=== PATIENT | female | born 1930 | race Caucasian/White ===

== ENCOUNTER 2019-08-28 11:49 | Emergency (ER) | payer MEDICARE, OTHER ==
[~2019-08-28] VITALS: Ht 162.6 cm; Wt 70.3 kg
--- OUTSIDE RECORDS SUMMARY | ~2019-08-28 | XMS | Encounter Summary ---
Demographics + + + | Address | [address] | | | [place] [address] | + + + | Home Phone | | + + + | Preferred Language | Unknown | + + + | Marital Status | | + + + | Hinduism Affiliation | 1028 | + + + | Race | Unknown | + + + | Ethnic Group | Unknown | + + + Author + + + | Author | [facility] | | | and [place] | + + + | Organization | [facility] | | | and [place] | + + + | Address | Unknown | + + + | Phone | Unavailable | + + + Support + + +---------+ + | Name | Relationship | Address | Phone | + + +---------+ + | Reyes Menon | ECON | Unknown | | + + +---------+ + Care Team Providers + +------+ + | Care Seat Mender Name | Role | Phone | + +------+ + | Bubba Peña MD | PCP | | + +------+ + Encounter Details +--------+ + + + + | Date | Type | Department | Care Team | Description | +--------+ + + + + | 04/25/ | Hospital | [facility] | [place], | Lumbar | | 2017 | Encounter | MED CTR XRAY [address] | MARIELLA Meneses [address] | radiculopathy; | | | | [place] | [address], | Foraminal stenosis | | | | [place] [address] | [place] [address] | of lumbar region; | | | | [phone] | [phone] | Lumbar spinal | | | | | | stenosis; | | | | | 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 | Spondylolisthesis of | | | | | | lumbar region; DDD | | | | | | (degenerative disc | | | | | | disease), lumbar | +--------+ + + + + Social History + +-------+ +--------+------+ | Tobacco Use | Types | Packs/Day | Years | Date | | | | | Used | | + +-------+ +--------+------+ | Never Smoker | | | | | + +-------+ +--------+------+ + +---+---+---+ | Smokeless Tobacco: | | | | | Never Used | | | | + +---+---+---+ + + +---------+ + | Alcohol Use | Drinks/Week | oz/Week | Comments | + + +---------+ + | No | 0 Standard drinks | 0.0 | | | | or equivalent | | | + + +---------+ + + + + | Sex Assigned at | Date Recorded | | | | + + + | Not on file | | + + + + + + + | Job Start Date | Occupation | Industry | + + + + | Not on file | Not on file | Not on file | + + + + + + + + | Travel History | Travel Start | Travel End | + + + + + + | No recent travel history available. | + + documented as of this encounter Last Filed Vital Signs + +---------+ + + | Vital Sign | Reading | Time Taken | Comments | + +---------+ + + | Blood Pressure | 132/80 | 04/25/2017 12:06 PM | | | | | PDT | | + +---------+ + + | Pulse | - | - | | + +---------+ + + | Temperature | - | - | | + +---------+ + + | Respiratory Rate | - | - | | + +---------+ + + | Oxygen Saturation | - | - | | + +---------+ + + | Inhaled Oxygen | - | - | | | Concentration | | | | + +---------+ + + | Weight | - | - | | + +---------+ + + | Height | - | - | | + +---------+ + + | Body Mass Index | - | - | | + +---------+ + + documented in this encounter Medications at Time of Discharge + + + +---------+ + + | Medication | Sig | Dispensed | Refills | Start | End Date | | | | | | Date | | + + + +---------+ + + | aspirin 81 MG | Take 81 mg by mouth | | 0 | | | | tablet | Daily. | | | | | + + + +---------+ + + | calcium-vitamin D | Take 600 mg by | | 0 | | | | 600 mg-200 units per | mouth. | | | | | | tablet | | | | | | + + + +---------+ + + | atorvaSTATin | Take 10 mg by mouth. | | 0 | | | | (LIPITOR) 10 mg | | | | | 9 | | tablet | | | | | | + + + +---------+ + + | Calcium Carbonate | Take by mouth | | 0 | | | | (CALCIUM 600 PO) | Daily. | | | | 9 | + + + +---------+ + + | clopidogrel | Take 75 mg by mouth | | 0 | | | | (PLAVIX) 75 mg | Daily. | | | | 9 | | tablet | | | | | | + + + +---------+ + + | cycloSPORINE | 1 drop. | | 0 | | | | (RESTASIS) 0.05% | | | | | 9 | | ophthalmic emulsion | | | | | | + + + +---------+ + + | famotidine | Daily. | | 1 | 12/11/19 | | | (PEPCID) 20 mg | | | | 17 | 9 | | tablet | | | | | | + + + +---------+ + + | | Take 1,500 mg by | | 0 | | | | Glucosamine-Chondroi | mouth. | | | | 9 | | t-Vit C-Mn | | | | | | | (GLUCOSAMINE-CHONDRO | | | | | | | ITIN) CAPS | | | | | | + + + +---------+ + + | isosorbide | Take 30 mg by mouth | | 0 | | | | dinitrate (ISORDIL) | 4 times daily. | | | | 9 | | 30 MG tablet | | | | | | + + + +---------+ + + | ketotifen | Apply 1 drop to eye. | | 0 | | | | (ZADITOR) 0.025% | | | | | 9 | | ophthalmic solution | | | | | | + + + +---------+ + + | ketotifen | Apply 1 drop to eye | | 0 | 01/17/20 | | | (ZADITOR) 0.025% | 2 times daily. | | | 17 | 9 | | ophthalmic solution | | | | | | + + + +---------+ + + | metoprolol | Take by mouth 2 | | 0 | 11/27/19 | | | tartrate (LOPRESSOR) | times daily. | | | 17 | 9 | | 25 mg tablet | | | | | | + + + +---------+ + + | Multiple | Take 300 mg by mouth | | 0 | | | | Vitamins-Minerals | Daily. | | | | 9 | | (CENTRAL-JESUS PO) | | | | | | + + + +---------+ + + | nitroglycerin | Place 1 tablet under | | 0 | 03/27/20 | | | (NITROSTAT) 0.4 mg | the tongue every 5 | | | 17 | 9 | | SL tablet | (five) minutes as | | | | | | | needed for Chest | | | | | | | pain. Indications: | | | | | | | Acute Angina | | | | | | | Pectoris | | | | | + + + +---------+ + + | nitroglycerin | Place 0.4 mg under | | 0 | 03/14/20 | | | (NITROSTAT) 0.4 mg | the tongue. | | | 16 | 9 | | SL tablet | | | | | | + + + +---------+ + + | simvastatin | Take 10 mg by mouth | | 0 | | | | (ZOCOR) 10 mg tablet | Daily. | | | | 9 | + + + +---------+ + + | UNABLE TO FIND | 3 times daily. Med | | 0 | | | | | Name: Kamilah Ta | | | | 9 | + + + +---------+ + + documented as of this encounter Plan of Treatment +--------+---------+ + + + | Date | Type | Specialty | Care Team | Description | +--------+---------+ + + + | 02/09/ | Office | Cardiology | KarlGarcia, | | | 2019 | Visit | | MD Ashlie ALFARO | | | | | | [place] | | | | | | [id number] | | | | | | | | +--------+---------+ + + + documented as of this encounter Procedures + +--------+ + + + | Procedure Name | Priori | Date/Time | Associated Diagnosis | Comments | | | ty | | | | + +--------+ + + + | FL EPIDURAL STEROID | Routin | 04/25/2017 | Lumbar | Results for this | | INJECTION LUMBAR | e | 11:48 AM | radiculopathy | procedure are in the | | TRANSFORAMINAL | | PDT | Foraminal stenosis | results section. | | | | | of lumbar region | | | | | | Lumbar spinal | | | | | | stenosis | | | | | | Spondylolisthesis of | | | | | | lumbar region DDD | | | | | | (degenerative disc | | | | | | disease), lumbar | | + +--------+ + + + documented in this encounter Results FL OFE Lumbar Transforaminal (04/25/2017 11:48 AM PDT) + + | Specimen | + + | | + + + + ---+ | Narrative | Performed At | + + ---+ | 04/25/2017 | [facility] | | Bilateral Transforaminal Epidural Steroid Injections Diagnosis: Lumbar | [facility] | | radiculopathy ICD-10 Code M54.16 Liz Dominguez [facility] | | fluoroscopy suite for fluoroscopically-guided bilateral L4-L5 | - IMAGING | | transforaminal epidural steroid injections as part of conservative | | | management for chronic pain with lumbar radiculopathy and degenerative | | | disk disease. After informed consent was obtained, the patient lay in | | | the prone position on the fluoroscopy table. The areas were | | | identified under fluoroscopic guidance. The areas were prepped and | | | draped in sterile fashion. A 25-gauge, 1.5-inch needle was inserted | | | into each region and approximately 3 mL of buffered 1% lidocaine was | | | infused. Then, a 22-gauge spinal needle was inserted into the | | | posterior superior transforaminal space bilaterally and advanced into | | | the epidural space under fluoroscopic guidance. Confirmation into the | | | epidural space was obtained with infusion of approximately 1 mL of | | | Omnipaque contrast which showed epidural flow as well as nerve sheath | | | flow. Then, a combination of 2 mL of 1% lidocaine and 2 mL of 6 mg/mL | | | Celestone was infused, divided between the two sides. The patient | | | tolerated the procedure well without complications. Pre- and | | | post-procedure blood pressures were stable. The patient was given | | | verbal as well as written follow-up instructions. Prior to the start | | | of the procedure, the following were performed and/or verified, | | | including correct patient identity, correct site/side marked and | | | visible, agreement on the procedure to be done, correct patient | | | positioning and an accurate procedure consent form. Any safety | | | precautions based on clinical history and/or medication use have been | | | addressed. I personally performed the procedure above. Estimated blood | | | loss: MinimalComplications: NoneFindings: As expectedAnesthesia: | | | Local 1% Lidocaine | | |visible, agreement on the procedure to be done, correct patient | | |positioning and an accurate procedure consent form. Any safety precautions | | |based on clinical history and/or medication use have been addressed. I | | |personally performed the procedure above. | | | | | |Estimated blood loss: Minimal | | |Complications: None | | |Findings: As expected | | |Anesthesia: Local 1% Lidocaine | | | | | | | | + + ---+ + + + + + | Performing | Address | City/State/Zipcode | Phone Number | | Organization | | | | + + + + + | KARIN MERINO | [address] 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 Not | | | | | | | for IV use., | | | | | | + +--------+ +-------+------+------+ +---+---+ | | | +---+---+ + +-------+ +-------+---+---+ | iohexol (OMNIPAQUE 300) 300 | Given | 04/25/20 | 4 mLs | | | | mg/mL injection 4 mL 4 mL, | | 17 11:56 | | | | | Other, ONCE, [facility] 04/25/17 at 1200, | | AM PDT | | | | | For 1 dose | | | | | | + +-------+ +-------+---+---+ +---+---+ | | | +---+---+ + +-------+ +-------+---+---+ | lidocaine (PF) 1% injection 2 | Given | 04/25/20 | 2 mLs | | | | mL 2 mL, Other, ONCE, Shanti | | 17 11:59 | | | | | 04/25/17 at 1200, For 1 dose | | AM PDT | | | | + +-------+ +-------+---+---+ +---+---+ | | | +---+---+ + +-------+ +--------+---+---+ | lidocaine buffered 1% injection | Given | 04/25/20 | 10 mLs | | | | 10 mL 10 mL, Other, ONCE, Shanti | | 17 11:54 | | | | | 04/25/17 at 1200, For 1 dose | | AM PDT | | | | + +-------+ +--------+---+---+ +---+---+ | | | +---+---+ documented in this encounter"
--- OUTSIDE RECORDS SUMMARY | ~2019-08-28 | XMS | Encounter Summary ---
Demographics + + + | Address | [address] | | | [place] [address] | + + + | Home Phone | | + + + | Preferred Language | Unknown | + + + | Marital Status | | + + + | Methodist Affiliation | 1028 | + + + | Race | Unknown | + + + | Ethnic Group | Unknown | + + + Author + + + | Author | [facility] | | | and [place] | + + + | Organization | [facility] | | | and [...] Team Providers + +------+ + | Care Mushroom Farmer Name | Role | Phone | + +------+ + | Bubba Peña MD | PCP | | + +------+ + Encounter Details +--------+ + + + + | Date | Type | Department | Care Team | Description | +--------+ + + + + | 05/06/ | Orders Only | [facility] | Provider, | | | 2019 | | SYSTEM GENERIC OP | MD [address] | | | | | [address] | [place] | | | | | [address] [place], [place] | [place] [address] | | | | | [address] | | | | | | [phone] | | | +--------+ + + + + Social [...] | 02/09/ | Office | Cardiology | Garcia Barajas, | | | 2019 | Visit | | MD Ashlie ALFARO | | | | | | [facility] | | | | | | [address] | | | | | | | | +--------+---------+ + + + documented as of this encounter Visit Diagnoses Not on filedocumented in this encounter"
--- OUTSIDE RECORDS SUMMARY | ~2019-08-28 | XMS | Encounter Summary ---
Demographics + + + | Address | [address] | | | [place] [address] | + + + | Home Phone | | + + + | Preferred Language | Unknown | + + + | Marital Status | | + + + | Alevism Affiliation | 1028 | + + + | Race | Unknown | + + + | Ethnic Group | Unknown | + + + Author + + + | Author | [facility] | | | and [place] | + + + | Organization | [facility] | | | [...] Team Providers + +------+ + | Care Executive Coordinator Name | Role | Phone | + +------+ + PCP | Unavailable | + +------+ + Encounter Details +--------+ + + + + | Date | Type | Department | Care Team | Description | +--------+ + + + + | 12/19/ | Hospital | [facility] | | | | 2006 - | Encounter | MED CTR CANCER | | | | | | MINDY Rios | | | | 01/11/ | | [place] | | | | 2006 | | [address] | | | | | | [phone] | | | +--------+ + + + + Social History + +-------+ +--------+------+ | Tobacco Use | Types | Packs/Day | Years | Date | | | | | Used | | + +-------+ +--------+------+ | Never Assessed | | | | | + +-------+ +--------+------+ + + + | Sex Assigned at [...] AL[place] | | | | | | [place] | | | | | | [address] | | | | | | | | +--------+---------+ + + + documented as of this encounter Visit Diagnoses Not on filedocumented in this encounter"
--- OUTSIDE RECORDS SUMMARY | ~2019-08-28 | XMS | Encounter Summary ---
Demographics + + + | Address | [address] | | | [place] [address] | + + + | Home Phone | | + + + | Preferred Language | Unknown | + + + | Marital Status | | + + + | Church Affiliation | 1028 | + + + | Race | Unknown | + + + | Ethnic Group | Unknown | + + + Author + + + | Author | [facility] | | | and [place] | + + + | Organization | [facility] | | | [...] Team Providers + +------+ + | Care Senior Lead Project Manager Name | Role | Phone | + +------+ + PCP | Unavailable | + +------+ + Encounter Details +--------+ + + + + | Date | Type | Department | Care Team | Description | +--------+ + + + + | 02/13/ | Hospital | [facility] | Nita, | | | 2006 - | Encounter | MED CTR MED ONC | Zana Villalta MD [address] | | | | | [address] [place] | [facility] | | | 02/18/ | | [place] [address] | [place] [address] | | | 2006 | | [phone] | [phone] | | | | | | | | +--------+ + + + [...] | | | | | [place] | | | | | | [address] | | | | | | | | +--------+---------+ + + + documented as of this encounter Visit Diagnoses Not on filedocumented in this encounter"
--- OUTSIDE RECORDS SUMMARY | ~2019-08-28 | XMS | Encounter Summary ---
Demographics + + + | Address | [address] | | | [place] [address] | + + + | Home Phone | | + + + | Preferred Language | Unknown | + + + | Marital Status | | + + + | Denominational Affiliation | 1028 | + + + | Race | Unknown | + + + | Ethnic Group | Unknown | + + + Author + + + | Author | [facility] | | | and [place] | + + + | Organization | [facility] | | | [...] Team Providers + +------+ + | Care Sieve Repairer Name | Role | Phone | + +------+ + PCP | Unavailable | + +------+ + Encounter Details +--------+ + + + + | Date | Type | Department | Care Team | Description | +--------+ + + + + | 04/08/ | Hospital | [facility] | Nita, | | | 2006 - | Encounter | MED CTR CANCER | Zana Villalta MD [address] | | | | | CENTER [address] | [facility] | | | 04/12/ | | [place] | [place] [address] | | | 2006 | | [address] | [phone] | | | | | [phone] | | | +--------+ + + + [...] | | | | | [place] | | | | | | [address] | | | | | | | | +--------+---------+ + + + documented as of this encounter Visit Diagnoses Not on filedocumented in this encounter"
--- OUTSIDE RECORDS SUMMARY | ~2019-08-28 | XMS | Clinical Summary ---
Demographics + + + | Address | [address] | | | [place] [address] | + + + | Home Phone | | + + + | Preferred Language | Unknown | + + + | Marital Status | | + + + | Scientologist Affiliation | 1028 | + + + | Race | Unknown | + + + | Ethnic Group | Unknown | + + + Author + + + | Author | [facility] | | | and [place] | + + + | Organization | [facility] | | | [...] Team Providers + +------+ + | Care Wind Turbine Design Engineer Name | Role | Phone | + +------+ + | Nancy Lora | PCP | | | PA | | | + +------+ + Allergies No Known Allergies Medications + + + +---------+------+------+-------+ | Medication | Sig | Dispensed | Refills | Star | End | Statu | | | | | | t | Date | s | | | | | | Date | | | + + + +---------+------+------+-------+ | aspirin 81 MG | Take 81 mg by mouth | | 0 | | | Activ | | tablet | Daily. | | | | | e | + + + +---------+------+------+-------+ | calcium-vitamin D | Take 600 mg by | | 0 | | | Activ | | 600 mg-200 units per | mouth. | | | | | e | | tablet | | | | | | | + + + +---------+------+------+-------+ | | Take 1,500 mg by | | 0 | | | Activ | | Glucosamine-Chondroi | mouth daily. | | | | | e | | t-Vit C-Mn | | | | | | | | (GLUCOSAMINE CHONDR | | | | | | | | 1500 COMPLX PO) | | | | | | | + + + +---------+------+------+-------+ | atorvaSTATin | take 1 tablet by | | 0 | 08/16 | | Activ | | (LIPITOR) 20 mg | mouth NIGHTLY. DO | | | 020 | | e | | tablet | NOT TAKE SATURDAY OR | | | 18 | | | | | REYNALDO | | | | | | + + + +---------+------+------+-------+ | omeprazole | Take 1 tablet by | 30 | 3 | 10/2 | | Activ | | (PRILOSEC OTC) 20 mg | mouth every morning | tablet | | 3/20 | | e | | tablet | (before breakfast). | | | 19 | | | + + + +---------+------+------+-------+ | nitroglycerin | dissolve 1 tablet | 25 | 3 | 10/2 | | Activ | | (NITROSTAT) 0.4 mg | under the tongue | tablet | | 4/20 | | e | | SL tablet | every 5 minutes if | | | 19 | | | | | needed for chest | | | | | | | | pain | | | | | | + + + +---------+------+------+-------+ | simvastatin | Take 10 mg by mouth | | 0 | | 10/2 | Disco | | (ZOCOR) 10 mg tablet | Daily. | | | | 3/20 | ntinu | | | | | | | 19 | ed | | | | | | | | (Ther | | | | | | | | apy | | | | | | | | compl | | | | | | | | eted) | + + + +---------+------+------+-------+ | metoprolol | Take by mouth 2 | | 0 | 11/14 | 07/15 | Disco | | tartrate (LOPRESSOR) | times daily. | | | 01/31 | 12/31 | ntinu | | 25 mg tablet | | | | 17 | 19 | ed | | | | | | | | (Ther | | | | | | | | apy | | | | | | | | compl | | | | | | | | eted) | + + + +---------+------+------+-------+ | famotidine | Daily. | | 1 | 11/15 | 07/15 | Disco | | (PEPCID) 20 mg | | | | 06/02 | 20 | ntinu | | tablet | | | | 17 | 19 | ed | | | | | | | | (Ther | | | | | | | | apy | | | | | | | | compl | | | | | | | | eted) | + + + +---------+------+------+-------+ | nitroglycerin | Place 0.4 mg under | | 0 | 06/0 | 10/2 | Disco | | (NITROSTAT) 0.4 mg | the tongue. | | | 1/20 | 3/20 | ntinu | | SL tablet | | | | 16 | 19 | ed | | | | | | | | (Ther | | | | | | | | apy | | | | | | | | compl | | | | | | | | eted) | + + + +---------+------+------+-------+ | cycloSPORINE | 1 drop. | | 0 | | 10/2 | Disco | | (RESTASIS) 0.05% | | | | | 3/20 | ntinu | | ophthalmic emulsion | | | | | 19 | ed | | | | | | | | (Ther | | | | | | | | apy | | | | | | | | compl | | | | | | | | eted) | + + + +---------+------+------+-------+ | atorvaSTATin | Take 10 mg by mouth. | | 0 | | 10/2 | Disco | | (LIPITOR) 10 mg | | | | | 3/20 | ntinu | | tablet | | | | | 19 | ed | | | | | | | | (Ther | | | | | | | | apy | | | | | | | | compl | | | | | | | | eted) | + + + +---------+------+------+-------+ | ketotifen | Apply 1 drop to eye. | | 0 | | 10/2 | Disco | | (ZADITOR) 0.025% | | | | | 3/20 | ntinu | | ophthalmic solution | | | | | 19 | ed | | | | | | | | (Ther | | | | | | | | apy | | | | | | | | compl | | | | | | | | eted) | + + + +---------+------+------+-------+ | | Take 1,500 mg by | | 0 | | 10/2 | Disco | | Glucosamine-Chondroi | mouth. | | | | 3/20 | ntinu | | t-Vit C-Mn | | | | | 19 | ed | | (GLUCOSAMINE-CHONDRO | | | | | | (Ther | | ITIN) CAPS | | | | | | apy | | | | | | | | compl | | | | | | | | eted) | + + + +---------+------+------+-------+ | Calcium Carbonate | Take by mouth | | 0 | | 10/2 | Disco | | (CALCIUM 600 PO) | Daily. | | | | 3/20 | ntinu | | | | | | | 19 | ed | | | | | | | | (Ther | | | | | | | | apy | | | | | | | | compl | | | | | | | | eted) | + + + +---------+------+------+-------+ | Multiple | Take 300 mg by mouth | | 0 | | 10/2 | Disco | | Vitamins-Minerals | Daily. | | | | 3/20 | ntinu | | (CENTRAL-JESUS PO) | | | | | 19 | ed | | | | | | | | (Ther | | | | | | | | apy | | | | | | | | compl | | | | | | | | eted) | + + + +---------+------+------+-------+ | UNABLE TO FIND | 3 times daily. Med | | 0 | | 10/2 | Disco | | | Name: Kamilah Ta | | | | 3/20 | ntinu | | | | | | | 19 | ed | | | | | | | | (Ther | | | | | | | | apy | | | | | | | | compl | | | | | | | | eted) | + + + +---------+------+------+-------+ | ketotifen | Apply 1 drop to eye | | 0 | 04/0 | 10/2 | Disco | | (ZADITOR) 0.025% | 2 times daily. | | | 5/20 | 3/20 | ntinu | | ophthalmic solution | | | | 17 | 19 | ed | | | | | | | | (Ther | | | | | | | | apy | | | | | | | | compl | | | | | | | | eted) | + + + +---------+------+------+-------+ | isosorbide | Take 30 mg by mouth | | 0 | | 10/2 | Disco | | dinitrate (ISORDIL) | 4 times daily. | | | | 3/20 | ntinu | | 30 MG tablet | | | | | 19 | ed | | | | | | | | (Ther | | | | | | | | apy | | | | | | | | compl | | | | | | | | eted) | + + + +---------+------+------+-------+ | clopidogrel | Take 75 mg by mouth | | 0 | | 10/2 | Disco | | (PLAVIX) 75 mg | Daily. | | | | 3/20 | ntinu | | tablet | | | | | 19 | ed | | | | | | | | (Ther | | | | | | | | apy | | | | | | | | compl | | | | | | | | eted) | + + + +---------+------+------+-------+ | CALCIUM | Take 600 mg by mouth | | 0 | | 10/2 | Disco | | CARB-CHOLECALCIFEROL | daily. | | | | 3/20 | ntinu | | PO | | | | | 19 | ed | | | | | | | | (Ther | | | | | | | | apy | | | | | | | | compl | | | | | | | | eted) | + + + +---------+------+------+-------+ | UNABLE TO FIND | 2 Caps by | | 0 | | 10/2 | Disco | | | Misc.(Non-Drug; | | | | 3/20 | ntinu | | | Combo Route) route | | | | 19 | ed | | | every morning. | | | | | (Ther | | | | | | | | apy | | | | | | | | compl | | | | | | | | eted) | + + + +---------+------+------+-------+ | Multiple | Take by mouth | | 0 | | 10/2 | Disco | | Vitamins-Minerals | daily. | | | | 3/20 | ntinu | | (CENTRAL-JESUS PO) | | | | | 19 | ed | | | | | | | | (Ther | | | | | | | | apy | | | | | | | | compl | | | | | | | | eted) | + + + +---------+------+------+-------+ | | 1 drop 3 (three) | | 0 | | 10/2 | Disco | | Carboxymethylcellulo | times daily. | | | | 3/20 | ntinu | | se Sodium (CELLUVISC | | | | | 19 | ed | | OP) | | | | | | (Ther | | | | | | | | apy | | | | | | | | compl | | | | | | | | eted) | + + + +---------+------+------+-------+ | latanoprost | 1 drop nightly. | | 0 | | 10/2 | Disco | | (XALATAN) 0.005% | | | | | 3/20 | ntinu | | ophthalmic solution | | | | | 19 | ed | | | | | | | | (Ther | | | | | | | | apy | | | | | | | | compl | | | | | | | | eted) | + + + +---------+------+------+-------+ | nitroglycerin | Place 1 tablet under | | 0 | 06/ | 10/2 | Disco | | (NITROSTAT) 0.4 mg | the tongue every 5 | | | 01/31 | 01/31 | ntinu | | SL tablet | (five) minutes as | | | 17 | 19 | ed | | | needed for Chest | | | | | (Reor | | | pain. Indications: | | | | | nesha) | | | Acute Angina | | | | | | | | Pectoris | | | | | | + + + +---------+------+------+-------+ | | take 1 to 2 tablets | | 0 | 08/2 | 07/15 | Disco | | acetaminophen-codein | by mouth four times | | | 06/02 | 12/31 | ntinu | | e (TYLENOL #3) | a day if needed for | | | 18 | 19 | ed | | 300-30 mg per tablet | pain | | | | | (Ther | | | | | | | | apy | | | | | | | | compl | | | | | | | | eted) | + + + +---------+------+------+-------+ | VENTOLIN HFA 108 | inhale 1 to 2 puffs | | 0 | 03/1 | 10/2 | Disco | | (90 Base) MCG/ACT | by mouth every 4 to | | | 11/02 | 3/20 | ntinu | | inhaler | 6 hours if needed as | | | 19 | 19 | ed | | | directed | | | | | (Ther | | | | | | | | apy | | | | | | | | compl | | | | | | | | eted) | + + + +---------+------+------+-------+ | azithromycin | take 2 tablets by | | 0 | 03/0 | 10/2 | Disco | | (ZITHROMAX) 250 mg | mouth on day 1 in | | | 5/20 | 3/20 | ntinu | | tablet | one dose then 1 | | | 19 | 19 | ed | | | tablet on days 2 | | | | | (Ther | | | through 5 | | | | | apy | | | | | | | | compl | | | | | | | | eted) | + + + +---------+------+------+-------+ | azithromycin | take 1 tablet by | | 0 | 10/2 | 10/2 | Disco | | (ZITHROMAX) 500 MG | mouth once daily | | | 3/20 | 3/20 | ntinu | | tablet | | | | 18 | 19 | ed | | | | | | | | (Ther | | | | | | | | apy | | | | | | | | compl | | | | | | | | eted) | + + + +---------+------+------+-------+ | furosemide (LASIX) | take 1 tablet by | | 0 | 04/2 | 10/2 | Disco | | 20 mg tablet | mouth once daily if | | | 01/31 | 12/31 | ntinu | | | needed for shortness | | | 19 | 19 | ed | | | of breath | | | | | (Ther | | | | | | | | apy | | | | | | | | compl | | | | | | | | eted) | + + + +---------+------+------+-------+ | potassium chloride | take 1 tablet by | | 0 | 03/ | /2 | Disco | | (KLOR-CON) 10 MEQ | mouth once daily | | | 12/03 | 12/31 | ntinu | | ER tablet | | | | 19 | 19 | ed | | | | | | | | (Ther | | | | | | | | apy | | | | | | | | compl | | | | | | | | eted) | + + + +---------+------+------+-------+ | predniSONE | take 3 tablets by | | 0 | 03/1 | 10/2 | Disco | | (DELTASONE) 20 mg | mouth once daily for | | | 11/02 | 3/20 | ntinu | | tablet | 5 days as directed | | | 19 | 19 | ed | | | | | | | | (Ther | | | | | | | | apy | | | | | | | | compl | | | | | | | | eted) | + + + +---------+------+------+-------+ Active Problems + + + | Problem | Noted Date | + + + | Proteinuria | 10/17/2018 | + + + | Lumbar spinal stenosis | 02/07/2017 | + + + | Spondylolisthesis of lumbar region | 01/30/2017 | + + + | Foraminal stenosis of lumbar region | 01/30/2017 | + + + | Lumbar radiculopathy | 01/30/2017 | + + + | DDD (degenerative disc disease), lumbar | 01/30/2017 | + + + | Sinus bradycardia | 01/16/2017 | + + + | Anemia | 03/13/2016 | + + + | Coronary artery disease involving [place] coronary artery of | 03/13/2016 | | [place] heart without angina pectoris | | + + + + + | Overview: Last Assessment & Plan: 3V-CAD, Hx PCI/stent, LVEF | | 40%. 86yo WF, doing well, relatively active, exercising on | | a regular basis at the [employer], she denies any chest discomfort, | | palpitations, or shortness of breath. However, she does admit | | she is somewhat fatigued, not able to work in the yard as long as | | she used to. She complains of some minor bruising. There is no | | bleeding. Other than the bruising, she is tolerating her | | medications. No changes in therapy. Again I stressed to her | | that she'll be on dual antiplatelet therapy for one year, I've | | also requested her to take Pepcid for GI protection. The nuclear | | perfusion study shows minimal residual ischemia, preserved | | ejection fraction. Tolerating medications. We did increase her | | Pepcid to 20 mg twice daily. Labs anticipated.Hx CABG: noHx | | PCI/stent: 03/12/2016, prox-LCx (3.0*12mm Synergy LANDON).Hx | | Pacemaker/ICD: noLast Cath, 03/12/2016: left main OK, LAD [address] JUDGE, 90% | | prox-LCx, moderate tandom lesions prox/mid-RCA. LCx | | stented.Last Echo, 03/12/2016: LVEF 40%, trace AI, mild MR.Last | | Stress Test, 07/25/2016 ([facility]): Lexiscan, minimal | | ischemia distal rnhoqt-lxsiip-leww, moderate dyskinesis, LVEF | | 56%.48hr HM, 06/25/2013: Sinus rhythm 54-116, averaging 76bpm, low | | frequency PACs, PVCs and short bursts of PAT 120-130bpm, no | | pauses noted, no A. fib.ECG, 04/04/2016: sinus rhythm, 69bpm, ID | | at upper limits, old addie-septal ID, old inferior ID, non-spec | | ST-T changes aVL. | + + + + + | Anemia due to stage 3 chronic kidney disease | 03/11/2016 | + + + | NSTEMI (non-ST elevated myocardial infarction) | 03/11/2016 | + + + Resolved Problems + + + + | Problem | Noted | Resolved | | | Date | Date | + + + + | Acute systolic heart failure | 03/13/20 | | | | 16 | 9 | + + + + | Acute respiratory failure | 03/11/20 | | | | 16 | 9 | + + + + | Community acquired pneumonia | 03/11/20 | | | | 16 | 9 | + + + + Encounters +--------+---------+ + + + | Date | Type | Specialty | Care Team | Description | +--------+---------+ + + + | 08/06/ | Refill | Cardiology | Garcia Barajas, | Medication Refill | | 2018 | | | MD | | +--------+---------+ + + + | 08/05/ | Office | Cardiology | Garcia Barajas, | Coronary artery | | 2018 | Visit | | MD | disease involving | | | | | | [place] coronary | | | | | | artery of [place] | | | | | | heart without angina | | | | | | pectoris (Primary | | | | | | Dx); NSTEMI (non-ST | | | | | | elevated myocardial | | | | | | infarction) ([facility]); | | | | | | Sinus bradycardia | +--------+---------+ + + + from Last 3 Months Immunizations + + + + | Name | Administration Dates | Next Due | + + + + | INFLUENZA, | 06/14/2015 | | | UNSPECIFIED | | | | FORMULATION | | | + + + + | PNEUMOCOCCAL | 02/11/2015 | | | POLYSACCHARIDE | | | | 23-VALENT (PPSV23) | | | + + + + Family History + + +------+ + | Medical History | Relation | Name | Comments | + + +------+ + | Cancer | Brother | | | + + +------+ + | No known problems | Child | | | + + +------+ + | No known problems | Child | | | + + +------+ + | Alcohol abuse | Father | | | + + +------+ + | Diabetes | Father | | | + + +------+ + | Hypertension | Father | | | + + +------+ + | Diabetes, NIDDM | Father | | | + + +------+ + | Other (see comment) | Father | | Melanoma | + + +------+ + | No known problems | Maternal | | | | | Aunt | | | + + +------+ + | No known problems | Maternal | | | | | Grandfath | | | | | er | | | + + +------+ + | No known problems | Maternal | | | | | Grandmoth | | | | | er | | | + + +------+ + | Cancer | Maternal | | | | | Uncle | | | + + +------+ + | Other (see comment) | Mother | | Heart problems | + + +------+ + | Heart attack | Mother | | | + + +------+ + | Hypertension | Mother | | | + + +------+ + | Arthritis | Other | | Family HX | + + +------+ + | Cancer | Paternal | | | | | Aunt | | | + + +------+ + | Cancer | Paternal | | | | | Grandfath | | | | | er | | | + + +------+ + | No known problems | Paternal | | | | | Grandmoth | | | | | er | | | + + +------+ + | No known problems | Paternal | | | | | Uncle | | | + + +------+ + | Cancer | Sister | | | + + +------+ + | Lung cancer | Sister | | | + + +------+ + + +------+ + + | Relation | Name | Status | Comments | + +------+ + + | Brother | | | | | | | (Age | | | | | 81) | | + +------+ + + | Brother | | | | + +------+ + + | Child | | Other | Status Unknown | + +------+ + + | Child | | Other | Status Unknown | + +------+ + + | Child | | | | + +------+ + + | Child | | | | + +------+ + + | Father | | | | + +------+ + + | Father | | | DMII,alcoholic | | | | (Age | | | | | 72) | | + +------+ + + | Maternal Aunt | | | | | | | (Age | | | | | 88) | | + +------+ + + | Maternal Aunt | | | | + +------+ + + | Maternal Grandfather | | | | | | | (Age | | | | | 89) | | + +------+ + + | Maternal Grandmother | | | | | | | (Age | | | | | 80) | | + +------+ + + | Maternal Uncle | | | | | | | (Age | | | | | 82) | | + +------+ + + | Maternal Uncle | | | | + +------+ + + | Mother | | | | + +------+ + + | Mother | | | in her sleep | | | | (Age | | | | | 72) | | + +------+ + + | Other | | | | + +------+ + + | Paternal Aunt | | | | | | | (Age | | | | | 81) | | + +------+ + + | Paternal Aunt | | | | + +------+ + + | Paternal Grandfather | | | | | | | (Age | | | | | 80) | | + +------+ + + | Paternal Grandmother | | | | | | | (Age | | | | | 91) | | + +------+ + + | Paternal Uncle | | | | | | | (Age | | | | | 82) | | + +------+ + + | Paternal Uncle | | | | + +------+ + + | Sister | | | | | | | (Age | | | | | 78) | | + +------+ + + | Sister | | | | + +------+ + + | Sister | | | | + +------+ + + Social History + +-------+ +--------+------+ [...] recent travel history available. | + + Last Filed Vital Signs + + + + + | Vital Sign | Reading | Time Taken | Comments | + + + + + | Blood Pressure | 118/62 | 08/05/2019 2:03 PM | | | | | PDT | | + + + + + | Pulse | 68 | 08/05/2019 2:03 PM | | | | | PDT | | + + + + + | Temperature | 36.5 C (97.7 F) | 04/06/2017 7:51 AM | | | | | PDT | | + + + + + | Respiratory Rate | 16 | 04/06/2017 7:51 AM | | | | | PDT | | + + + + + | Oxygen Saturation | 96% | 08/05/2019 2:03 PM | | | | | PDT | | + + + + + | Inhaled Oxygen | - | - | | | Concentration | | | | + + + + + | Weight | 62 kg (136 lb 9.6 | 08/05/2019 2:03 PM | | | | oz) | PDT | | + + + + + | Height | 162.6 cm (5' 4") | 08/05/2019 2:03 PM | | | | | PDT | | + + + + + | Body Mass Index | 23.45 | 08/05/2019 2:03 PM | | | | | PDT | | + + + + + Plan of Treatment +--------+---------+ + + + | Date | Type | Specialty | Care Team | Description | +--------+---------+ + + + | 02/09/ | Office | Cardiology | Ezequiel Barajaspolly, | | | 2019 | Visit | | [address] | | | | | | [place] | | | | | | [address] | | | | | | | | +--------+---------+ + + + + + + + + | Health Maintenance | Due Date | Last Done | Comments | + + + + + | Vaccine: | | | | | Dtap/Tdap/Td (1 - | 0 | | | | Tdap) | | | | + + + + + | Vaccine: Zoster (1 | | | | | of 2) | 1 | | | + + + + + | Adult Annual | | | | | Wellness Visit | 5 | | | + + + + + | Vaccine: | | 02/11/2015 | | | Pneumococcal 65+ (2 | 6 | | | | of 2 - PCV13) | | | | + + + + + | Vaccine: Influenza | | 06/14/2015 | | | (#1) | 9 | | | + + + + + Implants + +--------+-------+ +--------+--------+--------+ | Implanted | Type | Area | Manufacture | Device | Shelf | Model | | | | | r | | Expira | / | | | | | | Identi | tion | Serial | | | | | | fier | Date | / Lot | + +--------+-------+ +--------+--------+--------+ | Stent Coronary Synergy | Cath | N/A: | [facility] | | 11/29/ | [id number] | | 3.0x12mm - | Lab | Heart | SCIENTIFIC | | 2017 | [id number] | | [id number]: | Implan | | KAYCEE - BSCI | | | 00 /NA | | 03/12/2016 (Quantity not on | ts | | | | | | | file) | | | | | | /[id number] | | | | | | | | 397 | + +--------+-------+ +--------+--------+--------+ Results Not on filefrom Last 3 Months Insurance + +--------+ +--------+ +---------+--------+ | Payer | Benefi | Subscriber | Effect | Phone | Address | Type | | | t Plan | ID | shahab | | | | | | / | | Dates | | | | | | Group | | | | | | + +--------+ +--------+ +---------+--------+ | MEDICARE | RAANUELRO | [id number] | 02/11/19 | [phone] | | Medica | | | AD | | 96-Pre | 5 | | re | | | MEDICA | | sent | | | | | | RE | | | | | | + +--------+ +--------+ +---------+--------+ | MEDICARE | RAANUELRO | [id number] | 02/11/19 | [phone] | | Medica | | | AD | | 96-Pre | 5 | | re | | | MEDICA | | sent | | | | | | RE | | | | | | + +--------+ +--------+ +---------+--------+ | [employer] | [place] | [id number] | 10/14/19 | [phone] | | Indemn | | | OF | | 10-Pre | 0 | | ity | | | [place] | | sent | | | | | | MDCR | | | | | | | | SUPPL | | | | | | + +--------+ +--------+ +---------+--------+ | [employer] | [employer] | [id number] | 10/14/19 | [phone] | | Indemn | | | OF | | 10-Pre | 0 | | ity | | | [employer] | | sent | | | | + +--------+ +--------+ +---------+--------+ + +--------+ +--------+ + + | Guarantor Name | Accoun | Relation to | Date | Phone | Billing Address | | | t Type | Patient | of | | | | | | | | | | + +--------+ +--------+ + + | Liz Dominguez | Person | Self [birth year] | [address] | | | al/Fam | | 1929 | [phone] | [place], [place] | | | rm | | | 1 (Home) | [address] | + +--------+ +--------+ + + | Liz Dominguez | Person | Self | [birth year] | [address] | | | al/Fam | | 1930 | [phone] | [place], [place] | | | rm | | | 1 (Home) | [address] | + +--------+ +--------+ + + Advance Directives + + + + + | Type | Date Recorded | Patient | Explanation | | | | Marketing Traffic Manager | | + + + + + | Power of | | | | | Customer Marketing Manager | | | | + + + + + | Advance | 01/30/2017 10:43 | | @ home | | Directive | AM | | | + + + + +
--- OUTSIDE RECORDS SUMMARY | ~2019-08-28 | XMS | Encounter Summary ---
Demographics + + + | Address | [address] | | | [place] [address] | + + + | Home Phone | | + + + | Preferred Language | Unknown | + + + | Marital Status | | + + + | Mosque Affiliation | 1028 | + + + | Race | Unknown | + + + | Ethnic Group | Unknown | + + + Author + + + | Author | [facility] | | | and [place] | + + + | Organization | [facility] | | | and [...] Team Providers + +------+ + | Care Infrastructure Engineer Name | Role | Phone | + +------+ + PCP | Unavailable | + +------+ + Encounter Details +--------+ + + + + | Date | Type | Department | Care Team | Description | +--------+ + + + + | 01/10/ | Hospital | [facility] | | | | 2008 - | Encounter | MED [facility] | | | | | | MINDY Rios | | | | 01/11/ | | [place] | | | | 2008 | | [address] | | | | | | [phone] | | | +--------+ + + + [...] [place] | | | | | | [address] | | | | | | | | +--------+---------+ + + + documented as of this encounter Visit Diagnoses Not on filedocumented in this encounter"
--- OUTSIDE RECORDS SUMMARY | ~2019-08-28 | XMS | Encounter Summary ---
Demographics + + + | Address | [address] | | | [place] [address] | + + + | Home Phone | | + + + | Preferred Language | Unknown | + + + | Marital Status | | + + + | Scientologist Affiliation | 1028 | + + + | Race | Unknown | + + + | Ethnic Group | Unknown | + + + Author + + + | Author | [facility] | | | and [place] | + + + | Organization | [facility] | | | [...] Team Providers + +------+ + | Care Controls Project Engineer Name | Role | Phone | + +------+ + PCP | Unavailable | + +------+ + Encounter Details +--------+ + + + + | Date | Type | Department | Care Team | Description | +--------+ + + + + | 01/04/ | Hospital | [facility] | | | | 2008 | Encounter | MED CTR XRAY [address] | | | | | [place] | | | | | | [place] [address] | | | | | | [phone] | | | +--------+ + + + [...] | | | | | [address] [place] | | | | | | [id number] | | | | | | | | +--------+---------+ + + + documented as of this encounter Visit Diagnoses Not on filedocumented in this encounter"
--- OUTSIDE RECORDS SUMMARY | ~2019-08-28 | XMS | Encounter Summary ---
Demographics + + + | Address | [address] | | | [place] [address] | + + + | Home Phone | | + + + | Preferred Language | Unknown | + + + | Marital Status | | + + + | Baptism Affiliation | 1028 | + + + | Race | Unknown | + + + | Ethnic Group | Unknown | + + + Author + + + | Author | [facility] | | | and [place] | + + + | Organization | [facility] | | | and [...] Team Providers + +------+ + | Care Deburring Technician Name | Role | Phone | + +------+ + | Nancy Lora | PCP | | | PA | | | + +------+ + Reason for Visit + + + | Reason | Comments | + + + | Follow-up | 6 mo | + + + Encounter Details +--------+---------+ + + + | Date | Type | Department | Care Team | Description | +--------+---------+ + + + | 08/05/ | Office | [facility] | Garcia Brooks, | Coronary artery | | 2019 | Visit | CARDIOLOGY [facility] | [address] | disease involving | | | | [address] | [place], [place] | [place] coronary | | | | [address] | [address] | artery of [place] | | | | [place] | | heart without angina | | | | [phone] | | pectoris (Primary | | | | [phone] | | Dx); NSTEMI (non-ST | | | | | | elevated myocardial | | | | | | infarction) ([facility]); | | | | | | Sinus bradycardia | +--------+---------+ + + + Social History + +-------+ [...] this encounter Last Filed Vital Signs + + + [...] + + + + | Temperature | - | - | | + + + + + | Respiratory Rate | - | - | | + + + + + [...] + + + documented in this encounter Progress Notes Garcia Brooks MD - 08/05/2019 2:45 PM PDTFormatting of this note might be different f rom the original. Date of visit: 08/05/2019 Primary Care Physician: RITA Singleton CHIEF COMPLAINT: Chief Complaint Patient presents with Follow-up 6 mo HISTORY OF PRESENT ILLNESS: Liz is 89 y.o. here for follow up visit. Pleasant active and good historian, continue to b e independent. Continue to go the gym where she does aerobics 3 times a week. Last hospitalization was in December 2018 was diagnosed with exacerbation of congestive heart failure. Was treated with furosemide, BNP was elevated, CT of the chest showed small bilateral pleur al effusion. Continue to complain of increasing lower back pain. No anginal symptoms. No recent hospitalization, denies any chest pain or shortness of breath. Having symptoms of GERD improve with TUMS. History of coronary artery disease states post PCI to left circumflex and RCA. Previous known total occlusion of LAD. Past medical history, SH, FH, and medications were reviewed in the chart. Medications: Outpatient Encounter Medications as of 08/05/2019 Medication Sig Dispense Refill [DISCONTINUED] acetaminophen-codeine (TYLENOL #3) 300-30 mg per tablet take 1 to 2 tabl ets by mouth four times a day if needed for pain 0 aspirin 81 MG tablet Take 81 mg by mouth Daily. [DISCONTINUED] atorvaSTATin (LIPITOR) 10 mg tablet Take 10 mg by mouth. atorvaSTATin (LIPITOR) 20 mg tablet take 1 tablet by mouth NIGHTLY. DO NOT TAKE OR SATURDAY [DISCONTINUED] azithromycin (ZITHROMAX) 250 mg tablet take 2 tablets by mouth on day 1 in one dose then 1 tablet on days 2 through 5 0 [DISCONTINUED] azithromycin (ZITHROMAX) 500 MG tablet take 1 tablet by mouth once daily 0 [DISCONTINUED] CALCIUM CARB-CHOLECALCIFEROL PO Take 600 mg by mouth daily. [DISCONTINUED] Calcium Carbonate (CALCIUM 600 PO) Take by mouth Daily. calcium-vitamin D 600 mg-200 units per tablet Take 600 mg by mouth. [DISCONTINUED] Carboxymethylcellulose Sodium (CELLUVISC OP) 1 drop 3 (three) times mary y. [DISCONTINUED] clopidogrel (PLAVIX) 75 mg tablet Take 75 mg by mouth Daily. [DISCONTINUED] cycloSPORINE (RESTASIS) 0.05% ophthalmic emulsion 1 drop. [DISCONTINUED] famotidine (PEPCID) 20 mg tablet Daily. 1 [DISCONTINUED] furosemide (LASIX) 20 mg tablet take 1 tablet by mouth once daily if nee ded for shortness of breath 0 Kfovosgeiay-Zghxcowhu-Zwr C-Mn (GLUCOSAMINE CHONDR 1500 COMPLX PO) Take 1,500 mg by catherine th daily. [DISCONTINUED] Zgsmyaajxlf-Uimyafasd-Qpx C-Mn (GLUCOSAMINE-CHONDROITIN) CAPS Take 1,500 mg by mouth. [DISCONTINUED] isosorbide dinitrate (ISORDIL) 30 MG tablet Take 30 mg by mouth 4 times daily. [DISCONTINUED] ketotifen (ZADITOR) 0.025% ophthalmic solution Apply 1 drop to eye. [DISCONTINUED] ketotifen (ZADITOR) 0.025% ophthalmic solution Apply 1 drop to eye 2 harshil es daily. [DISCONTINUED] latanoprost (XALATAN) 0.005% ophthalmic solution 1 drop nightly. [DISCONTINUED] metoprolol tartrate (LOPRESSOR) 25 mg tablet Take by mouth 2 times mary y. 0 [DISCONTINUED] Multiple Vitamins-Minerals (CENTRAL-JESUS PO) Take by mouth daily. [DISCONTINUED] Multiple Vitamins-Minerals (CENTRAL-JESUS PO) Take 300 mg by mouth Daily. nitroglycerin (NITROSTAT) 0.[address] 1 tablet under the tongue every 5 (fiv e) minutes as needed for Chest pain. Indications: Acute Angina Pectoris [DISCONTINUED] nitroglycerin (NITROSTAT) 0.[address] 0.4 mg under the tongue . [DISCONTINUED] potassium chloride (KLOR-CON) 10 MEQ ER tablet take 1 tablet by mouth on ce daily 0 [DISCONTINUED] predniSONE (DELTASONE) 20 mg tablet take 3 tablets by mouth once daily f or 5 days as directed 0 [DISCONTINUED] simvastatin (ZOCOR) 10 mg tablet Take 10 mg by mouth Daily. [DISCONTINUED] UNABLE TO FIND 2 Caps by Misc.(Non-Drug; Combo Route) route every mornin g. [DISCONTINUED] UNABLE TO FIND 3 times daily. Med Name: Thera Tears [DISCONTINUED] VENTOLIN HFA 108 (90 Base) MCG/ACT inhaler inhale 1 to 2 puffs by mouth every 4 to 6 hours if needed as directed 0 No facility-administered encounter medications on file as of 08/05/2019. Allergies No Known Allergies REVIEW OF SYSTEMS: Constitutional: Positive for fatigue, weight has been stable. HEENT: Negative for nosebleeds, ear discharge, nasal congestion or soar throat. Eyes: Negative for visual disturbance, redness, or secretion. Respiratory: Negative for cough, sputum production, hemoptysis, wheezing. Cardiovascular: as HPI. Gastrointestinal: Negative for nausea, vomiting, diarrhea, abdominal pain and blood in stoo l. Genitourinary: Negative for dysuria or hematuria. Musculoskeletal: chronic back pain. Skin: Negative for rash. Neurological: Negative for dizziness. No numbness. No recent falls. No slurred speech. Hematological: No significant bruising. Psychiatric/Behavioral: No depression or anxiety. PHYSICAL EXAM Vital Signs: BP 118/62 | Pulse 68 | Ht 1.626 m (5' 4") | Wt 62 kg (136 lb 9.6 oz) | SpO2 96% | BMI 23.45 kg/m GENERAL APPEARANCE: Alert, oriented, cooperative, no distress, appears stated age. HEENT: Extraocular movements were intact. No jaundice. Pupiles round and reactive. NECK: No JVD, lymphadenopathy. Carotid upstrokes normal. No carotid bruit heard. CARDIAC: Regular rhythm and rate. There is normal S1 and S2. Systolic murmur in the left lower sternal border, frequent ectopy. CHEST: Normal bilateral symmetrical chest excursion.ackles or wheezing. No evidence of dull ness. ABDOMEN: Soft.No tenderness or guarding. No palpable organs. Active bowel sounds. EXTREMITIES: No lower extremities edema, cyanosis or clubbing. NEURO: Alert and oriented times three with no focal deficit. Cranial nerves are grossly no rmal. SKIN: Warm and dry. No rash. Psych: Normal affect and mood. DATA Lab Results Component Value Date/Time NA 138 04/29/2019 11:46 NA 141 10/08/2018 10:05 NA 138 12/27/2017 00:00 NA 138 12/27/2017 00:00 K 4.6 04/29/2019 11:46 K 4.3 10/08/2018 10:05 K 4.6 12/27/2017 00:00 K 4.6 12/27/2017 00:00 CO2 26 04/29/2019 11:46 CO2 24 10/08/2018 10:05 CO2 21 12/27/2017 00:00 CO2 21 12/27/2017 00:00 BUN 31 (A) 04/29/2019 11:46 BUN 24 (A) 10/08/2018 10:05 BUN 19 12/27/2017 00:00 BUN 19 12/27/2017 00:00 CREA 1.05 07/29/2012 15:33 CALCIUM 9.3 04/29/2019 11:46 CALCIUM 9.1 10/08/2018 10:05 CALCIUM 9.5 12/27/2017 00:00 CALCIUM 9.5 12/27/2017 00:00 CALCIUM 8.6 (L) 03/14/2016 06:45 CALCIUM 8.1 (L) 03/13/2016 05:40 CALCIUM 8.2 (L) 03/12/2016 07:00 MG 1.9 04/29/2019 11:46 MG 1.3 (L) 03/11/2016 05:47 Lab Results Component Value Date/Time WBC 6.6 04/29/2019 11:46 WBC 6.5 10/08/2018 10:05 WBC 7.2 12/27/2017 00:00 WBC 7.2 12/27/2017 00:00 WBC 11.1 (H) 03/14/2016 06:45 WBC 10.8 03/13/2016 05:40 WBC 14.4 (H) 03/11/2016 17:25 HGB 12.9 04/29/2019 11:46 HGB 11.9 (A) 10/08/2018 10:05 HGB 12.5 12/27/2017 00:00 HGB 12.5 12/27/2017 00:00 HGB 10.8 (L) 03/14/2016 06:45 HGB 10.6 (L) 03/13/2016 05:40 HGB 11.3 03/11/2016 17:25 HCT 39.6 07/29/2012 15:33 HCT 38.4 07/23/2011 12:59 MCV 90.6 04/29/2019 11:46 MCV 89.7 10/08/2018 10:05 MCV 87.1 12/27/2017 00:00 MCV 87.1 12/27/2017 00:00 MCV 91.1 07/29/2012 15:33 MCV 89.4 07/23/2011 12:59 LABPLAT 221 04/29/2019 11:46 LABPLAT 206 10/08/2018 10:05 LABPLAT 375 12/27/2017 00:00 LABPLAT 375 12/27/2017 00:00 Lab Results Component Value Date ALT 10 12/27/2017 ALT 10 12/27/2017 CHOL 159 03/29/2017 CHOL 161 03/12/2016 TRIG 178 (A) 03/29/2017 TRIG 112 03/12/2016 HDL 48.7 03/29/2017 HDL 51 03/12/2016 LDLEX 75 03/29/2017 GLUF 100 04/29/2019 GLUF 91 10/08/2018 ECG: Last Echo: Last Stress Test, 07/25/2016 ([facility]): Lexiscan, minimal ischemia distal myjzsd-zgbsfe-qaun, moderate dyskinesis, LVEF 56%. Last Cath, 04/05/2017 Left main with no significant disease. LAD ostial 100% occlusion known from before. Left circumflex first OM branch 90% stenosis. Proximal patent stent. RCA dominant ostial 70%, mid segment 90%. Fmsh-vt-cirsv collaterals to LAD territory. States post PCI to RCA with Promus 4 x 12 mm mid and 4 x 16 mm proximal. PCI to OM branch with 2.75 x 24 mm Promus. 03/12/2016: Left main OK, LAD CUSTOMS APPRAISER, 90% prox-LCx, moderate tandom lesions prox/mid-RCA.LCX S/P prox-LC x (3.0*12mm Synergy LANDON). Last Echo, 03/12/2016: LVEF 40%, trace AI, mild MR. Last US carotid: ASSESSMENT: Patient is 89 y.o. with 1. CAD S/P PCI to the and RCA and known total occlusion of LAD. 2. Ischemic cardiomyopathy. No signs of congestive heart failure. 3. CKD stage 3. 4. Chronic lower back pain. 5. Premature ventricular contractions. Plan: No clear anginal symptoms. Will start patient on proton pump inhibitor due to symptoms of reflux. Will call back if symptoms continue and don't improve. Couldn't tolerate beta blockers or angiotensin receptor blockers due to hypotension. 1. could not tolerate losartan. 2. Continue with aspirin and statin. 3. Furosemide 20 mg as needed. 4. Follow up in 6-9 months, will report with any change. *This report has been prepared using a voice recognition system. The report was reviewed fo r accuracy, however, sound-alike word errors, addition and/or deletions may occur. If there is any question about this report please contact me. Garcia Brooks MD, MPH documented in this encounter Plan of Treatment +--------+---------+ + + + | Date | Type | Specialty | Care Team | Description | +--------+---------+ + + + | 02/09/ | Office | Cardiology | Garcia Brooks, | | | 2019 | Visit | | MD Ashlie ALFARO | | | | | | [facility] [facility] | | | | | | [address] | | | | | | | | +--------+---------+ + + + documented as of this encounter Visit Diagnoses + + | Diagnosis | + + | Coronary artery disease involving [place] coronary artery of [place] heart without | | angina pectoris - Primary | + + | NSTEMI (non-ST elevated myocardial infarction) (HCC) Acute myocardial infarction, | | subendocardial infarction, episode of care unspecified | + + | Sinus bradycardia Other specified cardiac dysrhythmias | + + documented in this encounter
--- OUTSIDE RECORDS SUMMARY | ~2019-08-28 | XMS | Encounter Summary ---
Demographics + + + | Address | [address] | | | [place] [address] | + + + | Home Phone | | + + + | Preferred Language | Unknown | + + + | Marital Status | | + + + | Temple Affiliation | 1028 | + + + | Race | Unknown | + + + | Ethnic Group | Unknown | + + + Author + + + | Author | [facility] | | | and [place] | + + + | Organization | [facility] | | | [...] Team Providers + +------+ + | Care Upholstery Mechanic Name | Role | Phone | + +------+ + PCP | Unavailable | + +------+ + Encounter Details +--------+ + + + + | Date | Type | Department | Care Team | Description | +--------+ + + + + | 07/01/ | Hospital | [facility] | | | | 2006 - | Encounter | MED [facility]ER | | | | | | MINDY Rios | | | | 07/13/ | | [place] | | | | 2006 | | [address] | | | | | | [phone] | | | +--------+ + + + [...] [place] | | | | | | [address] | | | | | | | | +--------+---------+ + + + documented as of this encounter Visit Diagnoses Not on filedocumented in this encounter"
--- OUTSIDE RECORDS SUMMARY | ~2019-08-28 | XMS | Encounter Summary ---
Demographics + + + | Address | [address] | | | [place] [address] | + + + | Home Phone | | + + + | Preferred Language | Unknown | + + + | Marital Status | | + + + | Jain Affiliation | 1028 | + + + | Race | Unknown | + + + | Ethnic Group | Unknown | + + + Author + + + | Author | [facility] | | | and [place] | + + + | Organization | [facility] | | | and [...] Team Providers + +------+ + | Care Biological Inspector Name | Role | Phone | + +------+ + PCP | Unavailable | + +------+ + Encounter Details +--------+ + + + + | Date | Type | Department | Care Team | Description | +--------+ + + + + | 01/11/ | Hospital | [facility] | | | | 2009 | Encounter | MED CTR XRAY [address] | | | | | | [place] | | | | | | [place] [address] | | | | | | [phone] | | | +--------+ + + + [...] | | | | | [place] | | | | | | [address] | | | | | | | | +--------+---------+ + + + documented as of this encounter Visit Diagnoses Not on filedocumented in this encounter"
--- OUTSIDE RECORDS SUMMARY | ~2019-08-28 | XMS | Encounter Summary ---
Demographics + + + | Address | [address] | | | [place] [address] | + + + | Home Phone | | + + + | Preferred Language | Unknown | + + + | Marital Status | | + + + | Mu-Ism Affiliation | 1028 | + + + | Race | Unknown | + + + | Ethnic Group | Unknown | + + + Author + + + | Author | [facility] | | | and [place] | + + + | Organization | [facility] | | [...] Team Providers + +------+ + | Care Medical Pathologist Name | Role | Phone | + +------+ + PCP | Unavailable | + +------+ + Encounter Details +--------+ + + + + | Date | Type | Department | Care Team | Description | +--------+ + + + + | 07/29/ | Hospital | [facility] | Nita, | | | 2011 - | Encounter | [facility] | Zana Villalta MD [address] | | | | CENTER [address] | [place] [facility] | | | 08/13/ | | [place] | [place] [address] | | | 2011 | | [address] | [phone] | | | | | [phone] | | | +--------+ + + + [...] | | | | | [place] | | | | | | [address] | | | | | | | | +--------+---------+ + + + documented as of this encounter Procedures + +--------+ + + + | Procedure Name | Priori | Date/Time | Associated Diagnosis | Comments | | | ty | | | | + +--------+ + + + | CBC WITH | Routin | 07/29/2012 | | Results for this | | DIFFERENTIAL | e | 3:33 PM | | procedure are in the | | | | PDT | | results section. | + +--------+ + + + | LACTATE | Routin | 07/29/2012 | | Results for this | | DEHYDROGENASE | e | 3:33 PM | | procedure are in the | | | | PDT | | results section. | + +--------+ + + + | CEA | Routin | 07/29/2012 | | Results for this | | | e | 3:33 PM | | procedure are in the | | | | PDT | | results section. | + +--------+ + + + | COMPREHENSIVE | Routin | 07/29/2012 | | Results for this | | METABOLIC PANEL | e | 3:33 PM | | procedure are in the | | | | PDT | | results section. | + +--------+ + + + documented in this encounter Results CBC with Differential (07/29/2012 3:33 PM PDT) + +-------+ + + + | Component | Value | Ref Range | Performed | Pathologist | | | | | At | Signature | + +-------+ + + + | MANUAL | NO | | [facility] | | [facility] | | [facility] | | | [facility] ? | | | [facility] | | | | | | CENTER - | | | | | | LABORATORY | | + +-------+ + + + | WBC | 8.2 | 4.0 - 11.0 K/uL | [facility] | | | | | | [facility] | | | | | | MEDICAL | | | | | | CENTER - | | | | | | LABORATORY | | + +-------+ + + + | RBC | 4.35 | 3.70 - 5.20 | [facility] | | | | | M/uL | [facility] | | | | | | MEDICAL | | | | | | CENTER - | | | | | | LABORATORY | | + +-------+ + + + | Hemoglobin | 13.5 | 11.5 - 16.0 | [facility] | | | | | gm/dL | [facility] | | | | | | MEDICAL | | | | | | CENTER - | | | | | | LABORATORY | | + +-------+ + + + | Hematocrit | 39.6 | 34.0 - 47.0 % | [facility] | | | | | | [facility] | | | [facility] | [facility] | | | | | | CENTER - | | | | | | LABORATORY | | + +-------+ + + + | MCV | 91.1 | 83.0 - 101.0 fL | [facility] | | | | | | [facility] | | | | [facility] | [facility] | | | | | | CENTER - | | | | | | LABORATORY | | + +-------+ + + + | MCH | 31.1 | 28.0 - 35.0 pg | [facility] | | | | | | [facility] | | | | | | [facility]ICAL | | | | | | CENTER - | | | | | | LABORATORY | | + +-------+ + + + | MCHC | 34.1 | 32.0 - 36.0 | [facility] | | | | | g/dL | [facility] | | | | | | MEDICAL | | | | | | CENTER - | | | | | | LABORATORY | | + +-------+ + + + | RDW-CV | 14.0 | <15.0 % | [facility] | | | | | | [facility] | | | | | | MEDICAL | | | | | | CENTER - | | | | | | LABORATORY | | + +-------+ + + + | Platelet | 290 | 140 - 440 K/uL | [facility] | | | Count | | | [facility] | | | | | | MEDICAL | | | | | | CENTER - | | | | | | LABORATORY | | + +-------+ + + + | % | 67.4 | 45 - 75 % | [facility] | | | Neutrophils | | | [facility] | | | | | | MEDICAL | | | | | | CENTER - | | | | | | LABORATORY | | + +-------+ + + + | % | 23.1 | 20 - 45 % | [facility] | | | Lymphocytes | | | [facility] | | | | | | MEDICAL | | | | | | CENTER - | | | | | | LABORATORY | | + +-------+ + + + | % Monocytes | 7.1 | 4 - 12 % | [facility] | | | | | | [facility] | | | | | | MEDICAL | | | | | | CENTER - | | | | | | LABORATORY | | + +-------+ + + + | % | 1.6 | 0 - 5 % | [facility] | | | Eosinophils | | | [facility] | | | | | | MEDICAL | | | | | | CENTER - | | | | | | LABORATORY | | + +-------+ + + + | % Basophils | 0.8 | 0 - 1 % | [facility] | | | | | | [facility] | | | | | | MEDICAL | | | | | | CENTER - | | | | | | LABORATORY | | + +-------+ + + + | Absolute | 5.6 | 1.5 - 6.6 K/uL | [facility] | | | Neutrophils | | | [facility] | | | | | | MEDICAL | | | | | | CENTER - | | | | | | LABORATORY | | + +-------+ + + + | Absolute | 1.9 | 0.6 - 3.2 K/uL | [facility] | | | Lymphocytes | | | [facility] | | | | | | MEDICAL | | | | | | CENTER - | | | | | | LABORATORY | | + +-------+ + + + | Absolute | 0.6 | 0.0 - 1.0 K/uL | [facility] | | | Monocytes | | | [facility] | | | | | | MEDICAL | | | | | | CENTER - | | | | | | LABORATORY | | + +-------+ + + + | Absolute | 0.1 | 0.0 - 0.4 K/uL | [facility] | | | Eosinophils | | | [facility] | | | | | | MEDICAL | | | | | | CENTER - | | | | | | LABORATORY | | + +-------+ + + + | Absolute | 0.1 | 0.0 - 0.1 K/uL | [facility] | | | Basophils | | | [facility] | | | | | | MEDICAL | | | | | | CENTER - | | | | | | LABORATORY | | + +-------+ + + + + + | Specimen | + + | | + + + + + + + | Performing | Address | City/State/Zipcode | Phone Number | | Organization | | | | + + + + + | [facility] | [address] | [place], [place] | [phone] | | [facility] | | [address] | | | - LABORATORY | | | | + + + + + | [facility] | [address] | [place], [place] | | | [facility] | | [address] | | | - LABORATORY | | | | + + + + + CEA (07/29/2012 3:33 PM PDT) + + + + + + | Component | Value | Ref Range | Performed | Pathologist | | | | | At | Signature | + + + + + + | CEA | 3.4Comment: | 0.0 - 10.0 | [facility] | | | | PLEASE NOTE NEW | ng/mL | [facility] | | | | REFERENCE RANGE | | MEDICAL | | | | Testing performed on | | CENTER - | | | | the [employer] | | LABORATORY | | | | Access Analyzer. | | | | | | Results obtained with | | | | | | different assay methods | | | | | | or kits cannot be used | | | | | | interchangeably. | | | | + + + + + + + + | Specimen | + + | | + + + + + + + | Performing | Address | City/State/Zipcode | Phone Number | | Organization | | | | + + + + + | [facility] | [address] | [place] | [phone] | | [facility] | | [address] | | | - LABORATORY | | | | + + + + + | [facility] | [address] | [place] | | | [facility] | | [address] | | | - LABORATORY | | | | + + + + + Comprehensive Metabolic Panel (07/29/2012 3:33 PM PDT) + + + + + + | Component | Value | Ref Range | Performed | Pathologist | | | | | At | Signature | + + + + + + | Glucose | 98 | 70 - 109 mg/dL | [facility] | | | | | | [facility] | | | | | | MEDICAL | | | | | | CENTER - | | | | | | LABORATORY | | + + + + + + | Calcium | 9.4 | 8.3 - 10.5 | [facility] | | | | | mg/dL | [facility] | | | | | | MEDICAL | | | | | | CENTER - | | | | | | LABORATORY | | + + + + + + | Alkaline | 72 | 40 - 110 IU/L | [facility] | | | Phosphatase | | | [facility] | | | | | | MEDICAL | | | | | | CENTER - | | | | | | LABORATORY | | + + + + + + | AST | 27 | 10 - 42 IU/L | [facility] | | | | | | [facility] | | | | | | MEDICAL | | | | | | CENTER - | | | | | | LABORATORY | | + + + + + + | ALT | 13 | 6 - 45 IU/L | [facility] | | | | | | [facility] | | | | | | MEDICAL | | | | | | CENTER - | | | | | | LABORATORY | | + + + + + + | Bilirubin | 0.8 | 0.2 - 1.0 mg/dL | [facility] | | | Total | | | [facility] | | | | | | MEDICAL | | | | | | CENTER - | | | | | | LABORATORY | | + + + + + + | Total | 6.1 | 6.0 - 7.8 gm/dL | [facility] | | | Protein | | | [facility] | | | | | | MEDICAL | | | | | | CENTER - | | | | | | LABORATORY | | + + + + + + | Albumin | 3.7 | 3.2 - 5.0 gm/dL | [facility] | | | | | | [facility] | | | | | | MEDICAL | | | | | | CENTER - | | | | | | LABORATORY | | + + + + + + | BUN | 28 (H) | 7 - 18 mg/dL | [facility] | | | | | | [facility] | | | | | | MEDICAL | | | | | | CENTER - | | | | | | LABORATORY | | + + + + + + | Creatinine | 1.05 | 0.60 - 1.30 | [facility] | | | | | mg/dL | [facility] | | | | | | MEDICAL | | | | | | CENTER - | | | | | | LABORATORY | | + + + + + + | Estimated | 50 (L)Comment: For | >60 mL/min/A | [facility] | | | GFR | -Americans, | | [facility] | | | | please multiply the | | MEDICAL | | | | result by 1.210 | | CENTER - | | | | This is an estimated | | LABORATORY | | | | GFR and is based on a | | | | | | standard adult | | | | | | body mass (A=1.73m2) and | | | | | | serum creatinine | | | | + + + + + + | BUN/Creatin | 26.7 (H) | 12 - 20 | [facility] | | | ine Ratio | | | [facility] | | | | | | MEDICAL | | | | | | CENTER - | | | | | | LABORATORY | | + + + + + + | Na | 137 | 136 - 149 mEq/L | [facility] | | | | | | [facility] | | | | | | MEDICAL | | | | | | CENTER - | | | | | | LABORATORY | | + + + + + + | K | 4.4 | 3.5 - 5.1 mEq/l | [facility] | | | | | | [facility] | | | | | | MEDICAL | | | | | | CENTER - | | | | | | LABORATORY | | + + + + + + | Cl | 101 | 98 - 109 mEq/l | [facility] | | | | | | [facility] | | | | | | MEDICAL | | | | | | CENTER - | | | | | | LABORATORY | | + + + + + + | CO2 | 28 | 24 - 31 mEq/L | [facility] | | | | | | [facility] | | | | | | MEDICAL | | | | | | CENTER - | | | | | | LABORATORY | | + + + + + + | Anion Gap | 12.4 | 6.0 - 17.0 | [facility] | | | | | | [facility] | | | | | | MEDICAL | | | | | | CENTER - | | | | | | LABORATORY | | + + + + + + + + | Specimen | + + | | + + + + + + + | Performing | Address | City/State/Zipcode | Phone Number | | Organization | | | | + + + + + | [facility] | [address] | [place] | [phone] | | [facility] | | [address] | | | - LABORATORY | | | | + + + + + | [facility] | [address] | [place] | | | [facility] | | [address] | | | - LABORATORY | | | | + + + + + Lactate Dehydrogenase (07/29/2012 3:33 PM PDT) + +---------+ + + + | Component | Value | Ref Range | Performed | Pathologist | | | | | At | Signature | + +---------+ + + + | LDH TOTAL | 249 (H) | 91 - 180 IU/L | [facility] | | | | | | [facility] | | | | | | MEDICAL | | | | | | CENTER - | | | | | | LABORATORY | | + +---------+ + + + + + | Specimen | + + | | + + + + + + + | Performing | Address | City/State/Zipcode | Phone Number | | Organization | | | | + + + + + | [facility] | [address] | [place] | [phone] | | [facility] | | [address] | | | - LABORATORY | | | | + + + + + | [facility] | [address] | [place] | | | [facility] | | [address] | | | - LABORATORY | | | | + + + + + documented in this encounter Visit Diagnoses Not on filedocumented in this encounter"
--- OUTSIDE RECORDS SUMMARY | ~2019-08-28 | XMS | Encounter Summary ---
Demographics + + + | Address | [address] | | | [place] [address] | + + + | Home Phone | | + + + | Preferred Language | Unknown | + + + | Marital Status | | + + + | Mormonism Affiliation | 1028 | + + + | Race | Unknown | + + + | Ethnic Group | Unknown | + + + Author + + + | Author | [facility] | | | and [place] | + + + | Organization | [facility] | | [...] Team Providers + +------+ + | Care Mail List Processor Name | Role | Phone | + +------+ + | Bubba Peña MD | PCP | | + +------+ + Encounter Details +--------+ + + + + | Date | Type | Department | Care Team | Description | +--------+ + + + + | 01/30/ | Abstract | [facility] [place] | Tate Rodriguez | | | 2016 | | NEUROSURGERY [address] | [address]LLA Fuentes [address] | | | | | [address] | [address] | | | | | [place], [place] | [place], [place] | | | | | [address] | [address] | | | | | [phone] | | | +--------+ + + + [...] | | | | | [address] [address] | | | | | | [address] | | | | | | | | +--------+---------+ + + + documented as of this encounter Visit Diagnoses Not on filedocumented in this encounter"
--- OUTSIDE RECORDS SUMMARY | ~2019-08-28 | XMS | Encounter Summary ---
Demographics + + + | Address | [address] | | | [place] [address] | + + + | Home Phone | | + + + | Preferred Language | Unknown | + + + | Marital Status | | + + + | Lutheran Affiliation | 1028 | + + + | Race | Unknown | + + + | Ethnic Group | Unknown | + + + Author + + + | Author | [facility] | | | and [place] | + + + | Organization | [facility] | | [...] Team Providers + +------+ + | Care Bean Dumper Name | Role | Phone | + +------+ + | Bubba Peña MD | PCP | | + +------+ + Reason for Visit + + + | Reason | Comments | + + + | Injections | injection pain log | + + + Encounter Details +--------+ + + + + | Date | Type | Department | Care Team | Description | +--------+ + + + + | 05/20/ | Telephone | [facility] [place] | [place], | Injections | | 2016 | | PHYSIATRY [address] | MARIELLA Meneses [address] | (injection pain log) | | | | [place], | [place] [facility], | | | | | [place] [address] | [place] [address] | | | | | [phone] | [phone] | | | | | | | [...] | | | | | | [facility] [facility] | | | | | | [address] | | | | | | | | +--------+---------+ + + + documented as of this encounter Visit Diagnoses Not on filedocumented in this encounter"
--- OUTSIDE RECORDS SUMMARY | ~2019-08-28 | XMS | Encounter Summary ---
Demographics + + + | Address | [address] | | | [place] [address] | + + + | Home Phone | | + + + | Preferred Language | Unknown | + + + | Marital Status | | + + + | Church Affiliation | 1028 | + + + | Race | Unknown | + + + | Ethnic Group | Unknown | + + + Author + + + | Author | [facility] | | | and [place] | + + + | Organization | [facility] | | | [...] Providers + +------+ + | Care Senior Technical Program Manager Name | Role | Phone | + +------+ + | Bubba Peña MD | PCP | | + +------+ + Reason for Visit Service/Procedure (Routine) +--------+--------+ + + + + | Status | Reason | Specialty | Diagnoses / | Referred By | Referred To | | | | | Procedures | Contact | Contact | +--------+--------+ + + + + | Closed | | Radiology | Diagnoses | | [facility] | | | | | Lumbar | [place], | [address] | | | | | radiculopath | Ruslan Adams MD | [place], | | | | | y | [address] | [place] | | | | | Procedures | [place] | [address] | | | | | [place] INJECT | [place], [place] | Phone: | | | | | ANES/STEROID | [address] | [phone] | | | | | FORAMEN | Phone: | Fax: | | | | | LUMBAR/SACRA | [phone] | [phone] | | | | | [address] IMG | Fax: | | | | | | GUIDE ,1 | [phone] | | | | | | LEVEL [place] | | | | | | | TRIAMCINOLON | | | | | | | E ACET INJ | | | | | | | NOS, 10 MG | | | | | | | Appt 02/20- | | | | | | | Bilat L5-S1 | | | | | | | TFESI | | | +--------+--------+ + + + + Encounter Details +--------+ + + + + | Date | Type | Department | Care Team | Description | +--------+ + + + + | 02/20/ | Hospital | [facility] | Melissacz, | Lumbar | | 2017 | Encounter | MED CTR XRAY [address] | MARIELLA Meneses [address] | radiculopathy; | | | | [address] [place] | [address] [place], | Lumbar spinal | | | | [place] [address] | [place] [address] | stenosis; DDD | | | | [phone] | [phone] | (degenerative disc | | | | | | disease), lumbar; | | | | | Offset Second Press Operator, Ws | Foraminal stenosis | | | | | | of lumbar region; | | | | | | Spondylolisthesis of | | | | | | lumbar region | +--------+ + + + + Social [...] +---------+ + + | Blood Pressure | 178/81 | 02/20/2017 4:49 PM | | | | | PDT | | + +---------+ + + | Pulse | 71 | 02/20/2017 4:49 PM | | | | | PDT [...] drop to eye | | 0 | 01/16/20 | | | (ZADITOR) 0.025% | 2 [...] | | | | | Name: Kamilah Keyon | | | | 9 | + [...] [place] | | | | | | [address] | | | | | | | | +--------+---------+ + + + documented as of this encounter Procedures + +--------+ + + + | Procedure Name | Priori | Date/Time | Associated Diagnosis | Comments | | | ty | | | | + +--------+ + + + | FL EPIDURAL STEROID | Routin | 02/20/2017 | Lumbar | Results for this | | INJECTION LUMBAR | e | 4:26 PM | radiculopathy | procedure are in the | | TRANSFORAMINAL | | PDT | Lumbar spinal | results section. | | | | | stenosis DDD | | | | | | (degenerative disc | | | | | | disease), lumbar | | | | | | Foraminal stenosis | | | | | | of lumbar region | | | | | | Spondylolisthesis of | | | | | | lumbar region | | + +--------+ + + + documented in this encounter Results FL OFE Lumbar Transforaminal (02/20/2017 4:26 PM PDT) + + | Specimen | + + | | + + + + + | Narrative | Performed At | + + + | 02/20/2017 Bilateral Transforaminal Epidural Steroid Injections | [facility] | | Diagnosis: Lumbar radiculopathy ICD-10 Code M54.16 [place] | [facility] | | Jacinta Dominguez presents to the fluoroscopy suite for [facility] | | fluoroscopically-guided bilateral L5-S1 transforaminal epidural | - IMAGING | | steroid injections as part of conservative management for chronic | | | pain with lumbar radiculopathy and degenerative disk disease. After | | | informed consent was obtained, the patient lay in the prone position | | | on the fluoroscopy table. The areas were identified under | | | fluoroscopic guidance. The areas were prepped and draped in sterile | | | fashion. A 25-gauge, 1.5-inch needle was inserted into each region | | | and approximately 3 mL of buffered 1% lidocaine was infused. Then, a | | | 22-gauge spinal needle was inserted into the posterior superior | | | transforaminal space bilaterally and advanced into the epidural | | | space under fluoroscopic guidance. Confirmation into the epidural | | | space was obtained with infusion of approximately 1 mL of Omnipaque | | | contrast which showed epidural flow as well as nerve sheath flow. | | | Then, a combination of 2 mL of [...] as written follow-up instructions. Prior to the | | | start of the procedure, the following were performed and/or | | | verified, including correct patient identity, correct site/side marked | | | and visible, agreement on the procedure to be done, correct patient | | | positioning and an accurate procedure consent form. Any safety | | | precautions based on clinical history and/or medication use have | | | been addressed. I personally performed the procedure above. | | | Estimated blood loss: Minimal Complications: None Findings: As | | | expected Anesthesia: Local 1% Lidocaine | | + + + + + + + + | Performing | Address | City/State/Zipcode | Phone Number | | Organization | | | | + + + + + | [facility] | [address] | [place], [place] | [phone] | | [facility] | | [address] | | | - IMAGING | | | | + + + + + documented in this encounter Visit Diagnoses + + | Diagnosis | + + | Lumbar radiculopathy Thoracic or lumbosacral neuritis or radiculitis, unspecified | + + | Lumbar spinal stenosis Spinal stenosis, lumbar region, without neurogenic | | claudication | + + | DDD (degenerative disc disease), lumbar Degeneration of lumbar or lumbosacral | | intervertebral disc | + + | Foraminal stenosis of lumbar region Spinal stenosis, lumbar region, without | | neurogenic claudication | + + | Spondylolisthesis of lumbar region Acquired spondylolisthesis | + + documented in this encounter Administered Medications + +--------+ +-------+------+------+ | Medication Order | MAR | Action | Dose | Rate | Site | | | Action | Date | | | | + +--------+ +-------+------+------+ | betamethasone (CELESTONE | Given | 05/10/20 | 12 mg | | | | SOLUSPAN) injection 12 mg 12 mg, | | 17 4:40 | | | | | Other, ONCE, 02/20/17 at | | PM PDT | | | | | 1645, For 1 dose, Shake well. Not | | | | | | | for IV use., | | | | | | + +--------+ +-------+------+------+ +---+---+ | | | +---+---+ + +-------+ +-------+---+---+ | iohexol (OMNIPAQUE 300) 300 | Given | 02/21/20 | 4 mLs | | | | mg/mL injection 4 mL 4 mL, | | 17 4:35 | | | | | Other, ONCE, 02/20/17 at 1645, | | PM PDT | | | | | For 1 dose | | | | | | + +-------+ +-------+---+---+ +---+---+ | | | +---+---+ + +-------+ +-------+---+---+ | lidocaine (PF) 1% injection 2 | Given | 02/21/20 | 2 mLs | | | | mL 2 mL, Other, ONCE, Wed | | 17 4:40 | | | | | 02/20/17 at 1645, For 1 dose | | PM PDT | | | | + +-------+ +-------+---+---+ +---+---+ | | | +---+---+ + +-------+ +--------+---+---+ | lidocaine buffered 1% injection | Given | 02/21/20 | 10 mLs | | | | 10 mL 10 mL, Other, ONCE, Wed | | 17 4:30 | | | | | 02/20/17 at 1645, For 1 dose | | PM PDT | | | | + +-------+ +--------+---+---+ +---+---+ | | | +---+---+ documented in this encounter"
--- OUTSIDE RECORDS SUMMARY | ~2019-08-28 | XMS | Encounter Summary ---
Demographics + + + | Address | [address] | | | [place] [address] | + + + | Home Phone | | + + + | Preferred Language | Unknown | + + + | Marital Status | | + + + | Gnosticist Affiliation | 1028 | + + + | Race | Unknown | + + + | Ethnic Group | Unknown | + + + Author + + + | Author | [facility] | | | and [place] | + + + | Organization | [facility] | | | [...] Team Providers + +------+ + | Care Buyer Assistant Name | Role | Phone | + +------+ + PCP | Unavailable | + +------+ + Encounter Details +--------+ + + + + | Date | Type | Department | Care Team | Description | +--------+ + + + + | 03/11/ | Hospital | [facility] | Ramirez Pringle MD | NSTEMI (non-ST | | 2016 - | Encounter | [facility] | [address] | elevated myocardial | | | | [address] | [place] [address] | infarction) (HCC); | | 03/14/ | | [place], [place] | [phone] | Acute respiratory | | 2016 | | [address] | | failure with hypoxia | | | | [phone] | | ([facility]); CKD (chronic | | | | | | kidney disease) | | | | | | stage 3, GFR 30-59 | | | | | | ml/min; Community | | | | | | acquired pneumonia; | | | | | | Coronary artery | | | | | | disease, angina | | | | | | presence | | | | | | unspecified, | | | | | | unspecified vessel | | | | | | or lesion type, | | | | | | unspecified whether | | | | | | platinum or | | | | | | transplanted heart; | | | | | | Acute systolic heart | | | | | | failure ([facility]); | | | | | | Anemia, unspecified | | | | | | type | +--------+ + + + + Social [...] + + + | Blood Pressure | 97/55 | 03/14/2016 10:44 AM | | | | | PDT | | + + + + + | Pulse | - | - | | + + + + + | Temperature | 37.1 C (98.7 F) | 03/14/2016 10:44 AM | | | | | PDT | | + + + + + | Respiratory Rate | 16 | 03/14/2016 10:44 AM | | | | | PDT | | + + + + + | Oxygen Saturation | - | - | | + + + + + | Inhaled Oxygen | - | - | | | Concentration | | | | + + + + + | Weight | 66.5 kg (146 lb 8 | 03/14/2016 10:44 AM | | | | oz) | PDT | | + + + + + | Height | 170.2 cm (5' 7") | 03/14/2016 10:44 AM | | | | | PDT | | + + + + + | Body Mass Index | 22.95 | 03/14/2016 10:44 AM | | | | | PDT | | + + + + + documented in this encounter Discharge Summaries Nathalie Huber NP - 03/14/2016 10:50 AM PDT Discharge Summaries by Nathalie Huber ARNP at 03/14/16 1050 Author: Nathalie Huber ARNP Service: (none) Author Type: Nurse Practitioner Filed: 03/14/16 1122 Date of Service: 03/14/16 105 Status: Signed Patent Chemist: Nathalie Huber ARNP (Nurse Practitioner) Cosigner: Fabien Rodrigez MD at 03/19/16 0748 [facility] CARDIOLOGY DISCHARGE SUMMARY ID: Alo Workman Alberto Experimental Worker: Fabien Rodrigez MD : 1930 (86 y.o.) Admission Date: 03/11/2016 PCP: Bubba Peña Discharge Date: 03/14/2016 Discharge Diagnoses: Respiratory Failure: Acute systolic CHF vs Pneumonia ACS, CAD s/p PCI/LANDON Patient Active Problem List Diagnosis Date Noted Anemia 03/13/2016 CAD (coronary artery disease) 03/13/2016 Acute systolic heart failure 03/13/2016 Acute respiratory failure 03/11/2016 Community acquired pneumonia 03/11/2016 NSTEMI (non-ST elevated myocardial infarction) 03/11/2016 CKD (chronic kidney disease) stage 3, GFR 30-59 ml/min 03/11/2016 Discharge Medications: Current Discharge Medication List CONTINUE these medications which have NOT CHANGED Details atorvastatin (AKA LIPITOR) 10 mg Oral Tablet Take 10 mg by mouth daily at bedtime. Takes x 5days except sat/sun COD LIVER OIL, BULK, MISC 2 Caps by Misc.(Non-Drug; Combo Route) route every morning. aspirin EC 81 mg Oral Tablet, Delayed Release (E.C.) Take 81 mg by mouth daily at bedtime. cycloSPORINE (AKA RESTASIS) 0.05 % Opht Dropperette 1 Drop three times a day. Allergies: Review of patient's allergies indicates no known allergies. Procedures/Significant Test Results: 03/12/16 Procedure: 1) coronary angiography 2) percutaneous coronary intervention with drug-eluting stent placement in the proximal to mid circumflex Conclusions: 1) severe two-vessel coronary disease: Chronic occlusion of the left anterior descending at its origin with rich collateral circulation from the right coronary artery; 90% stenosis in the proximal to mid circumflex; moderate tandem disease in the proximal and mid right coron olesya artery 2) successful percutaneous intervention on the proximal to mid circumflex with drug-eluting stent placement, improving the site of 90% stenosis to residual 5% stenosis 03/12/16 Echocardiogram Summary: 1. Multiple segmental abnormalities exist. See findings. 2. Mildly decreased left ventricular systolic function. The calculated ejection fraction is 39.9 %. The left ventricular size is normal. Impaired relaxation pattern of diastolic filling. 3. Normal right ventricular systolic function. Normal right ventricular size. 4. Trileaflet and sclerotic aortic valve. No aortic valve stenosis. Trace aortic valve regurgitation. 5. Mild mitral regurgitation. 6. Normal pulmonary artery systolic pressure estimated at 23.7 mmHg. Consults: [facility] Course: As per Cardiac Consult Note: 86-year-old woman who is transferred from [facility] or management of acute coronary syndrome and shortness of breath. She gives a one-week histo ry of progressive shortness of breath with modest levels of exertion and it takes her 5-10 m inutes to recover. She denies recurrent chest pain, palpitation, syncope, orthopnea. She's n oted to have slight lower extremity swelling which has improved. She presented to her [facility] in [facility] where she was thought to be in mild heart failure and noted to have slightly abnormal cardiac enzymes. She was transferred to the [facility] for fu rther evaluation. She was noted to have rising cardiac enzymes and ongoing shortness of caitlyn th but that hospital did not have the invasive cardiac facilities to deal with her immediate medical problem and she was transferred here for further care. She continues to complain of mild shortness of breath. Her cardiopulmonary review of systems is otherwise negative. She denies a previous cardiac history. She's been treated for high cholesterol but otherwis e denies hypertension, diabetes, smoking or family history of premature atherosclerosis. Pt underwent coronary angiography on 03/12/[address] Rodrigez which revealed a severe two-vess el coronary disease: chronic occlusion of the left anterior descending at its origin with ri ch collateral circulation from the right coronary artery; 90% stenosis in the proximal to mi d circumflex; moderate tandem disease in the proximal and mid right coronary artery. She sub sequently underwent a percutaneous coronary intervention with drug-eluting stent placement i n the proximal to mid circumflex. Telemetry bank reviewed; no significant event noted. Pt will be discharged today on 1 year of clopidogrel and ASA indefinitely. Medication change(s) as noted above. Pt is to follow u p with [facility] in [place], [place] (pt is known to this cardiac group) i n 1-2 weeks and /her PCP within 2. Recommend aggressive reduction of cardiac risk factors with healthy diet, exercise program later, maintenance of ideal weight, and abstention from cigarette smoking. Hospital medicine was consulted for pt's continued 02 requirements and will be discharged o n oxygen along with a referral to Home Health for continued care and monitoring following he r hospital stay. Discharge weight Admission Wt:71.305 kg (157 lb 3.2 oz) Patient Vitals for the past 72 hrs: Weight 03/14/16 0457 66.452 kg (146 lb 8 oz) 03/13/16 0441 66.679 kg (147 lb) 03/12/16 0800 65.635 kg (144 lb 11.2 oz) 03/12/16 0400 66.225 kg (146 lb) 03/11/16 1600 71.305 kg (157 lb 3.2 oz) ProBNP: Recent Labs 03/11/16 1725 PROBNP 48036* Creatinine: Recent Labs 03/12/16 0700 03/13/16 0540 03/14/16 0645 CR 1.23* 1.23* 1.36* CMS Core Measures Evaluation of LV systolic function: Left Ventricular Function documented in the current [facility] record. LV systolic function details: Ejection Fraction 40% or higher by echocardiogra m. VIVIENNE or ARB: not ordered due to allergy/sensitivity and not ordered due to worsening renal f unction/renal disease/dysfunction. Can resume at a later date. Beta-shaina: Indicated and listed under discharge medications. Statin: Indicated and listed under discharge medications. Aspirin: Indicated and listed under discharge medications. For PCI: Thienopyridines: Indicated and listed under discharge medications. Disposition: Home with home health Vital signs: BP: 97/55 mmHg, Heart Rate: 85, Cardiac Rhythm (monitored Pts.): Normal sinus rhythm;1st Degree AVB, Temp: 37.1 C (98.7 F), Resp: 16, SpO2: (!) 87 %, Height: 170.2 cm (5' 7"), Weight: 66.452 kg (146 lb 8 oz) Labs: Results for orders placed or performed during the hospital encounter of 03/11/16 (from the past 24 hour(s)) BASIC METABOLIC PANEL (BMP) Collection Time: 03/14/16 6:45 AM Result Value Ref Range POTASSIUM 3.5 3.5 - 5.2 mEq/L TOTAL CO2 26 18 - 29 mmol/L CREATININE 1.36 (H) 0.57 - 1.00 mg/dL CALCIUM 8.6 (L) 8.7 - 10.3 mg/dL UREA NITROGEN 43 (H) 8 - 27 mg/dL SODIUM 140 134 - 144 mEq/L CHLORIDE 97 97 - 108 mEq/L GLUCOSE 117 (H) 65 - 99 mg/dL ANION GAP 17 5 - 19 CBC Collection Time: 03/14/16 6:45 AM Result Value Ref Range WBC 11.1 (H) 3.4 - 10.8 th/mm3 RBC 3.70 (L) 3.77 - 5.28 mil/mm3 HGB 10.8 (L) 11.1 - 15.9 g/dL HCT 32.4 (L) 34.0 - 46.6 % MCV 88 79 - 97 fL MCH 29.2 26.6 - 33.0 pg MCHC 33.3 31.5 - 35.7 g/dL RDW 14.8 12.3 - 15.4 % PLATELET CT 308 150 - 379 x10E3/uL ESTIMATED GLOMERULAR FILTRATION RATE (EGFR) Collection Time: 03/14/16 6:45 AM Result Value Ref Range EGFR (NON-BLACK) 35.39 (L) >59 mL/min EGFR (BLACK) 41.02 (L) >59 mL/min PROCALCITONIN Collection Time: 03/14/16 6:45 AM Result Value Ref Range PROCALCITONIN 0.19 <0.25 ng/mL PROCALCITONIN INTERP Comment See Notes Instructions: Activity: 1. You may take acetaminophen to relieve any pain you experience at the tube insertion sit e. If [id number] pain-relief medications are inadequate, alert your PCP. 2. Avoid immersing the puncture site, such as during bathing, hot tubbing or swimming, unti l you are completely healed (1-2 weeks) . You may shower 24-48 hours after the procedure. 3. Abstain from pushing, pulling or lifting objects greater than 10 pounds for at least one week post-procedure. Also, avoid exercises or any other activities that require you to enga ge your abdominal muscles, hold your breath or bear down. Avoid constipation. 4. Resume your regular activities, such as work and other physical activities slowly appro ximately 5-7 days after cardiac catheterization. 5. Avoid stimulants (cocaine, amphetamines, diet pills, certain decongestant cold medicines , caffeine, or nicotine). If you smoke, stop smoking. Contact your doctor or a local stop-sm oking program for help. 6. Take your medications exactly as directed. Some medicines must be taken daily, not just when you have symptoms, in order to be effective. 7. Monitor your blood pressure and report to your PCP if they are abnormal. Symptoms to Report to your Doctor: 1. Pressure, tightness or discomfort in chest, arm, throat (new or prolonged) unrelieved by rest and/or nitroglycerin under the tongue every 5 minutes X 3. Call [address] unrelieved [address] pain. 2. Shortness of breath unrelieved by rest. 3. Heart rate range: 60-100 beats per minute (normal range) or other as indicated. 4. Palpitations (the sense that your heart is fluttering, beating fast or hard) 5. Dizziness, fainting, cold sweats, undue fatigue, and weight gain over 2 pounds/week. 6. Ankle/leg swelling, new or increased. 7. Unexpected weight gain 8. Fever of 100.4F (38C) or higher, or as directed by your healthcare provider 9. Signs of stroke: Weakness or numbness of an arm or leg or one side of the face Difficulty with speech or vision Extreme drowsiness, confusion, dizziness or fainting Re: Plavix, Effient, or Brilinta: It is very important you take the plavix and aspirin comb ination for a minimum of one year. Failure to do so could result in a clot forming within y our stent. This could result in a heart attack. If you are asked to stop your Plavix or Ef fient prematurely, it is very important that you contact us first for further discussion. Dee price, if you are asked to stop your aspirin, it would be very important to discuss this w ith us before doing so. If you experience any bleeding complications as a result of the com bination of Plavix and aspirin, it would be important to notify us. Follow-up (including pending studies and recommendations): [facility] [address] [place] With your PCP, Bubba Solorzano in 1-2 weeks. Condition on Discharge: I saw the patient on day of discharge. Condition and exam stable at time of discharge. Code Status this admission: FULL CODE Time Spent on Discharge Coordination: greater than 30 minutes: 45 total minutes RODOLFO Krishnan 10:50; 03/14/2016 CC: Bubba Peña, [facility] documented in this e ncounter Medications at Time of Discharge + + [...] + + + +---------+ + + | Ca Cit | Take 1 tablet by | | 0 | | | | Malate-Cholecalcifer | mouth Daily. | | | | 7 | | ol (CALCIUM CITRATE | | | | | | | MALATE-VIT D PO) | | | | | | + + + +---------+ + + | clopidogrel | Take 75 mg by mouth | | 0 | 03/14/20 | | | (PLAVIX) 75 mg | Daily. | | | 16 | 7 | | tablet | | | | | | + + + +---------+ + + | Flaxseed, Linseed, | Take 1 capsule by | | 0 | | | | (FLAXSEED OIL) 1200 | mouth 2 times daily. | | | | 7 | | MG CAPS | | | | | | + + + +---------+ + + | Multiple | Take 1 tablet by | | 0 | | | | Vitamins-Minerals | mouth Daily. | | | | 7 | | (MULTIVITAMIN PO) | | | | | | + + + +---------+ + + | nitroglycerin | Place 0.4 mg under | | 0 | 03/14/20 | | | (NITROSTAT) 0.4 mg | the tongue. | | | 16 | 9 | | SL tablet | | | | | | + + + +---------+ + + | OMEGA 3 1000 MG | Take 1 capsule by | | 0 | | | | CAPS | mouth Daily. | | | | 7 | + + + +---------+ + + | simvastatin | Take 10 mg by mouth | | 0 | | | | (ZOCOR) 10 mg tablet | Daily. | | | | 9 | + + + +---------+ + + documented as of this encounter Progress Notes Tanya Bernal RN - 03/14/2016 2:27 PM PDTFormatting of this note might be different fr om the original. Progress Notes by Tanya Bernal RN at 03/14/161426 Author: Tanya Bernal RN Service: (none) Author Type: Registered Nurse Filed: 03/14/161426 Date of Service: 03/14/161426 Status: Signed Patent Chemist: Tanya Bernal RN (Registered Nurse) NSG Shift Summary Patient: Alo Dominguez Event(s): none. States she feels tired. Discharged to home with Son Neuro: alert and oriented, neurologically intact CV: tele SR. Tele removed at discharge. Resp: no c/o SOB, occ non productive cough when asked to take a deep breath. Diminished adrienne g sounds. 97% on 2L, 94% on RA but with any activity just standing to put robe on Desats to 88%. Will need home oxygen. RT call to arrange home and portable oxygen. Patient lives in [facility]. GI/: Abdomin soft non tender, eating. Small BM this am. Voiding w/o problems Skin: right radial site with gauze dressing, hand pink but cool, no c/o numbness, radial pu lse present. Pain: none L/D: left PIV patent and intact. Removed at time of discharge Activity: up in chair, showered, up in room w/o problems. Plan: continue monitor vitals, oxygen saturation, resp and cardiac status, labs, right radi al site. Home care being arranged by social work. Son here. Prescriptions faxed to pharm and Son picked them up. Reviewed discharge instruction and medications with patient and mark abdalla, Home oxygen rep here to go over portable oxygen and arrangements for home oxygen. VS/labs: VSS. K+ 3.5 replaced with 40 meq KCL ImTanya arrington RN, 03/14/2016 2:27 PM Keegan Olea RRT - 03/14/2016 12:03 PM PDT . Progress Notes by Keegan White at 03/14/16 1203 Author: Keegan White Service: (none) Author Type: Respiratory Care Practitioner Filed: 03/14/16 1206 Date of Service: 03/14/16 1203 Status: Signed Patent Chemist: Keegan White (Respiratory Care Practitioner) [facility] Care Services Arrangements made for Alo Dominguez to be discharged with home oxygen. Jus and Lisa campo RT notified that patient is now on their service. Contact information for service provid er listed below: [facility] Office Keegan White 12:04; 03/14/2016 onversion Tra nsaction, Provider Unknown - 03/14/2016 11:09 AM PDTFormatting of this note might be differe nt from the original. Progress Notes by Beronica Cowan RN at 03/14/16 1105 Author: Beronica Cowan RN Service: (none) Author Type: Carpet Cleaning Technician Filed: 03/14/16 1112 Date of Service: 03/14/16 1109 Status: Signed Patent Chemist: Beronica Cowan RN (Carpet Cleaning Technician) Case Management Discharge Note Discharge Note 03/14/2016 11:09: Patient Alo Dominguez is a 86 y.o. female admitted for Coronary artery disease, angina presence unspecified, unspecified vessel or lesion type, unspecified whether platinum or shore splanted heart [I25.10] Discharge Date: Discharge Date: 03/14/16 Discharge Disposition confirmed as: Discharge Disposition: [facility];Home Discussion: Patient discharging home to prior living situation. Her son is transporting her. She has be en SBA here with nursing. [facility] for halfway safety assessment. Referrals to the 2 compani es in here area. Will have O2 by RT. CM following. Referrals/appointments made for post hospital care: [facility] Discharge DME arranged: Discharge DME arranged: N/A Following MD: PCP Orders and information faxed/provided to: [facility] [employer] Transportation arranged: Name and phone number: D/C Transportation Name: Family/Friend Transportation funding: Family Contact number to verify time/give report: Resources/Education Provided: NA [place] of Choice: [facility] [place]erson of Choice offered: Yes Medicare Important Message given: Medicare IM given: Yes Date Medicare IM provided: 03/14/16 Patient/responsible green party have been informed of and demonstrate agreement and understanding of discharge plan: yes. Spoke with: Patient and family Beronica Cowan RN Marv Strickland Technologist - 03/14/2016 10:54 AM PDT Progress Notes by Bennie Morley DO at 03/14/16 1054 Author: Bennie Morley DO Service: (none) Author Type: Physician Filed: 03/14/16 1057 Date of Service: 03/14/16 105 Status: Signed Patent Chemist: Bennie Morley DO (Physician) [facility] Medicine Progress Note Name: Alo Dominguze PCP: Bubba Peña Location: [address] Day #: 3 Reason for Admission and Continued Stay: Alo Macario is a 86 y.o. female with a history significant for hyperlipidemia who is admit [facility] for acute respiratory failure, probable pneumonia, probable heart failure, and nstemi. Hospital Events: Assessment and Plan: Active medical problems Acute respiratory failure - improving, probably due to CAP and acute systolic heart failure . Sat 87% on RA. D/C home with oxygen. NSTEMI/CAD/acute systolic heart failure - s/p PCI/LANDON to the prox to mid circumflex. stabl e on Aspirin, Plavix, Metoprolol, Lipitor. Appreciate cardiology. Stop Lisinopril for now s mercedes creatinine went up, but this could be from Lasix given yesterday as well. Could retry by PCP. Possible pneumonia with leukocytosis - CXR showed improvement. D/C home with Ceftin and Zi thromax. Had flu vaccine this year and had PVX in 2013. 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 BMP in AM Lab results (within last 13 months/) 03/14/16 0645 03/13/16 0503/12/16 0700 K 3.5 3.4* 3.0* Anemia - stable Lab results (within last 13 months/) 03/14/1664403/13/16 0540 03/11/16 1725 HGB 10.8* 10.6* 11.3 HCT 32.4* 31.5* 33.8* Chronic/Resolved medical problems Telemetry indication(s): Acute coronary syndrome/post NJ (until stable for 1-4 days) Disposition: Plan to DC to home Anticipated discharge: 3-4 days DVT prophylaxis: Already anticoagulated Code status: DNR Subjective and Events Overnight: Generalized weakness remains unchanged. She declined home health since she has care at [facility]. Objective: Vital Signs: Temp: 37.1 ? (98.7 ?) Temp (24hrs), Av.8 ? (98.3 ?), Min:36.1 ? (97 ?), Max:37.4 ? (99. 3 ?) BP: 97/55 mmHg Heart Rate: 85 Resp: 16 SpO2: (!) 87 % Oxygen Therapy?: No-Room Air O2 Lite r Flow (1L or More): 2L/min Exam General: Awake and alert. No distress. Oriented x 3. HEENT: Normocephalic, atraumatic, moist mucous membranes Eyes: Sclera anicteric noninjected Skin: No rashes. No jaundice. Heart: RRR. No murmurs. Lungs: left base inspiratory crackle. Abdomen: BS normal. Soft. Non-distended. Non-tender. Extremities: No cyanosis. No edema. Neuro: Nonfocal, speech is clear, MS is 5/5 Psych: Mood and affect are normal, thoughts are coherent. Labs Reviewed and remarkable for: Lab results (within last 13 months/) 03/14/1664403/11/16 1725 WBC 11.1* < > 14.4* POLYAP -- -- 86 HGB 10.8* < > 11.3 HCT 32.4* < > 33.8* MCV 88 < > 87 PLT 308 < > 228 < > = values in this interval not displayed. Lab results (within last 13 months/9480hours) 03/14/16 0645 NA 140 K 3.5 CL 97 TCO2 26 BUN 43* CR 1.36* GLUC 117* CA 8.6* Recent Labs 03/11/16 1725 03/12/16 0700 03/13/16 0540 CK -- 251* 150 TROP 24.81* 17.34* -- Lab results (within last 13 months/9480hours) 03/11/16 1725 PROBNP 18613* Microbiology No new micro last 24 hours Radiology Xr Chest 1 View 03/14/2016 1. Diffuse interstitial abnormality with decrease in density in the lung bases and slight decrease in prominence overall which may be in part related to improved lung volu mes. Improved edema and/or superimposed edema upon underlying interstitial lung disease is a lso consideration. Continue surveillance recommended. RADIA Dictated by: ALYX Scott ctated: 03/14/2016 9:24 AM Job: [id number] Xr Chest 1 View 03/13/2016 1. Hypoventilatory changes. 2. Diffuse interstitial abnormality, as described findings which may represent edema in the acute clinical setting. Underlying subacute/chroni c interstitial lung disease may also have this appearance. Comparison with prior radiographs is suggested if can be made available, otherwise continued surveillance is recommended. RA STEWART Dictated by: ALYX SILVERIO Dictated: 03/13/2016 12:58 PM Job: [id number] Bennie Morley DO Reach via [employer] Messenger 7AM to 7PM Call masking machine operator for cross-cover 7PM to 7AM Time documentation not applicable Restraint: None Asha Potts RN - 03/14/2016 5:37 AM PDTFormatting of this note might be different from the orig inal. Progress Notes by Arnol Kramer RN at 03/14/16 0537 Author: Arnol Kramer, RN Service: (none) Author Type: Registered Nurse Filed: 03/14/16 0646 Date of Service: 03/14/16 0537 Status: Signed Patent Chemist: Arnol Kramer RN (Registered Nurse) NS Shift Summary Patient: Alo Dominguez Shift Events: Uneventful shift. Encouraged use of IS. Pt sleeping throughout night. Ambul ated once this AM w/o oxygen. Sats 87-89 on RA. Put nasal cannula back on. Neuro: Alert and orientedx4 CV: HR 80-90s, went up to 103 once. LE edema, no chest pain. + pulses. RESP: Lungs dim, crackles on right, 2 L O2 Nasal cannula. O2 sats 94-100% GI: abd soft, non tender. : Voiding in bathroom. SKIN: CDI MOBILITY: Independent in room. Calls when needing to use restroom ACCESS: L PIV patent. PAIN: denies PLAN: Ricky 02, dc home today possibly. Son will pick her up. Will continue to monitor. Arnol Kramer RN, 03/14/2016 5:37 AM Marv Strickland Te chnologist - 03/13/2016 4:13 PM PDTFormatting of this note might be different from the orig inal. Progress Notes by Bennie Morley DO at 03/13/16 1613 Author: Bennie Morley DO Service: (none) Author Type: Physician Filed: 03/14/16 1058 Date of Service: 03/13/16 1613 Status: Addendum Patent Chemist: Bennie Morley DO (Physician) Related Notes: Original Note by Bennie Morley DO (Physician) filed at 03/13/16 1626 [facility] Medicine Progress Note Name: Alo Dominguez PCP: Bubba Peña Location: [address] Day #: 2 Reason for Admission and Continued Stay: Alo Macario is a 86 y.o. female with a history significant for hyperlipidemia who is admit pantera for acute respiratory failure, probable pneumonia, probable heart failure, and nstemi. Hospital Events: Assessment and Plan: Active medical problems Acute respiratory failure - improving, probably due to CAP and acute systolic heart failure . We'll wean oxygen. NSTEMI/CAD/acute systolic heart failure - s/p PCI/LANDON to the prox to mid circumflex. stabl e on Aspirin, Plavix, Metoprolol, Lipitor. Appreciate cardiology. We'll start Lisinopril 2. 5MG now and BMP in AM. Possible pneumonia with leukocytosis - on Ceftin and Zithromax. Had flu vaccine this year and had PVX in 2013. Viral swab ordered as well. 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 BMP in AM Lab results (within last 13 months/) 03/13/16 0540 03/12/16 0700 03/11/16 1725 K 3.4* 3.0* 3.5 Anemia - stable Lab results (within last 13 months/) 03/13/16 0540 03/11/16 1725 HGB 10.6* 11.3 HCT 31.5* 33.8* Chronic/Resolved medical problems Telemetry indication(s): Acute coronary syndrome/post NJ (until stable for 1-4 days) Disposition: Plan to DC to home Anticipated discharge: 3-4 days DVT prophylaxis: Already anticoagulated Code status: DNR Subjective and Events Overnight: No complaints. Denied chest pain, sob, n/v, headache, fever, chills. Objective: Vital Signs: Temp: 36.8 C (98.2 F) Temp (24hrs), Av.4 C (97.5 F), Min:36.1 C (97 F), Max :36.8 C (98.2 F) BP: 107/59 mmHg Heart Rate: 77 Resp: 16 SpO2: 94 % Oxygen Therapy?: Yes O2 Liter Flow (1L or More): 2L/min Exam General: Awake and alert. No distress. Oriented x 3. HEENT: Normocephalic, atraumatic, moist mucous membranes Eyes: Sclera anicteric noninjected Skin: No rashes. No jaundice. Heart: RRR. No murmurs. Lungs: left base inspiratory crackle. Abdomen: BS normal. Soft. Non-distended. Non-tender. Extremities: No cyanosis. No edema. Neuro: Nonfocal, speech is clear, MS is 5/5 Psych: Mood and affect are normal, thoughts are coherent. Labs Reviewed and remarkable for: Lab results (within last 13 months/9479hours) 03/13/16 0540 03/11/16 1725 WBC 10.8 14.4* POLYAP -- 86 HGB 10.6* 11.3 HCT 31.5* 33.8* MCV 87 87 PLT 254 228 Lab results (within last 13 months/rs) 03/13/16 0540 NA 140 K 3.4* CL 97 TCO2 28 BUN 36* CR 1.23* GLUC 110* CA 8.1* Recent Labs 03/11/16 1725 03/12/16 0700 03/13/16 0540 CK -- 251* 150 TROP 24.81* 17.34* -- Lab results (within last 13 months/) 03/11/16 1725 PROBNP 16826* Microbiology No new micro last 24 hours Radiology Xr Chest 1 View 03/13/2016 1. Hypoventilatory changes. 2. Diffuse interstitial abnormality, as described findings which may represent edema in the acute clinical setting. Underlying subacute/chroni c interstitial lung disease may also have this appearance. Comparison with prior radiographs is suggested if can be made available, otherwise continued surveillance is recommended. RA STEWART Dictated by: ALYX SILVERIO Dictated: 03/13/2016 12:58 PM Job: [id number] Bennie Morley DO Reach via Ther[employer] 7AM to 7PM Call masking machine operator for cross-cover 7PM to 7AM Time documentation not applicable Restraint: None Lisa Sykes RN - 03/13/2016 3:37 PM PDTFormatting of this note might be different from the origi nal. Progress Notes by Jenise Smith RN at 03/13/16 156 Author: Jenise Smith RN Service: (none) Author Type: Registered Nurse Filed: 03/13/16 567 Date of Service: 03/13/161536 Status: Signed Patent Chemist: Jenise Smith RN (Registered Nurse) Patient: Alo Dominguez Shift Events: Uneventful shift, anxious to go home tomorrow. Neuro: Alert and oriented, very pleasant to care for. CV: NSR 1st AVB with occasional PVC, trace LE edema, no chest pain. + pulses. RESP: Lungs dim, fine crackles on right, 2 L of 02, using IS and dose of IV lasix. RA 89% . GI: Abd soft, non tender, good appetite. : Voiding in bathroom. SKIN: CDI MOBILITY: Independent in room. ACCESS: PIV patent. PAIN: Denies PLAN: Ween 02, hopefully home tomorrow. All needs met. Will continue to monitor. BP: 107/59 mmHg, Heart Rate: 77, Cardiac Rhythm (monitored Pts.): Normal sinus rhythm;1st D egree AVB, Temp: 36.8 C (98.2 F), Resp: 16, SpO2: 94 %, O2 Liter Flow (1L or More): 2L/m in, Height: 5' 7" (170.2 cm), Weight: 66.679 kg (147 lb) Nathalie Lucas NP - 03/13/2016 12:47 PM PDT Progress Notes by Nathalie Huber ARNP at 03/13/16 1247 Author: Nathalie Huber ARNP Service: (none) Author Type: Nurse Practitioner Filed: 03/13/16 2449 Date of Service: 03/13/16 1247 Status: Signed Patent Chemist: Nathalie Huber ARNP (Nurse Practitioner) [facility] Cardiology Progress Note ID: Alo Dominguez Experimental Worker: Fabien Rodrigez MD : 1930 (86 y.o.) Attending: [facility] MD Yessi Location: 403E/403E1 APC:RODOLFO Krishnan Hospital Day#: 2 PCP: Bubba Peña Reason for Admission and Continued Hospitalization: 86 y.o. female who is transferred from [facility] for management of acute coronary syndrome and shortness of breath. Assessment and Plans 1. CAD/ACS: 03/12/16 cath showed severe two-vessel coronary disease (chronic occlusion of th e left anterior descending at its origin with rich collateral circulation from the right cor onary artery; 90% stenosis in the proximal to mid circumflex; moderate tandem disease in the proximal and mid right coronary artery) now s/p PCI/LANDON to the proximal to mid circulation - Plavix, ASA, statin - Will keep overnight given acute respiratory issue; reassess tomorrow. 2. Acute respiratory failure: Mild congestive heart failure vs infectious process. Low pro- calcitonin. Today's CXR shows acute edema vs chronic/subacute insterstitial lung disease. R emains dependent on supplemental 02, currently on 2LNC. - Start incentive spirometry - Trial low dose 20 mg IV lasix today - Ambulate this evening to see how she does after diuresis - Continue Azithromycin per SH - Monitor weight and I&Os Discussed with Dr. Saran Carlos MD. Patient Active Problem List Diagnosis Date Noted Acute respiratory failure 03/11/2016 Community acquired pneumonia 03/11/2016 NSTEMI (non-ST elevated myocardial infarction) 03/11/2016 CKD (chronic kidney disease) stage 3, GFR 30-59 ml/min 03/11/2016 Current Facility-Administered Medications Medication Dose Route Frequency ceFUROXime (aka CEFTIN) tablet 500 mg 500 mg Oral Q12H azithromycin (aka ZITHROMAX) tablet 250 mg 250 mg Oral DAILY NS (0.9% NaCl) IV solution 250-500 mL 250-500 mL Intravenous PRN atropine injection 0.5-1 mg 0.5-1 mg Intravenous PRN nitroglycerin (aka NITROSTAT) tablet 0.4 mg 0.4 mg Sublingual Q5MIN PRN aspirin chewable tablet 81 mg 81 mg Oral DAILY acetaminophen (aka TYLENOL) tablet 650 mg 650 mg Oral Q6H PRN docusate (aka COLACE) capsule 250 mg 250 mg Oral DAILY PRN ondansetron (PF) (aka ZOFRAN) injection 4 mg 4 mg Intravenous Q6H PRN zolpidem (aka AMBIEN) tablet 5 mg 5 mg Oral HS PRN clopidogrel (aka PLAVIX) tablet 75 mg 75 mg Oral DAILY fentanyl (PF) (aka SUBLIMAZE) injection 25-50 mcg 25-50 mcg Intravenous Q1H PRN potassium chloride (aka KLOR CON) packet 20 mEq 20 mEq Oral DAILY PRN alum-mag hydroxide-SIMeth 200-200-20 mg/5 mL suspension 30 mL 30 mL Oral Q2H PRN insulin lispro (aka HumaLOG) injection 1-5 Units 1-5 Units Subcutaneous Correction[employer] D [employer]sing metoprolol (aka LOPRESSOR) tablet 25 mg 25 mg Oral Q12H atorvastatin (aka LIPITOR) tablet 40 mg 40 mg Oral HS Subjective: Denies CP or SOB but does endorse generalized weakness/fatigue. Requires suppl emental 02 at 2LNC. Objective: Vital Signs: Temp: 36.1 C (97 F), BP: 108/62 mmHg, Heart Rate: 75, Cardiac Rhythm (randy tored Pts.): Normal sinus rhythm;1st Degree AVB, Resp: 16, SpO2: 94 % Rhythm: Cardiac Rhythm (monitored Pts.): Normal sinus rhythm;1st Degree AVB Weight: Admission Wt:71.305 kg (157 lb 3.2 oz) Patient Vitals for the past 72 hrs: Weight 03/13/16 0441 66.679 kg (147 lb) 03/12/16 0800 65.635 kg (144 lb 11.2 oz) 03/12/16 0400 66.225 kg (146 lb) 03/11/16 1600 71.305 kg (157 lb 3.2 oz) Intake/Output Summary (Last 24 hours) at 03/13/16 1247 Last data filed at 03/13/16 0900 Gross per 24 hour Intake 120 ml Output 1050 ml Net -930 ml Exam: Gen: Well developed well nourished male in no distress HEENT: JVP Normal, Chest: Faint rales at bases present Heart: Regular rhythm, S1 and S2 are normal, without murmur, no gallops, clicks or rubs Abdomen: Soft, no organomegaly,no masses or bruits. Extremities: negative for edema in both legs Neuro: Alert and oriented, no focal findings. Labs: Metabolic Panel Recent Labs 03/11/16 1725 03/12/16 0700 03/13/16 0540 NA 136 139 140 K 3.5 3.0* 3.4* CL 93* 96* 97 TCO2 27 28 28 BUN 32* 33* 36* CR 1.28* 1.23* 1.23* GLUC 118* 110* 110* CA 8.8 8.2* 8.1* Estimated Creatinine Clearance: 33 mL/min (based on Cr of 1.23). CBC Recent Labs 03/11/16 1725 03/13/16 0540 HCT 33.8* 31.5* HGB 11.3 10.6* WBC 14.4* 10.8 PLT 228 254 No results for input(s): TSH in the last 72 hours. Cardiac Enzymes/ProBNP Recent Labs 03/11/16 1725 03/12/16 0700 03/13/16 0540 CK -- 251* 150 TROP 24.81* 17.34* -- Lab results (within last 13 months/9480hours) 03/11/16 1725 PROBNP 00383* Lipid Profile Lab results (within last 13 months/9480hours) 03/12/16 0700 CHOL 161 TRGL 112 HDL 51 LDL 88 RODOLFO Krishnan 12:47; 03/13/2016 Reach via Ther[employer] 8AM to 6PM Kendra Mack R N - 03/13/2016 11:18 AM PDT Progress Notes by Kendra Desir RN at 03/13/16 1118 Author: Kendra Desir RN Service: (none) Author Type: Registered Nurse Filed: 03/13/169 Date of Service: 03/13/161117 Status: Signed Patent Chemist: Kendra Desir RN (Registered Nurse) Cardiovascular Risk Assessment Patient screened, CV Wellness Program information given. Kendra Desir RN, 03/13/2016 11:18 AM onversion Transactio n, Provider Unknown - 03/13/2016 9:10 AM PDT Progress Notes by Kassandra Mayers RN at 03/13/16909 Author: Kassandra Mayers RN Service: (none) Author Type: Carpet Cleaning Technician Filed: 03/13/16912 Date of Service: 03/13/16909 Status: Signed Patent Chemist: Kassandra Mayers RN (Carpet Cleaning Technician) Case Management Progress Note 03/13/2016 09:11 Patient Alo Dominguez is a 86 y.o. female. Anticipated D/C Plan: Home w/family support Current Clinical Needs: Groin management; O2 weaning Discussion: Pt is still being weaned from her O2. She does not normally use O2. Discusse d options for transportation. Her son will come from [place], [place] to pick her up. He need s 24h to make arrangements. Will cont to follow & intervene as indicated. Case Management Interventions: Case Mgmt Team Interventions: D/C planning follow-up;Care c oordination;Consult with healthcare team [place] of Choice: Medicare Important Message given: Kassandra Stephens RN Bethany Cuevas do, RN - 03/12/2016 10:31 PM PDTFormatting of this note might be different from th e original. Progress Notes by Bethany Douglas RN at 03/12/162230 Author: Bethany Douglas RN Service: (none) Author Type: Registered Nurse Filed: 03/12/166 Date of Service: 03/12/162230 Status: Signed Patent Chemist: Bethany Douglas RN (Registered Nurse) NSG Progress Note Brief Patient: Alo Dominguez Assumed care at 1900, A&Ox4, ambulates with SBA. +SOB on exertion. Kept O2 at 4lpm. Denies any pain. Right radial/wrist incision covered with drsg. CDI, no hematoma/bleeding/tingling/ numbness. +pulses. VSS. SR with PVC's. On droplet precaution. Will cont to monitor. Bethany Douglas RN, 03/12/2016 10:31 PM Jose Knight RN - 03/12/2016 5:46 PM PDTFormatting of this note might be different from the origin al. Progress Notes by Estrella Sales RN at 03/12/16 3775 Author: Estrella Sales RN Service: (none) Author Type: Registered Nurse Filed: 03/12/161745 Date of Service: 03/12/161745 Status: Signed Patent Chemist: Estrella Sales RN (Registered Nurse) NSG Progress Note Brief Patient: Alo Dominguez Pt a&ox4. Tele - SR. VSS. 96% on 4LNC - moderate CLAY. Continue droplet precautions - viral panel pending. Denies cough. R radial access site soft/stable. No hematoma. Pulses palpable/ CMS intact. IV potassium given for K of 3.0. Pt oob with SBA, steady on feet. Plan: telemetry, diuresing, wean off 02, increase act as marvel. Call light within reach, will continue to monitor. Estrella Sales RN, 03/12/2016 5:46 PM onversion Tra nsaction, Provider Unknown - 03/12/2016 2:47 PM PDTFormatting of this note might be differe nt from the original. Progress Notes by Denita Johnson RN at 03/12/161446 Author: Denita Johnson RN Service: (none) Author Type: Carpet Cleaning Technician Filed: 03/12/16 6254 Date of Service: 03/12/161446 Status: Signed Patent Chemist: Denita Johnson RN (Carpet Cleaning Technician) Case Management Discharge Planning Assessment 14:47; 03/12/2016 Patient Alo Dominguez is a 86 y.o. female Discussion: Chart reviewed, case discussed in multidisiplinary rounds. Met with Ms Dominguez to discuss DC plans. She reports that she lives alone, is active , independent, and involved with [email or web address] others at the [facility] near her home. She has a PCP and health insurance. Her home is [place] [facility] [place]. Her main DC concern is transportation. Her Son, Ed, has offe red to transport her, but she feels he should not miss a day of work. Discharge Planning Options Discharge Disposition Options: Home Discharge Support Options: MD follow up Plan: DC to home,, assist with transportation problem solving. Resources/Education provided: CM role Interventions: Case Mgmt Team Interventions: Crisis counseling/emotional support/grief and loss support Referrals: Diagnosis: Coronary artery disease, angina presence unspecified, unspecified vessel or les ion type, unspecified whether platinum or transplanted heart [I25.10] Co-Morbidity/Complications: Past Medical History Diagnosis Date Colon cancer apx 2010 treated with surgery and oral chemo Hyperlipidemia Surgery/Procedures: Procedure(s): CV Cor Angio CV Stent Past Surgical History Procedure Laterality Date Appendectomy Hysterectomy Cataract removal Tonsillectomy Advance Directive Information Advance Directive?: Living Will;DPOA for Health Care Durable Power of Cyber Systems Engineer NAME: Nisha Roberts, friend and Ed Lynsey, son Is this a readmission?: Is this a readmission?: No Pre-Admit Baseline : Lives with: self Receives help from: IND Current Providers/Agencies: n/a Prior to admit, the patient was: Living alone Mobility prior to admit: Independent DME and/or supplies at residence MANUFACTURING MAINTENANCE TECHNICIAN: None Transportation used prior to admit: Self Medication administration MANUFACTURING MAINTENANCE TECHNICIAN: Independent Patient is caregiver for dependent(s): None PCP: Confirmed with patient/ambulatory services representative Bubba Peña Principle Payors: Per chart review Payor: / Primary Contact Information: Extended Emergency Contact Information Primary Emergency Contact: Reyes Menon [facility] Relation: Son Secondary Emergency Contact: Unk,Unk [facility] Relation: Unknown Patient is being followed by Case Management FRANCISCO Berg RN BSN Case Management PH: [phone] Pager: [phone] Angelika Bell RN - 03/12/2016 12:09 PM PDT Progress Notes by Estrella Sales RN at 03/12/16 1208 Author: Estrella Sales RN Service: (none) Author Type: Registered Nurse Filed: 03/12/16 1216 Date of Service: 03/12/16 120 Status: Signed Patent Chemist: Estrella Sales RN (Registered Nurse) NSG Arrival Note Patient: Alo Dominguez Arrival time: 1200 From: [facility] to room 403. Belongings verified with the patient: Yes - see flowsheet Last VS: Temp: 36.9 C (98.5 F), BP: 114/67 mmHg, Heart Rate: 70, Resp: 18, SpO2: 97 %, O2 Liter Flow (1L or More): 4 L/min, Weight: 65.635 kg (144 lb 11.2 oz). Admission Wt:71.30 5 kg (157 lb 3.2 oz) Skin intact: No - R radial access site with TR band, 10cc of air PU Prevention Specialty Bed: In use Time of last pain med: In laboratory miller prior to transfer Lines and drains: L wrist PIV, Current IV: normal saline at 100cc/hr Current nursing problems: Telemetry, TR band protocol, increase act as marvel Patient orientation: to call light to telephone and television to [facility] information to plan for the day Estrella Sales RN, 03/12/2016 12:09 PM Ramirez Berumen MD - 03/12/2016 10:11 AM PDT Progress Notes by Ramirez Pringle MD at 03/12/16 1011 Author: Ramirez Pringle MD Service: (none) Author Type: Physician Filed: 03/12/16 1018 Date of Service: 03/12/16 1011 Status: Signed Patent Chemist: Ramirez Pringle MD (Physician) [facility] Medicine Progress Note Name: Alo Dominguez PCP: Bubba Peña Location: [address] Day #: 1 Reason for Admission and Continued Stay: Alo Macario is a 86 y.o. female with a history significant for hyperlipidemia who is admit [facility]tera for acute respiratory failure, probable pneumonia, probable heart failure, and nstemi. Hospital Events: Assessment and Plan: Active medical problems NSTEMI Acute heart failure Consulted Dr. Rodrigez enoxaparin 1 mg/kg q12h Continue po metoprolol, asa, increased lipitor to 40 mg Trend trop, telemetry Echo - suspicious for cardiomyopathy or valvular dysfunction Probable coronary angiogram depending on echo Lasix 40 mg IV daily Acute respiratory failure - improving/resolving with diuresis, less O2 since yesterday (had required bipap at presentation to OSH) Possible pneumonia with leukocytosis - procalcitonin low but partially treated, continue ab x got levaquin 750 mg dose 03/10, continue with CTX and azithro convert to oral tomorrow. H ad flu vaccine this year and had PVX in 2013. Viral swab ordered as well. 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 - follow Cr stable since admission at OSH Replete hypokalemia - IV 40- meq ordered Chronic/Resolved medical problems Telemetry indication(s): Acute coronary syndrome/post NJ (until stable for 1-4 days) Disposition: Plan to DC to home Anticipated discharge: 3-4 days DVT prophylaxis: Already anticoagulated Code status: DNR Subjective and Events Overnight: Breathing is improved - mild SOB, on less O2, no chest pain or pressure asking about how an d when she his getting home Explained plan of care Objective: Vital Signs: Temp: 37 C (98.6 F) Temp (24hrs), Av.1 C (98.7 F), Min:36.2 C (97.1 F), Max :37.8 C (100 F) BP: 100/64 mmHg Heart Rate: 82 Resp: 18 SpO2: 96 % Oxygen Therapy?: Yes O2 Liter Flow (1L or More): 4 L/min Exam General: Awake and alert. No distress. Sitting in chair HEENT: Normocephalic, atraumatic, moist mucous membranes Eyes: Sclera anicteric noninjected Skin: No rashes. No jaundice. Heart: RRR. No murmurs. Lungs: Bibasilar crackles significantly improved. Anterior crackles resolved Abdomen: BS normal. Soft. Non-distended. Non-tender. Extremities: No cyanosis. No edema. Neuro: Nonfocal Labs Reviewed and remarkable for: Lab results (within last 13 months/80hours) 03/11/16 1725 WBC 14.4* POLYAP 86 HGB 11.3 HCT 33.8* MCV 87 PLT 228 Lab results (within last 13 months/80hours) 03/12/16 0700 NA 139 K 3.0* CL 96* TCO2 28 BUN 33* CR 1.23* GLUC 110* CA 8.2* Recent Labs 03/11/16 1725 03/12/16 0700 CK -- 251* TROP 24.81* 17.34* Lab results (within last 13 months/9480hours) 03/11/16 1725 PROBNP [id number]* [ Microbiology No new micro last 24 hours Radiology No results found. Ramirez Pringle MD Reach via Therasis 7AM to 7PM Call masking machine operator for cross-cover 7PM to 7AM Time documentation not applicable Restraint: None eFabien granados MD - 03/12/2016 9:40 AM PDT Progress Notes by Fabien Rodrigez MD at 03/12/16939 Author: Fabien Rodrigez MD Service: (none) Author Type: Physician Filed: 03/12/16939 Date of Service: 03/12/16939 Status: Signed Patent Chemist: Fabien Rodrigez MD (Physician) Procedural Sedation Pre-Procedure Assessment Why these Pre-Evaluation questions? Plan for Sedation: Level 2-1: Moderate sedation / analgesia (procedural sedation) ASA Classification: Class 2: Mild systemic disease, no functional limitations Sleep Apnea: Nursing screening for sleep apnea The patient does not have a history that is consistent with sleep apnea, or positive sleep apnea screen by nursing. Anesthesia Difficulty: The patient does not have a history of difficulty with anesthesia, malignant hyperthermia ( MH), or a family history of MH. Airway Evaluation: How to evaluate an airway After evaluation the patient's airway, the patient does not show any indication for a diffi cult airway. onversion Transacti on, Provider Unknown - 03/12/2016 12:52 AM PDTFormatting of this note might be different fro m the original. Progress Notes by Albin Brandon RN at 03/12/1651 Author: Albin Brandon RN Service: (none) Author Type: Registered Nurse Filed: 03/12/16 0459 Date of Service: 03/12/1651 Status: Signed Patent Chemist: Albin Brandon RN (Registered Nurse) NSG Shift Summary Patient: Alo Macario Pt A/Ox4. VSS on 4L NC, weaned from 6L NC. Low grade temp 100F, tylenol given with adequate relief. NSR per tele. No c/o chest pain or SOB. NPO at midnight for possible cardiac cath t his AM. Pt had vaginal surgery a week ago, stitches intact. Voiding without issues. ABX give n for possible PNA. Up in room with SBA. Call light within reach, will continue to monitor. Albin Brandon RN, 03/12/2016 4:59 AM Gera Sanchez RN, FREEDOM - 03/11/2016 8:55 PM PDTFormatting of this note might be different from the o riginal. Progress Notes by Gera Carnes Jr., RN, CWCN at 03/11/162054 Author: Gera Carnes Jr., RN, CWCN Service: (none) Author Type: Registered Nurse Filed: 03/11/162056 Date of Service: 03/11/162054 Status: Signed Patent Chemist: Gera Carnes Jr., RN, CWCN (Registered Nurse) PRN Nurse Admission Note Patient: Alo Macario Admission Time and Date: 1600 on 03/11/2016 Patient admitted from: [facility], as PRN Nurse, reviewed medical history, medications and current reason for hospita lization with the patient. They were a good historian. Pt was able to provide home med list. Please see ORTHOPAEDIC NURSE SCREENS for admit details. See DOC FLOWSHEETS for vitals and nursi ng assessment by staff nurse. Report given to the staff nurse at 20:55 Gera Carnes RN, CWCN, 20:55; 03/11/2016 Barbi Valenzuela RN - 7:25 PM PDT Progress Notes by Barbi Velarde RN at 03/11/161924 Author: Barbi Velarde RN Service: (none) Author Type: Registered Nurse Filed: 03/11/161925 Date of Service: 03/11/161924 Status: Signed Patent Chemist: Barbi Velarde RN (Registered Nurse) NS Progress Note Brief Patient: Alo Macario Pt is wean down to NC on 4 liters sating at 93-94 %. Denies shortness of breath. Pt is shore sferred up to 4 east in room 403 at 1900. Continue to monitor. Barbi Velarde RN, 03/11/2016 7:25 PM Barbi Valenzuela RN - 2015 6:13 PM PDT Progress Notes by Barbi Velarde RN at 03/11/161812 Author: Barbi Velarde RN Service: (none) Author Type: Registered Nurse Filed: 03/11/161813 Date of Service: 03/11/161812 Status: Signed Patent Chemist: Barbi Velarde RN (Registered Nurse) BOB Progress Note Brief Patient: Alo Macario Heparin gtt is stop at 1800 per MD order. Will start Lovenox. Barbi Velarde RN, 03/11/2016 6:13 PM Barbi Valenzuela RN - 2015 5:04 PM PDT Progress Notes by Barbi Velarde RN at 03/11/161703 Author: Barbi Velarde RN Service: (none) Author Type: Registered Nurse Filed: 03/11/16 171 Date of Service: 03/11/16 170 Status: Signed Patent Chemist: Barbi Velarde RN (Registered Nurse) [facility] Admission Note Patient: Alo Macario Admission Time and Date: 1600 on 03/11/2016 Patient admitted from: [facility] to room 238. Patient orientation: to call light to telephone and television to general hospital information to plan for the day Belongings verified with the patient: Yes - see flowsheet Current nursing problems: Respiratory distress: pt is currently on 10 liters of oxygen sat ing at 96% face mask. Wean oxygen down to 6 liters face mask sating at 63-94%. Pt denies jimi rtness of breath or chest pain. A/Ox4. Extremities intact. Pt was on Heparin gtt at [facility] heidi. Per [facility] personal: Heparin is infusing at 825units/hr, 16.5cc/hr. Continue infused H eparin gtt at 16.5cc/hr while waiting for current PTT/INR per Dr. Pringle. Continue to monitor. Barbi Velarde RN, 03/11/2016 5:04 PM documented in this encou nter Plan of Treatment +--------+---------+ + + + | Date | Type | Specialty | Care Team | Description | +--------+---------+ + + + | 02/09/ | Office | Cardiology | Garcia Barajas, | | | 2019 | Visit | | MD Ashlie ALFARO | | | | | | [address] [address] [place], [place] | | | | | | [address] | | | | | | | | +--------+---------+ + + + documented as of this encounter Procedures + +--------+ + + + | Procedure Name | Priori | Date/Time | Associated Diagnosis | Comments | | | ty | | | | + +--------+ + + + | XR CHEST 1 VIEW | Routin | 03/14/2016 | | Results for this | | | e | 9:15 AM | | procedure are in the | | | | PDT | | results section. | + +--------+ + + + | NT-PRO BNP | Routin | 03/14/2016 | | Results for this | | | e | 6:45 AM | | procedure are in the | | | | PDT | | results section. | + +--------+ + + + | PROCALCITONIN, SERUM | Routin | 03/14/2016 | | Results for this | | | e | 6:45 AM | | procedure are in the | | | | PDT | | results section. | + +--------+ + + + | CBC NO DIFFERENTIAL | Routin | 03/14/2016 | | Results for this | | | e | 6:45 AM | | procedure are in the | | | | PDT | | results section. | + +--------+ + + + | BASIC METABOLIC | Routin | 03/14/2016 | | Results for this | | PANEL | e | 6:45 AM | | procedure are in the | | | | PDT | | results section. | + +--------+ + + + | XR CHEST 1 VIEW | Routin | 03/13/2016 | | Results for this | | | e | 12:47 PM | | procedure are in the | | | | PDT | | results section. | + +--------+ + + + | CBC NO DIFFERENTIAL | Routin | 03/13/2016 | | Results for this | | | e | 5:40 AM | | procedure are in the | | | | PDT | | results section. | + +--------+ + + + | CK TOTAL AND CK-MB | Routin | 03/13/2016 | | Results for this | | | e | 5:40 AM | | procedure are in the | | | | PDT | | results section. | + +--------+ + + + | BASIC METABOLIC | Routin | 03/13/2016 | | Results for this | | PANEL | e | 5:40 AM | | procedure are in the | | | | PDT | | results section. | + +--------+ + + + | ECHO COMPLETE | Routin | 03/12/2016 | | Results for this | | | e | 3:21 PM | | procedure are in the | | | | PDT | | results section. | + +--------+ + + + | CV CARDIAC PROCEDURE | Routin | 03/12/2016 | | Results for this | | | e | 11:43 AM | | procedure are in the | | | | PDT | | results section. | + +--------+ + + + | G-5 CARDIAC PANEL | Routin | 03/12/2016 | | Results for this | | | e | 7:00 AM | | procedure are in the | | | | PDT | | results section. | + +--------+ + + + | LIPID PROFILE | Routin | 03/12/2016 | | Results for this | | | e | 7:00 AM | | procedure are in the | | | | PDT | | results section. | + +--------+ + + + | PROCALCITONIN, SERUM | Routin | 03/12/2016 | | Results for this | | | e | 7:00 AM | | procedure are in the | | | | PDT | | results section. | + +--------+ + + + | BASIC METABOLIC | Routin | 03/12/2016 | | Results for this | | PANEL | e | 7:00 AM | | procedure are in the | | | | PDT | | results section. | + +--------+ + + + | RESPIRATORY VIRUS | Routin | 03/11/2016 | | Results for this | | ANTIGENS PROFILE | e | 8:18 PM | | procedure are in the | | | | PDT | | results section. | + +--------+ + + + | NT-PRO BNP | Routin | 03/11/2016 | | Results for this | | | e | 5:25 PM | | procedure are in the | | | | PDT | | results section. | + +--------+ + + + | PROCALCITONIN, SERUM | Routin | 03/11/2016 | | Results for this | | | e | 5:25 PM | | procedure are in the | | | | PDT | | results section. | + +--------+ + + + | TROPONIN I | Routin | 03/11/2016 | | Results for this | | | e | 5:25 PM | | procedure are in the | | | | PDT | | results section. | + +--------+ + + + | PTT | Routin | 03/11/2016 | | Results for this | | | e | 5:25 PM | | procedure are in the | | | | PDT | | results section. | + +--------+ + + + | CBC WITH | Routin | 03/11/2016 | | Results for this | | DIFFERENTIAL | e | 5:25 PM | | procedure are in the | | | | PDT | | results section. | + +--------+ + + + | COMPREHENSIVE | Routin | 03/11/2016 | | Results for this | | METABOLIC PANEL | e | 5:25 PM | | procedure are in the | | | | PDT | | results section. | + +--------+ + + + documented in this encounter Results XR Chest 1 Vw (03/14/2016 9:15 AM PDT) + + | Specimen | + + | | + + + + + | Impressions | Performed At | + + + | 1. Diffuse interstitial abnormality with decrease in density in | | | the lung bases and slight decrease in prominence overall which may be | | | in part related to improved lung volumes. Improved edema and/or | | | superimposed edema upon underlying interstitial lung disease is also | | | consideration. Continue surveillance recommended. [facility] | | | Dictated by: ALYX SILVERIO Dictated: 03/14/2016 9:24 AM Job: [id number] | | + + + + + + | Narrative | Performed At | + + + | CHEST RADIOGRAPHY XR CHEST 1 VIEW HISTORY: Hypoxemia. | | | COMPARISONS: 03/13/2016. FINDINGS: Lung volume have slightly | | | improved. Heart size and mediastinal contour are stable. Bilateral | | | interstitial abnormality is again seen with slight decrease in | | | density in the lung bases which may be in part related to improved | | | lung volumes and slight decrease in prominence. No new superimposed | | | consolidation. No pneumothorax. No acute osseous abnormalities. | | | Degenerative changes of the thoracic spine. Mild gaseous distention | | | of the stomach. | | + + + + + | Procedure Note | + + | Derick, Rad Conversion - 03/25/2019 4:46 AM PDT CHEST RADIOGRAPHY | | XR CHEST 1 VIEW | | | | HISTORY: Hypoxemia. | | | | COMPARISONS: 03/13/2016. | | | | FINDINGS: | | Lung volume have slightly improved. Heart size and mediastinal | | contour are stable. Bilateral interstitial abnormality is again seen | | with slight decrease in density in the lung bases which may be in | | part related to improved lung volumes and slight decrease in | | prominence. No new superimposed consolidation. No pneumothorax. No | | acute osseous abnormalities. Degenerative changes of the thoracic | | spine. Mild gaseous distention of the stomach. | | | | IMPRESSION: | | | | 1. Diffuse interstitial abnormality with decrease in density in the | | lung bases and slight decrease in prominence overall which may be in | | part related to improved lung volumes. Improved edema and/or | | superimposed edema upon underlying interstitial lung disease is also | | consideration. Continue surveillance recommended. | | | | [facility] | | | | Dictated by: ALYX SILVERIO | | Dictated: 03/14/2016 9:24 AM | | Job: [id number] | + + NT-PRO BNP (03/14/2016 6:45 AM PDT) + + + + + + | Component | Value | Ref Range | Performed | Pathologist | | | | | At | Signature | + + + + + + | NT-proBNP | 8,351 (H) | pg/mL | EXTERNAL | | | | | | LAB | | + + + + + + + + | Specimen | + + | | + + + +---------+ + + | Performing | Address | City/State/Zipcode | Phone Number | | Organization | | | | + +---------+ + + | EXTERNAL LAB | | | | + +---------+ + + Procalcitonin (03/14/2016 6:45 AM PDT) + + + + + + | Component | Value | Ref Range | Performed | Pathologist | | | | | At | Signature | + + + + + + | PROCALCITON | 0.19 | ng/mL | EXTERNAL | | | IN | | | LAB | | + + + + + + | Interpretat | CommentComment: | | EXTERNAL | | | ion | SEPSIS/SYSTEMIC | | LAB | | | | INFECTION is not likely. | | | | | | Local bacterial | | | | | | infection ispossible. | | | | | | If systemic infection | | | | | | is suspected consider | | | | | | repeat PCTevaluation in | | | | | | 6 hours. LOWER | | | | | | RESPIRATORY TRACT | | | | | | INFECTION: Bacterial | | | | | | infection is unlikely. | | | | + + + + + + + + | Specimen | + + | | + + + +---------+ + + | Performing | Address | City/State/Zipcode | Phone Number | | Organization | | | | + +---------+ + + | EXTERNAL LAB | | | | + +---------+ + + CBC no Differential (03/14/2016 6:45 AM PDT) + + + + + + | Component | Value | Ref Range | Performed | Pathologist | | | | | At | Signature | + + + + + + | WBC | 11.1 (H) | 3.4 - 10.8 | EXTERNAL | | | | | th/mm3 | LAB | | + + + + + + | RBC | 3.70 (L) | 3.77 - 5.28 | EXTERNAL | | | | | mil/mm3 | LAB | | + + + + + + | Hemoglobin | 10.8 (L) | 11.1 - 15.9 | EXTERNAL | | | | | g/dL | LAB | | + + + + + + | HCT, | 32.4 (L) | 34.0 - 46.6 % | EXTERNAL | | | External | | | LAB | | + + + + + + | MCV | 88 | 79 - 97 fL | EXTERNAL | | | | | | LAB | | + + + + + + | MCH | 29.2 | 26.6 - 33.0 pg | EXTERNAL | | | | | | LAB | | + + + + + + | MCHC | 33.3 | 31.5 - 35.7 | EXTERNAL | | | | | g/dL | LAB | | + + + + + + | RDW-CV | 14.8 | 12.3 - 15.4 % | EXTERNAL | | | | | | LAB | | + + + + + + | Platelet | 308 | 150 - 379 | EXTERNAL | | | Count | | x10E3/uL | LAB | | + + + + + + + + | Specimen | + + | Blood specimen | | (specimen) | + + + +---------+ + + | Performing | Address | City/State/Zipcode | Phone Number | | Organization | | | | + +---------+ + + | EXTERNAL LAB | | | | + +---------+ + + Basic Metabolic Panel (03/14/2016 6:45 AM PDT) + + + + + + | Component | Value | Ref Range | Performed | Pathologist | | | | | At | Signature | + + + + + + | K | 3.5 | 3.5 - 5.2 mEq/L | EXTERNAL | | | | | | LAB | | + + + + + + | CO2 | 26 | 18 - 29 mmol/L | EXTERNAL | | | | | | LAB | | + + + + + + | Creatinine | 1.36 (H) | 0.57 - 1.00 | EXTERNAL | | | | | mg/dL | LAB | | + + + + + + | Calcium | 8.6 (L) | 8.7 - 10.3 | EXTERNAL | | | | | mg/dL | LAB | | + + + + + + | BUN | 43 (H) | 8 - 27 mg/dL | EXTERNAL | | | | | | LAB | | + + + + + + | Na | 140 | 134 - 144 mEq/L | EXTERNAL | | | | | | LAB | | + + + + + + | Cl | 97 | 97 - 108 mEq/L | EXTERNAL | | | | | | LAB | | + + + + + + | Glucose | 117 (H)Comment: Normal | 65 - 99 mg/dL | EXTERNAL | | | | printed is for | | LAB | | | | fasting.No normals for | | | | | | random. | | | | | | | | | | + + + + + + | Anion Gap | 17 | 5 - 19 | EXTERNAL | | | | | | LAB | | + + + + + + + + | Specimen | + + | Blood specimen | | (specimen) | + + + +---------+ + + | Performing | Address | City/State/Zipcode | Phone Number | | Organization | | | | + +---------+ + + | EXTERNAL LAB | | | | + +---------+ + + XR Chest 1 Vw (03/13/2016 12:47 PM PDT) + + | Specimen | + + | | + + + + + | Impressions | Performed At | + + + | 1. Hypoventilatory changes. 2. Diffuse interstitial abnormality, | | | as described findings which may represent edema in the acute | | | clinical setting. Underlying subacute/chronic interstitial lung | | | disease may also have this appearance. Comparison with prior | | | radiographs is suggested if can be made available, otherwise | | | continued surveillance is recommended. [facility] Dictated by: | | | ALYX SILVERIO Dictated: 03/13/2016 12:58 PM Job: [id number] | | + + + + + + | Narrative | Performed At | + + + | CHEST RADIOGRAPHY XR CHEST 1 VIEW HISTORY: Desaturation, cough. | | | COMPARISONS: None. FINDINGS: Heart size is upper normal. | | | Aorta is mildly tortuous. Lung volumes are low. Diffuse interstitial | | | abnormality is seen largely in the peripheral aspect of the mid and | | | upper lungs and throughout both lung bases. No pneumothorax. No acute | | | osseous abnormalities. | | + + + + + | Procedure Note | + + | Derick, Rad Conversion - 03/25/2019 4:46 AM PDT CHEST RADIOGRAPHY | | XR CHEST 1 VIEW | | | | HISTORY: Desaturation, cough. | | | | COMPARISONS: None. | | | | FINDINGS: | | Heart size is upper normal. Aorta is mildly tortuous. Lung volumes | | are low. Diffuse interstitial abnormality is seen largely in the | | peripheral aspect of the mid and upper lungs and throughout both lung | | bases. No pneumothorax. No acute osseous abnormalities. | | | | IMPRESSION: | | | | 1. Hypoventilatory changes. | | 2. Diffuse interstitial abnormality, as described findings which may | | represent edema in the acute clinical setting. Underlying | | subacute/chronic interstitial lung disease may also have this | | appearance. Comparison with prior radiographs is suggested if can be | | made available, otherwise continued surveillance is recommended. | | | | [facility] | | | | Dictated by: ALYX SILVERIO | | Dictated: 03/13/2016 12:58 PM | | Job: [id number] | + + CBC no Differential (03/13/2016 5:40 AM PDT) + + + + + + | Component | Value | Ref Range | Performed | Pathologist | | | | | At | Signature | + + + + + + | WBC | 10.8 | 3.4 - 10.8 | EXTERNAL | | | | | th/mm3 | LAB | | + + + + + + | RBC | 3.61 (L) | 3.77 - 5.28 | EXTERNAL | | | | | mil/mm3 | LAB | | + + + + + + | Hemoglobin | 10.6 (L) | 11.1 - 15.9 | EXTERNAL | | | | | g/dL | LAB | | + + + + + + | HCT, | 31.5 (L) | 34.0 - 46.6 % | EXTERNAL | | | External | | | LAB | | + + + + + + | MCV | 87 | 79 - 97 fL | EXTERNAL | | | | | | LAB | | + + + + + + | MCH | 29.4 | 26.6 - 33.0 pg | EXTERNAL | | | | | | LAB | | + + + + + + | MCHC | 33.7 | 31.5 - 35.7 | EXTERNAL | | | | | g/dL | LAB | | + + + + + + | RDW-CV | 14.7 | 12.3 - 15.4 % | EXTERNAL | | | | | | LAB | | + + + + + + | Platelet | 254 | 150 - 379 | EXTERNAL | | | Count | | x10E3/uL | LAB | | + + + + + + + + | Specimen | + + | Blood specimen | | (specimen) | + + + +---------+ + + | Performing | Address | City/State/Zipcode | Phone Number | | Organization | | | | + +---------+ + + | EXTERNAL LAB | | | | + +---------+ + + Basic Metabolic Panel (03/13/2016 5:40 AM PDT) + + + + + + | Component | Value | Ref Range | Performed | Pathologist | | | | | At | Signature | + + + + + + | K | 3.4 (L) | 3.5 - 5.2 mEq/L | EXTERNAL | | | | | | LAB | | + + + + + + | CO2 | 28 | 18 - 29 mmol/L | EXTERNAL | | | | | | LAB | | + + + + + + | Creatinine | 1.23 (H) | 0.57 - 1.00 | EXTERNAL | | | | | mg/dL | LAB | | + + + + + + | Calcium | 8.1 (L) | 8.7 - 10.3 | EXTERNAL | | | | | mg/dL | LAB | | + + + + + + | BUN | 36 (H) | 8 - 27 mg/dL | EXTERNAL | | | | | | LAB | | + + + + + + | Na | 140 | 134 - 144 mEq/L | EXTERNAL | | | | | | LAB | | + + + + + + | Cl | 97 | 97 - 108 mEq/L | EXTERNAL | | | | | | LAB | | + + + + + + | Glucose | 110 (H)Comment: Normal | 65 - 99 mg/dL | EXTERNAL | | | | printed is for | | LAB | | | | fasting.No normals for | | | | | | random. | | | | | | | | | | + + + + + + | Anion Gap | 15 | 5 - 19 | EXTERNAL | | | | | | LAB | | + + + + + + + + | Specimen | + + | Blood specimen | | (specimen) | + + + +---------+ + + | Performing | Address | City/State/Zipcode | Phone Number | | Organization | | | | + +---------+ + + | EXTERNAL LAB | | | | + +---------+ + + CK Total with CK-MB (03/13/2016 5:40 AM PDT) + +-------+ + + + | Component | Value | Ref Range | Performed | Pathologist | | | | | At | Signature | + +-------+ + + + | CK TOTAL | 150 | 24 - 173 U/L | EXTERNAL | | | | | | LAB | | + +-------+ + + + | CK-MB | 4.8 | 0.0 - 5.3 ng/mL | EXTERNAL | | | | | | LAB | | + +-------+ + + + + + | Specimen | + + | Blood specimen | | (specimen) | + + + +---------+ + + | Performing | Address | City/State/Zipcode | Phone Number | | Organization | | | | + +---------+ + + | EXTERNAL LAB | | | | + +---------+ + + ECHO Complete (03/12/2016 3:21 PM PDT) + + | Specimen | + + | | + + + + + | Impressions | Performed At | + + + | | | + + + + + + | Narrative | Performed At | + + + | [facility] [address] [place] [address] | | | Adult Transthoracic | | | Echocardiogram Report Patient Name: ALO DOMINGUEZ Pt. 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 Patient EKG shows sinus | | | rhythm. Summary: 1. Multiple segmental abnormalities | | | exist. See findings. 2. Mildly decreased left ventricular systolic | | | function. The calculated ejection fraction is 39.9 %. The left | | | ventricular size is normal. Impaired relaxation pattern of diastolic | | | filling. 3. Normal right ventricular systolic function. Normal right | | | ventricular size. 4. Trileaflet and sclerotic aortic valve. No | | | aortic valve stenosis. Trace aortic valve regurgitation. 5. Mild | | | mitral regurgitation. 6. Normal pulmonary artery systolic pressure | | | estimated at 23.7 mmHg. Findings: Left Ventricle: The left | | | ventricular size is normal. The calculated ejection fraction, using | | | the apical biplane method of disks, is 39.9 %. There is mildly | | | decreased left ventricular systolic function with multiple motion | | | abnormalities in the distribuation of the left anterior descending | | | artery. Spectral Doppler shows impaired relaxation pattern of LV | | | diastolic filling. Wall Scoring: The mid and apical anterior | | | septum, apical inferior segment, and apex are akinetic. The mid and | | | apical anterior wall and mid inferoseptal segment are hypokinetic. | | | All remaining scored segments are normal. Left Atrium: The | | | left atrium is normal. The biplane left atrial volume index is 29 | | | ml/m . (Normal is less than 34 ml/m2). Right Ventricle: The | | | right ventricular size is normal. The tricuspid annular plane | | | systolic excursion (TAPSE) measures 27 mm. Global RV systolic | | | function is normal. Due to poor visualization, right ventricular | | | dimensions cannot be assessed. Right Atrium: The right atrium is | | | normal. Due to poor visualization, right atrial dimensions cannot be | | | assessed. Aortic Valve: The aortic valve is trileaflet and | | | sclerotic. No degree of aortic valve stenosis is present. The | | | calculated aortic valve area is 2.02 cm with a peak velocity of | | | 1.03 m/s and a corresponding mean gradient of 2.0 mmHg. There is | | | trace aortic valve regurgitation. Mitral Valve: The mitral valve | | | leaflets appear normal in morphology and motion. There is mild mitral | | | valve regurgitation. The vena contracta of the mitral regurgitant | | | flow is .27 cm. Tricuspid Valve: The tricuspid valve is | | | structurally normal. The tricuspid valve leaflets are normal in | | | appearance. No evidence of tricuspid valve stenosis. Trace tricuspid | | | regurgitation is present. Pulmonic Valve: The pulmonic valve is | | | normal (with good mobility and coaptation). Trace pulmonary valve | | | regurgitation. Pericardium: No pericardial effusion is seen. | | | Aorta: The aortic root, sinuses and ascending aorta appear normal. The | | | aortic sinus of valsalva measurement is 37 mm. The aortic | | | sinotubular junction measurement is 33 mm. The ascending aorta | | | measurement is 33 mm. Pulmonary Artery: The tricuspid regurgitant | | | velocity is 2.28 m/s, and with an assumed right atrial pressure of 3 | | | mmHg, the estimated pulmonary artery systolic pressure is normal at | | | 23.7 mmHg. Venous: The inferior vena cava is normal in size and | | | exhibits greater than 50% inspiratory change. Sophie Giordano MD | | | | | | PM. 2D / M-Mode Measurements 2D Normal | | | Normal IVSd | | | 12.4 mm M=< 11mm LA Vol., index 28.6 ml/m Less | | | than 35ml/m2 F=< 10 mm TAPSE | | | 27.0 mm >=16mm LVED 45.7 mm Less than 56mm LVES | | | 37.7 mm Variable LVPWd 10.3 mm M=< 11mm | | | F=< 10 mm FS 17.5 % 26-35% EF 39.9 % | | | Greater than 50% Aorta Measurements: Aortic Sinus, d 37.0 mm | | | ST [place]unction, d 33.0 mm | | | Ascending Ao, d 33.0 mm Left Ventricular Diastolic Function | | | E/A 0.76 1.1-1.5 Decel Time 239 | | | 160-240msec E/e' (lateral) 12.8 Less than 9 E/e' (medial) 13.5 | | | Less than 9 Average E/e' 13.2 Doppler Evaluation Aortic | | | Valve Normal Mitral Valve | | | Normal AoV Vmax 1.03 1.0-1.7meters/sec Peak E | | | 0.59 0.6-1.3meters/sec m/s | | | m/s Pk Grad 4.2 | | | Less than 16mmHg Peak A 0.78 0.6-1.3meters/sec | | | mmHg | | | m/s Mn Grad 2.0 MV P1/2t | | | 69 30-60msec mmHg | | | msec EDITH (VTI) 2.02 | | | Greater than MVA 3.17 4-6cm2 | | | cm 2.0cm2 | | | cm EDITH (Vmax) 2.03 Greater than MV | | | mild cm 2.0cm2 | | | Regurgitation: Aortic trace Insufficiency: LVOT: | | | LVOT Vmax 0.74 0.7-1.1meters/sec m/s | | | LVOT Diam 19.00 Greater than 20mm mm | | | Tricuspid Valve Normal Pulmonic Valve | | | Normal TR Vmax 2.28 m/s | | | PV Vmax 0.58 m/s 0.6-0.9meters/sec RA Pressure 3 | | | mmHg 5-10mmHg PAP 23.7 mmHg 18-25mmHg | | | Final | | + + + + + | Procedure Note | + + | Didier Sepulveda Conversion - 04/16/2019 2:22 AM [facility] | | [address] | | [place] [address] | | | | | | | | Adult Transthoracic Echocardiogram Report | | | | | | Patient Name: ALO DOMINGUEZ Pt. 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 | | Patient EKG | | shows sinus rhythm. | | | | | | | | Summary: | | 1. Multiple segmental abnormalities exist. See findings. | | 2. Mildly decreased left ventricular systolic function. The calculated | | ejection fraction is 39.9 %. The left ventricular size is normal. Impaired | | relaxation pattern of diastolic filling. | | 3. Normal right ventricular systolic function. Normal right ventricular | | size. | | 4. Trileaflet and sclerotic aortic valve. No aortic valve stenosis. Trace | | aortic valve regurgitation. | | 5. Mild mitral regurgitation. | | 6. Normal pulmonary artery systolic pressure estimated at 23.7 mmHg. | | | | | | Findings: | | Left Ventricle: The left ventricular size is normal. The calculated | | ejection fraction, using the apical biplane method of disks, is 39.9 %. | | There is mildly decreased left ventricular systolic function with multiple | | motion abnormalities in the distribuation of the left anterior descending | | artery. Spectral Doppler shows impaired relaxation pattern of LV diastolic | | filling. | | | | Wall Scoring: The mid and apical anterior septum, apical inferior segment, | | and apex are akinetic. The mid and apical anterior wall and mid | | inferoseptal segment are hypokinetic. All remaining scored segments are | | normal. | | | | | | Left Atrium: The left atrium is normal. The biplane left atrial volume | | index is 29 ml/m . (Normal is less than 34 ml/m2). | | | | Right Ventricle: The right ventricular size is normal. The tricuspid | | annular plane systolic excursion (TAPSE) measures 27 mm. Global RV systolic | | function is normal. Due to poor visualization, right ventricular | | dimensions cannot be assessed. | | | | Right Atrium: The right atrium is normal. Due to poor visualization, right | | atrial dimensions cannot be assessed. | | | | Aortic Valve: The aortic valve is trileaflet and sclerotic. No degree of | | aortic valve stenosis is present. The calculated aortic valve area is 2.02 | | cm with a peak velocity of 1.03 m/s and a corresponding mean gradient of | | 2.0 mmHg. There is trace aortic valve regurgitation. | | | | Mitral Valve: The mitral valve leaflets appear normal in morphology and | | motion. There is mild mitral valve regurgitation. The vena contracta of the | | mitral regurgitant flow is .27 cm. | | | | Tricuspid Valve: The tricuspid valve is structurally normal. The tricuspid | | valve leaflets are normal in appearance. No evidence of tricuspid valve | | stenosis. Trace tricuspid regurgitation is present. | | | | Pulmonic Valve: The pulmonic valve is normal (with good mobility and | | coaptation). Trace pulmonary valve regurgitation. | | | | Pericardium: No pericardial effusion is seen. | | | | Aorta: The aortic root, sinuses and ascending aorta appear normal. The | | aortic sinus of valsalva measurement is 37 mm. The aortic sinotubular | | junction measurement is 33 mm. The ascending aorta measurement is 33 mm. | | | | Pulmonary Artery: The tricuspid regurgitant velocity is 2.28 m/s, and with | | an assumed right atrial pressure of 3 mmHg, the estimated pulmonary artery | | systolic pressure is normal at 23.7 mmHg. | | | | Venous: The inferior vena cava is normal in size and exhibits greater than | | 50% inspiratory change. | | | | Sophie Giordano MD | | . | | | | 2D / M-Mode Measurements | | 2D Normal Normal | | IVSd 12.4 mm M=< 11mm LA Vol., index 28.6 ml/m Less than 35ml/m2 | | F=< 10 mm TAPSE 27.0 mm >=16mm | | LVED 45.7 mm Less than 56mm | | LVES 37.7 mm Variable | | LVPWd 10.3 mm M=< 11mm | | F=< 10 mm | | FS 17.5 % 26-35% | | EF 39.9 % Greater than 50% | | | | | | Aorta Measurements: | | Aortic Sinus, d 37.[address] Junction, d 33.0 mm | | Ascending Ao, d 33.0 mm | | | | | | Left Ventricular Diastolic Function | | E/A 0.76 1.1-1.5 | | Decel Time 239 160-240msec | | E/e' (lateral) 12.8 Less than 9 | | E/e' (medial) 13.5 Less than 9 | | Average E/e' 13.2 | | | | | | Doppler Evaluation | | Aortic Valve Normal Mitral Valve Normal | | AoV Vmax 1.03 1.0-1.7meters/sec Peak E 0.59 | | 0.6-1.3meters/sec | | m/s m/s | | Pk Grad 4.2 Less than 16mmHg Peak A 0.78 | | 0.6-1.3meters/sec | | mmHg m/s | | Mn Grad 2.0 MV P1/2t 69 30-60msec | | mmHg msec | | EDITH (VTI) 2.02 Greater than MVA 3.17 4-6cm2 | | cm 2.0cm2 cm | | EDITH (Vmax) 2.03 Greater than MV mild | | cm 2.0cm2 Regurgitation: | | Aortic trace | | Insufficiency: | | LVOT: | | LVOT Vmax 0.74 0.7-1.1meters/sec | | m/s | | LVOT Diam 19.00 Greater than 20mm | | mm | | | | | | Tricuspid Valve Normal Pulmonic Valve Normal | | TR Vmax 2.28 m/s PV Vmax 0.58 m/s | | 0.6-0.9meters/sec | | RA Pressure 3 mmHg 5-10mmHg | | PAP 23.7 mmHg 18-25mmHg | | | | | | | | | | Final | | | | IMPRESSION: | | | + + CV CARDIAC PROCEDURE (03/12/2016 11:43 AM PDT) + + | Specimen | + + | | + + + + + | Narrative | Performed At | + + + | Historically converted procedure from [facility] environment | EXTERNAL LAB | | The funeral home general manager interpretation of this Cardiac Procedure is located | | | in the Epic Notes/Trans tab. | | + + + + +---------+ + + | Performing | Address | City/State/Zipcode | Phone Number | | Organization | | | | + +---------+ + + | EXTERNAL LAB | | | | + +---------+ + + Lipid Profile (03/12/2016 7:00 AM PDT) + + + + + + | Component | Value | Ref Range | Performed | Pathologist | | | | | At | Signature | + + + + + + | Cholesterol | 161 | 100 - 199 mg/dL | EXTERNAL | | | | | | LAB | | + + + + + + | Triglycerid | 112 | 0 - 149 mg/dL | EXTERNAL | | | es | | | LAB | | + + + + + + | HDL | 51 | mg/dL | EXTERNAL | | | | | | LAB | | + + + + + + | LDL, | 88 | 0 - 99 mg/dL | EXTERNAL | | | Calculated | | | LAB | | + + + + + + | VLDL | 22 | mg/dL | EXTERNAL | | | Cholesterol | | | LAB | | | Anatoliy | | | | | + + + + + + | Chol/HDL | 3.2Comment: <3.7 Below | | EXTERNAL | | | Ratio | avg risk (Female) | | LAB | | + + + + + + + + | Specimen | + + | Blood specimen | | (specimen) | + + + +---------+ + + | Performing | Address | City/State/Zipcode | Phone Number | | Organization | | | | + +---------+ + + | EXTERNAL LAB | | | | + +---------+ + + Basic Metabolic Panel (03/12/2016 7:00 AM PDT) + + + + + + | Component | Value | Ref Range | Performed | Pathologist | | | | | At | Signature | + + + + + + | K | 3.0 (L) | 3.5 - 5.2 mEq/L | EXTERNAL | | | | | | LAB | | + + + + + + | CO2 | 28 | 18 - 29 mmol/L | EXTERNAL | | | | | | LAB | | + + + + + + | Creatinine | 1.23 (H) | 0.57 - 1.00 | EXTERNAL | | | | | mg/dL | LAB | | + + + + + + | Calcium | 8.2 (L) | 8.7 - 10.3 | EXTERNAL | | | | | mg/dL | LAB | | + + + + + + | BUN | 33 (H) | 8 - 27 mg/dL | EXTERNAL | | | | | | LAB | | + + + + + + | Na | 139 | 134 - 144 mEq/L | EXTERNAL | | | | | | LAB | | + + + + + + | Cl | 96 (L) | 97 - 108 mEq/L | EXTERNAL | | | | | | LAB | | + + + + + + | Glucose | 110 (H)Comment: Normal | 65 - 99 mg/dL | EXTERNAL | | | | printed is for | | LAB | | | | fasting.No normals for | | | | | | random. | | | | | | | | | | + + + + + + | Anion Gap | 15 | 5 - 19 | EXTERNAL | | | | | | LAB | | + + + + + + + + | Specimen | + + | Blood specimen | | (specimen) | + + + +---------+ + + | Performing | Address | City/State/Zipcode | Phone Number | | Organization | | | | + +---------+ + + | EXTERNAL LAB | | | | + +---------+ + + Procalcitonin (03/12/2016 7:00 AM PDT) + + + + + + | Component | Value | Ref Range | Performed | Pathologist | | | | | At | Signature | + + + + + + | PROCALCITON | 0.20 | ng/mL | EXTERNAL | | | IN | | | LAB | | + + + + + + | Interpretat | CommentComment: | | EXTERNAL | | | ion | SEPSIS/SYSTEMIC | | LAB | | | | INFECTION is not likely. | | | | | | Local bacterial | | | | | | infection ispossible. | | | | | | If systemic infection | | | | | | is suspected consider | | | | | | repeat PCTevaluation in | | | | | | 6 hours. LOWER | | | | | | RESPIRATORY TRACT | | | | | | INFECTION: Bacterial | | | | | | infection is unlikely. | | | | + + + + + + + + | Specimen | + + | Blood specimen | | (specimen) | + + + +---------+ + + | Performing | Address | City/State/Zipcode | Phone Number | | Organization | | | | + +---------+ + + | EXTERNAL LAB | | | | + +---------+ + + G-5 Cardiac Panel (03/12/2016 7:00 AM PDT) + + + + + + | Component | Value | Ref Range | Performed | Pathologist | | | | | At | Signature | + + + + + + | CK TOTAL | 251 (H) | 24 - 173 U/L | EXTERNAL | | | | | | LAB | | + + + + + + | Troponin I | 17.34 ()Comment: | ng/mL | EXTERNAL | | | | <0.08 | | LAB | | | | Negative0.08-0.20 | | | | | | Indeterminate >0.20 | | | | | | PositiveDone on Siemens | | | | | | DimensionRESULT CALLED; | | | | | | READ BACK BY:TIERRA | | | | | | D,0826,03/12/16,TODD | | | | + + + + + + | CK-MB | 9.0 ()Comment: | 0.0 - 5.3 ng/mL | EXTERNAL | | | | REPEATED AND CALLED; | | LAB | | | | READ BACK BY:TIERRA | | | | | | D,08,03/12/16,TODD | | | | + + + + + + | Result | 0.04 | | EXTERNAL | | | | | | LAB | | + + + + + + + + | Specimen | + + | Blood specimen | | (specimen) | + + + +---------+ + + | Performing | Address | City/State/Zipcode | Phone Number | | Organization | | | | + +---------+ + + | EXTERNAL LAB | | | | + +---------+ + + Respiratory pathogen panel, NAAT (03/11/2016 8:18 PM PDT) + + | Specimen | + + | | + + + + + | Narrative | Performed At | + + + | INFLUENZA A (RVP) Negative INFLUENZA B | EXTERNAL LAB | | (RVP) Negative RSV A (RVP) | | | Negative RSV B (RVP) | | | Negative PARAINFLUENZA 1 (RVP) | | | Negative PARAINFLUENZA 2 (RVP) Negative | | | PARAINFLUENZA 3 (RVP) Negative RHINOVIRUS | | | (RVP) Positive Abnormal METAPNEUMOVIRUS | | | (RVP) Negative ADENOVIRUS (RVP) | | | Negative | | + + + + +---------+ + + | Performing | Address | City/State/Zipcode | Phone Number | | Organization | | | | + +---------+ + + | EXTERNAL LAB | | | | + +---------+ + + Procalcitonin (03/11/2016 5:25 PM PDT) + + + + + + | Component | Value | Ref Range | Performed | Pathologist | | | | | At | Signature | + + + + + + | PROCALCITON | 0.17 | ng/mL | EXTERNAL | | | IN | | | LAB | | + + + + + + | Interpretat | CommentComment: | | EXTERNAL | | | ion | SEPSIS/SYSTEMIC | | LAB | | | | INFECTION is not likely. | | | | | | Local bacterial | | | | | | infection ispossible. | | | | | | If systemic infection | | | | | | is suspected consider | | | | | | repeat PCTevaluation in | | | | | | 6 hours. LOWER | | | | | | RESPIRATORY TRACT | | | | | | INFECTION: Bacterial | | | | | | infection is unlikely. | | | | + + + + + + + + | Specimen | + + | Blood specimen | | (specimen) | + + + +---------+ + + | Performing | Address | City/State/Zipcode | Phone Number | | Organization | | | | + +---------+ + + | EXTERNAL LAB | | | | + +---------+ + + NT-PRO BNP (03/11/2016 5:25 PM PDT) + + + + + + | Component | Value | Ref Range | Performed | Pathologist | | | | | At | Signature | + + + + + + | NT-proBNP | 28,016 (H) | pg/mL | EXTERNAL | | | | | | LAB | | + + + + + + + + | Specimen | + + | | + + + +---------+ + + | Performing | Address | City/State/Zipcode | Phone Number | | Organization | | | | + +---------+ + + | EXTERNAL LAB | | | | + +---------+ + + Comprehensive Metabolic Panel (03/11/2016 5:25 PM PDT) + + + + + + | Component | Value | Ref Range | Performed | Pathologist | | | | | At | Signature | + + + + + + | K | 3.5 | 3.5 - 5.2 mEq/L | EXTERNAL | | | | | | LAB | | + + + + + + | CO2 | 27 | 18 - 29 mmol/L | EXTERNAL | | | | | | LAB | | + + + + + + | Creatinine | 1.28 (H) | 0.57 - 1.00 | EXTERNAL | | | | | mg/dL | LAB | | + + + + + + | Calcium | 8.8 | 8.7 - 10.3 | EXTERNAL | | | | | mg/dL | LAB | | + + + + + + | BUN | 32 (H) | 8 - 27 mg/dL | EXTERNAL | | | | | | LAB | | + + + + + + | Total | 6.8 | 6.0 - 8.5 g/dL | EXTERNAL | | | Protein | | | LAB | | + + + + + + | Albumin | 3.3 (L) | 3.5 - 4.7 g/dL | EXTERNAL | | | | | | LAB | | + + + + + + | Bilirubin | 1.1 | 0.1 - 1.2 mg/dL | EXTERNAL | | | Total | | | LAB | | + + + + + + | Na | 136 | 134 - 144 mEq/L | EXTERNAL | | | | | | LAB | | + + + + + + | Cl | 93 (L) | 97 - 108 mEq/L | EXTERNAL | | | | | | LAB | | + + + + + + | Glucose | 118 (H)Comment: Normal | 65 - 99 mg/dL | EXTERNAL | | | | printed is for | | LAB | | | | fasting.No normals for | | | | | | random. | | | | | | | | | | + + + + + + | ALT | 27Comment: Please note | 0 - 32 U/L | EXTERNAL | | | | update reference range | | LAB | | | | effective 12/19/15. | | | | + + + + + + | AST | 109 (H) | 0 - 40 U/L | EXTERNAL | | | | | | LAB | | + + + + + + | Alk Phos | 66 | 39 - 117 U/L | EXTERNAL | | | | | | LAB | | + + + + + + | Anion Gap | 16 | 5 - 19 | EXTERNAL | | | | | | LAB | | + + + + + + | Globulin | 3.5 | 1.5 - 4.5 g/dL | EXTERNAL | | | | | | LAB | | + + + + + + | A/G Ratio | 0.9 (L) | 1.1 - 2.5 | EXTERNAL | | | | | | LAB | | + + + + + + + + | Specimen | + + | Blood specimen | | (specimen) | + + + +---------+ + + | Performing | Address | City/State/Zipcode | Phone Number | | Organization | | | | + +---------+ + + | EXTERNAL LAB | | | | + +---------+ + + CBC with Differential (03/11/2016 5:25 PM PDT) + + + + + + | Component | Value | Ref Range | Performed | Pathologist | | | | | At | Signature | + + + + + + | WBC | 14.4 (H) | 3.4 - 10.8 | EXTERNAL | | | | | th/mm3 | LAB | | + + + + + + | RBC | 3.89 | 3.77 - 5.28 | EXTERNAL | | | | | mil/mm3 | LAB | | + + + + + + | Hemoglobin | 11.3 | 11.1 - 15.9 | EXTERNAL | | | | | g/dL | LAB | | + + + + + + | HCT, | 33.8 (L) | 34.0 - 46.6 % | EXTERNAL | | | External | | | LAB | | + + + + + + | MCV | 87 | 79 - 97 fL | EXTERNAL | | | | | | LAB | | + + + + + + | MCH | 29.0 | 26.6 - 33.0 pg | EXTERNAL | | | | | | LAB | | + + + + + + | MCHC | 33.4 | 31.5 - 35.7 | EXTERNAL | | | | | g/dL | LAB | | + + + + + + | RDW-CV | 14.4 | 12.3 - 15.4 % | EXTERNAL | | | | | | LAB | | + + + + + + | Platelet | 228 | 150 - 379 | EXTERNAL | | | Count | | x10E3/uL | LAB | | + + + + + + | Absolute | 12.43 (H) | 1.4 - 7.0 | EXTERNAL | | | Neutrophils | | th/mm3 | LAB | | + + + + + + | Absolute | 1.01 | 0.7 - 3.1 | EXTERNAL | | | Lymphocytes | | th/mm3 | LAB | | + + + + + + | Absolute | 0.86 | 0.1 - 0.9 | EXTERNAL | | | Monocytes | | th/mm3 | LAB | | + + + + + + | Absolute | 0.00 | 0.0 - 0.4 | EXTERNAL | | | Eosinophils | | th/mm3 | LAB | | + + + + + + | Absolute | 0.00 | 0.0 - 0.2 | EXTERNAL | | | Basophils | | th/mm3 | LAB | | + + + + + + | % | 86 | % | EXTERNAL | | | Neutrophils | | | LAB | | + + + + + + | % | 7 | % | EXTERNAL | | | Lymphocytes | | | LAB | | + + + + + + | Monocytes | 6 | % | EXTERNAL | | | | | | LAB | | + + + + + + | % | 0 | % | EXTERNAL | | | Eosinophils | | | LAB | | + + + + + + | % Basophils | 0 | % | EXTERNAL | | | | | | LAB | | + + + + + + + + | Specimen | + + | Blood specimen | | (specimen) | + + + +---------+ + + | Performing | Address | City/State/Zipcode | Phone Number | | Organization | | | | + +---------+ + + | EXTERNAL LAB | | | | + +---------+ + + PTT (03/11/2016 5:25 PM PDT) + + + + + + | Component | Value | Ref Range | Performed | Pathologist | | | | | At | Signature | + + + + + + | PTT | 39.2 (H) | 21.0 - 35.0 sec | EXTERNAL | | | | | | LAB | | + + + + + + + + | Specimen | + + | Blood specimen | | (specimen) | + + + +---------+ + + | Performing | Address | City/State/Zipcode | Phone Number | | Organization | | | | + +---------+ + + | EXTERNAL LAB | | | | + +---------+ + + Troponin I (03/11/2016 5:25 PM PDT) + + + + + + | Component | Value | Ref Range | Performed | Pathologist | | | | | At | Signature | + + + + + + | Troponin I | 24.81 ()Comment: | ng/mL | EXTERNAL | | | | <0.08 | | LAB | | | | Negative0.08-0.20 | | | | | | Indeterminate >0.20 | | | | | | PositiveDone on Siemens | | | | | | DimensionREPEATED AND | | | | | | CALLED; READ BACK | | | | | | BY:CATE | | | | | | @18:47,03-11-16,BY ALVARO | | | | + + + + + + + + | Specimen | + + | Blood specimen | | (specimen) | + + + +---------+ + + | Performing | Address | City/State/Zipcode | Phone Number | | Organization | | | | + +---------+ + + | EXTERNAL LAB | | | | + +---------+ + + documented in this encounter Visit Diagnoses + + | Diagnosis | + + | NSTEMI (non-ST elevated myocardial infarction) ([facility]) Acute myocardial infarction, | | subendocardial infarction, episode of care unspecified | + + | Acute respiratory failure with hypoxia ([facility]) Acute respiratory failure | + + | CKD (chronic kidney disease) stage 3, GFR 30-59 ml/min ([facility]) Chronic kidney disease, | | Stage III (moderate) | + + | Community acquired pneumonia Pneumonia, organism unspecified | + + | Coronary artery disease, angina presence unspecified, unspecified vessel or lesion | | type, unspecified whether platinum or transplanted heart | + + | Acute systolic heart failure ([facility]) Acute systolic heart failure | + + | Anemia, unspecified type | + + documented in this encounter
--- OUTSIDE RECORDS SUMMARY | ~2019-08-28 | XMS | Encounter Summary ---
Demographics + + + | Address | [address] | | | [place] [address] | + + + | Home Phone | | + + + | Preferred Language | Unknown | + + + | Marital Status | | + + + | Zoroastrian Affiliation | 1028 | + + + | Race | Unknown | + + + | Ethnic Group | Unknown | + + + Author + + + | Author | [facility] | | | and [place] | + + + | Organization | [facility] | | | [...] Team Providers + +------+ + | Care Entry Analyst Name | Role | Phone | + +------+ + PCP | Unavailable | + +------+ + Encounter Details +--------+ + + + + | Date | Type | Department | Care Team | Description | +--------+ + + + + | 04/13/ | Hospital | [facility] | | | | 2006 - | Encounter | [facility] | | | | | | MINDY Rios | | | | 05/13/ | | [place] | | | | 2006 | | [id number] | | | | | | [phone] | | | +--------+ + + + [...] [place] | | | | | | [id number] | | | | | | | | +--------+---------+ + + + documented as of this encounter Visit Diagnoses Not on filedocumented in this encounter"
--- OUTSIDE RECORDS SUMMARY | ~2019-08-28 | XMS | Encounter Summary ---
Demographics + + + | Address | [address] | | | [place] [address] | + + + | Home Phone | | + + + | Preferred Language | Unknown | + + + | Marital Status | | + + + | Yarsani Affiliation | 1028 | + + + | Race | Unknown | + + + | Ethnic Group | Unknown | + + + Author + + + | Author | [facility] | | | and [place] | + + + | Organization | [facility] | | | [...] Team Providers + +------+ + | Care Rn Licensed Practical Name | Role | Phone | + +------+ + | Bubba Peña MD | PCP | | + +------+ + Reason for Visit + + + | Reason | Comments | + + + | Follow-up | post bilateral L5-S1 TFESI on 02/27/17 | + + + | Back Pain | low back pain | + + + Encounter Details +--------+---------+ + + + | Date | Type | Department | Care Team | Description | +--------+---------+ + + + | 04/02/ | Office | [facility] | Daph[place], | Lumbar radiculopathy | | 2017 | Visit | PHYSIATRY [address] | MARIELLA Meneses [address] | (Primary Dx); | | | | [place], | [place] [facility], | Foraminal stenosis | | | | [place] [address] | [place] [address] | of lumbar region; | | | | [phone] | [phone] | Lumbar spinal | | | | | | stenosis; | | | | | | Spondylolisthesis of | | | | | | lumbar region; DDD | | | | | | (degenerative disc | | | | | | disease), lumbar | +--------+---------+ + + + Social History [...] + + + | Blood Pressure | 111/60 | 04/02/2017 1:56 PM | | | | | PDT | | + + + + + | Pulse | 68 | 04/02/2017 1:56 PM | | | | | PDT [...] + + + + | Weight | 68.9 kg (152 lb) | 04/02/2017 1:56 PM | | | | | PDT | | + + + + + | Height | 167.6 cm (5' 6") | 04/02/2017 1:56 PM | | | | | PDT | | + + + + + | Body Mass Index | 24.53 | 04/02/2017 1:56 PM | | | | | PDT | | + + + + + documented in this encounter Patient Instructions Patient Instructions Zaira Shelley PA-C - 04/02/2017 1:20 PM PDT1) Try another ster oid injection one level above Spinal Stenosis: Stenosis refers to the narrowing of the spinal cord. This most often occurs with age and generative changes of the spine. Narrowing of the spinal cord causes compression and inflam mation of nerves in the lower back and can cause numbness, pain, and weakness in the back, b uttocks and legs. You may notice you have more pain with standing and walking. It feels be tter to walk more bent over at the waist, while pushing a grocery cart or walker. You get r elief with sitting down. Treatment includes pain medicine, gabapentin, transforaminal epidu ral steroid injections to help reduce swelling, physical therapy and surgery. Steroids are a very strong anti-inflammatory, this helps reduce pain by reducing swelling. Complications of steroids are bleeding, infection, and an increase of blood sugars if you are diabetic. MCFP risk can lead to osteoporosis which is why we limited the number of injections to 3 times per year. Epidural injections target the spinal stenosis by putting the steroid around the nerves that come out of the spine with hopes the steroid gets into t he region of the stenosis. The procedure is about 20 minutes long. You will lie on your thai k while x-rays are taken. Once the region is marked, it is numbed and then injected with st eroids. Follow-up at the hospital thirty minutes before your scheduled procedure to allow for time to check in. You may eat and drink as usual on the day of the procedure. If you are scheduled for an epidural injection do not take any blood thinning medications f or at least 5-7 days prior to your procedure unless you have been instructed by another phys ician not to discontinue blood thinning medications. If you are having a procedure other than an epidural injection (i.e. facet injection, media l branch block, SI joint injection or other joint injection) it is not absolutely necessary to discontinue blood thinning medications but doing so will decrease the risk of bruising or bleeding. If you have had a prior stroke, DVT or PE or if you are taking blood thinning medication be cause you have atrial fibrillation, a prosthetic cardiac valve replacement or heart stenting do not stop taking your blood thinning medications unless you have permission from your car diologist or primary care provider. All other medications should be taken as usual on the day of the procedure. Common blood thinning medications include: Aspirin (a baby aspirin is o.k.) Ibuprofen (Advil or Motrin) Naproxen (Aleve) Nabumetone (Relafen) Clopidogrel (Plavix) Dipyridamole/ASA (Aggrenox) Warfarin (Coumadin) Dabigatran (Pradaxa) Rivaroxaban (Xarelto) There are many others. If you have questions about your medications and whether or not you should stop any medications please contact our office. If you are having an epidural injection or if you take any medication for relaxation/sedati on on the day of the procedure you must provide a pole truck driver to take you home. For all procedur es it is recommended that someone else drive you home. documented in this encounter Progress Notes Zaira Shelley PA-C - 04/02/2017 1:20 PM PDTFormatting of this note might be differe nt from the original. CHIEF COMPLAINT: Chief Complaint Patient presents with Follow-up post bilateral L5-S1 TFESI on 02/27/17 Back Pain low back pain HISTORY OF PRESENT ILLNESS: The patient is a 87 y.o. female being seen today for complaint s of low back pain with radiation into the buttocks. This has been a chronic issue. I saw her in the past, it was recommended she start physical therapy and a bilateral L5/S1 TFESI w as done by Dr. Clemons 02/27/2017. She reports 2 days of good relief, however she had no assisted relief. Since the symptoms began, she has noticed that symptoms have been stable. She describes the pain as a aching feeling. She rates the pain as moderate to severe with activities. Her sym ptoms worsen with standing and walking. 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 She describes radiation into the buttocks, but no pain in the hips, or legs. The patient do es not describe numbness of the legs. She does report weakness of the legs but this is mil d and with prolonged walking. She does not have bowel and bladder dysfunction. She does n ot have saddle anesthesia. Treatments for these complaints have included use of Tylenol. Patient's medications, allergies, past medical, surgical, social and family histories were reviewed and updated as appropriate. CURRENT MEDICATIONS: Current Outpatient Prescriptions Medication Sig Dispense Refill aspirin 81 MG tablet Take 81 mg by mouth Daily. atorvaSTATin (LIPITOR) 10 mg tablet Take 10 mg by mouth. Calcium Carbonate (CALCIUM 600 PO) Take by mouth Daily. calcium-vitamin D 600 mg-200 units per tablet Take 600 mg by mouth. clopidogrel (PLAVIX) 75 mg tablet Take 75 mg by mouth Daily. cycloSPORINE (RESTASIS) 0.05% ophthalmic emulsion 1 drop. famotidine (PEPCID) 20 mg tablet Daily. 1 Jzqevqomvlc-Bnfyzqcml-Qit C-Mn (GLUCOSAMINE-CHONDROITIN) CAPS Take 1,500 mg by mouth. isosorbide dinitrate (ISORDIL) 30 MG tablet Take 30 mg by mouth 4 times daily. ketotifen (ZADITOR) 0.025% ophthalmic solution Apply 1 drop to eye. ketotifen (ZADITOR) 0.025% ophthalmic solution Apply 1 drop to eye 2 times daily. metoprolol tartrate (LOPRESSOR) 25 mg tablet Take by mouth 2 times daily. 0 Multiple Vitamins-Minerals (CENTRAL-JESUS PO) Take 300 mg by mouth Daily. nitroglycerin (NITROSTAT) 0.[address] 0.4 mg under the tongue. simvastatin (ZOCOR) 10 mg tablet Take 10 mg by mouth Daily. UNABLE TO FIND 3 times daily. Med Name: Kamilah Tears No current facility-administered medications for this visit. ALLERGIES: Allergies Allergen Reactions Atorvastatin Myalgia. REVIEW OF SYSTEMS: A multisystem review of system checklist was reviewed with the patient and shows only the p ain and/or parasthesias and other complaints as in HPI. All remaining review of systems was negative. PHYSICAL EXAMINATION: Vitals: 04/02/17 1356 BP: 111/60 Pulse: 68 PainSc: 9 PainLoc: Back Body mass index is 24.53 kg/m. GENERAL: The patient is well developed and well nourished. She does not appear uncomfortab le when seated. HEENT: HEAD/FACE: EYES: EARS: NASOPHARNYX: OROPHARNYX: Normocephalic and atraumatic. There are no areas of recent trauma. Normal sclerae without icterus. No drainage or tenderness. Clear without drainage. Clear without erythema. SKIN Limited skin exam shows no significant rashes or lesions. There are not scars in the lumbar region. CHEST: The patient is in no acute respiratory distress with unlabored respirations. HEART: There is not lower extremity edema. ABDOMEN: The patient is not overweight. NEUROLOGIC: The patient is awake, alert, and oriented to time, place, person. She follows simple and complex commands. Her speech is fluent. She comprehends speech well. She has no apparent deficits with short or assisted memory. She has appropriate fund of knowledge Cranial nerves 2-12 appear grossly intact. Sensory exam does not show diminished sensation to light touch in the lower extremities. REFLEX: RIGHT LEFT PATELLAR 0 0 ACHILLES 0 0 MUSCULOSKELETAL There is no tenderness in the midline of the cervical or thoracic spine. T here is no major palpable deformity of the spine. Straight leg raise and slump-sit are negative. Moreno's maneuver and impingement testing were negative for any groin pain. There was no tenderness to palpation over the greater tr ochanters or sacral sulci. The patient localized the majority of the pain to the L5/S1 nikita on. Lumbar facet loading was negative. Strength testing showed 5/5 strength throughout the lower extremities. The patient was able to heel and toe walk without difficulty. There wa s no redness, effusion, warmth or joint line tenderness in the knees or ankles. RADIOGRAPHIC REVIEW: The patient's imaging was reviewed in detail with the patient today during the visit. Lumb ar MRI from 12/11/2016 shows lumbar DDD and scoliosis with central canal stenosis at L3/L4 an d worse at L4/L5. ASSESSMENT: 1. Lumbar radiculopathy 2. Foraminal stenosis of lumbar region 3. Lumbar spinal stenosis 4. Spondylolisthesis of lumbar region 5. DDD (degenerative disc disease), lumbar PLAN: 1. It sounds like unfortunately the steroid injection helped initially, but gave her no lo ng term relief. We discussed that it sounds like the target was located - the spinal stenos is, but her body did not respond to the steroid medication itself. We discussed trying anot her injection but this time I will do one level above at L4/L5 and hope this gets both the L 3/L4 and L4/L5 level. 2. We discussed medications, she does not want to add any medications to her list. 3. She continues with pool therapy three times/week along with physical therapy at the [facility] in [place]. 4. She will follow up After the steroid injection. ELECTRONICALLY SIGNED BY: Zaira Shelley PA-C, 04/02/2017 CC: Marier, Daniel documented in this encounter Plan of Treatment +--------+---------+ + + + | Date | Type | Specialty | Care Team | Description | +--------+---------+ + + + | 02/09/ | Office | Cardiology | Garcia Barajas, | | | 2019 | Visit | | MD Ashlie ALFARO | | | | | | [place], [place] | | | | | | [address] | | | | | | | | +--------+---------+ + + + documented as of this encounter Results FL OFE Lumbar Transforaminal (04/25/2017 11:48 AM PDT) + + | Specimen | + + | | + + + + ---+ | Narrative | Performed At | + + ---+ | 04/25/2017 | [facility] | | Bilateral Transforaminal Epidural Steroid Injections Diagnosis: Lumbar | [facility] | | radiculopathy ICD-10 Code M54.16 Liz Dominguez presents to the | [facility] | | fluoroscopy suite [...] | + + + + + | [facility] | [address] | [place], [place] | [phone] | | [facility] | | [address] | | | - IMAGING | | | | + + + + + documented in this encounter Visit Diagnoses + + | Diagnosis | + + | Lumbar radiculopathy - Primary Thoracic or lumbosacral neuritis or radiculitis, | | unspecified | + + | Foraminal stenosis [...]
--- OUTSIDE RECORDS SUMMARY | ~2019-08-28 | XMS | Encounter Summary ---
Demographics + + + | Address | [address] | | | [place] [address] | + + + | Home Phone | | + + + | Preferred Language | Unknown | + + + | Marital Status | | + + + | Zoroastrianism Affiliation | 1028 | + + + | Race | Unknown | + + + | Ethnic Group | Unknown | + + + Author + + + | Author | [facility] | | | and [place] | + + + | Organization | [facility] | | | [...] Team Providers + +------+ + | Care Art Coordinator Name | Role | Phone | [...] + + | 08/05/ | Office | [facility] | Garcia Brooks, | Coronary artery | | 2019 | Visit | CARDIOLOGY ESVIN | [address] | disease involving | | | | [address] | [place], [place] | [place] coronary | | | | [address] | [address] | artery of [place] | | | | [place] | | heart without angina | | | | [address] | | pectoris (Primary | | | | [phone] | | Dx); NSTEMI (non-ST | | | | | | elevated myocardial | | | | | | infarction) ([facility]); | | | | | | Sinus [...] nee ded for shortness of breath 0 Vvvwetncqhp-Ibrlitqbl-Rxu C-Mn (GLUCOSAMINE CHONDR 1500 COMPLX PO) Take 1,500 mg by catherine th daily. [DISCONTINUED] Xhzjmjvnjoy-Ynwmhopvg-Rrv C-Mn (GLUCOSAMINE-CHONDROITIN) CAPS Take 1,500 mg by [...] 07/25/2016 ([facility]): Lexiscan, minimal ischemia distal wfhjlc-afdzny-wuvm, moderate dyskinesis, LVEF 56%. Last Cath, 04/05/2017 Left main with no significant disease. LAD ostial 100% occlusion known from before. Left circumflex first OM branch 90% stenosis. Proximal patent stent. RCA dominant ostial 70%, mid segment 90%. Crcl-gt-ripfm collaterals to LAD territory. States post PCI to RCA with Promus 4 x 12 mm mid and 4 x 16 mm proximal. PCI to OM branch with 2.75 x 24 mm Promus. 03/12/2016: Left main OK, LAD CLINICAL OPERATIONS MANAGER, 90% prox-LCx, moderate tandom lesions prox/mid-RCA.LCX S/P [...] | | | | | | 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
--- OUTSIDE RECORDS SUMMARY | ~2019-08-28 | XMS | Encounter Summary ---
Demographics + + + | Address | [address] | | | [place] [address] | + + + | Home Phone | | + + + | Preferred Language | Unknown | + + + | Marital Status | | + + + | Quaker Affiliation | 1028 | + + + [...] Team Providers + +------+ + | Care Soap Drier Tender Name | Role | Phone | + +------+ + PCP | Unavailable | + +------+ + Encounter Details +--------+ + + + + | Date | Type | Department | Care Team | Description | +--------+ + + + + | 01/17/ | Hospital | [facility] | | | | 2009 - | Encounter | MED CTR CAN[facility] | | | | | | [address] | | | | 02/10/ | | [place] | | | | 2009 | | [address] | | | | | | [phone] | | | +--------+ + + + [...] [place] | | | | | | [address] | | | | | | | | +--------+---------+ + + + documented as of this encounter Visit Diagnoses Not on filedocumented in this encounter"
--- OUTSIDE RECORDS SUMMARY | ~2019-08-28 | XMS | Encounter Summary ---
Demographics + + + | Address | [address] | | | [place] [address] | + + + | Home Phone | | + + + | Preferred Language | Unknown | + + + | Marital Status | | + + + | Restorationism Affiliation | 1028 | + + + [...] Team Providers + +------+ + | Care Line Assembler Aircraft Name | Role | Phone | + +------+ + PCP | Unavailable | + +------+ + Encounter Details +--------+ + + + + | Date | Type | Department | Care Team | Description | +--------+ + + + + | 01/17/ | Hospital | [facility] | | | | 2009 - | Encounter | MED CTR CANCER | | | | | | [place] | | | | 02/10/ | | [place] | | | | 2009 | | [address] | | | | | | [phone] | | | +--------+ + + + [...] [place] | | | | | | [address] | | | | | | | | +--------+---------+ + + + documented as of this encounter Visit Diagnoses Not on filedocumented in this encounter"
--- OUTSIDE RECORDS SUMMARY | ~2019-08-28 | XMS | Encounter Summary ---
Demographics + + + | Address | [address] | | | [place] [address] | + + + | Home Phone | | + + + | Preferred Language | Unknown | + + + | Marital Status | | + + + | Muslim Affiliation | 1028 | + + + [...] Team Providers + +------+ + | Care Ship'S Captain Name | Role | Phone | + +------+ + PCP | Unavailable | + +------+ + Encounter Details +--------+ + + + + | Date | Type | Department | Care Team | Description | +--------+ + + + + | 07/08/ | Hospital | [facility] | | | | 2007 - | Encounter | MED CTR CANCER | | | | | | [address] [address] | | | | 07/13/ | | [place] | | | | 2007 | | [address] | | | | | | [phone] | | | +--------+ + + + [...] [place] | | | | | | [address] | | | | | | | | +--------+---------+ + + + documented as of this encounter Visit Diagnoses Not on filedocumented in this encounter"
--- OUTSIDE RECORDS SUMMARY | ~2019-08-28 | XMS | Encounter Summary ---
Demographics + + + | Address | [address] | | | [place] [address] | + + + | Home Phone | | + + + | Preferred Language | Unknown | + + + | Marital Status | | + + + | Moravian Affiliation | 1028 | + + + | Race | Unknown | + + + | Ethnic Group | Unknown | + + + Author + + + | Author | [facility] | | | and [place] | + + + | Organization | [facility] | | | [...] Team Providers + +------+ + | Care Loan Reviewer Name | Role | Phone | + +------+ + | Bubba Peña MD | PCP | | + +------+ + Encounter Details +--------+ + + + + | Date | Type | Department | Care Team | Description | +--------+ + + + + | 12/20/ | Orders Only | [facility] | Tyler Markham MD | Back pain, | | 2017 | | NEUROSURGERY [address] | [address] | unspecified back | | | | [address] | [place] [address] | location, | | | | [place] | [phone] | unspecified back | | | | [address] | | pain laterality, | | | | [phone] | | unspecified | | | | | | chronicity (Primary | | | | | | Dx) | +--------+ + + + + Social [...] | +--------+---------+ + + + | 02/09/ Office | Cardiology | Garcia Baarjas, | | | 2019 | Visit | | MD Ashlie ALFARO | | | | | | [place], [place] | | | | | | [address] | | | | | | | | +--------+---------+ + + + documented as of this encounter Results XR Lumbar Spine 4 + Vw (01/30/2017 11:02 AM PDT) + + | Specimen | + + | | + + + + + | Narrative | Performed At | + + + | FOUR VIEWS LUMBAR SPINE 01/30/2017 10:55 AM CLINICAL HISTORY: | [facility] | | Back pain COMPARISON: LUMBAR MRI DECEMBER 11, RADIOGRAPHS [facility] | | 2015 FINDINGS: Five non rib-bearing, lumbar type vertebrae are | [facility] | | visible. An AP view and lateral views in neutral, flexed and extended | - IMAGING | | positions are provided. Generalized osteopenia is suggested. | | | Rightward thoracolumbar curvature centered at T12-L1 persists. | | | Vertebral height is maintained, without evident fracture or obvious | | | spondylolysis. There is severe multilevel disc space narrowing with | | | vertebral spondylosis and facet hypertrophy. Mild anterolisthesis | | | is again visible at L4-5, persisting with flexion and extension. | | | The sacroiliac joints and imaged sacrum, bony pelvis and lower ribs | | | are unremarkable. Surgical suture again projects over the pelvic | | | cavity. There is scattered aortoiliac calcification. IMPRESSION | | | - 1. DEXTROSCOLIOSIS WITH MULTILEVEL DEGENERATIVE DISC | | | DISEASE, SPONDYLOSIS AND ANTEROLISTHESIS AT L4-5, DESCRIBED. | | | 2. OSTEOPENIA. 3. VASCULAR CALCIFICATION. Dictated and | | | Signed by: Chuy Ivey MD Electronically signed: 01/30/2017 12:16 | | | PM | | + + + + + | Procedure Note | + + | Derick, Rad Results In - 01/30/2017 12:19 PM PDT FOUR VIEWS LUMBAR SPINE 01/30/2017 10:55 | | AMCLINICAL HISTORY: Back painCOMPARISON: LUMBAR MRI DECEMBER 11, RADIOGRAPHS JULY | | 2016FINDINGS: Five non rib-bearing, lumbar type vertebrae are visible. An AP viewand | | lateral views in neutral, flexed and extended positions are provided. Generalized | | osteopenia is suggested. Rightward thoracolumbar curvature centeredat T12-L1 persists. | | Vertebral height is maintained, without evident fracture orobvious spondylolysis. | | There is severe multilevel disc space narrowing withvertebral spondylosis and facet | | hypertrophy. Mild anterolisthesis is againvisible at L4-5, persisting with flexion and | | extension. The sacroiliac jointsand imaged sacrum, bony pelvis and lower ribs are | | unremarkable. Surgical sutureagain projects over the pelvic cavity. There is scattered | | aortoiliaccalcification.IMPRESSION -1. DEXTROSCOLIOSIS WITH MULTILEVEL DEGENERATIVE | | DISC DISEASE, SPONDYLOSIS ANDANTEROLISTHESIS AT L4-5, DESCRIBED.2. OSTEOPENIA.3. | | VASCULAR CALCIFICATION.Dictated and Signed by: Chuy Ivey MD Electronically signed: | | 01/30/2017 12:16 PM | |again projects over the pelvic cavity. There is scattered aortoiliac | |calcification. | | | |IMPRESSION - | | | |1. DEXTROSCOLIOSIS WITH MULTILEVEL DEGENERATIVE DISC DISEASE, SPONDYLOSIS AND | |ANTEROLISTHESIS AT L4-5, DESCRIBED. | | | |2. OSTEOPENIA. | | | |3. VASCULAR CALCIFICATION. | | | |Dictated and Signed by: Chuy Ivey MD | | Electronically signed: 01/30/2017 12:16 PM | + + + + + + + | Performing | Address | City/State/Zipcode | Phone Number | | Organization | | | | + + + + + | [facility] | [address] | [place] | [phone] | | [facility] | | [address] | | | - IMAGING | | | | + + + + + documented in this encounter Visit Diagnoses + + | Diagnosis | + + | Back pain, unspecified back location, unspecified back pain laterality, unspecified | | chronicity - Primary | + + documented in this encounter"
--- OUTSIDE RECORDS SUMMARY | ~2019-08-28 | XMS | Encounter Summary ---
Demographics + + + | Address | [address] | | | [place] [address] | + + + | Home Phone | | + + + | Preferred Language | Unknown | + + + | Marital Status | | + + + | Zoroastrianism Affiliation | 1028 | + + + | Race | Unknown | + + + | Ethnic Group | Unknown | + + + Author + + + | Author | [facility] | | | and [place] | + + + | Organization | [facility] | | | [...] Team Providers + +------+ + | Care Real Estate Paralegal Name | Role | Phone | + +------+ + PCP | Unavailable | + +------+ + Encounter Details +--------+ + + + + | Date | Type | Department | Care Team | Description | +--------+ + + + + | 12/31/ | Hospital | [facility] | | | | 2007 - | Encounter | MED CTR CANCER | | | | | | [address] [address] | | | | 01/11/ | | [place] | | | | 2007 | | [address] | | | | | | [phone] | | | +--------+ + + + [...] [place] | | | | | | [address] | | | | | | | | +--------+---------+ + + + documented as of this encounter Visit Diagnoses Not on filedocumented in this encounter"
--- OUTSIDE RECORDS SUMMARY | ~2019-08-28 | XMS | Encounter Summary ---
Demographics + + + | Address | [address] | | | [place] [address] | + + + | Home Phone | | + + + | Preferred Language | Unknown | + + + | Marital Status | | + + + | Protestant Affiliation | 1028 | + + + | Race | Unknown | + + + | Ethnic Group | Unknown | + + + Author + + + | Author | [facility] | | | and [place] | + + + | Organization | [facility] | | [...] Team Providers + +------+ + | Care Generation Mechanic Helper Name | Role | Phone | + [...] (injection pain log) | | | | [place], | [place] [facility], | | | | | [place] [address] | [place] [address] | | | | | [phone] | [phone] | | | | | | | [...] | | | | | [place] [facility] [place] | | | | | | [address] | | | | | | | | +--------+---------+ + + + documented as of this encounter Visit Diagnoses Not on filedocumented in this encounter"
--- OUTSIDE RECORDS SUMMARY | ~2019-08-28 | XMS | Encounter Summary ---
Demographics + + + | Address | [address] | | | [place] [address] | + + + | Home Phone | | + + + | Preferred Language | Unknown | + + + | Marital Status | | + + + | Yazdanism Affiliation | 1028 | + + + | Race | Unknown | + + + | Ethnic Group | Unknown | + + + Author + + + | Author | [facility] | | | and [place] | + + + | Organization | [facility] | | | and [...] Team Providers + +------+ + | Care Crusher Screen Repairer Name | Role | Phone | + +------+ + PCP | Unavailable | + +------+ + Encounter Details +--------+ + + + + | Date | Type | Department | Care Team | Description | +--------+ + + + + | 07/29/ | Hospital | [facility] | [place], | | | 2011 - | Encounter | [facility] | Zana Villalta MD [address] | | | | CENTER [address] | [facility] | | | 08/13/ | | [place] | [place] [address] | | | 2011 | | [address] | [phone] | | | | | [phone] | | | +--------+ + + + [...] | | | | | [place] | | | | | | [address] | | | | | | | [...] + | [facility] | [address] | [place], [place] | [phone] | | [facility] | | [address] | | | - LABORATORY | | | | + + + + + | [facility] | [address] | [place], [place] | | | [facility] | | [address] | | | - LABORATORY | | [...] CENTER - | | | | the [facility] | | LABORATORY | | | | [...] + | [facility] | [address] | [place] | [phone] | | [facility] | | [address] | | | - LABORATORY | | | | + + + + + | [facility] | [address] | [place] | | | [facility] | | [address] | | | - LABORATORY | | [...] + | [facility] | [address] | [place] | [phone] | | [facility] | | [address] | | | - LABORATORY | | | | + + + + + | [facility] | [address] | [place] | | | [facility] | | [address] | | | - LABORATORY | | [...] [address] | [place] | [phone] | | [facility] | | [address] | | | - LABORATORY | | | | + + + + + | K[facility]IN MERINO | [address] | [place] | | | [facility] | | [address] | | | - LABORATORY | | | | + + + + + documented in this encounter Visit Diagnoses Not on filedocumented in this encounter"
--- OUTSIDE RECORDS SUMMARY | ~2019-08-28 | XMS | Encounter Summary ---
Demographics + + + | Address | [address] | | | [place] [address] | + + + | Home Phone | | + + + | Preferred Language | Unknown | + + + | Marital Status | | + + + | Cheondoism Affiliation | 1028 | + + + [...] Providers + +------+ + | Care Mail Deliverer Name | Role | Phone | + +------+ + | Bubba Peña MD | PCP | | + +------+ + Encounter Details +--------+ + + + + | Date | Type | Department | Care Team | Description | +--------+ + + + + | 12/27/ | Orders Only | [facility] | Conversion | | | 2018 | | NEPHROLOGY [place] | Transaction, | | | | | [address] | Provider Unknown | | | | | [place] | [phone] | | | | | [address] | (Fax) | | | | | [phone] | | | +--------+ + + + [...] | | | | | [place], [place] | | | | | | [address] | | | | | | | | +--------+---------+ + + + documented as of this encounter Procedures + +--------+ + + + | Procedure Name | Priori | Date/Time | Associated Diagnosis | Comments | | | ty | | | | + +--------+ + + + | URINALYSIS, | Routin | 08/04/2018 | | Results for this | | MICROSCOPIC ONLY | e | 12:00 AM | | procedure are in the | | | | PDT | | results section. | + +--------+ + + + | CBC WITH MANUAL | Routin | 12/27/2017 | | Results for this | | DIFFERENTIAL | e | 12:00 AM | | procedure are in the | | | | PDT | | results section. | + +--------+ + + + | CBC WITH MANUAL | Routin | 12/27/2017 | | Results for this | | DIFFERENTIAL | e | 12:00 AM | | procedure are in the | | | | PDT | | results section. | + +--------+ + + + | COMPREHENSIVE | Routin | 12/27/2017 | | Results for this | | METABOLIC PANEL | e | 12:00 AM | | procedure are in the | | | | PDT | | results section. | + +--------+ + + + | COMPREHENSIVE | Routin | 12/27/2017 | | Results for this | | METABOLIC PANEL | e | 12:00 AM | | procedure are in the | | | | PDT | | results section. | + +--------+ + + + documented in this encounter Results Urinalysis, Microscopic Only (08/04/2018 12:00 AM PDT) + + + + + + | Component | Value | Ref Range | Performed | Pathologist | | | | | At | Signature | + + + + + + | Color | Yellow | | EXTERNAL | | | | | | LAB | | + + + + + + | Clarity | Slightly Cloudy | | EXTERNAL | | | | | | LAB | | + + + + + + | Specific | 1.014 | | EXTERNAL | | | [place] | | | LAB | | + + + + + + | Leukocyte | TraceComment: Small | | EXTERNAL | | | Esterase, | | | LAB | | | Urine | | | | | + + + + + + | Nitrite, | Trace | | EXTERNAL | | | Urine | | | LAB | | + + + + + + | Urobilinoge | Normal | | EXTERNAL | | | n, Urine | | | LAB | | + + + + + + | Protein, | Negative | | EXTERNAL | | | Urine | | | LAB | | + + + + + + | pH, Urine | 6 | | EXTERNAL | | | | | | LAB | | + + + + + + | Blood, | Positive | | EXTERNAL | | | Urine | | | LAB | | + + + + + + | Ketones | Negative | | EXTERNAL | | | | | | LAB | | + + + + + + | Bilirubin, | Negative | | EXTERNAL | | | Urine | | | LAB | | + + + + + + | Glucose, | Negative | | EXTERNAL | | | Urine | | | LAB | | + + + + + + + + | Specimen | + + | Urine specimen | | (specimen) | + + + +---------+ + + | Performing | Address | City/State/Zipcode | Phone Number | | Organization | | | | + +---------+ + + | EXTERNAL LAB | | | | + +---------+ + + CBC with Manual Differential (12/27/2017 12:00 AM PDT) + +-------+ + + + | Component | Value | Ref Range | Performed | Pathologist | | | | | At | Signature | + +-------+ + + + | WBC | 7.2 | 4.5 - 11.0 10 | EXTERNAL | | | | | | LAB | | + +-------+ + + + | RED CELL | 4.37 | 3.0 - 5.1 10 | EXTERNAL | | | COUNT | | | LAB | | + +-------+ + + + | Hgb | 12.5 | 12.0 - 16.0 | EXTERNAL | | | | | g/dL | LAB | | + +-------+ + + + | Hematocrit, | 38.1 | 35 - 45 % | EXTERNAL | | | POC | | | LAB | | + +-------+ + + + | MCV | 87.1 | 81 - 99 fL | EXTERNAL | | | | | | LAB | | + +-------+ + + + | MCH | 29 | 27 - 33 pg | EXTERNAL | | | | | | LAB | | + +-------+ + + + | MCHC | 33 | 30 - 36 g/dL | EXTERNAL | | | | | | LAB | | + +-------+ + + + | RDW-CV | | % | EXTERNAL | | | | | | LAB | | + +-------+ + + + | Platelet | 375 | 140 - 440 K/ L | EXTERNAL | | | Count | | | LAB | | | Plasma | | | | | + +-------+ + + + | MPV | | fL | EXTERNAL | | | | | | LAB | | + +-------+ + + + | % Segmented | | % | EXTERNAL | | | | | | LAB | | | Neutrophils | | | | | + +-------+ + + + | % | | % | EXTERNAL | | | Lymphocytes | | | LAB | | + +-------+ + + + | % Monocytes | | % | EXTERNAL | | | | | | LAB | | + +-------+ + + + | % | | % | EXTERNAL | | | Eosinophils | | | LAB | | + +-------+ + + + | % Basophils | | % | EXTERNAL | | | | | | LAB | | + +-------+ + + + | Absolute | | / L | EXTERNAL | | | Neutrophils | | | LAB | | + +-------+ + + + | Absolute | | / L | EXTERNAL | | | Lymphocytes | | | LAB | | + +-------+ + + + | Absolute | | / L | EXTERNAL | | | Monocytes | | | LAB | | + +-------+ + + + | Absolute | | / L | EXTERNAL | | | Eosinophils | | | LAB | | + +-------+ + + + | Absolute | | / L | EXTERNAL | | | Basophils | | | LAB | | + [...] | + +---------+ + + CBC with Manual Differential (12/27/2017 12:00 AM PDT) + +-------+ + + + | Component | Value | Ref Range | Performed | Pathologist | | | | | At | Signature | + +-------+ + + + | WBC | 7.2 | 4.5 - 11.0 10 | EXTERNAL | | | | | | LAB | | + +-------+ + + + | RED CELL | 4.37 | 3.0 - 5.1 10 | EXTERNAL | | | COUNT | | | LAB | | + +-------+ + + + | Hgb | 12.5 | 12.0 - 16.0 | EXTERNAL | | | | | g/dL | LAB | | + +-------+ + + + | Hematocrit, | 38.1 | 35 - 45 % | EXTERNAL | | | POC | | | LAB | | + +-------+ + + + | MCV | 87.1 | 81 - 99 fL | EXTERNAL | | | | | | LAB | | + +-------+ + + + | MCH | 29 | 27 - 33 pg | EXTERNAL | | | | | | LAB | | + +-------+ + + + | MCHC | 33 | 30 - 36 g/dL | EXTERNAL | | | | | | LAB | | + +-------+ + + + | RDW-CV | | % | EXTERNAL | | | | | | LAB | | + +-------+ + + + | Platelet | 375 | 140 - 440 K/ L | EXTERNAL | | | Count | | | LAB | | | Plasma | | | | | + +-------+ + + + | MPV | | fL | EXTERNAL | | | | | | LAB | | + +-------+ + + + | % Segmented | | % | EXTERNAL | | | | | | LAB | | | Neutrophils | | | | | + +-------+ + + + | % | | % | EXTERNAL | | | Lymphocytes | | | LAB | | + +-------+ + + + | % Monocytes | | % | EXTERNAL | | | | | | LAB | | + +-------+ + + + | % | | % | EXTERNAL | | | Eosinophils | | | LAB | | + +-------+ + + + | % Basophils | | % | EXTERNAL | | | | | | LAB | | + +-------+ + + + | Absolute | | / L | EXTERNAL | | | Neutrophils | | | LAB | | + +-------+ + + + | Absolute | | / L | EXTERNAL | | | Lymphocytes | | | LAB | | + +-------+ + + + | Absolute | | / L | EXTERNAL | | | Monocytes | | | LAB | | + +-------+ + + + | Absolute | | / L | EXTERNAL | | | Eosinophils | | | LAB | | + +-------+ + + + | Absolute | | / L | EXTERNAL | | | Basophils | | | LAB | | + [...] + +---------+ + + Comprehensive Metabolic Panel (12/27/2017 12:00 AM PDT) + + + + + + | Component | Value | Ref Range | Performed | Pathologist | | | | | At | Signature | + + + + + + | Glucose, | 117 (A) | 70 - 100 mg/dL | EXTERNAL | | | Fasting | | | LAB | | + + + + + + | BUN | 19 | 6 - 23 mg/dL | EXTERNAL | | | | | | LAB | | + + + + + + | Creatinine | 1.19 (A) | 0.70 - 1.11 | EXTERNAL | | | | | mg/dL | LAB | | + + + + + + | BUN/Creatin | 16.0 | | EXTERNAL | | | ine Ratio | | | LAB | | + + + + + + | Calcium | 9.5 | 8.4 - 10.2 | EXTERNAL | | | | | mg/dL | LAB | | + + + + + + | Protein, | 6.6 | 6.0 - 8.0 g/dL | EXTERNAL | | | Total | | | LAB | | + + + + + + | Albumin | 3.7 | 3.5 - 5.0 | EXTERNAL | | | | | | LAB | | + + + + + + | Globulin | 2.9 | 1.8 - 3.5 | EXTERNAL | | | | | | LAB | | + + + + + + | A/G Ratio | 1.3 | 1.1 - 2.4 | EXTERNAL | | | | | | LAB | | + + + + + + | Bilirubin | 0.6 | 0.0 - 1.2 mg/dL | EXTERNAL | | | Total | | | LAB | | + + + + + + | ALP, | 74 | 31 - 130 | EXTERNAL | | | External | | | LAB | | + + + + + + | ALT | 10 | 7 - 52 U/L | EXTERNAL | | | | | | LAB | | + + + + + + | AST | 19 | 13 - 39 U/L | EXTERNAL | | | | | | LAB | | + + + + + + | Na | 138 | 132 - 143 | EXTERNAL | | | | | mmol/L | LAB | | + + + + + + | K | 4.6 | 3.6 - 5.1 | EXTERNAL | | | | | mmol/L | LAB | | + + + + + + | Cl | 105 | 95 - 112 mmol/L | EXTERNAL | | | | | | LAB | | + + + + + + | CO2 | 21 | 19 - 31 mmol/L | EXTERNAL | | | | | | LAB | | + + + + + + | Anion Gap | 16.6 | 7 - 21 mmol/L | EXTERNAL | | | | | | LAB | | + + + + + + | Estimated | 43 (A) | 60 - 140 mg/dL | EXTERNAL | | | GFR | | | LAB | | + [...] + +---------+ + + Comprehensive Metabolic Panel (12/27/2017 12:00 AM PDT) + + + + + + | Component | Value | Ref Range | Performed | Pathologist | | | | | At | Signature | + + + + + + | Glucose, | 117 (A) | 70 - 100 mg/dL | EXTERNAL | | | Fasting | | | LAB | | + + + + + + | BUN | 19 | 6 - 23 mg/dL | EXTERNAL | | | | | | LAB | | + + + + + + | Creatinine | 1.19 (A) | 10.70 - 1.11 | EXTERNAL | | | | | mg/dL | LAB | | + + + + + + | BUN/Creatin | 16.0 | 3.0 - 28.6 | EXTERNAL | | | ine Ratio | | | LAB | | + + + + + + | Calcium | 9.5 | 8.4 - 10.0 | EXTERNAL | | | | | mg/dL | LAB | | + + + + + + | Protein, | 6.6 | 6.0 - 8.0 g/dL | EXTERNAL | | | Total | | | LAB | | + + + + + + | Albumin | 3.7 | 3.5 - 5.0 | EXTERNAL | | | | | | LAB | | + + + + + + | Globulin | 2.9 | 1.8 - 3.5 | EXTERNAL | | | | | | LAB | | + + + + + + | A/G Ratio | | | EXTERNAL | | | | | | LAB | | + + + + + + | Bilirubin | 0.6 | 0.0 - 1.2 mg/dL | EXTERNAL | | | Total | | | LAB | | + + + + + + | ALP, | 74 | 31 - 130 | EXTERNAL | | | External | | | LAB | | + + + + + + | ALT | 10 | 7 - 52 U/L | EXTERNAL | | | | | | LAB | | + + + + + + | AST | 19 | 13 - 39 U/L | EXTERNAL | | | | | | LAB | | + + + + + + | Na | 138 | 132 - 143 | EXTERNAL | | | | | mmol/L | LAB | | + + + + + + | K | 4.6 | 3.6 - 5.1 | EXTERNAL | | | | | mmol/L | LAB | | + + + + + + | Cl | 105 | 95 - 112 mmol/L | EXTERNAL | | | | | | LAB | | + + + + + + | CO2 | 21 | 19 - 31 mmol/L | EXTERNAL | | | | | | LAB | | + + + + + + | Anion Gap | 16.6 | 7 - 21 mmol/L | EXTERNAL | | | | | | LAB | | + + + + + + | Estimated | 43 (A) | 60 - 140 mg/dL | EXTERNAL | | | GFR | | | LAB | | + [...]
--- OUTSIDE RECORDS SUMMARY | ~2019-08-28 | XMS | Encounter Summary ---
Demographics + + + | Address | [address] | | | [place] [address] | + + + | Home Phone | | + + + | Preferred Language | Unknown | + + + | Marital Status | | + + + | Mandaeism Affiliation | 1028 | + + + | Race | Unknown | + + + | Ethnic Group | Unknown | + + + Author + + + | Author | [facility] | | | and [place] | + + + | Organization | [facility] | | [...] Team Providers + +------+ + | Care Drafter Landscape Name | Role | Phone | + +------+ + PCP | Unavailable | + +------+ + Encounter Details +--------+ + + + + | Date | Type | Department | Care Team | Description | +--------+ + + + + | 04/13/ | Hospital | [facility] | | | | 2006 - | Encounter | MED [facility] | | | | | | MINDY Rios | | | | 05/13/ | | [place] | | | | 2006 | | [address] | | | | | | [phone] | | | +--------+ + + + [...] [place] | | | | | | [address] | | | | | | | | +--------+---------+ + + + documented as of this encounter Visit Diagnoses Not on filedocumented in this encounter"
--- OUTSIDE RECORDS SUMMARY | ~2019-08-28 | XMS | Encounter Summary ---
Demographics + + + | Address | [address] | | | [place] [address] | + + + | Home Phone | | + + + | Preferred Language | Unknown | + + + | Marital Status | | + + + | Spiritism Affiliation | 1028 | + + + | Race | Unknown | + + + | Ethnic Group | Unknown | + + + Author + + + | Author | [facility] | | | and [place] | + + + | Organization | [facility] | | | [...] Team Providers + +------+ + | Care Volunteer Services Coordinator Name | Role | Phone | + +------+ + | Bubba Peña MD | PCP | | + +------+ + Encounter Details +--------+ + + + + | Date | Type | Department | Care Team | Description | +--------+ + + + + | 10/08/ | Orders Only | [facility] | Terrell Meza MD | | | 2018 | | NEPHROLOGY [place] | [address] [place] | | | | | [address] [place] | [address] [place], [place] | | | | | [address] [place], [place] | [address] | | | | | [address] | | | | | | [phone] | | | +--------+ + + + [...] | | | | | [place], [place] | | | | | | [address] | | | | | | | | +--------+---------+ + + + documented as of this encounter Procedures + +--------+ + + + | Procedure Name | Priori | Date/Time | Associated Diagnosis | Comments | | | ty | | | | + +--------+ + + + | EXTERNAL LAB: CBC | Routin | 10/08/2018 | | Results for this | | | e | 10:05 AM | | procedure are in the | | | | PST | | results section. | + +--------+ + + + | URINALYSIS WITH | Routin | 10/08/2018 | | Results for this | | MICROSCOPIC IF | e | 10:05 AM | | procedure are in the | | INDICATED | | PST | | results section. | + +--------+ + + + | PROTEIN/CREATININE | Routin | 10/08/2018 | | Results for this | | RATIO, URINE | e | 10:05 AM | | procedure are in the | | | | PST | | results section. | + +--------+ + + + | URIC ACID | Routin | 10/08/2018 | | Results for this | | | e | 10:05 AM | | procedure are in the | | | | PST | | results section. | + +--------+ + + + | BASIC METABOLIC | Routin | 10/08/2018 | | Results for this | | PANEL | e | 10:05 AM | | procedure are in the | | | | PST | | results section. | + +--------+ + + + documented in this encounter Results Protein/Creatinine Ratio, Urine (10/08/2018 10:05 AM PST) + + + + + + | Component | Value | Ref Range | Performed | Pathologist | | | | | At | Signature | + + + + + + | Protein/Cre | 263.2 (A) | 0 - 150 | EXTERNAL | | | at Ratio | | | LAB | | [...] | | | + +---------+ + + Urinalysis with Microscopic if Indicated (10/08/2018 10:05 AM PST) + + + + + + | Component | Value | Ref Range | Performed | Pathologist | | | | | At | Signature | + + + + + + | Color | Yellow | | EXTERNAL | | | | | | LAB | | + + + + + + | Clarity | Clear | | EXTERNAL | | | | | | LAB | | + + + + + + | Spec Grav, | 1.013 | 1.005 - 1.030 | EXTERNAL | | | Fluid | | | LAB | | + + + + + + | Leukocyte | Negative | | EXTERNAL | | | Esterase, | | | LAB | | | Urine | | | | | + + + + + + | Nitrite, | Negative | | EXTERNAL | | | Urine | | | LAB | | + + + + + + | Urobilinoge | Normal | | EXTERNAL | | | n, Urine | | | LAB | | + + + + + + | Total | Negative | | EXTERNAL | | | Protein | | | LAB | | + + + + + + | pH, Urine | 5 | 5 - 9 | EXTERNAL | | | | | | LAB | | + + + + + + | Blood, | Negative | | EXTERNAL | | [...] | | | + +---------+ + + External Lab: KRISTI (10/08/2018 10:05 AM PST) + + + + + + | Component | Value | Ref Range | Performed | Pathologist | | | | | At | Signature | + + + + + + | WBC | 6.5 | 4.5 - 11.0 10 | EXTERNAL | | | | | | LAB | | + + + + + + | RED CELL | 4.01 | 3.8 - 5.1 10 | EXTERNAL | | | COUNT | | | LAB | | + + + + + + | Hgb | 11.9 (A) | 12.0 - 16.0 | EXTERNAL | | | | | g/dL | LAB | | + + + + + + | Hematocrit, | 36.0 | 35 - 45 % | EXTERNAL | | | POC | | | LAB | | + + + + + + | MCV | 89.7 | 81 - 99 fL | EXTERNAL | | | | | | LAB | | + + + + + + | MCH | 30 | 27 - 33 pg | EXTERNAL | | | | | | LAB | | + + + + + + | MCHC | 33 | 30 - 36 g/dL | EXTERNAL | | | | | | LAB | | + + + + + + | Platelet | 206 | 140 - 440 K/ L | EXTERNAL | | | Count | | | LAB | | | Plasma | | | | | + + + + + + | RDW-CV | | % | EXTERNAL | | | | | | LAB | | + + + + + + | MPV | | fL | EXTERNAL | | | | | | LAB | | + + + + + + | Differentia | | | EXTERNAL | | | l Type | | | LAB | | + + + + + + | % Segmented | | % | EXTERNAL | | | | | | LAB | | | Neutrophils | | | | | + + + + + + | % | | % | EXTERNAL | | | Lymphocytes | | | LAB | | + + + + + + | % Monocytes | | % | EXTERNAL | | | | | | LAB | | + + + + + + | % | | % | EXTERNAL | | | Eosinophils | | | LAB | | + + + + + + | % Basophils | | % | EXTERNAL | | | | | | LAB | | + + + + + + | Absolute | | / L | EXTERNAL | | | Segmented | | | LAB | | | Neutrophils | | | | | + + + + + + | Absolute | | / L | EXTERNAL | | | Lymphocytes | | | LAB | | + + + + + + | Absolute | | / L | EXTERNAL | | | Monocytes | | | LAB | | + + + + + + | Absolute | | / L | EXTERNAL | | | Eosinophils | | | LAB | | + + + + + + | Absolute | | [...] | | | + +---------+ + + Uric Acid (10/08/2018 10:05 AM PST) + +---------+ + + + | Component | Value | Ref Range | Performed | Pathologist | | | | | At | Signature | + +---------+ + + + | Uric Acid | 7.0 (A) | 2.3 - 6.6 | EXTERNAL | | | | | | LAB | | + +---------+ + + + + + | Specimen | + + | Blood specimen | | (specimen) | + + + +---------+ + + | Performing | Address | City/State/Zipcode | Phone Number | | Organization | | | | + +---------+ + + | EXTERNAL LAB | | | | + +---------+ + + Basic Metabolic Panel (10/08/2018 10:05 AM PST) + + + + + + | Component | Value | Ref Range | Performed | Pathologist | | | | | At | Signature | + + + + + + | Glucose, | 91 | 70 - 100 mg/dL | EXTERNAL | | | Fasting | | | LAB | | + + + + + + | BUN | 24 (A) | 6 - 23 mg/dL | EXTERNAL | | | | | | LAB | | + + + + + + | Creatinine | 1.16 (A) | 0.70 - 1.11 | EXTERNAL | | | | | mg/dL | LAB | | + + + + + + | BUN/Creatin | 20.7 | 6.0 - 28.6 | EXTERNAL | | | ine Ratio | | | LAB | | + + + + + + | Calcium | 9.1 | 8.5 - 10.3 | EXTERNAL | | | | | mg/dL | LAB | | + + + + + + | Na | 141 | 132 - 143 | EXTERNAL | | | | | mmol/L | LAB | | + + + + + + | K | 4.3 | 3.6 - 5.1 | EXTERNAL | | | | | mmol/L | LAB | | + + + + + + | Cl | 104 | 95 - 112 mmol/L | EXTERNAL | | | | | | LAB | | + + + + + + | CO2 | 24 | 19 - 31 mmol/L | EXTERNAL | | | | | | LAB | | + + + + + + | Anion Gap | 17.3 | 7 - 21 mmol/L | EXTERNAL | | | | | | LAB | | + + + + + + | Estimated | 44 (A) | 60 - 140 mg/dL | [...]
--- OUTSIDE RECORDS SUMMARY | ~2019-08-28 | XMS | Encounter Summary ---
Demographics + + + | Address | [address] | | | [place] [address] | + + + | Home Phone | | + + + | Preferred Language | Unknown | + + + | Marital Status | | + + + | Yazidi Affiliation | 1028 | + + + | Race | Unknown | + + + | Ethnic Group | Unknown | + + + Author + + + | Author | [facility] | | | and [place] | + + + | Organization | [facility] | | [...] Team Providers + +------+ + | Care Control Panel Tester Name | Role | Phone | + +------+ + PCP | Unavailable | + +------+ + Encounter Details +--------+ + + + + | Date | Type | Department | Care Team | Description | +--------+ + + + + | 12/02/ | Abstract | [facility] | Nita, | | | 2013 | | Conversion Location | Zana Villalta MD [address] | | | | | [phone] | [place] | | | | | | [place] [address] | | | | | | [phone] | | | | | | | [...] + + + | Blood Pressure | - | - | | + [...] + + + + | Weight | 70.8 kg (156 lb 1.4 | 07/29/2012 1:39 PM | | | | oz) | PDT | | + + + + + | Height | 170 cm (5' 6.93") | 07/29/2012 1:39 PM | | | | | PDT | | + + + + + | Body Mass Index | 24.5 | 07/29/2012 1:39 PM | | | | | PDT | | + + + + + documented in this encounter Plan of Treatment +--------+---------+ + + + | Date | Type | Specialty | Care Team | Description | +--------+---------+ + + + | 02/09/ | Office | Cardiology | Garcia Baarjas, | | | 2020 | Visit | | MD Ashlie ALFARO | | | | | | [place] | | | | | | [id number] | | | | | | | | +--------+---------+ + + + documented as of this encounter Visit Diagnoses Not on filedocumented in this encounter
--- OUTSIDE RECORDS SUMMARY | ~2019-08-28 | XMS | Encounter Summary ---
Demographics + + + | Address | [address] | | | [place] [address] | + + + | Home Phone | | + + + | Preferred Language | Unknown | + + + | Marital Status | | + + + | Rastafari Affiliation | 1028 | + + + | Race | Unknown | + + + | Ethnic Group | Unknown | + + + Author + + + | Author | [facility] | | | and [place] | + + + | Organization | [facility] | | | [...] Team Providers + +------+ + | Care Passenger Screener Name | Role | Phone | + +------+ + PCP | Unavailable | + +------+ + Encounter Details +--------+ + + + + | Date | Type | Department | Care Team | Description | +--------+ + + + + | 01/04/ | Hospital | [facility] | | | | 2008 | Encounter | MED CTR XRAY [address] | | | | | | [place] | | | | | | [place] [address] | | | | | | [phone] | | | +--------+ + + + [...] | | | | | [place] | | | | | | [id number] | | | | | | | | +--------+---------+ + + + documented as of this encounter Visit Diagnoses Not on filedocumented in this encounter"
--- OUTSIDE RECORDS SUMMARY | ~2019-08-28 | XMS | Encounter Summary ---
Demographics + + + | Address | [address] | | | [place] [address] | + + + | Home Phone | | + + + | Preferred Language | Unknown | + + + | Marital Status | | + + + | Gnosticism Affiliation | [id number] | + + + | Race | Unknown | + + + | Ethnic Group | Unknown | + + + Author + + + | Author | [facility] | | | and [place] | + + + | Organization | [facility] | | | [...] Team Providers + +------+ + | Care Ward Secretary Name | Role | Phone | + +------+ + PCP | Unavailable | + +------+ + Encounter Details +--------+ + + + + | Date | Type | Department | Care Team | Description | +--------+ + + + + | 03/10/ | Hospital | [facility] | Stephanie Holloway MD | NSTEMI (non-ST | | 2016 - | Encounter | [facility] | [address] | elevated myocardial | | | | CARE FLOOR [address] | [place] [address] | infarction) ([facility], [facility]IN [facility]) | | 03/11/ | | [address] | [phone] | | | 2015 | | [place], [place] | | | | | | [address] | | | | | | [phone] | | | +--------+ + + + [...] + + + | Blood Pressure | 111/64 | 03/11/2016 11:31 AM | | | | | PDT | | + + + + + | Pulse | 68 | 03/11/2016 11:31 AM | | | | | PDT | | + + + + + | Temperature | 36.8 C (98.2 F) | 03/11/2016 11:31 AM | | | | | PDT | | + + + + + | Respiratory Rate | 20 | 03/11/2016 11:31 AM | | | | | PDT | | + + + + + | Oxygen Saturation | - | - | | + + + + + | Inhaled Oxygen | - | - | | | Concentration | | | | + + + + + | Weight | 68.8 kg (151 lb 10.9 | 03/11/2016 11:31 AM | | | | oz) | PDT | | + + + + + | Height | 167.6 cm (5' 6") | 03/11/2016 11:31 AM | | | | | PDT | | + + + + + | Body Mass Index | 24.48 | 03/11/2016 11:31 AM | | | | | PDT | | + + + + + documented in this encounter Discharge Summaries Tyler Ferrer MD - 03/11/2016 2:00 PM PDTFormatting of this note might be diff erent from the original. Discharge Summaries by Tyler Ferrer MD at 03/11/16 1400 Author: Tyler Ferrer MD Service: Hospitalist Author Type: Physician Filed: 03/11/16 1420 Date of Service: 03/11/16 1400 Status: Signed Sap Basis Consultant: Tyler Ferrer MD (Physician) [facility] Service: Hospitalist Discharge Summary Date of Admission: 03/10/2016 Date of Discharge: Transferred to [facility] on 03/11/2016 Discharge Provider: Tyler Ferrer MD Treatment Team: Consulting Physician: Angel Mckeon MD Admitting Provider: Stephanie Holloway MD Discharge Diagnoses: Principal Problem: Acute respiratory failure with hypoxia (HCC) Active Problems: Acute pulmonary edema (HCC) Shortness of breath NSTEMI (non-ST elevated myocardial infarction) (HCC) Leukocytosis, unspecified Bilateral pulmonary infiltrates on chest x-ray Resolved Problems: * No resolved hospital problems. * Procedures: * No surgery found * Significant Diagnostic Studies: X-ray Chest 1 View 03/11/2016 1. Right perihilar and right basilar airspace disease which may be on the basi s of pneumonia. 2. Diffuse reticular interstitial opacities that are nonspecific and may be on the basis of chronic interstitial lung disease. Mild interstitial edema or viral pneumon itis may also be considerations. 3. Mild left basilar subsegmental atelectasis. Electronic ally signed by Festus Mohan DO on 03/11/2016 7:47 AM BRIEF HISTORY OF PRESENTATION and HOSPITAL COURSE: Alo Dominguez is a 86 y.o. female with no previous history of coronary artery disease and only a history of hyperlipidemia, dry eyes, colon cancer, leading an active style but ov er the last couple of months and did not have being shortness of breath on exertion which mcneal d increased over the last 4 days to where on normal ambulation she has to sit down to catch her breath, accompanying cough, she had chills but really no fever, also on presentation at outside hospital where her Trop T was 1.4, she did not have any acute ST-T wave changes on E KG, she had elevated white cell 15.9 count as well as elevated BNP 1460,lactic acid 3.[address] x-ray showed possible pneumonia and possible congestive heart failure, had to be on BiPa p patient was then transferred to [facility] and overnight was given IVl asix, Iv Levaquin and able to be weaned off her Bipap, VS were stable and patient, afebrile the whole time, however overnight her cardiac enzymes were elevated to NSTEMI levels, she she had a nitrogen ointment in, heparin drip, metoprolol, Lipitor, and continued to be chest pain-free. However given that we do not have cardiothoracic surgery back up our interventional cardiol ogist will only do emergent heart catheterizations, which in her case was not considered so. Subsequently Dr. Rodrigez of cardiology at [facility] has accepted the patient in transfer and I have talked with Dr. Norwood the hospitalist. Patient is therefore being transfe rred to [facility] by ACLS. Patient will be continuing with her nitroglycerin pa tch and her heparin drip during the transfer. Initially pamn was DNR/DNI however on discussion with sergio she was willing to have an giogram to looked for blocked heart artery given the elevated Troponin levels, stents put in and medication as needed but no CABG and when I told her that her that we could follow her wishes but if she wanted to have angiogram done and cardiac stents put in her complete DNR/D NI would would have to be suspended during the hospitaliztion, pateint then agreed to CPR/de fibrillation/antiarrythmics/vasopressor/intubation and ventilation, antibiotics for comfort but no tube feedinbgs. Past Medical History Diagnosis Date Cancer (HCC) Joint pain Old myocardial infarction Unspecified visual disturbance Past Surgical History Procedure Laterality Date Abdominal surgery Appendectomy Hysterectomy Cataract extraction Colonoscopy Eye surgery Tonsillectomy No Known Allergies No prescriptions prior to admission DISCHARGE EXAM Vital Signs: BP 111/64 mmHg | Pulse 68 | Temp(Src) 98.2 F (36.8 C) (Oral) | Resp 20 | Ht 1.676 m (5' 6") | Wt 68.8 kg (151 lb 10.8 oz) | BMI 24.49 kg/m2 | SpO2 90% General Appearance: Alert, cooperative, no distress, appears stated age Head: Normocephalic, without obvious abnormality, atraumatic Eyes: PERRL, conjunctiva/corneas clear, EOM's intact, Ears: Normal external ear canals, both ears Nose: Nares normal, septum midline, mucosa normal, no drainage or sinus tenderness Throat: Lips, mucosa, and tongue normal; teeth and gums normal Neck: Supple, symmetrical, trachea midline, no adenopathy; thyroid: no enlargement/tenderness/nodules; no carotid bruit or JVD Back: Symmetric, no curvature, ROM normal, no CVA tenderness Lungs: Clear to auscultation bilaterally, respirations unlabored Chest Wall: No tenderness or deformity Heart: Regular rate and rhythm, S1 and S2 normal, no murmur, rub or gallop Abdomen: Soft, non-tender, bowel sounds active all four quadrants, no masses, no organomegaly Extremities: Extremities normal, atraumatic, no cyanosis or edema Pulses: 2+ and symmetric all extremities Skin: Skin color, texture, turgor normal, no rashes or lesions Lymph nodes: Cervical, supraclavicular, and axillary nodes normal Neurologic: CNII-XII intact, normal strength, sensation and reflexes throughout DATA CBC: Lab Results Component Value Date WBC 14.77* 03/11/2016 RBC 3.77 03/11/2016 HGB 11.0* 03/11/2016 HCT 32.6* 03/11/2016 MCV 86.5 03/11/2016 MCH 29.1 03/11/2016 MCHC 33.6 03/11/2016 RDW 44.6 03/11/2016 PLT 204 03/11/2016 MPV 8.5 03/11/2016 DIFFTYPE AUTOMATED 03/11/2016 CMP: Lab Results Component Value Date NA 135 03/11/2016 K 3.5 03/11/2016 CL 98* 03/11/2016 CO2 28 03/11/2016 ANIONGAP 13 03/11/2016 GLUF 129* 03/11/2016 BUN 29* 03/11/2016 CREATININE 1.2* 03/11/2016 BCR 24 03/11/2016 CA 8.3* 03/11/2016 EGFR 45* 03/11/2016 Calcium: No results found for: CALCIUM Magnesium: Lab Results Component Value Date MG 1.3* 03/11/2016 Phosphorus: Lab Results Component Value Date PHOS 3.4 03/11/2016 PT/INR: Lab Results Component Value Date INR 1.2 03/11/2016 PTT: Lab Results Component Value Date APTT 37* 03/11/2016 [APTT} Troponin: Lab Results Component Value Date TROPONINI 30.3* 03/11/2016 Last 3 Troponin: Lab Results Component Value Date TROPONINI 30.3* 03/11/2016 TROPONINI 37.5* 03/11/2016 TROPONINI 34.2* 03/10/2016 CPK: Lab Results Component Value Date CKTOTAL 600* 03/11/2016 Troponin I: Lab Results Component Value Date TROPONINI 30.3* 03/11/2016 X-ray Chest 1 View 03/11/2016 1. Right perihilar and right basilar airspace disease which may be on the basi s of pneumonia. 2. Diffuse reticular interstitial opacities that are nonspecific and may be on the basis of chronic interstitial lung disease. Mild interstitial edema or viral pneumon itis may also be considerations. 3. Mild left basilar subsegmental atelectasis. Electronic ally signed by Festus Mohan DO on 03/11/2016 7:47 AM PLAN Disposition: [facility] Hospital Condition: Stable Code Status: Partial Code Discharge Instructions Misc. Equipment (Specify) Order Comments: o2 by face mask titrate to keep saO2 at motre than 93% Diet Clear Liquid Other Restrictions (Specify): Order Comments: bedrest Call MD for: Severe Uncontrolled Pain Call MD for: Difficulty Breathing, Headache or Visual Disturbances Follow up: Bubba Daigle MD [address] [place] [address] [place] [id number] Schedule an appointment as soon as possible for a visit on discharge from [facility] After Visit Summary was printed and given to the patient. Patient verbalized understanding, agreement, and compliance with discharge plan. Discharge took more than 35 minutes, to include final examination, discussion of admission , and preparation of prescriptions, instructions for on-going care, follow-up and documentat ion of discharge summary. Medication List START taking these medications Acetaminophen 650 MG Tabs QTY: 30 tablet Refills: 0 Take 650 mg by mouth every 6 (six) hours as needed. aspirin 325 MG EC tablet QTY: 30 tablet Refills: 11 Take 1 tablet by mouth daily with breakfast. atorvastatin 80 MG tablet QTY: 30 tablet Refills: 11 Commonly known as: LIPITOR Take 1 tablet by mouth nightly. famotidine 20 MG tablet QTY: 30 tablet Refills: 11 Commonly known as: PEPCID Take 1 tablet by mouth daily. Start taking on: 03/12/2016 furosemide 10 MG/ML injection QTY: 4 mL Refills: 0 Commonly known as: LASIX Inject 4 mLs into the vein daily. Start taking on: 03/12/2016 guaiFENesin 600 MG 12 hr tablet QTY: 60 tablet Refills: 11 Commonly known as: MUCINEX Take 1 tablet by mouth 2 (two) times daily. guaifenesin-dextromethorphan 100-10 MG/5ML syrup QTY: 118 mL Refills: 0 Commonly known as: ROBITUSSIN DM Take 5 mLs by mouth every 4 (four) hours as needed for Cough. * heparin (porcine) 5000 unit/0.5mL 5000 UNIT/0.5ML injection QTY: 5 mL Refills: 0 Inject 0.25 mLs into the vein as needed (for aPTT 20 to 29). Maximum dose = 2500 units * heparin (porcine) 5000 unit/0.5mL 5000 UNIT/0.5ML injection QTY: 5 mL Refills: 0 Inject 0.41 mLs into the vein as needed (for aPTT less than 20). Maximum dose = 5000 units HYDROcodone-acetaminophen 5-325 MG per tablet QTY: 30 tablet Refills: 0 Commonly known as: NORCO Take 1 tablet by mouth every 4 (four) hours as needed. levofloxacin 750 MG/150ML Soln QTY: 1000 mL Refills: 0 Commonly known as: LEVAQUIN Inject 150 mLs into the vein every other day. Indications: Community Acquired Pneumonia, pn eu Start taking on: 03/12/2016 metoprolol 25 MG tablet QTY: 30 tablet Refills: 0 Commonly known as: LOPRESSOR Take 0.5 tablets by mouth 2 (two) times daily. * nitroGLYCERIN 2 % ointment QTY: 30 g Refills: 0 Commonly known as: NITRO-BID Place 0.5 inches onto the skin every 8 (eight) hours. * nitroGLYCERIN 0.4 MG SL tablet QTY: 90 tablet Refills: 0 Commonly known as: NITROSTAT Place 1 tablet under the tongue every 5 (five) minutes as needed for Chest pain. ondansetron 4 MG tablet QTY: 20 tablet Refills: 0 Commonly known as: ZOFRAN Take 1 tablet by mouth every 6 (six) hours as needed. polyethylene glycol packet QTY: 14 each Refills: 0 Commonly known as: GLYCOLAX Take 17 g by mouth daily as needed. sodium chloride (PF) 0.9 % inj QTY: 5 mL Refills: 0 Inject 10 mLs into the vein every 8 (eight) hours. zolpidem 5 MG tablet QTY: 30 tablet Refills: 0 Commonly known as: LAMONTEIEN Take 1 tablet by mouth nightly as needed for Sleep (may repeat once in 1 hr if initial dose not effective). * Notice: This list has 4 medication(s) that are the same as other medications prescribed for you. Read the directions carefully, and ask your doctor or other care provider to revie w them with you. Where to Get Your Medications Information on where to get these meds is not yet available. Ask your nurse or doctor. - Acetaminophen 650 MG Tabs - aspirin 325 MG EC tablet - atorvastatin 80 MG tablet - famotidine 20 MG tablet - furosemide 10 MG/ML injection - guaiFENesin 600 MG 12 hr tablet - guaifenesin-dextromethorphan 100-10 MG/5ML syrup - heparin (porcine) 5000 unit/0.5mL 5000 UNIT/0.5ML injection - heparin (porcine) 5000 unit/0.5mL 5000 UNIT/0.5ML injection - HYDROcodone-acetaminophen 5-325 MG per tablet - levofloxacin 750 MG/150ML Soln - metoprolol 25 MG tablet - nitroGLYCERIN 0.4 MG SL tablet - nitroGLYCERIN 2 % ointment - ondansetron 4 MG tablet - polyethylene glycol packet - sodium chloride (PF) 0.9 % inj - zolpidem 5 MG tablet documented in this encounter Medications at Time of Discharge + + + +---------+--------+ + | Medication | Sig | Dispensed | Refills | Start | End Date | | | | | | Date | | + + + +---------+--------+ + | aspirin 81 MG | Take 81 mg by mouth | | 0 | | | | tablet | Daily. | | | | | + + + +---------+--------+ + | Ca Cit | Take 1 tablet by | | 0 | | | | Malate-Cholecalcifer | mouth Daily. | | | | 7 | | ol (CALCIUM CITRATE | | | | | | | MALATE-VIT D PO) | | | | | | + + + +---------+--------+ + | Flaxseed, Linseed, | Take 1 capsule by | | 0 | | | | (FLAXSEED OIL) 1200 | mouth 2 times daily. | | | | 7 | | MG CAPS | | | | | | + + + +---------+--------+ + | Multiple | Take 1 tablet by | | 0 | | | | Vitamins-Minerals | mouth Daily. | | | | 7 | | (MULTIVITAMIN PO) | | | | | | + + + +---------+--------+ + | OMEGA 3 1000 MG | Take 1 capsule by | | 0 | | | | CAPS | mouth Daily. | | | | 7 | + + + +---------+--------+ + | simvastatin | Take 10 mg by mouth | | 0 | | | | (ZOCOR) 10 mg tablet | Daily. | | | | 9 | + + + +---------+--------+ + documented as of this encounter Progress Notes Conversion Transaction, Provider Unknown - 03/11/2016 1:49 PM PDTFormatting of this note m ight be different from the original. Nurse Progress Note by Priya Lima RN at 03/11/16 4701 Author: Priya Lima RN Service: (none) Author Type: Registered Nurse Filed: 03/11/16 5442 Date of Service: 03/11/16 4904 Status: Signed Sap Basis Consultant: Priya Lima RN (Registered Nurse) Report called to receiving RN at [facility]. Patient is resting comfortably moustapha iting transport. Nitro patch and heparin drip will remain during transport. Patient denies a ny CP. Oxy mask at 10 L. VSS. onver lucio Transaction, Provider Unknown - 03/11/2016 12:40 PM PDT Progress Notes by Krystyna Kim RPH at 03/11/16 1240 Author: Krystyna Kim RPH Service: (none) Author Type: Pharmacist Filed: 03/11/16 1240 Date of Service: 03/11/16 1240 Status: Signed Sap Basis Consultant: Krystyna Kim RPH (Pharmacist) Renal Dosing Monitoring: Alo Dominguez 86 y.o. female Pharmacy dosing for renal function per Dr. Ferrer (telephone order) SCr 1.2, est. CrCl = 32 ml/min Plan per protocol: Levofloxacin 750 mg IV Q 24 H adjusted to Levofloxacin 750 mg IV Q 48 H Famotidine 20 mg IV/PO BID decreased to once daily for renal function. Pharmacy will continue monitoring patient for appropriate dosing per renal function. 03/11/2016 12:38 PM Pharmacist: Krystyna Kim onver lucio Transaction, Provider Unknown - 03/11/2016 10:20 AM PDT Case Management by Ariadna Gonzalez RN at 03/11/16 1020 Author: Ariadna Gonzalez RN Service: (none) Author Type: Steam Tank Operator Filed: 03/11/16 1024 Date of Service: 03/11/16 1020 Status: Signed Sap Basis Consultant: Ariadna Gonzalez RN (Steam Tank Operator) 03/11/16 1019 Discharge Planning Evaluation Admitting Diagnosis Acute Respiratory distress Readmission No Living Arrangements Alone Support Systems Friends/neighbors;Family members Type of Residence Private residence House type House-1 story Steps to enter 2 Bathrooms on 1st Floor 1-Full Independent with ADL's Yes Independent with Mobility Yes Home Care Services No Caregiver after Discharge No Mental Status Oriented Prior functional status independent Power of Die Cast Supervisor No Anticipated Discharge Plan Post Acute Care Needs None at this time Plan communicated to patient/family Yes Resources Financial concerns No Transportation issues No Patient/Family concerns No Prescription Plan Yes Previous home health equipment No Anticipated Disposition Facility Type Home Met with patient and discussed discharge planning, Pt is a 86 y.o., female admitted with SO B. Pt also has a high troponin level. Pt has been living alone independently. Pt is still ve ry active and enjoys 4 wheelers and snow machines. Pt denies any CM needs at this time. Pt c urrently doesn't use any services, no rx blood thinners. Patient's PCP is: BUBBA DAIGLE Patient's insurance: medicare/ [facility] Coverage concerns: no Medication coverage/concerns: no [facility] Bedside Delivery: no Community resources utilized / needed: tbd Assistance in transportation: friend or family Identification of any specific education / training: tbd Barriers to Discharge / Alternative housing needed: no Anticipated DCP: Home Ariadna Gonzalez RN CM Stephanie Cuellar MD - 03/11/2016 9:33 AM PDTFormatting of this note might be different from the or iginal. Significant Event by Stephanie Holloway MD at 03/11/16932 Author: Stephanie Holloway MD Service: Internal Medicine Author Type: Physician Filed: 03/11/16954 Date of Service: 03/11/16932 Status: Addendum Sap Basis Consultant: Stephanie Holloway MD (Physician) Related Notes: Original Note by Stephanie Holloway MD (Physician) filed at 03/11/16936 Noted that the patients ck-troponin has spiked 37. Likely acute [place] with pulmonary edema. Getting Echo. D/w Cardio Dr Mckeon for assistance and recs. Mentioned no cath available in k adlec until Saturday. Already on heparin, BB, lasix, nitro, asa. Statins. Likely needs cat h sooner rather than later. onversion Transactio n, Provider Unknown - 03/11/2016 7:39 AM PDT Progress Notes by Tia Neil RPH at 03/11/16 6220 Author: Tia Neil RPH Service: (none) Author Type: Pharmacist Filed: 03/11/1639 Date of Service: 03/11/16738 Status: Signed Sap Basis Consultant: Tia Neil RPH (Pharmacist) Called Dr. Ferrer to verify DC of Lovenox-new order To start heparin drip. Pharmacist; TIA NEIL 03/11/2016 7:38 AM onver lucio Transaction, Provider Unknown - 03/11/2016 2:13 AM PDT Nurse Progress Note by Krystyna Aguila RN at 03/11/16212 Author: Krystyna Aguila RN Service: (none) Author Type: Registered Nurse Filed: 03/11/1656 Date of Service: 03/11/16212 Status: Addendum Sap Basis Consultant: Krystyna Aguila RN (Registered Nurse) Related Notes: Original Note by Krystyna Aguila RN (Registered Nurse) filed at 03/11/16 6 Pt remaining O2 sats at 40% on cpap while sleeping. Critical troponin level of 34.2, Dr. Sa francis notified and am dose of metoprolol given. Pt not complaining of any chest pain at this time, up with standby assist to bathroom on 15L oxy mask. Vitals signs remain stable. Will continue to monitor. Krystyna Aguila RN docume nted in this encounter Plan of Treatment +--------+---------+ + + + | Date | Type | Specialty | Care Team | Description | +--------+---------+ + + + | 02/09/ | Office | Cardiology | Garcia Barajas, | | | 2020 | Visit | | [address] | | | | | | [place], [place] | | | | | | [address] | | | | | | | [...] for this | | | e | 12:13 PM | | procedure are in the | | | | PDT | | results section. | + +--------+ + + + | CK-MB | Routin | 03/11/2016 | | Results for this | | | e | 12:13 PM | | procedure are in the | | | | PDT | | results section. | + +--------+ + + + | CK TOTAL | Routin | 03/11/2016 | | Results for this | | | e | 12:13 PM | | procedure are in the | | | | PDT | | results section. | + +--------+ + + + | ECHO COMPLETE | Routin | 03/11/2016 | | Results for this | | | e | 11:00 AM | | procedure are in the | | | | PDT | | results section. | + +--------+ + + + | PTT | Routin | 03/11/2016 | | Results for this | | | e | 7:56 AM | | procedure are in the | | | | PDT | | results section. | + +--------+ + + + | PROTIME INR | Routin | 03/11/2016 | | Results for this | | | e | 7:56 AM | | procedure are in the | | | | PDT | | results section. | + +--------+ + + + | XR CHEST 1 VIEW | Routin | 03/11/2016 | | Results for this | | | e | 7:35 AM | | procedure are in the | | | | PDT | | results section. | + +--------+ + + + | EXTERNAL LAB: CBC | Routin | 03/11/2016 | | Results for this | | | e | 5:47 AM | | procedure are in the | | | | PDT | | results section. | + +--------+ + + + | TROPONIN I | Routin | 03/11/2016 | | Results for this | | | e | 5:47 AM | | procedure are in the | | | | PDT | | results section. | + +--------+ + + + | CK-MB | Routin | 03/11/2016 | | Results for this | | | e | 5:47 AM | | procedure are in the | | | | PDT | | results section. | + +--------+ + + + | PHOSPHORUS | Routin | 03/11/2016 | | Results for this | | | e | 5:47 AM | | procedure are in the | | | | PDT | | results section. | + +--------+ + + + | MAGNESIUM | Routin | 03/11/2016 | | Results for this | | | e | 5:47 AM | | procedure are in the | | | | PDT | | results section. | + +--------+ + + + | CK TOTAL | Routin | 03/11/2016 | | Results for this | | | e | 5:47 AM | | procedure are in the | | | | PDT | | results section. | + +--------+ + + + | BASIC METABOLIC | Routin | 03/11/2016 | | Results for this | | PANEL | e | 5:47 AM | | procedure are in the | | | | PDT | | results section. | + +--------+ + + + | TROPONIN I | Routin | 03/10/2016 | | Results for this | | | e | 11:56 PM | | procedure are in the | | | | PDT | | results section. | + +--------+ + + + | CK-MB | Routin | 03/10/2016 | | Results for this | | | e | 11:56 PM | | procedure are in the | | | | PDT | | results section. | + +--------+ + + + | CK TOTAL | Routin | 03/10/2016 | | Results for this | | | e | 11:56 PM | | procedure are in the | | | | PDT | | results section. | + +--------+ + + + documented in this encounter Results CK-MB (03/11/2016 12:13 PM PDT) + + + + + -+ | Component | Value | Ref Range | Performed | Pathologist | | | | | At | Signature | + + + + + -+ | CK-MB | 27.9 (H)Comment: Testing | 0.5 - 3.6 ng/mL | EXTERNAL | | | | performed at [facility];8 | | LAB | | | | [address];[place] | | | | | | [address] | | | | + + + + + -+ | CK-MB Index | 4.7Comment: CK INDEX | | EXTERNAL | | | | INTERPRETATION: | | LAB | | | | MMB ng/mL | | | | | | | | | | | |CK INDEX INTERPRETATION: | | | | | | MMB ng/mL | | | | | | | | | | + + + + + -+ + + | Specimen | + + | Blood specimen | | (specimen) | + + + +---------+ + + | Performing | Address | City/State/Zipcode | Phone Number | | Organization | | | | + +---------+ + + | EXTERNAL LAB | | | | + +---------+ + + Troponin I (03/11/2016 12:13 PM PDT) + + + + + + | Component | Value | Ref Range | Performed | Pathologist | | | | | At | Signature | + + + + + + | Troponin I, | 30.3 ()Comment: 0.00 | 0.00 - 0.10 | EXTERNAL | | | Qual | to 0.10 CONSISTENT | ng/mL | LAB | | | | WITH NORMAL | | | | | | POPULATION0.11 to 0.60 | | | | | | CONSISTENT WITH | | | | | | INCREASED RISK FOR | | | | | | ADVERSE OUTCOMES> 0.60 | | | | | | CONSISTENT | | | | | | WITH WHO CRITERIA FOR | | | | | | ACUTE [place] CALLED NURSING | | | | | | UNITKELSEY/6RP @ 1303 BY | | | | | | BURTREAD BACK RESULTS | | | | | | VERIFIEDTesting | | | | | | performed at [facility];[address] | | | | | | [facility];[place], [place] | | | | | | [address] | | | | + + + + + + + + | Specimen | + + | Blood specimen | | (specimen) | + + + +---------+ + + | Performing | Address | City/State/Zipcode | Phone Number | | Organization | | | | + +---------+ + + | EXTERNAL LAB | | | | + +---------+ + + CK Total (03/11/2016 12:13 PM PDT) + + + + + + | Component | Value | Ref Range | Performed | Pathologist | | | | | At | Signature | + + + + + + | CK, Total | 600 (H)Comment: Testing | 30 - 240 U/L | EXTERNAL | | | | performed at [facility];[address] | | LAB | | | | [facility];[place] | | | | | | [address] | | | | + + + + + + + + | Specimen | + + | Blood specimen | | (specimen) | + + + +---------+ + + | Performing | Address | City/State/Zipcode | Phone Number | | Organization | | | | + +---------+ + + | EXTERNAL LAB | | | | + +---------+ + + ECHO Complete (03/11/2016 11:00 AM PDT) + + | Specimen | + + | | + + + + + | Impressions | Performed At | + + + | 1. Overall left ventricular systolic function is normal with, an EF | | | between 55 - 60 %. 2. The diastolic filling pattern indicates | | | impaired relaxation consistent with mild dysfunction (Grade I). | | + + + + + + | Narrative | Performed At | + + + | Patient Name: ALO DOMINGUEZ Date of : 1930 | | | Performing Physician: Angel Mckeon MD, | | | FACC, FACP, FASNC | | | | | | INDICATIONS Shortness of breath CONCLUSIONS | | | 1. Overall left ventricular systolic function is normal | | | with, an EF between 55 - 60 %. 2. The diastolic filling pattern | | | indicates impaired relaxation consistent with mild dysfunction (Grade | | | I). FINDINGS -------- ECG rhythm: Sinus rhythm. Study: A | | | 2-dimensional transthoracic echocardiogram with m-mode, spectral and | | | color flow Doppler was perfomed. Study: This was a technically | | | adequate study. Left Ventricle: Overall left ventricular systolic | | | function is normal with, an EF between 55 - 60 %. Left Ventricle: The | | | left ventricle cavity size is normal. Left Ventricle: Left | | | ventricular wall thickness is normal. Left Ventricle: The diastolic | | | filling pattern indicates impaired relaxation consistent with mild | | | dysfunction (Grade I). Right Ventricle: The right ventricle is normal | | | in size and function. Left Atrium: The left atrium is normal in | | | size. Right Atrium: The right atrium is mildly enlarged. Aortic | | | Valve: Aortic valve is trileaflet and is mildly thickened. Aortic | | | Valve: There is mild aortic valve sclerosis without stenosis. Aortic | | | Valve: There is no evidence of aortic regurgitation. Mitral Valve: | | | Mild mitral regurgitation is present. Mitral Valve: Mild mitral | | | annular calcification present. Mitral Valve: Mild thickening of the | | | anterior mitral valve leaflet. Mitral Valve: There is mild thickening | | | of the posterior mitral valve leaflet. Tricuspid Valve: The | | | tricuspid valve appears structurally normal. Tricuspid Valve: Trace | | | tricuspid regurgitation present. Tricuspid Valve: Right ventricular | | | systolic pressure (pulmonary artery systolic pressure) is normal at < | | | 35 mmHg. Pulmonic Valve: The pulmonic valve is normal. Pericardium: | | | There is no pericardial effusion. IVC/Hepatic Veins: The IVC is small | | | (<1.5cm) and collapses with sniff, consistent with central venous | | | pressures of 0-5mmHg. Mass: No mass visualized Thrombus: No clot | | | visualized Thrombus: No vegetation visualized. MEASUREMENTS | | | IVC: 1.32 cm LA Major: 4.77 cm EDV(Teich): | | | 93.17 ml IVSd: 1.11 cm LVIDd: 4.51 cm LVPWd: 1.04 cm LVOT | | | Diam: 2.05 cm %FS: 30.84 % EF(Teich): 58.59 % ESV(Teich): | | | 38.58 ml IVSs: 1.52 cm LVIDs: 3.12 cm LVPWs: 1.41 cm | | | SV(Teich): 54.58 ml RA Major: 5.32 cm RVIDd: 3.01 cm LVEF | | | MOD A4C: 54.89 % SV MOD A4C: 47.19 ml LVEDV MOD A4C: 85.96 | | | ml LVLd A4C: 8.70 cm LVESV MOD A4C: 38.76 ml LVLs A4C: | | | 7.36 cm LAESV(A-L): 38.14 ml LAESV Index (A-L): 21.43 ml/m2 | | | LAAs A2C: 15.29 cm2 LAESV A-L A2C: 43.47 ml LALs A2C: 4.56 | | | cm LAAs A4C: 13.41 cm2 LAESV A-L A4C: 30.82 ml LALs A4C: | | | 4.95 cm Ao Diam: 3.85 cm AV Cusp: 1.79 cm LA Diam: 3.06 cm | | | LA/Ao: 0.79 %FS: 38.46 % EDV(Teich): 125.63 ml | | | EF(Teich): 68.41 % ESV(Teich): 39.67 ml IVSd: 1.09 cm | | | IVSs: 1.54 cm LVIDd: 5.13 cm LVIDs: 3.15 cm LVPWd: 1.06 | | | cm LVPWs: 1.42 cm SV(Teich): 85.95 ml D-E Excursion: 1.97 | | | cm E-F Hays: 0.10 m/s HR: 74.74 BPM AV maxP.15 mmHg | | | AV meanP.26 mmHg AV Vmax: 1.13 m/s AV Vmean: 0.87 m/s | | | AV VTI: 22.75 cm EDITH Vmax: 2.06 cm2 EDITH (VTI): 2.00 cm2 | | | LVCI Dopp: 1.88 l/minm2 LVCO Dopp: 3.35 l/min HR: 73.47 BPM | | | LVOT maxP.99 mmHg LVOT meanP.24 mmHg LVSI Dopp: | | | 25.68 ml/m2 LVSV Dopp: 45.71 ml LVOT Vmax: 0.70 m/s LVOT | | | Vmean: 0.53 m/s LVOT VTI: 13.76 cm MR maxP.53 mmHg MR | | | Vmax: 4.59 m/s MV A Jett: 0.75 m/s MV DecT: 271.79 ms MV E | | | Jett: 0.55 m/s MV E/A Ratio: 0.73 MV PHT: 77.33 ms MVA By | | | PHT: 2.84 cm2 MV A Dur: 152.24 ms Lateral e': 0.08 m/s | | | Lateral E/e': 6.50 P Vein A: 0.26 m/s P Vein A Dur: 110.72 | | | ms P Vein D: 0.47 m/s P Vein S/D Ratio: 0.82 P Vein S: | | | 0.39 m/s HR: 73.78 BPM PV maxP.52 mmHg PV meanP.70 | | | mmHg PV Vmax: 0.61 m/s PV Vmean: 0.39 m/s PV VTI: 10.33 | | | cm RAP: 3 mmHg RVSP: 25.69 mmHg TR maxP.69 mmHg TR | | | Vmax: 2.37 m/s TV A Jett: 0.43 m/s TV Dec Hays: 1.27 m/s2 | | | TV Dec Time: 241.83 ms TV E Jett: 0.30 m/s TV E/A Ratio: | | | 0.70 Global Account Executive: Authenticated by: Angel Mckeon MD, FACC, | | | FACP, FASNC Report Date/Time: 03-11-2016 15:01:57 | | + + + + + | Procedure Note | + + | Didier Sepulveda Conversion - 05/28/2019 6:50 PM PDT Patient Name: Monalisa DOMINGUEZ of | | : 1930 Performing Physician: Angel Mckeon MD, [facility], | | [place], | | CATY INDICATIONS--------- | | --Shortness of breath CONCLUSIONS 1. Overall left ventricular systolic | | function is normal with, an EF between 55 - 60 %.2. The diastolic filling pattern | | indicates impaired relaxation consistent with mild dysfunction (Grade I). | | FINDINGS--------ECG rhythm: Sinus rhythm.Study: A 2-dimensional transthoracic | | echocardiogram with m-mode, spectral and color flow Doppler was perfomed.Study: This was | | a technically adequate study.Left Ventricle: Overall left ventricular systolic function | | is normal with, an EF between 55 - 60 %.Left Ventricle: The left ventricle cavity size | | is normal.Left Ventricle: Left ventricular wall thickness is normal.Left Ventricle: The | | diastolic filling pattern indicates impaired relaxation consistent with mild dysfunction | | (Grade I).Right Ventricle: The right ventricle is normal in size and function.Left | | Atrium: The left atrium is normal in size.Right Atrium: The right atrium is mildly | | enlarged.Aortic Valve: Aortic valve is trileaflet and is mildly thickened.Aortic Valve: | | There is mild aortic valve sclerosis without stenosis.Aortic Valve: There is no evidence | | of aortic regurgitation.Mitral Valve: Mild mitral regurgitation is present.Mitral | | Valve: Mild mitral annular calcification present.Mitral Valve: Mild thickening of the | | anterior mitral valve leaflet.Mitral Valve: There is mild thickening of the posterior | | mitral valve leaflet.Tricuspid Valve: The tricuspid valve appears structurally | | normal.Tricuspid Valve: Trace tricuspid regurgitation present.Tricuspid Valve: Right | | ventricular systolic pressure (pulmonary artery systolic pressure) is normal at < 35 | | mmHg.Pulmonic Valve: The pulmonic valve is normal.Pericardium: There is no pericardial | | effusion.IVC/Hepatic Veins: The IVC is small (<1.5cm) and collapses with sniff, | | consistent with central venous pressures of 0-5mmHg.Mass: No mass visualizedThrombus: No | | clot visualizedThrombus: No vegetation visualized. MEASUREMENTS IVC: 1.32 | | cmLA Major: 4.77 cmEDV(Teich): 93.17 mlIVSd: 1.11 cmLVIDd: 4.51 cmLVPWd: 1.04 | | cmLVOT Diam: 2.05 cm%FS: 30.84 %EF(Teich): 58.59 %ESV(Teich): 38.58 mlIVSs: | | 1.52 cmLVIDs: 3.12 cmLVPWs: 1.41 cmSV(Teich): 54.58 mlRA Major: 5.32 cmRVIDd: | | 3.01 cmLVEF MOD A4C: 54.89 %SV MOD A4C: 47.19 mlLVEDV MOD A4C: 85.96 mlLVLd A4C: | | 8.70 cmLVESV MOD A4C: 38.76 mlLVLs A4C: 7.36 cmLAESV(A-L): 38.14 mlLAESV Index | | (A-L): 21.43 ml/m2LAAs A2C: 15.29 sd8PCCCR A-L A2C: 43.47 mlLALs A2C: 4.56 | | cmLAAs A4C: 13.41 [id number] A-L A4C: 30.82 mlLALs A4C: 4.95 cmAo Diam: 3.85 cmAV | | Cusp: 1.79 cmLA Diam: 3.06 cmLA/Ao: 0.79%FS: 38.46 %EDV(Teich): 125.63 | | mlEF(Teich): 68.41 %ESV(Teich): 39.67 mlIVSd: 1.09 cmIVSs: 1.54 cmLVIDd: 5.13 | | cmLVIDs: 3.15 cmLVPWd: 1.06 cmLVPWs: 1.42 cmSV(Teich): 85.95 mlD-E Excursion: | | 1.97 cmE-F Hays: 0.10 m/sHR: 74.74 BPMAV maxP.15 mmHgAV meanP.26 mmHgAV | | Vmax: 1.13 m/José Miguel Vmean: 0.87 m/José Miguel VTI: 22.75 cmAVA Vmax: 2.06 cm2AVA (VTI): | | 2.00 [id number] Dopp: 1.88 l/abcc0WKDQ Dopp: 3.35 l/minHR: 73.47 BPMLVOT maxPG: | | 1.99 mmHgLVOT meanP.24 mmHgLVSI Dopp: 25.68 ml/m2LVSV Dopp: 45.71 mlLVOT Vmax: | | 0.70 m/sLVOT Vmean: 0.53 m/sLVOT VTI: 13.76 cmMR maxP.53 mmHgMR Vmax: | | 4.59 m/sMV A Jett: 0.75 m/sMV DecT: 271.79 msMV E Jett: 0.55 m/sMV E/A Ratio: | | 0.73MV PHT: 77.33 msMVA By PHT: 2.84 cm2MV A Dur: 152.24 msLateral e': 0.08 | | m/sLateral E/e': 6.50P Vein A: 0.26 m/sP Vein A Dur: 110.72 msP Vein D: 0.47 | | m/sP Vein S/D Ratio: 0.82P Vein S: 0.39 m/sHR: 73.78 BPMPV maxP.52 mmHgPV | | meanP.70 mmHgPV Vmax: 0.61 m/sPV Vmean: 0.39 m/sPV VTI: 10.33 cmRAP: 3 | | mmHgRVSP: 25.69 mmHgTR maxP.69 mmHgTR Vmax: 2.37 m/sTV A Jett: 0.43 m/sTV | | Dec Hays: 1.27 m/s2TV Dec Time: 241.83 msTV E Jett: 0.30 m/sTV E/A Ratio: 0.70 | | Global Account Executive: ASAuthenticated by: Angel Mckeon MD, FACC, FACP, FASNCReport Date/Time: | | 03-11-2016 15:01:57 IMPRESSION: 1. Overall left ventricular systolic function is normal | | with, an EF between 55 - 60 %.2. The diastolic filling pattern indicates impaired | | relaxation consistent with mild dysfunction (Grade I). | |LVPWd: 1.04 cm | |LVOT Diam: 2.05 cm | |%FS: 30.84 % | |EF(Teich): 58.59 % | |ESV(Teich): 38.58 ml | |IVSs: 1.52 cm | |LVIDs: 3.12 cm | |LVPWs: 1.41 cm | |SV(Teich): 54.58 ml | |RA Major: 5.32 cm | |RVIDd: 3.01 cm | |LVEF MOD A4C: 54.89 % | |SV MOD A4C: 47.19 ml | |LVEDV MOD A4C: 85.96 ml | |LVLd A4C: 8.70 cm | |LVESV MOD A4C: 38.76 ml | |LVLs A4C: 7.36 cm | |LAESV(A-L): 38.14 ml | |LAESV Index (A-L): 21.43 ml/m2 | |LAAs A2C: 15.29 cm2 | |LAESV A-L A2C: 43.47 ml | |LALs A2C: 4.56 cm | |LAAs A4C: 13.41 cm2 | |LAESV A-L A4C: 30.82 ml | |LALs A4C: 4.95 cm | |Ao Diam: 3.85 cm | |AV Cusp: 1.79 cm | |LA Diam: 3.06 cm | |LA/Ao: 0.79 | |%FS: 38.46 % | |EDV(Teich): 125.63 ml | |EF(Teich): 68.41 % | |ESV(Teich): 39.67 ml | |IVSd: 1.09 cm | |IVSs: 1.54 cm | |LVIDd: 5.13 cm | |LVIDs: 3.15 cm | |LVPWd: 1.06 cm | |LVPWs: 1.42 cm | |SV(Teich): 85.95 ml | |D-E Excursion: 1.97 cm | |E-F Hays: 0.10 m/s | |HR: 74.74 BPM | |AV maxP.15 mmHg | |AV meanP.26 mmHg | |AV Vmax: 1.13 m/s | |AV Vmean: 0.87 m/s | |AV VTI: 22.75 cm | |EDITH Vmax: 2.06 cm2 | |EDITH (VTI): 2.00 cm2 | |LVCI Dopp: 1.88 l/minm2 | |LVCO Dopp: 3.35 l/min | |HR: 73.47 BPM | |LVOT maxP.99 mmHg | |LVOT meanP.24 mmHg | |LVSI Dopp: 25.68 ml/m2 | |LVSV Dopp: 45.71 ml | |LVOT Vmax: 0.70 m/s | |LVOT Vmean: 0.53 m/s | |LVOT VTI: 13.76 cm | |MR maxP.53 mmHg | |MR Vmax: 4.59 m/s | |MV A Jett: 0.75 m/s | |MV DecT: 271.79 ms | |MV E Jett: 0.55 m/s | |MV E/A Ratio: 0.73 | |MV PHT: 77.33 ms | |MVA By PHT: 2.84 cm2 | |MV A Dur: 152.24 ms | |Lateral e': 0.08 m/s | |Lateral E/e': 6.50 | |P Vein A: 0.26 m/s | |P Vein A Dur: 110.72 ms | |P Vein D: 0.47 m/s | |P Vein S/D Ratio: 0.82 | |P Vein S: 0.39 m/s | |HR: 73.78 BPM | |PV maxP.52 mmHg | |PV meanP.70 mmHg | |PV Vmax: 0.61 m/s | |PV Vmean: 0.39 m/s | |PV VTI: 10.33 cm | |RAP: 3 mmHg | |RVSP: 25.69 mmHg | |TR maxP.69 mmHg | |TR Vmax: 2.37 m/s | |TV A Jett: 0.43 m/s | |TV Dec Hays: 1.27 m/s2 | |TV Dec Time: 241.83 ms | |TV E Jett: 0.30 m/s | |TV E/A Ratio: 0.70 | | | |Global Account Executive: | |Authenticated by: Angel Mckeon MD, FACC, FACP, FASJENNIFER | |Report Date/Time: 03-11-2016 15:01:57 | | | |IMPRESSION: | |1. Overall left ventricular systolic function is normal with, an EF between 55 - 60 %. | |2. The diastolic filling pattern indicates impaired relaxation consistent with mild dysfunc tion (Grade I). | + + PTT (03/11/2016 7:56 AM PDT) + + + + + + | Component | Value | Ref Range | Performed | Pathologist | | | | | At | Signature | + + + + + + | aPTT, | 37 (H)Comment: Testing | 23 - 32 seconds | EXTERNAL | | | Patient | performed at [facility];[address] | | LAB | | | | [address];[place], [place] | | | | | | [address] | | | | + + + + + + + + | Specimen | + + | Blood specimen | | (specimen) | + + + +---------+ + + | Performing | Address | City/State/Zipcode | Phone Number | | Organization | | | | + +---------+ + + | EXTERNAL LAB | | | | + +---------+ + + Protime INR (03/11/2016 7:56 AM PDT) + + + + + + | Component | Value | Ref Range | Performed | Pathologist | | | | | At | Signature | + + + + + + | INR | 1.2Comment: REFERENCE | | EXTERNAL | | | | RANGE:0.9 - 1.2 | | LAB | | | | NON-ANTICOAGULATED2.0 | | | | | | - 3.0 ALL OTHER | | | | | | THERAPEUTIC | | | | | | INDICATIONS2.5 - 3.5 | | | | | | MECHANICAL HEART VALVES, | | | | | | RECURRENT OR SYSTEMIC | | | | | | EMBOLISMTesting | | | | | | performed at [facility];[address] | | | | | | [facility];[place], [place] | | | | | | [address] | | | | + + + [...] +---------+ + + XR Chest 1 Vw (03/11/2016 7:35 AM PDT) + + | Specimen | + + | | + + + + + | Impressions | Performed At | + + + | 1. Right perihilar and right basilar airspace disease which may be | | | on the basis of pneumonia. 2. Diffuse reticular interstitial | | | opacities that are nonspecific and may be on the basis of chronic | | | interstitial lung disease. Mild interstitial edema or viral | | | pneumonitis may also be considerations. 3. Mild left basilar | | | subsegmental atelectasis. | | + + + + + + | Narrative | Performed At | + + + | ALO DOMINGUEZ XR CHEST 1 VIEW HISTORY: 86 years. Female. | | | Shortness of breath TECHNIQUE: Single portable anterior view of | | | the chest was obtained. COMPARISON: 03/02/2016 FINDINGS: | | | Heart is borderline enlarged. Diffuse reticular interstitial opacities | | | that appears stable to the previous examination. Right perihilar and | | | right basilar airspace disease. No pneumothorax. Minimal left basilar | | | opacity to likely represent subsegmental atelectasis. Calcified left | | | hilar lymph nodes likely from prior granulomatous disease. | | + + + + + | Procedure Note | + + | Derick, Rad Conversion - 05/28/2019 6:50 PM PDT ALO DOMINGUEZ CHEST 1 VIEW HISTORY:86 | | years. Female. Shortness of breath TECHNIQUE:Single portable anterior view of the chest | | was obtained. COMPARISON:03/02/2016 FINDINGS:Heart is borderline enlarged. Diffuse | | reticular interstitial opacities that appears stable to the previous examination. Right | | perihilar and right basilar airspace disease. No pneumothorax. Minimal left basilar | | opacity to likely represent subsegmental atelectasis. Calcified left hilar lymph nodes | | likely from prior granulomatous disease. IMPRESSION: 1. Right perihilar and right | | basilar airspace disease which may be on the basis of pneumonia.2. Diffuse reticular | | interstitial opacities that are nonspecific and may be on the basis of chronic | | interstitial lung disease. Mild interstitial edema or viral pneumonitis may also be | | considerations.3. Mild left basilar subsegmental atelectasis. | |FINDINGS: | |Heart is borderline enlarged. Diffuse reticular interstitial opacities that appears stable to the previous examination. Right perihilar and right basilar airspace disease. No pneumoth orax. Minimal left basilar opacity to likely represent subsegmental | |atelectasis. Calcified left hilar lymph nodes likely from prior granulomatous disease. | | | |IMPRESSION: | |1. Right perihilar and right basilar airspace disease which may be on the basis of pneumon ia. | |2. Diffuse reticular interstitial opacities that are nonspecific and may be on the basis o f chronic interstitial lung disease. Mild interstitial edema or viral pneumonitis may also b e considerations. | |3. Mild left basilar subsegmental atelectasis. | | | | | + + CK-MB (03/11/2016 5:47 AM PDT) + + + + + -+ | Component | Value | Ref Range | Performed | Pathologist | | | | | At | Signature | + + + + + -+ | CK-MB | 45.6 (H)Comment: Testing | 0.5 - 3.6 ng/mL | EXTERNAL | | | | performed at [facility] | | LAB | | | | [facility];[place], [place] | | | | | | [address] | | | | + + + + + -+ | CK-MB Index | 6.6Comment: CK INDEX | | EXTERNAL | | | | INTERPRETATION: | | LAB | | | | MMB ng/mL | | | | | | | | | | | |CK INDEX INTERPRETATION: | | | | | | MMB ng/mL | | | | | | | | | | + + + + + -+ + + | Specimen | + + | | + + + +---------+ + + | Performing | Address | City/State/Zipcode | Phone Number | | Organization | | | | + +---------+ + + | EXTERNAL LAB | | | | + +---------+ + + Troponin I (03/11/2016 5:47 AM PDT) + + + + + + | Component | Value | Ref Range | Performed | Pathologist | | | | | At | Signature | + + + + + + | Troponin I, | 37.5 ()Comment: 0.00 | 0.00 - 0.10 | EXTERNAL | | | Qual | to 0.10 CONSISTENT | ng/mL | LAB | | | | WITH NORMAL | | | | | | POPULATION0.11 to 0.60 | | | | | | CONSISTENT WITH | | | | | | INCREASED RISK FOR | | | | | | ADVERSE OUTCOMES> 0.60 | | | | | | CONSISTENT | | | | | | WITH WHO CRITERIA FOR | | | | | | ACUTE [place] CALLED NURSING | | | | | | [id number] HECTOR [place] AT | | | | | | 06:52 BY EW READ BACK | | | | | | RESULTS VERIFIEDTesting | | | | | | performed at [facility] | | | | | | [address];[place], [place] | | | | | | [address] | | | | + + + + + + + + | Specimen | + + | | + + + +---------+ + + | Performing | Address | City/State/Zipcode | Phone Number | | Organization | | | | + +---------+ + + | EXTERNAL LAB | | | | + +---------+ + + External Lab: KRISTI (03/11/2016 5:47 AM PDT) + + + + + + | Component | Value | Ref Range | Performed | Pathologist | | | | | At | Signature | + + + + + + | WBC | 14.77 (H)Comment: | 3.80 - 11.00 | EXTERNAL | | | | Testing performed at | K/uL | LAB | | | | [facility];[address];[place] [address] | | | | + + + + + + | RED CELL | 3.77Comment: Testing | 3.70 - 5.10 | EXTERNAL | | | COUNT | performed at [facility];[address] | M/uL | LAB | | | | [address];[place] | | | | | | [address] | | | | + + + + + + | Hgb | 11.0 (L)Comment: Testing | 11.3 - 15.5 | EXTERNAL | | | | performed at [facility];[address] | g/dL | LAB | | | | [address];[place] | | | | | | [address] | | | | + + + + + + | Hematocrit, | 32.6 (L)Comment: Testing | 34.0 - 46.0 % | EXTERNAL | | | POC | performed at [facility];[address] | | LAB | | | [address];[place] | | | | | | [address] | | | | + + + + + + | MCV | 86.5Comment: Testing | 80.0 - 100.0 fl | EXTERNAL | | | | performed at [facility];[address] | | LAB | | | [address];[place] | | | | | | [address] | | | | + + + + + + | MCH | 29.1Comment: Testing | 27.0 - 34.0 pg | EXTERNAL | | | | performed at [facility];[address] | | LAB | | | [address];[place] | | | | | | [address] | | | | + + + + + + | MCHC | 33.6Comment: Testing | 32.0 - 35.5 | EXTERNAL | | | | performed at [facility];[address] | g/dL | LAB | | | | [address];[place] | | | | | | [address] | | | | + + + + + + | RDW-CV | 44.6Comment: Testing | 37 - 53 fl | EXTERNAL | | | | performed at [facility];[address] | | LAB | | | [address];[place] | | | | | | [address] | | | | + + + + + + | Platelet | 204Comment: Testing | 150 - 400 K/uL | EXTERNAL | | | Count | performed at [facility];[address] | | LAB | | | Plasma | [address];[place] | | | | | | [address] | | | | + + + + + + | MPV | 8.5Comment: Testing | fl | EXTERNAL | | | | performed at [facility];[address] | | LAB | | | | [address];[place] | | | | | | [address] | | | | + + + + + + | Differentia | AUTOMATEDComment: | | EXTERNAL | | | l Type | Testing performed at | | LAB | | | | [facility];[address];[place] [address] | | | | + + + + + + | % Segmented | 85.71Comment: Testing | % | EXTERNAL | | | | performed at [facility];[address] | | LAB | | | Neutrophils | [address];[place] | | | | | | [address] | | | | + + + + + + | % | 6.65Comment: Testing | % | EXTERNAL | | | Lymphocytes | performed at [facility];[address] | | LAB | | | | [address];[place] | | | | | | [address] | | | | + + + + + + | % Monocytes | 6.94Comment: Testing | % | EXTERNAL | | | | performed at [facility];[address] | | LAB | | | | [address];[place] | | | | | | [address] | | | | + + + + + + | % | 0.39Comment: Testing | % | EXTERNAL | | | Eosinophils | performed at [facility];[address] | | LAB | | | | [address];[place] | | | | | | [address] | | | | + + + + + + | % Basophils | 0.31Comment: Testing | % | EXTERNAL | | | | performed at [facility];[address] | | LAB | | | | [address];[place] | | | | | | [address] | | | | + + + + + + | Absolute | 12.66 (H)Comment: | 1.90 - 7.40 | EXTERNAL | | | Segmented | Testing performed at | K/uL | LAB | | | Neutrophils | [facility];[address];[place] [address] | | | | + + + + + + | Absolute | 0.98 (L)Comment: Testing | 1.00 - 3.90 | EXTERNAL | | | Lymphocytes | performed at [facility] [place];[address] | LAB | | | [address];[place] | | | | | | [address] | | | | + + + + + + | Absolute | 1.03 (H)Comment: Testing | 0.00 - 0.80 | EXTERNAL | | | Monocytes | performed at [facility] [place];[address] | LAB | | | [address];[place] | | | | | | [address] | | | | + + + + + + | Absolute | 0.06Comment: Testing | 0.00 - 0.50 | EXTERNAL | | | Eosinophils | performed at [facility] [place];[address] | LAB | | | [address];[place] | | | | | | [address] | | | | + + + + + + | Absolute | 0.05Comment: Testing | 0.00 - 0.10 | EXTERNAL | | | Basophils | performed at [facility];[address] | LAB | | | [address];[place] | | | | | | [address] | | | | + + + + + + | RBC | RBC AND PLT MORPHOLOGY | | EXTERNAL | | | Morphology | APPEAR NORMALComment: | | LAB | | | | Testing performed at | | | | | | [facility] [place] [facility];[address];[place] [address] | | | | + + + + + + | Platelet | ADEQUATEComment: Testing | | EXTERNAL | | | Estimate | performed at [facility] [place];[address] | | LAB | | | | [address];[place] | | | | | | [address] | | | | + + + + + + | Differentia | SLIDE SCANNED, AGREES | | EXTERNAL | | | l Comments | WITH AUTOMATED | | LAB | | | | RESULTS.Comment: Testing | | | | | | performed at [facility] [place];[address] | | | | | | [address];[place] | | | | | | [address] | | | | + + + + + + + + | Specimen | + + | Blood specimen | | (specimen) | + + + +---------+ + + | Performing | Address | City/State/Zipcode | Phone Number | | Organization | | | | + +---------+ + + | EXTERNAL LAB | | | | + +---------+ + + Phosphorus (03/11/2016 5:47 AM PDT) + + + + + + | Component | Value | Ref Range | Performed | Pathologist | | | | | At | Signature | + + + + + + | PHOSPHORUS | 3.4Comment: Testing | 2.3 - 4.8 mg/dL | EXTERNAL | | | | performed at [facility] [place];[address] | | LAB | | | | [address] [address];[place], [place] | | | | | | [address] | | | | + + + + + + + + | Specimen | + + | Blood specimen | | (specimen) | + + + +---------+ + + | Performing | Address | City/State/Zipcode | Phone Number | | Organization | | | | + +---------+ + + | EXTERNAL LAB | | | | + +---------+ + + Magnesium (03/11/2016 5:47 AM PDT) + + + + + + | Component | Value | Ref Range | Performed | Pathologist | | | | | At | Signature | + + + + + + | Magnesium | 1.3 (L)Comment: Testing | 1.7 - 2.4 mg/dL | EXTERNAL | | | | performed at [facility] | | LAB | | | | [address];[place], [place] | | | | | | [address] | | | | + + + + + + + + | Specimen | + + | Blood specimen | | (specimen) | + + + +---------+ + + | Performing | Address | City/State/Zipcode | Phone Number | | Organization | | | | + +---------+ + + | EXTERNAL LAB | | | | + +---------+ + + CK Total (03/11/2016 5:47 AM PDT) + + + + + + | Component | Value | Ref Range | Performed | Pathologist | | | | | At | Signature | + + + + + + | CK, Total | 687 (H)Comment: Testing | 30 - 240 U/L | EXTERNAL | | | | performed at [facility];[address] | | LAB | | | | [address];[place] | | | | | | [address] | | | | + + + + + + + + | Specimen | + + | | + + + +---------+ + + | Performing | Address | City/State/Zipcode | Phone Number | | Organization | | | | + +---------+ + + | EXTERNAL LAB | | | | + +---------+ + + Basic Metabolic Panel (03/11/2016 5:47 AM PDT) + + + + + + | Component | Value | Ref Range | Performed | Pathologist | | | | | At | Signature | + + + + + + | Na | 135Comment: Testing | 135 - 143 | EXTERNAL | | | | performed at [facility];888 | mmol/L | LAB | | | | [address];[place] | | | | | | [address] | | | | + + + + + + | K | 3.5Comment: Testing | 3.5 - 4.9 | EXTERNAL | | | | performed at [facility];888 | mmol/L | LAB | | | | [address];[place] | | | | | | [address] | | | | + + + + + + | Cl | 98 (L)Comment: Testing | 99 - 109 mmol/L | EXTERNAL | | | | performed at [facility];[address] | | LAB | | | | [address];[place] | | | | | | [address] | | | | + + + + + + | CO2 | 28Comment: Testing | 23 - 32 mmol/L | EXTERNAL | | | | performed at [facility];[address] | | LAB | | | [address];[place] | | | | | | [address] | | | | + + + + + + | Anion Gap | 13Comment: Testing | 5 - 20 mmol/L | EXTERNAL | | | | performed at [facility];[address] | | LAB | | | | [address];[place] | | | | | | [address] | | | | + + + + + + | Glucose, | 129 (H)Comment: Testing | 65 - 99 mg/dL | EXTERNAL | | | Fasting | performed at [facility];[address] | | LAB | | | | [address];[place] | | | | | | [address] | | | | + + + + + + | BUN | 29 (H)Comment: Testing | 8 - 25 mg/dL | EXTERNAL | | | | performed at [facility];[address] | | LAB | | | | [address];[place] | | | | | | [address] | | | | + + + + + + | Creatinine | 1.2 (H)Comment: Testing | 0.50 - 1.00 | EXTERNAL | | | | performed at [facility];888 | mg/dL | LAB | | | | [address];[place] | | | | | | [address] | | | | + + + + + + | BUN/Creatin | 24Comment: Testing | | EXTERNAL | | | ine Ratio | performed at [facility];[address] | | LAB | | | | [address];[place] | | | | | | [address] | | | | + + + + + + | Calcium | 8.3 (L)Comment: Testing | 8.5 - 10.5 | EXTERNAL | | | | performed at [facility];888 | mg/dL | LAB | | | | [address];[place], [place] | | | | | | [address] | | | | + + + + + + | Estimated | 45 (L)Comment: GFR <60: | mL/min/1.73m2 | EXTERNAL | | | GFR | CHRONIC KIDNEY DISEASE, | | LAB | | | | IF FOUND OVER A 3 MONTH | | | | | | PERIOD.GFR <15: KIDNEY | | | | | | FAILURE.FOR | | | | | | AMERICANS, MULTIPLY THE | | | | | | CALCULATED GFR BY | | | | | | 1.210.Testing performed | | | | | | at [facility];[address];[place] [address] | | | | + + + + + + + + | Specimen | + + | Blood specimen | | (specimen) | + + + +---------+ + + | Performing | Address | City/State/Zipcode | Phone Number | | Organization | | | | + +---------+ + + | EXTERNAL LAB | | | | + +---------+ + + CK-MB (03/10/2016 11:56 PM PDT) + + + + + -+ | Component | Value | Ref Range | Performed | Pathologist | | | | | At | Signature | + + + + + -+ | CK-MB | 72.4 (H)Comment: Testing | 0.5 - 3.6 ng/mL | EXTERNAL | | | | performed at [facility];[address] | | LAB | | | | [address];[place] | | | | | | [address] | | | | + + + + + -+ | CK-MB Index | 9.2Comment: CK INDEX | | EXTERNAL | | | | INTERPRETATION: | | LAB | | | | MMB ng/mL | | | | | | | | | | | |CK INDEX INTERPRETATION: | | | | | | MMB ng/mL | | | | | | | | | | + + + + + -+ + + | Specimen | + + | Blood specimen | | (specimen) | + + + +---------+ + + | Performing | Address | City/State/Zipcode | Phone Number | | Organization | | | | + +---------+ + + | EXTERNAL LAB | | | | + +---------+ + + Troponin I (03/10/2016 11:56 PM PDT) + + + + + + | Component | Value | Ref Range | Performed | Pathologist | | | | | At | Signature | + + + + + + | Troponin I, | 34.2 ()Comment: 0.00 | 0.00 - 0.10 | EXTERNAL | | | Qual | to 0.10 CONSISTENT | ng/mL | LAB | | | | WITH NORMAL | | | | | | POPULATION0.11 to 0.60 | | | | | | CONSISTENT WITH | | | | | | INCREASED RISK FOR | | | | | | ADVERSE OUTCOMES> 0.60 | | | | | | CONSISTENT | | | | | | WITH WHO CRITERIA FOR | | | | | | ACUTE [place] CKTRP PHONED TO | | | | | | [address] [place] [address] [address] | | | | | | BY [employer] BACK RESULTS | | | | | | VERIFIEDTesting | | | | | | performed at [facility];[address] | | | | | | [address];[place], [place] | | | | | | [address] | | | | + + + + + + + + | Specimen | + + | Blood specimen | | (specimen) | + + + +---------+ + + | Performing | Address | City/State/Zipcode | Phone Number | | Organization | | | | + +---------+ + + | EXTERNAL LAB | | | | + +---------+ + + CK Total (03/10/2016 11:56 PM PDT) + + + + + + | Component | Value | Ref Range | Performed | Pathologist | | | | | At | Signature | + + + + + + | CK, Total | 787 (H)Comment: Testing | 30 - 240 U/L | EXTERNAL | | | | performed at [facility];[address] | | LAB | | | | [address];[place], [place] | | | | | | [address] | | | | + + + [...] episode of care unspecified | + + documented in this encounter
--- OUTSIDE RECORDS SUMMARY | ~2019-08-28 | XMS | Encounter Summary ---
Demographics + + + | Address | [address] | | | [place] [address] | + + + | Home Phone | | + + + | Preferred Language | Unknown | + + + | Marital Status | | + + + | Mormon Affiliation | 1028 | + + + | Race | Unknown | + + + | Ethnic Group | Unknown | + + + Author + + + | Author | [facility] | | | and [place] | + + + | Organization | [facility] | | | and [...] Team Providers + +------+ + | Care Electrical Logging Engineer Name | Role | Phone | + +------+ + PCP | Unavailable | + +------+ + Encounter Details +--------+ + + + + | Date | Type | Department | Care Team | Description | +--------+ + + + + | 02/11/ | Hospital | [facility] | [place], | | | 2006 - | Encounter | [facility] | Zana Villalta MD [address] | | | | CENTER [address] | [facility] | | | 03/13/ | | [place] | [place] [address] | | | 2006 | | [address] | [phone] | | | | | [phone] | | | +--------+ + + + [...] | | | | | [place] | | | | | | [address] | | | | | | | | +--------+---------+ + + + documented as of this encounter Visit Diagnoses Not on filedocumented in this encounter"
--- OUTSIDE RECORDS SUMMARY | ~2019-08-28 | XMS | Encounter Summary ---
Demographics + + + | Address | [address] | | | [place] [address] | + + + | Home Phone | | + + + | Preferred Language | Unknown | + + + | Marital Status | | + + + | Synagogue Affiliation | 1028 | + + + | Race | Unknown | + + + | Ethnic Group | Unknown | + + + Author + + + | Author | [facility] | | | and [place] | + + + | Organization | [facility] | | | [...] Team Providers + +------+ + | Care Rehab Aide Name | Role | Phone | + +------+ + PCP | Unavailable | + +------+ + Encounter Details +--------+ + + + + | Date | Type | Department | Care Team | Description | +--------+ + + + + | 01/28/ | Hospital | [facility] | | | | 2006 - | Encounter | [facility] | | | | | | MINDY Rios | | | | 02/10/ | | [place] | | | | 2006 | | [address] | | | | | | [phone] | | | +--------+ + + + [...] | 2019 | Visit | | MD Ashlei ALFARO | | | | | | [place] | | | | | | [address] | | | | | | | | +--------+---------+ + + + documented as of this encounter Visit Diagnoses Not on filedocumented in this encounter"
--- OUTSIDE RECORDS SUMMARY | ~2019-08-28 | XMS | Encounter Summary ---
Demographics + + + | Address | [address] | | | [place] [address] | + + + | Home Phone | | + + + | Preferred Language | Unknown | + + + | Marital Status | | + + + | Nondenominational Affiliation | 1028 | + + + | Race | Unknown | + + + | Ethnic Group | Unknown | + + + Author + + + | Author | [facility] | | | and [place] | + + + | Organization | [facility] | | | and [...] Team Providers + +------+ + | Care Employment Officer Name | Role | Phone | + +------+ + PCP | Unavailable | + +------+ + Encounter Details +--------+ + + + + | Date | Type | Department | Care Team | Description | +--------+ + + + + | 07/24/ | Hospital | [facility] | | | | 2009 - | Encounter | MED [facility] | | | | | | MINDY Rios | | | | 08/13/ | | [place] | | | | 2009 | | [address] | | | | | | [phone] | | | +--------+ + + + [...] [place] | | | | | | [address] | | | | | | | | +--------+---------+ + + + documented as of this encounter Visit Diagnoses Not on filedocumented in this encounter"
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
--- OUTSIDE RECORDS SUMMARY | ~2019-08-28 | XMS | Encounter Summary ---
Demographics + + + | Address | [address] | | | [place] [address] | + + + | Home Phone | | + + + | Preferred Language | Unknown | + + + | Marital Status | | + + + | Caodaism Affiliation | [id number] | + + + | Race | Unknown | + + + | Ethnic Group | Unknown | + + + Author + + + | Author | [facility] | | | and [place] | + + + | Organization | [facility] | | | [...] Team Providers + +------+ + | Care Training Coordinator Name | Role | Phone | [...] | | region | [address] | [address] Phone: | | | | | [place] | [place], | [phone] | | | | | stenosis of | [place] [address] | Fax: | | | | | lumbar | Phone: | [phone] | | | | | region | [phone] | | | | | | Lumbar | Fax: | | | | | | radiculopath | [phone] | | | | | | y [...] | | | | | [place] | [place], | | | | | | stenosis of | [place] [address] | | | | | | lumbar | Phone: | | | | | | region | [phone] | | | | | | Lumbar | Fax: | | | | | | radiculopath | [phone] | | | | | | y [...] | | | | | Procedures | [place] | [place], [place] | | | | | DC OFFICE | [place] [address] | [address] | | | | | CONSULTATION | Pratik, | Phone: | | | | | NEW/ESTAB | [place] | [phone] | | | | | PATIENT 61 | [address] | Fax: | | | | | MIN | Phone: | [phone] | | | | | | [phone] | | | | | | | Fax: | | | | | | | [phone] | | +--------+--------+ + + + + Encounter Details +--------+---------+ + + + | Date | Type | Department | Care Team | Description | +--------+---------+ + + + | 01/30/ | Office | [facility] | Michael Tate | 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 Tate Rodriguez PA-C [address] [facility], [address] [place], [place] [id number] FAX: NEUROSURGERY HISTORY AND PHYSICAL EXAMINATION CHIEF [...] famotidine (PEPCID) 20 mg tablet Daily. 1 Kfltfkjhmdz-Mylqlxoxq-Xij C-Mn (GLUCOSAMINE-CHONDROITIN) CAPS Take 1,500 mg by [...] has no apparent deficits with short or termite treater memory. CRANIAL NERVES: II: Acuity is intact. [...] Intrinsics 5 5 Ulnar Intrinsics 5 5 Tank Builder Supervisor Strength 5 5 Hip Flexion 5 5 [...] 13:38 Loulou Rosales assisted me in the pharmacy aide of this note in my presence today. documented in this encounter Plan of Treatment +--------+---------+ + + + | Date | Type | Specialty | Care Team | Description | +--------+---------+ + + + | 02/09/ | Office | Cardiology | Garcia Barajas, | | | 2019 | Visit | | MD Ashlie ALFARO | | | | | | [place] | | | | | | [id number] | | | | | | | [...]
--- OUTSIDE RECORDS SUMMARY | ~2019-08-28 | XMS | Encounter Summary ---
Demographics + + + | Address | [address] | | | [place] [address] | + + + | Home Phone | | + + + | Preferred Language | Unknown | + + + | Marital Status | | + + + | Anabaptist Affiliation | [id number] | + + + [...] Team Providers + +------+ + | Care Director For [employer] Name | Role | Phone | + +------+ + | Bubba Peña MD | PCP | | + +------+ + Encounter Details +--------+ + + + + | Date | Type | Department | Care Team | Description | +--------+ + + + + | 04/29/ | Orders Only | [facility] | Xavier Kwok, | | | 2019 | | NEPHROLOGY DANIEL | [address] | | | | | [address] [place] | [facility] | | | | | [address] [place], [place] | [place], [place] | | | | | [address] | [address] | | | | | [phone] | [phone] | | | | | | | [...] | | | | | [place], [place] | | | | | | [address] | | | | | | | | +--------+---------+ + + + documented as of this encounter Procedures + +--------+ + + + | Procedure Name | Priori | Date/Time | Associated Diagnosis | Comments | | | ty | | | | + +--------+ + + + | EXTERNAL LAB: CBC | Routin | 04/29/2019 | | Results for this | | | e | 11:46 AM | | procedure are in the | | | | PDT | | results section. | + +--------+ + + + | IRON AND IRON | Routin | 04/29/2019 | | Results for this | | BINDING CAPACITY | e | 11:46 AM | | procedure are in the | | | | PDT | | results section. | + +--------+ + + + | PROTEIN/CREATININE | Routin | 04/29/2019 | | Results for this | | RATIO, URINE | e | 11:46 AM | | procedure are in the | | | | PDT | | results section. | + +--------+ + + + | MAGNESIUM | Routin | 04/29/2019 | | Results for this | | | e | 11:46 AM | | procedure are in the | | | | PDT | | results section. | + +--------+ + + + | FERRITIN | Routin | 04/29/2019 | | Results for this | | | e | 11:46 AM | | procedure are in the | | | | PDT | | results section. | + +--------+ + + + | RENAL FUNCTION PANEL | Routin | 04/29/2019 | | Results for this | | | e | 11:46 AM | | procedure are in the | | | | PDT | | results section. | + +--------+ + + + documented in this encounter Results Iron and Iron Binding Capacity (04/29/2019 11:46 AM PDT) + +-------+ + + + | Component | Value | Ref Range | Performed | Pathologist | | | | | At | Signature | + +-------+ + + + | Iron | 77 | 37 - 160 | EXTERNAL | | | | | | LAB | | + +-------+ + + + | Iron | | | EXTERNAL | | | Saturation | | | LAB | | + +-------+ + + + | TIBC | | | EXTERNAL | | | [...] | | | + +---------+ + + Protein/Creatinine Ratio, Urine (04/29/2019 11:46 AM PDT) + +-------+ + + + | Component | Value | Ref Range | Performed | Pathologist | | | | | At | Signature | + +-------+ + + + | Protein/Cre | 114.5 | 0 - 150 | EXTERNAL | [...] | + +---------+ + + External Lab: CBC (04/29/2019 11:46 AM PDT) + + + + + + | Component | Value | Ref Range | Performed | Pathologist | | | | | At | Signature | + + + + + + | WBC | 6.6 | 4.5 - 11.0 10 | EXTERNAL | | | | | | LAB | | + + + + + + | RED CELL | 4.36 | 3.8 - 5.1 10 | EXTERNAL | | | COUNT | | | LAB | | + + + + + + | Hgb | 12.9 | 12.0 - 16.0 | EXTERNAL | | | | | g/dL | LAB | | + + + + + + | Hematocrit, | 39.5 | 35 - 45 % | EXTERNAL | | | POC | | | LAB | | + + + + + + | MCV | 90.6 | 81 - 99 fL | EXTERNAL [...] + + + + | Platelet | 221 | 140 - 440 K/ L | EXTERNAL | | | Count | | | LAB | | | Plasma | | | | | + + + + + + | RDW-CV | 15.3 (A) | 10.5 - 15.0 % | EXTERNAL | | | | [...] + + + | % Segmented | 62.3 | 39 - 80 % | EXTERNAL | | | | | | LAB | | | Neutrophils | | | | | + + + + + + | % | 27.1 | 24 - 44 % | EXTERNAL | | | Lymphocytes | | | LAB | | + + + + + + | % Monocytes | 8.4 | 0 - 12 % | EXTERNAL | | | | | | LAB | | + + + + + + | % | 1.2 | 0 - 6 % | EXTERNAL | | | Eosinophils | | | LAB | | + + + + + + | % Basophils | 1.0 | 0 - 2 % | EXTERNAL | | | | [...] | | + +---------+ + + Magnesium (04/29/2019 11:46 AM PDT) + +-------+ + + + | Component | Value | Ref Range | Performed | Pathologist | | | | | At | Signature | + +-------+ + + + | Magnesium | 1.9 | 1.7 - 2.5 mg/dL | EXTERNAL | | | | [...] | | | + +---------+ + + Ferritin (04/29/2019 11:46 AM PDT) + + + + + + | Component | Value | Ref Range | Performed | Pathologist | | | | | At | Signature | + + + + + + | Ferritin, | 163.0 (A) | 13 - 150 ng/mL | EXTERNAL | | | External | [...] | | | + +---------+ + + Renal Function Panel (04/29/2019 11:46 AM PDT) + + + + + + | Component | Value | Ref Range | Performed | Pathologist | | | | | At | Signature | + + + + + + | Glucose, | 100 | 70 - 100 mg/dL | EXTERNAL | | | Fasting | | | LAB | | + + + + + + | BUN | 31 (A) | 6 - 23 mg/dL | EXTERNAL | | | | | | LAB | | + + + + + + | Creatinine | 1.16 (A) | 0.70 - 1.11 | EXTERNAL | | | | | mg/dL | LAB | | + + + + + + | PHOSPHORUS | 3.3 | 2.5 - 5.0 mg/dL | EXTERNAL | | | | | | LAB | | + + + + + + | Albumin | 4.2 | 3.5 - 5.0 | EXTERNAL | [...] + + + + | Cl | 103 | 95 - 112 mmol/L | EXTERNAL | | | | | | LAB | | + + + + + + | CO2 | 26 | 19 - 31 mmol/L | EXTERNAL | | | | | | LAB | | + + + + + + | Anion Gap | 12.6 | 7 - 21 mmol/L | EXTERNAL | | | | | | LAB | | + + + + + + | eGFR if not | | | EXTERNAL | | | | | | LAB | | | BURMESE | | | | | + + + + + + | Phosphorus, | | | EXTERNAL | | | Inorganic | | | LAB | | + + + + + + | BUN/Creatin | 26.7 | 6.0 - 28.6 | EXTERNAL | | | ine Ratio | | | LAB | | + + + + + + | Calcium | 9.3 | 8.5 - 10.3 | EXTERNAL | [...]
--- OUTSIDE RECORDS SUMMARY | ~2019-08-28 | XMS | Encounter Summary ---
Demographics + + + | Address | [address] | | | [place] [address] | + + + | Home Phone [...] Team Providers + +------+ + | Care Tool Turret Lathe Set Up Operator Name | Role | Phone | + [...] | Lumbar | [place], | [address] | | | | | radiculopath | Ruslan Adams MD | [place], | | | | | y | [address] | [place] | | | | | Procedures | [place] | [address] | | | | | [place] INJECT | [place], [place] | Phone: | | | | | ANES/STEROID | [address] | [phone] | | | | | FORAMEN | Phone: | Fax: | | | | | LUMBAR/SACRA | [phone] | [phone] | | | | | L W IMG | Fax: | | | | | | GUIDE ,1 | [phone] | | | | | | [place] | | | | | | | [...] + + | 02/20/ | Hospital | 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 | [address] | [place], [place] | [phone] | | [facility] | | [address] | | | - IMAGING | | [...]
--- OUTSIDE RECORDS SUMMARY | ~2019-08-28 | XMS | Encounter Summary ---
Demographics + + + | Address | [address] | | | [place] [address] | + + + | Home Phone | | + + + | Preferred Language | Unknown | + + + | Marital Status | | + + + | Lutheran Affiliation | 1028 | + + + | Race | Unknown | + + + | Ethnic Group | Unknown | + + + Author + + + | Author | [facility] | | | and [place] | + + + | Organization | [facility] | | [...] Team Providers + +------+ + | Care Clinical Exercise Specialist Name | Role | Phone | + +------+ + PCP | Unavailable | + +------+ + Encounter Details +--------+ + + + + | Date | Type | Department | Care Team | Description | +--------+ + + + + | 07/23/ | Hospital | [facility] | Nita, | | | 2010 - | Encounter | MED CTR CANCER | Zana Villalta MD [address] | | | | CENTER [address] | [place] [facility] | | | 08/13/ | | [place] | [place] [address] | | | 2010 | | [address] | [phone] | | | | | [phone] | | | +--------+ + + + [...] documented as of this encounter Progress Notes Zana Moya MD - 07/21/2011 3:55 AM PDTPROGRESS NOTE: 07/23/2011 IDENTIFYING STATEMENT: Liz Dominguez is an 81 year old woman from [place], [place] w ith a history of stage IIIB colon cancer. ACTIVE DIAGNOSES: 1. November 13, 2006: Status post right hemicolectomy for a T3 N1 (one out of 15) well-di fferentiated adenocarcinoma of the colon. 2. Adjuvant Xeloda between December 2006 and June 2007. 3. Screening colonoscopy in 02 06 was normal. 4. Screening liver ultrasounds December 25, 2007, January 04, 2009, January 11, 2010, and 2010 were within normal limits. CHIEF COMPLAINT: Liz Dominguez returned to the clinic on July 23, 2011 for follow -up of her stage III colon cancer. REVIEW OF SYSTEMS: CONSTITUTIONAL: Denies high fever, shaking chills, fatigue, anorexia, nausea, vomiting, w eight loss, or night sweats. EAR, NOSE, MOUTH, THROAT: Denies odynophagia, dysphagia, or tinnitus. CARDIOVASCULAR: De nies shortness of breath, dyspnea on exertion, chest pain, palpitations, or orthopnea. RESPIRATORY: Denies cough, hemoptysis, or sputum production. GASTROINTESTINAL: Denies ab dominal pain, constipation, diarrhea, melena, or bright red blood per rectum. GENITOURINARY: Denies hematuria or dysuria. MUSCULOSKELETAL: Denies joint pain and tenderness. NEUROLOGIC: Denies headache, visual changes, or numbness/tingling of the extremities. END OCRINE: Denies peripheral edema or heat/cold intolerance. HEMATOLOGIC: Denies spontaneous bruising or bleeding. PAST MEDICAL HISTORY: 1. Hypercholesterolemia. 2. Degenerative joint disease. 3. Gouty arthritis. PAST SURGICAL HISTORY: Status post hysterectomy and bilateral salpingo-oophorectomy. Stat us post bladder suspension surgery. SOCIAL HISTORY: She lives alone and independently in [place], [place] after her signific ant other from metastatic colon cancer. HABITS: ALCOHOL: No use or abuse. TOBACCO: No use or abuse. FAMILY HISTORY: She had a sister with breast and colon cancer. ROUTINE MEDICATIONS: Aspirin 81 mg orally daily Calcium with vitamin D one tablet orally daily Flax seed oil 1200 mg orally daily Metoprolol 100 mcg orally daily Multivitamin once a day Simvastatin 10 mg orally daily ALLERGIES: No known drug allergies. PHYSICAL EXAMINATION: Blood pressure is 131/73, pulse 74, respiratory rate 16, temperatur e 36.6 degrees Celsius. Oxygen saturation is 96% on room air. Height is 170 cm, height 72 .6 kg. EYES: Conjunctivae clear. Sclerae anicteric. ENMT: Oropharynx free of lesions, mucous membranes moist. CARDIOVASCULAR: Regular rate and rhythm. Normal S1 and S2 without murmur, gallop, or rub . LUNGS: Good air movement bilaterally. No rhonchi, wheeze, or rales. ABDOMEN: Low midline scar is well healed. Soft, nontender, nondistended. No hepatomegal y. No splenomegaly. No ascites. LYMPH NODES: No cervical, supraclavicular, axillary, or inguinal lymphadenopathy. MUSCULOSKELETAL: No joint tenderness or swelling. SKIN: No petechiae, ecchymoses, or rash. EXTREMITIES: No cyanosis, clubbing, or edema. NEUROLOGIC: Alert and oriented times three. Face symmetric. Voice articulate. Station and gait within normal limits. STUDIES: LDH is 184 with upper limit of normal 180. This is not clinically significant. Sodium is 138, potassium 4.5, chloride 99, CO2 31, glucose 107, calcium 10.6 with upper li diego of normal 10.2. BUN is 25, creatinine 1.08. Complete blood counts are entirely within normal limits. Tumor marker CEA is normal at 3.76. Right upper quadrant ultrasound demonstrated no suspicious lesions to suggest metastatic c olon cancer. ASSESSMENT: No signs or symptoms of recurrence of colon cancer at four and a half years. PLAN: Return to the clinic in one year for annual follow-up. If negative, she will be re leased from surveillance from the Cancer Center at that time. CC: Dr. Leo Peña <Electronically Signed by Zana Moya MD> 07/27/11 1356 documented in this encounter Plan of Treatment +--------+---------+ + + + | Date | Type | Specialty | Care Team | Description | +--------+---------+ + + + | 02/09/ | Office | Cardiology | Garcia Barajas, | | | 2019 | Visit | | MD Ashlie ALFARO | | | | | | [place] | | | | | | [phone] | | | | | | | | +--------+---------+ + + + documented as of this encounter Procedures + +--------+ + + + | Procedure Name | Priori | Date/Time | Associated Diagnosis | Comments | | | ty | | | | + +--------+ + + + | CBC WITH | Routin | 07/23/2011 | | Results for this | | DIFFERENTIAL | e | 12:59 PM | | procedure are in the | | | | PDT | | results section. | + +--------+ + + + | LACTATE | Routin | 07/23/2011 | | Results for this | | DEHYDROGENASE | e | 12:59 PM | | procedure are in the | | | | PDT | | results section. | + +--------+ + + + | CEA | Routin | 07/23/2011 | | Results for this | | | e | 12:59 PM | | procedure are in the | | | | PDT | | results section. | + +--------+ + + + | US ABDOMEN LIMITED | | 07/21/2011 | | Results for this | | | | 3:55 AM | | procedure are in the | | | | PDT | | results section. | + +--------+ + + + documented in this encounter Results CEA (07/23/2011 12:59 PM PDT) + + + + + + | Component | Value | Ref Range | Performed | Pathologist | | | | | At | Signature | + + + + + + | CEA | 3.76Comment: | 0.0 - 10.0 | [facility] | | | | PLEASE NOTE NEW | ng/mL | [facility] | | | | [facility]FER[facility] | | MEDICAL | | | | Testing performed on | | CENTER - | | | | the [facility] | | LABORATORY | | | | [...] + + + + + | [facility] | [address] | [place] | [phone] | | [facility] | | [address] | | | - LABORATORY | | | | + + + + + | [facility] | [address] | [place] | | | [facility] | | [address] | | | - LABORATORY | | | | + + + + + Lactate Dehydrogenase (07/23/2011 12:59 PM PDT) + +---------+ + + + | Component | Value | Ref Range | Performed | Pathologist | | | | | At | Signature | + +---------+ + + + | LDH TOTAL | 184 (H) | 91 - 180 IU/L | [facility] | | | | | | ST. [...] + | [facility] | [address] | [place], [place] | [phone] | | [facility] | | [address] | | | - LABORATORY | | | | + + + + + | [facility] | [address] | [place], [place] | | | [facility] | | [address] | | | - LABORATORY | | | | + + + + + CBC with Differential (07/23/2011 12:59 PM PDT) + +-------+ + + + | Component | Value | Ref Range | Performed | Pathologist | | | | | At | Signature | + +-------+ + + + | WBC | 8.1 | 4.0 - 11.0 K/uL | [facility] | | | | | | [facility] | | | | | | MEDICAL | | | | | | CENTER - | | | | | | LABORATORY | | + +-------+ + + + | RBC | 4.30 | 3.70 - 5.20 | [facility] | | | | | M/uL | [facility] | | | | | | MEDICAL | | | | | | CENTER - | | | | | | LABORATORY | | + +-------+ + + + | Hemoglobin | 13.1 | 11.5 - 16.0 | [facility] | | | | | gm/dL | [facility] | | | | | | MEDICAL | | | | | | CENTER - | | | | | | LABORATORY | | + +-------+ + + + | Hematocrit | 38.4 | 34.0 - 47.0 % | [facility] | | | | | | [facility] | | | | | | MEDICAL | | | | | | CENTER - | | | | | | LABORATORY | | + +-------+ + + + | MCV | 89.4 | 83.0 - 101.0 fL | [facility] | | | | | | [facility] | | | | | | MEDICAL | | | | | | CENTER - | | | | | | LABORATORY | | + +-------+ + + + | MCH | 30.4 | 28.0 - 35.0 pg | [facility] | | | | | | [facility] | | | | | | MEDICAL | | | | | | CENTER - | | | | | | LABORATORY | | + +-------+ + + + | MCHC | 34.0 | 32.0 - 36.0 | [facility] | | | | | g/dL | [facility] | | | | | | MEDICAL | | | | | | CENTER - | | | | | | LABORATORY | | + +-------+ + + + | RDW-CV | 14.3 | <15.0 % | [facility] | | | | | | [facility] | | | | | | MEDICAL | | | | | | CENTER - | | | | | | LABORATORY | | + +-------+ + + + | Platelet | 267 | 140 - 440 K/uL | [facility] | | | Count | | | [facility] | | | | | | MEDICAL | | | | | | CENTER - | | | | | | LABORATORY | | + +-------+ + + + | % | 72.2 | 45 - 75 % | [facility] | | | Neutrophils | | | [facility] | | | | | | MEDICAL | | | | | | CENTER - | | | | | | LABORATORY | | + +-------+ + + + | % | 20.5 | 20 - 45 % | [facility] | | | Lymphocytes | | | [facility] | | | | | | MEDICAL | | | | | | CENTER - | | | | | | LABORATORY | | + +-------+ + + + | % Monocytes | 5.3 | 4 - 12 % | [facility] | | | | | | [facility] | | | | | | MEDICAL | | | | | | CENTER - | | | | | | LABORATORY | | + +-------+ + + + | % | 1.0 | 0 - 5 % | [facility] | | | Eosinophils | | | [facility] | | | | | | MEDICAL | | | | | | CENTER - | | | | | | LABORATORY | | + +-------+ + + + | % Basophils | 1.0 | 0 - 1 % | [facility] | | | | | | [facility] | | | | | | MEDICAL | | | | | | CENTER - | | | | | | LABORATORY | | + +-------+ + + + | Absolute | 5.8 | 1.5 - 6.6 K/uL | [facility] | | | Neutrophils | | | [facility] | | | | | | MEDICAL | | | | | | CENTER - | | | | | | LABORATORY | | + +-------+ + + + | Absolute | 1.7 | 0.6 - 3.2 K/uL | [facility] | | | Lymphocytes | | | [facility] | | | | | | MEDICAL | | | | | | CENTER - | | | | | | LABORATORY | | + +-------+ + + + | Absolute | 0.4 | 0.0 - 1.0 K/uL | [facility] | | | Monocytes | | | [facility] | | | | | | MEDICAL | | | | | | CENTER - | | | | | | LABORATORY | | + +-------+ + + + | Absolute | 0.1 | 0.0 - 0.4 K/uL | [facility] | | | Eosinophils | [...] + | [facility] | [address] | [place] | [phone] | | [facility] | | [address] | | | - LABORATORY | | | | + + + + + | [facility] | [address] | [place], [place] | | | [facility] | | [address] | | | - LABORATORY | | | | + + + + + US Abdomen Limited (07/21/2011 3:55 AM PDT) + + | Specimen | + + | | + + + + + | Narrative | Performed At | + + + | [facility] Diagnostic Imaging Department | [facility] | | [address] [facility] | [facility] | | LIMITED ABDOMINAL ULTRASOUND | DIAG IMG | | CLINICAL HISTORY: HISTORY OF COLON CANCER. FOLLOWUP. FINDINGS: | | | The liver is of normal echogenicity and echo architecture. No | | | intrahepatic biliary or veno us dilation is seen. Gallbladder is | | | mildly contracted but contains no stones and shows no wall thicke | | | jerome or pericholecystic fluid. The common bile duct is normal at 5 mm. | | | The pancreas is well-imaged an d appears normal. There is no | | | ascites. 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 | | | Blood flow in the inferior vena cava, portal vein and hepatic veins | | | is normal. IMPRESSION: 1. NORMAL RIGHT UPPER QUADRANT | | | ULTRASOUND. Dictated Date/Time: 07/24/2011 09:52 Transcribed | | | Date/Time: 07/24/2011 09:58 Chief Librarian Extension Department: | | | <Electronically Signed by Chan Olivarez MD> 07/24/11 1429 | | + + + + + | Procedure Note | + + | Derick, Rad Conversion - 11/20/2013 4:00 PM [facility] | | Diagnostic Imaging Department [address] [place] [address] | | LIMITED ABDOMINAL ULTRASOUND CLINICAL HISTORY: HISTORY | | OF COLON CANCER. FOLLOWUP. FINDINGS: The liver is of normal echogenicity and echo | | architecture. No intrahepatic biliary or venous dilation is seen. Gallbladder is mildly | | contracted but contains no stones and shows no wall thickening or pericholecystic fluid. | | The common bile duct is normal at 5 mm. The pancreas is well-imaged and appears normal. | | There is no ascites. 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 | | Blood flow in the inferior vena cava, portal vein and hepatic veins is normal. | | IMPRESSION: 1. NORMAL RIGHT UPPER QUADRANT ULTRASOUND. Dictated Date/Time: 07/24/2011 | | 09:52Transcribed Date/Time: 07/24/2011 09:58Transcriptionist: <Electronically | | Signed by Chan Olivarez MD> 07/24/111428 | |jerome or pericholecystic fluid. The common bile duct is normal at 5 mm. The pancreas is well -imaged an | |d appears normal. There is no ascites. 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 | |Blood flow in the inferior vena cava, portal vein and hepatic veins is normal. | | | |IMPRESSION: | |1. NORMAL RIGHT UPPER QUADRANT ULTRASOUND. | | | |Dictated Date/Time: 07/24/2011 09:52 | |Transcribed Date/Time: 07/24/2011 09:58 | |Chief Librarian Extension Department: | |<Electronically Signed by Chan Olivarez MD> 07/24/111428 | + + + +---------+ + + | Performing | Address | City/State/Zipcode | Phone Number | | Organization | | | | + +---------+ + + | [place] | | | | | [facility] | | | | + +---------+ + + documented in this encounter Visit Diagnoses Not on filedocumented in this encounter"
--- OUTSIDE RECORDS SUMMARY | ~2019-08-28 | XMS | Encounter Summary ---
Demographics + + + | Address | [address] | | | [place] [address] | + + + | Home Phone | | + + + | Preferred Language | Unknown | + + + | Marital Status | | + + + | Roman Catholic Affiliation | 1028 | + + + | Race | Unknown | + + + | Ethnic Group | Unknown | + + + Author + + + | Author | [facility] | | | and [place] | + + + | Organization | [facility] | | | [...] Team Providers + +------+ + | Care Gas Transfer Operator Name | Role | Phone | + +------+ + | Bubba Peña MD | PCP | | + +------+ + Encounter Details +--------+ + + + + | Date | Type | Department | Care Team | Description | +--------+ + + + + | 03/29/ | Orders Only | [facility] | JlleilaAnali shannon | | | 2017 | | CARDIOLOGY STEFANIE | [address] | | | | | [address] | [address] | | | | | [place], [place] | [place] [address] | | | | | [address] | [phone] | | | | | [phone] | | | +--------+ + + + [...] | | | | | [place], [place] | | | | | | [address] | | | | | | | | +--------+---------+ + + + documented as of this encounter Procedures + +--------+ + + + | Procedure Name | Priori | Date/Time | Associated Diagnosis | Comments | | | ty | | | | + +--------+ + + + | EXTERNAL LAB: CBC | Routin | 03/29/2017 | | | | | e | 6:50 AM | | | | | | PDT | | | + +--------+ + + + | EXTERNAL LAB: CBC | Routin | 03/29/2017 | | Results for this | | | e | 6:50 AM | | procedure are in the | | | | PDT | | results section. | + +--------+ + + + | LIPID PANEL | Routin | 03/29/2017 | | | | | e | 6:50 AM | | | | | | PDT | | | + +--------+ + + + | LIPID PANEL | Routin | 03/29/2017 | | Results for this | | | e | 6:50 AM | | procedure are in the | | | | PDT | | results section. | + +--------+ + + + | COMPREHENSIVE | Routin | 03/29/2017 | | | | METABOLIC PANEL | e | 6:50 AM | | | | | | PDT | | | + +--------+ + + + | COMPREHENSIVE | Routin | 03/29/2017 | | Results for this | | METABOLIC PANEL | e | 6:50 AM | | procedure are in the | | | | PDT | | results section. | + +--------+ + + + documented in this encounter Results External Lab: CBC (03/29/2017 6:50 AM PDT) + +-------+ + + + | Component | Value | Ref Range | Performed | Pathologist | | | | | At | Signature | + +-------+ + + + | WBC | | 10 | EXTERNAL | | | | | | LAB | | + +-------+ + + + | RED CELL | | 10 | EXTERNAL | | | COUNT | | | LAB | | + +-------+ + + + | Hgb | | g/dL | EXTERNAL | | | | | | LAB | | + +-------+ + + + | Hematocrit, | | % | EXTERNAL | | | POC | | | LAB | | + +-------+ + + + | MCV | | fL | EXTERNAL | | | | | | LAB | | + +-------+ + + + | MCH | | pg | EXTERNAL | | | | | | LAB | | + +-------+ + + + | MCHC | | g/dL | EXTERNAL | | | | | | LAB | | + +-------+ + + + | Platelet | | K/ L | EXTERNAL | | | [...] | + +-------+ + + + | Differentia | | [...] + +---------+ + + External Lab: CBC (03/29/2017 6:50 AM PDT) + +-------+ + + + | Component | Value | Ref Range | Performed | Pathologist | | | | | At | Signature | + +-------+ + + + | WBC | 6.3 | 4.5 - 11.0 10 | EXTERNAL | | | | | | LAB | | + +-------+ + + + | RED CELL | 4.13 | 3.8 - 5.1 10 | EXTERNAL | | | COUNT | | | LAB | | + +-------+ + + + | Hgb | 12.3 | 12.0 - 16.0 | EXTERNAL | | | | | g/dL | LAB | | + +-------+ + + + | Hematocrit, | 36.9 | 35 - 45 % | EXTERNAL | | | POC | | | LAB | | + +-------+ + + + | MCV | 89.3 | 81 - 99 fL | EXTERNAL | | | | | | LAB | | + +-------+ + + + | MCH | 30 | 27 - 33 pg | EXTERNAL | | | | | | LAB | | + +-------+ + + + | MCHC | 33 | 30 - 36 g/dL | EXTERNAL | | | | | | LAB | | + +-------+ + + + | Platelet | 247 | 140 - 440 K/ L | EXTERNAL | | | Count | | | LAB | | | Plasma | | | | | + +-------+ + + + | RDW-CV | 14.4 | 10.5 - 15.0 % | EXTERNAL | | | | | | LAB | | + +-------+ + + + | MPV | | fL | EXTERNAL | | | | | | LAB | | + +-------+ + + + | Differentia | | | EXTERNAL | | | l Type | | | LAB | | + +-------+ + + + | % Segmented | 58.4 | 39 - 80 % | EXTERNAL | | | | | | LAB | | | Neutrophils | | | | | + +-------+ + + + | % | 29.6 | 24 - 44 % | EXTERNAL | | | Lymphocytes | | | LAB | | + +-------+ + + + | % Monocytes | 9.9 | 0 - 12 % | EXTERNAL | | | | | | LAB | | + +-------+ + + + | % | 1.4 | 0 - 6 % | EXTERNAL | | | Eosinophils | | | LAB | | + +-------+ + + + | % Basophils | 0.7 | 0 - 2 % | EXTERNAL [...] | | + +---------+ + + Lipid Panel (03/29/2017 6:50 AM PDT) + +-------+ + + + | Component | Value | Ref Range | Performed | Pathologist | | | | | At | Signature | + +-------+ + + + | Cholesterol | | mg/dL | EXTERNAL | | | | | | LAB | | + +-------+ + + + | Triglycerid | | mg/dL | EXTERNAL | | | es | | | LAB | | + +-------+ + + + | HDL | | mg/dl | EXTERNAL | | | | | | LAB | | + +-------+ + + + | LDL | | mg/dL | EXTERNAL | | | Cholesterol | | | LAB | | | , | | | | | | Calculated, | | | | | | External | | | | | + +-------+ + + + | LDl/HDL | | | EXTERNAL | | | Ratio | | | LAB | | + +-------+ + + + | Chol/HDL | | | EXTERNAL | | | Ratio | | | LAB | | + +-------+ + + + | VLDL | | mg/dL | EXTERNAL | | | | | | LAB | | + +-------+ + + + | Non HDL | | | EXTERNAL | | | Chol. | | | LAB | | | (LDL+VLDL) | | | | | + +-------+ + + + + + | Specimen | + + | Blood specimen | | (specimen) | + + + +---------+ + + | Performing | Address | City/State/Zipcode | Phone Number | | Organization | | | | + +---------+ + + | EXTERNAL LAB | | | | + +---------+ + + Lipid Panel (03/29/2017 6:50 AM PDT) + +---------+ + + + | Component | Value | Ref Range | Performed | Pathologist | | | | | At | Signature | + +---------+ + + + | Cholesterol | 159 | 200 mg/dL | EXTERNAL | | | | | | LAB | | + +---------+ + + + | Triglycerid | 178 (A) | 30 - 150 mg/dL | EXTERNAL | | | es | | | LAB | | + +---------+ + + + | HDL | 48.7 | 40 mg/dl | EXTERNAL | | | | | | LAB | | + +---------+ + + + | LDL | 75 | 100 mg/dL | EXTERNAL | | | Cholesterol | | | LAB | | | , | | | | | | Calculated, | | | | | | External | | | | | + +---------+ + + + | LDl/HDL | | | EXTERNAL | | | Ratio | | | LAB | | + +---------+ + + + | Chol/HDL | 3.3 | 4.44 | EXTERNAL | | | Ratio | | | LAB | | + +---------+ + + + | VLDL | 36 | 4 - 40 mg/dL | EXTERNAL | | | | | | LAB | | + +---------+ + + + | Non HDL | 110 | 130 | EXTERNAL | | | Chol. | | | LAB | | | (LDL+VLDL) | | | | | + +---------+ + + + + + | Specimen | + + | Blood specimen | | (specimen) | + + + +---------+ + + | Performing | Address | City/State/Zipcode | Phone Number | | Organization | | | | + +---------+ + + | EXTERNAL LAB | | | | + +---------+ + + Comprehensive Metabolic Panel (03/29/2017 6:50 AM PDT) + +-------+ + + + | Component | Value | Ref Range | Performed | Pathologist | | | | | At | Signature | + +-------+ + + + | Glucose, | | mg/dL | EXTERNAL | | | Fasting | | | LAB | | + +-------+ + + + | BUN | | mg/dL | EXTERNAL | | | | | | LAB | | + +-------+ + + + | Creatinine | | mg/dL | EXTERNAL | | | | | | LAB | | + +-------+ + + + | BUN/Creatin | | | EXTERNAL | | | ine Ratio | | | LAB | | + +-------+ + + + | Calcium | | mg/dL | EXTERNAL | | | | | | LAB | | + +-------+ + + + | Protein, | | g/dL | EXTERNAL | | | Total | | | LAB | | + +-------+ + + + | Albumin | | | EXTERNAL | | | | | | LAB | | + +-------+ + + + | Globulin | | | EXTERNAL | | | | | | LAB | | + +-------+ + + + | A/G Ratio | | | EXTERNAL | | | | | | LAB | | + +-------+ + + + | Bilirubin | | mg/dL | EXTERNAL | | | Total | | | LAB | | + +-------+ + + + | ALP, | | | EXTERNAL | | | External | | | LAB | | + +-------+ + + + | ALT | | U/L | EXTERNAL | | | | | | LAB | | + +-------+ + + + | AST | | U/L | EXTERNAL | | | | | | LAB | | + +-------+ + + + | Na | | mmol/L | EXTERNAL | | | | | | LAB | | + +-------+ + + + | K | | mmol/L | EXTERNAL | | | | | | LAB | | + +-------+ + + + | Cl | | mmol/L | EXTERNAL | | | | | | LAB | | + +-------+ + + + | CO2 | | mmol/L | EXTERNAL | | | | | | LAB | | + +-------+ + + + | Anion Gap | | mmol/L | EXTERNAL | | | | | | LAB | | + +-------+ + + + | Estimated | | mg/dL | EXTERNAL | | | GFR [...] + +---------+ + + Comprehensive Metabolic Panel (03/29/2017 6:50 AM PDT) + + + + + + | Component | Value | Ref Range | Performed | Pathologist | | | | | At | Signature | + + + + + + | Glucose, | 88 | 70 - 100 mg/dL | EXTERNAL | | | Fasting | | | LAB | | + + + + + + | BUN | 27 (A) | 6 - 23 mg/dL | EXTERNAL | | | | | | LAB | | + + + + + + | Creatinine | 1.16 (A) | 0.70 - 1.11 | EXTERNAL | | | | | mg/dL | LAB | | + + + + + + | BUN/Creatin | 23.3 | 6.0 - 28.6 | EXTERNAL | | | ine Ratio | | | LAB | | + + + + + + | Calcium | 9.2 | 8.4 - 10.2 | EXTERNAL | | | | | mg/dL | LAB | | + + + + + + | Protein, | 6.1 | 6.0 - 8.0 g/dL | EXTERNAL | | | Total | | | LAB | | + + + + + + | Albumin | 3.8 | 3.5 - 5.0 | EXTERNAL | | | | | | LAB | | + + + + + + | Globulin | 2.3 | 1.8 - 3.5 | EXTERNAL | | | | | | LAB | | + + + + + + | A/G Ratio | 1.7 | 1.1 - 2.4 | EXTERNAL | | | | | | LAB | | + + + + + + | Bilirubin | 0.5 | 0.0 - 1.2 mg/dL | EXTERNAL | | | Total | | | LAB | | + + + + + + | ALP, | 71 | 31 - 130 | EXTERNAL | | | External | | | LAB | | + + + + + + | ALT | 11 | 7 - 52 U/L | EXTERNAL | | | | | | LAB | | + + + + + + | AST | 16 | 13 - 39 U/L | EXTERNAL | | | | | | LAB | | + + + + + + | Na | 143 | 132 - 143 | EXTERNAL | | | | | mmol/L | LAB | | + + + + + + | K | 4.5 | 3.6 - 5.1 | EXTERNAL | | | | | mmol/L | LAB | | + + + + + + | Cl | 106 | 95 - 112 mmol/L | EXTERNAL | | | | | | LAB | | + + + + + + | CO2 | 25 | 19 - 31 mmol/L | EXTERNAL | | | | | | LAB | | + + + + + + | Anion Gap | 16.5 | 7 - 21 mmol/L | EXTERNAL | | | | | | LAB | | + + + + + + | Estimated | 44 (A) | 60 mg/dL | EXTERNAL | | | GFR [...]
--- OUTSIDE RECORDS SUMMARY | ~2019-08-28 | XMS | Encounter Summary ---
Demographics + + + | Address | [address] | | | [place] [address] | + + + | Home Phone [...] Team Providers + +------+ + | Care Mosaic Worker Name | Role | Phone | + +------+ + PCP | Unavailable | + +------+ + Encounter Details +--------+ + + + + | Date | Type | Department | Care Team | Description | +--------+ + + + + | 12/19/ | Hospital | [facility] | | | | 2006 - | Encounter | MED CTR CANCER | | | | | | MINDY Rios | | | | 01/11/ | | [place] | | | | 2006 | | [address] | | | | | | [phone] | | | +--------+ + + + [...] [place] | | | | | | [id number] | | | | | | | | +--------+---------+ + + + documented as of this encounter Visit Diagnoses Not on filedocumented in this encounter"
--- OUTSIDE RECORDS SUMMARY | ~2019-08-28 | XMS | Encounter Summary ---
Demographics + + + | Address | [address] | | | [place] [address] | + + + | Home Phone | | + + + | Preferred Language | Unknown | + + + | Marital Status | | + + + | Voodoo Affiliation | 1028 | + + + [...] Team Providers + +------+ + | Care Bed And Breakfast Operator Name | Role | Phone | + +------+ + | Bubba Peña MD | PCP | | + +------+ + Encounter Details +--------+ + + + + | Date | Type | Department | Care Team | Description | +--------+ + + + + | 04/25/ | Hospital | [facility] | [place], | Lumbar | | 2017 | Encounter | MED CTR XRAY [address] | [address]eses [address] | radiculopathy; | | | | [place] | [address] [place], | 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 | [place] | [phone] | | [facility] | | [address] | | | - IMAGING | | [...] | | | | | Other, ONCE, [facility] 04/25/17 at | | AM PDT [...] | | | | | Other, ONCE, [facility] 04/25/17 at 1200, | | AM [...]
--- OUTSIDE RECORDS SUMMARY | ~2019-08-28 | XMS | Encounter Summary ---
Demographics + + + | Address | [address] | | | [place] [address] | + + + | Home Phone | | + + + | Preferred Language | Unknown | + + + | Marital Status | | + + + | Latter Day Affiliation | 1028 | + + + | Race | Unknown | + + + | Ethnic Group | Unknown | + + + Author + + + | Author | [facility] | | | and [place] | + + + | Organization | [facility] | | | [...] Team Providers + +------+ + | Care Train Announcer Name | Role | Phone | + [...] [address] | | | | | [phone] | [place] | | | | | | [place] [address] | | | | | | [phone] | | | | | | | [...] [place] | | | | | | [address] | | | | | | | | +--------+---------+ + + + documented as of this encounter Visit Diagnoses Not on filedocumented in this encounter
--- OUTSIDE RECORDS SUMMARY | ~2019-08-28 | XMS | Encounter Summary ---
Demographics + + + | Address | [address] | | | [place] [address] | + + + | Home Phone | | + + + | Preferred Language | Unknown | + + + | Marital Status | | + + + | Anabaptism Affiliation | 1028 | + + + | Race | Unknown | + + + | Ethnic Group | Unknown | + + + Author + + + | Author | [facility] | | | and [place] | + + + | Organization | [facility] | | | [...] Team Providers + +------+ + | Care Supervisor [employer] Name | Role | Phone | + +------+ + PCP | Unavailable | + +------+ + Encounter Details +--------+ + + + + | Date | Type | Department | Care Team | Description | +--------+ + + + + | 03/11/ | Hospital | [facility] | Ramirez Pringle MD | NSTEMI (non-ST | | 2016 - | Encounter | [facility] | [address] | elevated myocardial | | | | [address] | [place] [address] | infarction) (HCC); | | 03/14/ | | [place], [place] | [phone] | Acute respiratory | | 2016 | | [address] | | failure with hypoxia | | | | [phone] | | ([facility]); CKD (chronic | | | [...] whether | | | | | | prairie band or | | | | | | transplanted heart; | | | | | | Acute systolic heart | | | | | | failure ([facility]); | | | | | [...] (none) Author Type: Nurse Practitioner Filed: 03/14/16 1128 Date of Service: 03/14/16 105 Status: Signed Medical Lead: Nathalie Huber ARNP (Nurse Practitioner) Cosigner: Fabien Rodrigez MD at 03/19/16 0748 [facility] CARDIOLOGY DISCHARGE SUMMARY ID: Alo Workman Alberto [employer] Service Mechanic: Fabien Rodrigez MD : 1930 (86 y.o.) [...] systolic pressure estimated at 23.7 mmHg. Consults: [facility] Course: As per Cardiac Consult Note: 86-year-old woman who is transferred from [facility] or management of acute coronary syndrome and shortness of breath. She gives a one-week histo ry of progressive shortness of breath with modest levels of exertion and it takes her 5-10 m inutes to recover. She denies recurrent chest pain, palpitation, syncope, orthopnea. She's n oted to have slight lower extremity swelling which has improved. She presented to her [facility] er's office in [facility] where she was thought to be in mild heart failure and noted to have slightly abnormal cardiac enzymes. She was transferred to the [facility] for fu rther evaluation. She was noted [...] Pt is to follow u p with [facility] in [place], [place] (pt is known to this cardiac [...] oz) ProBNP: Recent Labs 03/11/16 1725 PROBNP 21309* Creatinine: Recent Labs 03/12/16 0700 03/13/16 0540 03/14/16 0645 CR 1.23* 1.23* 1.36* CMS Core Measures Evaluation of LV systolic function: Left Ventricular Function documented in the current [facility] record. LV systolic function details: Ejection Fraction [...] at the tube insertion sit e. If afvt-qjx-dcpcugd pain-relief medications are inadequate, alert your PCP. [...] us. Follow-up (including pending studies and recommendations): [facility] [address] [place] With your PCP, Bubba Solorzano in 1-2 weeks. Condition on Discharge: I saw the patient on day of discharge. Condition and exam stable at time of discharge. Code Status this admission: FULL CODE Time Spent on Discharge Coordination: greater than 30 minutes: 45 total minutes RODOLFO Krishnan 10:50; 03/14/2016 CC: Bubba Peña, [facility] documented in this e ncounter Medications [...] 03/14/161426 Date of Service: 03/14/161426 Status: Signed Medical Lead: Tanya Bernal RN (Registered Nurse) NSG Shift [...] home and portable oxygen. Patient lives in [facility]. GI/: Abdomin soft non tender, eating. [...] Date of Service: 03/14/16 1203 Status: Signed Medical Lead: Keegan White (Respiratory Care Practitioner) [facility] Arrangements made for Alo Dominguez to be discharged with home oxygen. Jus and Lisa campo RT notified that patient is now on their service. Contact information for service provid er listed below: [facility] Keegan White 12:04; 03/14/2016 onversion Tra nsaction, Provider Unknown - 03/14/2016 11:09 AM PDTFormatting of this note might be differe nt from the original. Progress Notes by Beronica Cowan RN at 03/14/16 1105 Author: Beronica Cowan RN Service: (none) Author Type: Oracle Forms Developer Filed: 03/14/16 1112 Date of Service: 03/14/16 1109 Status: Signed Medical Lead: Beronica Cowan RN (Oracle Forms Developer) Case Management Discharge Note Discharge Note 03/14/2016 11:09: Patient Alo Dominguez is a 86 y.o. female admitted for Coronary artery disease, angina presence unspecified, unspecified vessel or lesion type, unspecified whether prairie band or shore splanted heart [I25.10] Discharge Date: Discharge Date: 03/14/16 Discharge Disposition confirmed as: Discharge Disposition: [facility];Home Discussion: Patient discharging home to prior living situation. Her son is transporting her. She has be en SBA here with nursing. [facility] for [place] [facility] safety assessment. Referrals to the 2 compani es in here area. Will have O2 by RT. CM following. Referrals/appointments made for post hospital care: [facility] Discharge DME arranged: Discharge DME arranged: N/A Following MD: PCP Orders and information faxed/provided to: [employer] Transportation arranged: Name and phone number: D/C Transportation Name: Family/Friend Transportation funding: Family Contact number to verify time/give report: Resources/Education Provided: NA [place] of Choice: [facility] [place] of Choice offered: Yes Medicare Important Message [...] Date of Service: 03/14/16 105 Status: Signed Medical Lead: Bennie Morley DO (Physician) [facility] Progress Note Name: Alo Dominguez PCP: Bubba Peña Location: [address] Day #: 3 Reason for Admission [...] medical problems Telemetry indication(s): Acute coronary syndrome/post IA (until stable for 1-4 days) Disposition: Plan to DC to home Anticipated discharge: 3-4 days DVT prophylaxis: Already anticoagulated Code status: DNR Subjective and Events Overnight: Generalized weakness remains unchanged. She declined home health since she has care at [facility]. Objective: Vital Signs: Temp: 37.1 ? (98.7 [...] (within last 13 months/9480hours) 03/11/16 1725 PROBNP 39167* Microbiology No new micro last 24 hours [...] ALYX Scott ctated: 03/14/2016 9:24 AM Job: [id number] Xr Chest 1 View 03/13/2016 1. Hypoventilatory changes. 2. Diffuse interstitial abnormality, as described findings which may represent edema in the acute clinical setting. Underlying subacute/chroni c interstitial lung disease may also have this appearance. Comparison with prior radiographs is suggested if can be made available, otherwise continued surveillance is recommended. RA STEWART Dictated by: ALYX SILVERIO Dictated: 03/13/2016 12:58 PM Job: [id number] Bennie [place] DO Reach via [employer] 7AM to 7PM Call utility tractor operator for cross-cover 7PM to 7AM Time documentation not applicable Restraint: None Asha Potts RN - 03/14/2016 5:37 AM PDTFormatting of this note might be different from the orig inal. Progress Notes by Arnol Kramer RN at 03/14/16 0537 Author: Arnol Kramer, RN Service: (none) Author Type: Registered Nurse Filed: 03/14/16 0646 Date of Service: 03/14/16 0537 Status: Signed Medical Lead: Arnol Kramer RN (Registered Nurse) NS Shift [...] Date of Service: 03/13/16 1613 Status: Addendum Medical Lead: Bennie Morley DO (Physician) Related Notes: Original Note by Bennie Morley DO (Physician) filed at 03/13/16 1626 [facility] Progress Note Name: Alo Dominguez PCP: Bubba Peña Location: [address] Day #: 2 Reason for Admission [...] medical problems Telemetry indication(s): Acute coronary syndrome/post IA (until stable for 1-4 days) Disposition: Plan [...] (within last 13 months/) 03/11/16 1725 PROBNP 90085* Microbiology No new micro last 24 hours [...] ALYX SILVERIO Dictated: 03/13/2016 12:58 PM Job: [id number] Bennie Morley DO Reach via [employer] 7AM to 7PM Call utility tractor operator for cross-cover 7PM to 7AM Time documentation not applicable Restraint: None Lisa Sykes RN - 03/13/2016 3:37 PM PDTFormatting of this note might be different from the origi nal. Progress Notes by Jenise Smith RN at 03/13/16 399 Author: Jenise Smith RN Service: (none) Author Type: Registered Nurse Filed: 03/13/16 088 Date of Service: 03/13/161536 Status: Signed Medical Lead: Jenise Smith RN (Registered Nurse) Patient: Alo [...] (none) Author Type: Nurse Practitioner Filed: 03/13/16 7188 Date of Service: 03/13/16 1247 Status: Signed Medical Lead: Nathalie Huber ARNP (Nurse Practitioner) [facility] Cardiology Progress Note ID: Alo Dominguez [employer] Service Mechanic: Fabien Rodrigez MD : 1930 (86 y.o.) Attending: [facility] MD Yessi Location: 403E/403E1 APC:RODOLFO Krishnan Hospital Day#: 2 PCP: Bubba Peña Reason for Admission and Continued Hospitalization: 86 y.o. female who is transferred from [facility] for management of acute coronary syndrome and [...] (within last 13 months/9480hours) 03/11/16 1725 PROBNP 10385* Lipid Profile Lab results (within last 13 months/9480hours) 03/12/16 0700 CHOL 161 TRGL 112 HDL 51 LDL 88 RODOLFO Krishnan 12:47; 03/13/2016 Reach via [employer] 8AM to 6PM Kendra Mack R N - 03/13/2016 11:18 AM PDT Progress Notes by Kendra Desir RN at 03/13/16 1118 Author: Kendra Desir RN Service: (none) Author Type: Registered Nurse Filed: 03/13/169 Date of Service: 03/13/161117 Status: Signed Medical Lead: Kendra Desir RN (Registered Nurse) Cardiovascular Risk Assessment Patient screened, CV Wellness Program information given. Kendra Desir RN, 03/13/2016 11:18 AM onversion Transactio n, Provider Unknown - 03/13/2016 9:10 AM PDT Progress Notes by Kassandra Mayers RN at 03/13/16909 Author: Kassandra Mayers RN Service: (none) Author Type: Oracle Forms Developer Filed: 03/13/16912 Date of Service: 03/13/16909 Status: Signed Medical Lead: Kassandra Mayers RN (Oracle Forms Developer) Case Management Progress Note 03/13/2016 09:11 Patient Alo Dominguez is a 86 y.o. female. Anticipated D/C Plan: Home w/family support Current Clinical Needs: Groin management; O2 weaning Discussion: Pt is still being weaned from her O2. She does not normally use O2. Discusse d options for transportation. Her son will come from [place], [place] to pick her up. He need s 24h to make arrangements. Will cont to follow & intervene as indicated. Case Management Interventions: Case Mgmt Team Interventions: D/C planning follow-up;Care c oordination;Consult with healthcare team [place] of Choice: Medicare Important Message given: Kassandra Stephens RN Bethany Cuevas do, RN - 03/12/2016 10:31 PM PDTFormatting of this note might be different from th e original. Progress Notes by Bethany Douglas RN at 03/12/162230 Author: Bethany Douglas RN Service: (none) Author Type: Registered Nurse Filed: 03/12/169 Date of Service: 03/12/162230 Status: Signed Medical Lead: Bethany Douglas RN (Registered Nurse) NSG Progress [...] Notes by Estrella Sales RN at 03/12/16 5787 Author: Estrella Sales RN Service: (none) Author Type: Registered Nurse Filed: 03/12/161745 Date of Service: 03/12/161745 Status: Signed Medical Lead: Estrella Sales RN (Registered Nurse) NSG Progress [...] Denita Johnson RN Service: (none) Author Type: Oracle Forms Developer Filed: 03/12/16 0397 Date of Service: 03/12/161446 Status: Signed Medical Lead: Denita Johnson RN (Oracle Forms Developer) Case Management Discharge Planning Assessment 14:47; 03/12/2016 Patient Alo Dominguez is a 86 y.o. female Discussion: Chart reviewed, case discussed in multidisiplinary rounds. Met with Ms Dominguez to discuss DC plans. She reports that she lives alone, is active , independent, and involved with [employer] others at the [facility] near her home. She has a PCP and health insurance. Her home is in [facility] [place]. Her main DC concern is transportation. [...] vessel or les ion type, unspecified whether prairie band or transplanted heart [I25.10] Co-Morbidity/Complications: Past Medical History Diagnosis Date Colon cancer apx 2010 treated with surgery and oral chemo Hyperlipidemia Surgery/Procedures: Procedure(s): CV Cor Angio CV Stent Past Surgical History Procedure Laterality Date Appendectomy Hysterectomy Cataract removal Tonsillectomy Advance Directive Information Advance Directive?: Living Will;DPOA for Health Care Durable Power of Equipment Operating Engineer NAME: Nisha Roberts, friend and Ed Lynsey, son Is this a readmission?: Is this a readmission?: No Pre-Admit Baseline : Lives with: self Receives help from: IND Current Providers/Agencies: n/a Prior to admit, the patient was: Living alone Mobility prior to admit: Independent DME and/or supplies at residence AIR CARGO SPECIALIST SUPERVISOR: None Transportation used prior to admit: Self Medication administration AIR CARGO SPECIALIST SUPERVISOR: Independent Patient is caregiver for dependent(s): None PCP: Confirmed with patient/volunteer patient representative Bubba Peña Principle Payors: Per chart review Payor: / Primary Contact Information: Extended Emergency Contact Information Primary Emergency Contact: Reyes Menon [facility] Relation: Son Secondary Emergency Contact: Unk,Unk [facility] Relation: Unknown Patient is being followed by Case Management FRANCISCO Berg RN BSN Case Management PH: [phone] Pager: [phone] Angelika Bell RN - 03/12/2016 12:09 PM PDT Progress Notes by Estrella Sales RN at 03/12/16 1208 Author: Estrella Sales RN Service: (none) Author Type: Registered Nurse Filed: 03/12/16 1211 Date of Service: 03/12/16 120 Status: Signed Medical Lead: Estrella Sales RN (Registered Nurse) NSG Arrival Note Patient: Alo Dominguez Arrival time: 1200 From: mobile home laborer to room 403. Belongings verified with the [...] use Time of last pain med: In chemistry laboratory technician prior to transfer Lines and drains: L wrist PIV, Current IV: normal saline at 100cc/hr Current nursing problems: Telemetry, TR band protocol, increase act as marvel Patient orientation: to call light to telephone and television to [facility] information to plan for the day Estrella Sales RN, 03/12/2016 12:09 PM Ramirez Berumen MD - 03/12/2016 10:11 AM PDT Progress Notes by Ramirez Pringle MD at 03/12/16 1011 Author: Ramirez Pringle MD Service: (none) Author Type: Physician Filed: 03/12/16 1018 Date of Service: 03/12/16 1011 Status: Signed Medical Lead: Ramirez Pringle MD (Physician) [facility] Progress Note Name: Alo Dominguez PCP: Bubba Peña Location: [address] Day #: 1 Reason for Admission [...] medical problems Telemetry indication(s): Acute coronary syndrome/post IA (until stable for 1-4 days) Disposition: Plan [...] (within last 13 months/9480hours) 03/11/16 1725 PROBNP 27656* [ Microbiology No new micro last 24 hours Radiology No results found. Ramirez Pringle MD Reach via [employer] 7AM to 7PM Call utility tractor operator for cross-cover 7PM to 7AM Time documentation not applicable Restraint: None eFabien granados MD - 03/12/2016 9:40 AM PDT Progress Notes by Fabien Rodrigez MD at 03/12/16939 Author: Fabien Rodrigez MD Service: (none) Author Type: Physician Filed: 03/12/16939 Date of Service: 03/12/16939 Status: Signed Medical Lead: Fabien Rodrigez MD (Physician) Procedural Sedation Pre-Procedure [...] 0459 Date of Service: 03/12/1651 Status: Signed Medical Lead: Albin Brandon RN (Registered Nurse) NSG Shift [...] 03/11/162056 Date of Service: 03/11/162054 Status: Signed Medical Lead: Gera Carnes Jr., RN, CWCN (Registered Nurse) PRN Nurse Admission Note Patient: Alo Macario Admission Time and Date: 1600 on 03/11/2016 Patient admitted from: [facility], as PRN Nurse, reviewed medical history, medications and current reason for hospita lization with the patient. They were a good historian. Pt was able to provide home med list. Please see TEACHING SUPERVISOR SCREENS for admit details. See DOC FLOWSHEETS for vitals and nursi ng assessment by staff nurse. Report given to the staff nurse at 20:55 Gera Carnes RN, CWCN, 20:55; 03/11/2016 Barbi Valenzuela RN - 7:25 PM PDT Progress Notes by Barbi Velarde RN at 03/11/161924 Author: Barbi Velarde RN Service: (none) Author Type: Registered Nurse Filed: 03/11/161925 Date of Service: 03/11/161924 Status: Signed Medical Lead: Barbi Velarde RN (Registered Nurse) NS Progress [...] 03/11/161813 Date of Service: 03/11/161812 Status: Signed Medical Lead: Barbi Velarde RN (Registered Nurse) BOB Progress Note Brief Patient: Alo Mcaario Heparin gtt is stop at 1800 per MD order. Will start Lovenox. Barbi Velarde RN, 03/11/2016 6:13 PM Barbi Valenzuela RN - 2015 5:04 PM PDT Progress Notes by Barbi Velarde RN at 03/11/161703 Author: Barbi Velarde RN Service: (none) Author Type: Registered Nurse Filed: 03/11/16 171 Date of Service: 03/11/16 170 Status: Signed Medical Lead: Barbi Velarde RN (Registered Nurse) [facility] Admission Note Patient: Alo Macario Admission Time and Date: 1600 on 03/11/2016 Patient admitted from: [facility] to room 238. Patient orientation: to [...] intact. Pt was on Heparin gtt at [facility] hiedi. Per [facility] personal: Heparin is infusing at [...] | | | | | [place], [place] | | | | | | [address] | | | | | | | [...] ALYX SILVERIO Dictated: 03/14/2016 9:24 AM Job: [id number] | | + + + + + [...] Dictated: 03/14/2016 9:24 AM | | Job: [id number] | + + NT-PRO BNP (03/14/2016 6:45 [...] ALYX SILVERIO Dictated: 03/13/2016 12:58 PM Job: [id number] | | + + + + + [...] Dictated: 03/13/2016 12:58 PM | | Job: [id number] | + + CBC no Differential (03/13/2016 [...] Performed At | + + + | [facility] [address] [place] [address] | | | Adult Transthoracic | | | Echocardiogram Report Patient Name: ALO DOMINGUEZ Pt. 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; s/p cardiac | | | stent placement earlier today | | | Procedure performed: Complete Echocardiogram - 27172 RAD#[id number] | | | Study Details: The images [...] Didier Sepulveda Conversion - 04/16/2019 2:22 AM [facility] | | [address] | | [place] [address] | | | | | | | [...] Diagnosing Physician: Sophie Giordano MD | | Relief Manager: Shahriar Bates RDCS | | Indications: Atherosclerosis, 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; s/p cardiac | | stent | | placement earlier today | | Procedure performed: Complete Echocardiogram - 03869 RAD#[id number] | | Study Details: The images are [...] + | Historically converted procedure from [facility] environment | EXTERNAL LAB | | The charter driver interpretation of this Cardiac Procedure is located [...] + | NSTEMI (non-ST elevated myocardial infarction) ([facility]) Acute myocardial infarction, | | subendocardial infarction, episode of care unspecified | + + | Acute respiratory failure with hypoxia ([facility]) Acute respiratory failure | + + | CKD (chronic kidney disease) stage 3, GFR 30-59 ml/min ([facility]) Chronic kidney disease, | | Stage III (moderate) | + + | Community acquired pneumonia Pneumonia, organism unspecified | + + | Coronary artery disease, angina presence unspecified, unspecified vessel or lesion | | type, unspecified whether prairie band or transplanted heart | + + | Acute systolic heart failure (HCC) Acute systolic heart failure | + + | Anemia, unspecified type | + + documented in this encounter
--- OUTSIDE RECORDS SUMMARY | ~2019-08-28 | XMS | Encounter Summary ---
Demographics + + + | Address | [address] | | | [place] [address] | + + + | Home Phone | | + + + | Preferred Language | Unknown | + + + | Marital Status | | + + + | Christianity Affiliation | 1028 | + + + | Race | Unknown | + + + | Ethnic Group | Unknown | + + + Author + + + | Author | [facility] | | | and [place] | + + + | Organization | [facility] | | | [...] Team Providers + +------+ + | Care Laborer Heading Name | Role | Phone | + +------+ + PCP | Unavailable | + +------+ + Encounter Details +--------+ + + + + | Date | Type | Department | Care Team | Description | +--------+ + + + + | 07/08/ | Hospital | [facility] | | | | 2007 - | Encounter | [facility] | | | | | | MINDY Rios | | | | 07/13/ | | [place]AN [place] | | | | 2007 | | [address] | | | | | | [phone] | | | +--------+ + + + [...] [place] | | | | | | [address] | | | | | | | | +--------+---------+ + + + documented as of this encounter Visit Diagnoses Not on filedocumented in this encounter"
--- OUTSIDE RECORDS SUMMARY | ~2019-08-28 | XMS | Encounter Summary ---
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 senior living risk can lead to osteoporosis which is [...] of the procedure you must provide a wood pile driver operator to take you home. For all procedur [...] of good relief, however she had no [place] [facility] [place] relief. Since the symptoms began, she has [...] famotidine (PEPCID) 20 mg tablet Daily. 1 Fbzrmbqtgig-Fhkiqmwvm-Jox C-Mn (GLUCOSAMINE-CHONDROITIN) CAPS Take 1,500 mg by [...] has no apparent deficits with short or [place] [facility] memory. She has appropriate fund of knowledge [...] times/week along with physical therapy at the [facility] in [place]. 4. She will follow up After the [...] | | | | | [place], [place] | | | | | | [address] | | | | | | | | +--------+---------+ + + + documented as of this encounter Results FL OFE Lumbar Transforaminal (04/25/2017 11:48 AM PDT) + + | Specimen | + + | | + + + + ---+ | Narrative | Performed At | + + ---+ | 04/25/2017 | [facility] | | Bilateral Transforaminal Epidural Steroid Injections Diagnosis: Lumbar | [facility] | | radiculopathy ICD-10 Code M54.16 Liz Dominguez presents to the | [facility] | | fluoroscopy suite for fluoroscopically-guided bilateral [...] | + + + + + | [facility] | [address] | [place], [place] | [phone] | | [facility] | | [address] | | | - IMAGING | | [...]
--- OUTSIDE RECORDS SUMMARY | ~2019-08-28 | XMS | Encounter Summary ---
Demographics + + + | Address | [address] | | | [place] [address] | + + + | Home Phone | | + + + | Preferred Language | Unknown | + + + | Marital Status | | + + + | Evangelical Affiliation | 1028 | + + + | Race | Unknown | + + + | Ethnic Group | Unknown | + + + Author + + + | Author | [facility] | | | and [place] | + + + | Organization | [facility] | | | and [...] Team Providers + +------+ + | Care Ore Miner Name | Role | Phone | + +------+ + PCP | Unavailable | + +------+ + Encounter Details +--------+ + + + + | Date | Type | Department | Care Team | Description | +--------+ + + + + | 02/13/ | Hospital | [facility] | Nita, | | | 2006 - | Encounter | [facility] | Zana Villalta MD [address] | | | | | [address] [place] | [facility] | | | 02/18/ | | [place] [address] | [place] [address] | | | 2006 | | [phone] | [phone] | | | | | | | [...] | | | | | [place] | | | | | | [address] | | | | | | | | +--------+---------+ + + + documented as of this encounter Visit Diagnoses Not on filedocumented in this encounter"
--- OUTSIDE RECORDS SUMMARY | ~2019-08-28 | XMS | Encounter Summary ---
Demographics + + + | Address | [address] | | | [place] [address] | + + + | Home Phone | | + + + | Preferred Language | Unknown | + + + | Marital Status | | + + + | Orthodoxy Affiliation | 1028 | + + + | Race | Unknown | + + + | Ethnic Group | Unknown | + + + Author + + + | Author | [facility] | | | and [place] | + + + | Organization | [facility] | | | [...] Team Providers + +------+ + | Care Machine I Cutter Name | Role | Phone | + +------+ + PCP | Unavailable | + +------+ + Encounter Details +--------+ + + + + | Date | Type | Department | Care Team | Description | +--------+ + + + + | 12/31/ | Hospital | [facility] | | | | 2007 - | Encounter | MED CTR [facility] | | | | | | MINDY Rios | | | | 01/11/ | | [place] | | | | 2007 | | [address] | | | | | | [phone] | | | +--------+ + + + [...] [place] | | | | | | [address] | | | | | | | | +--------+---------+ + + + documented as of this encounter Visit Diagnoses Not on filedocumented in this encounter"
--- OUTSIDE RECORDS SUMMARY | ~2019-08-28 | XMS | Encounter Summary ---
Demographics + + + | Address | [address] | | | [place] [address] | + + + | Home Phone | | + + + | Preferred Language | Unknown | + + + | Marital Status | | + + + | Mormon Affiliation | 1028 | + + + | Race | Unknown | + + + | Ethnic Group | Unknown | + + + Author + + + | Author | [facility] | | | and [place] | + + + | Organization | [facility] | | [...] Team Providers + +------+ + | Care Skeet Operator Name | Role | Phone | + +------+ + | Bubba Peña MD | PCP | | + +------+ + Encounter Details +--------+ + + + + | Date | Type | Department | Care Team | Description | +--------+ + + + + | 04/29/ | Orders Only | [facility] | Xavier Kwok, | | | 2019 | | NEPHROLOGY DANIEL | [facility] [address] | | | | | [address] [place] | [facility] | | | | | [address] [place], [place] | [place], [place] | | | | | [address] | [address] | | | | | [phone] | [phone] | | | | | | | [...] | | | | | [place], [place] | | | | | | [address] | | | | | | | [...] | | | LAB | | | MALDIVIAN | | | | | + + [...]
--- OUTSIDE RECORDS SUMMARY | ~2019-08-28 | XMS | Encounter Summary ---
Demographics + + + | Address | [address] | | | [place] [address] | + + + | Home Phone | | + + + | Preferred Language | Unknown | + + + | Marital Status | | + + + | Taoist Affiliation | 1028 | + + + | Race | Unknown | + + + | Ethnic Group | Unknown | + + + Author + + + | Author | [facility] | | | and [place] | + + + | Organization | [facility] | | [...] Team Providers + +------+ + | Care Vpk Teacher Name | Role | Phone | + +------+ + | Nancy Lora | PCP | | | PA | | | + +------+ + Reason for Visit + + + | Reason | Comments | + + + | Medication Refill | | + + + Encounter Details +--------+--------+ + + + | Date | Type | Department | Care Team | Description | +--------+--------+ + + + | 08/06/ | Refill | [facility] | Garcia Barajas, | Medication Refill | | 2019 | | CARDIOLOGY ESVIN | [address] | | | | | [address] | [place], [place] | | | | | [address] | [address] | | | | | [place] | | | | | | [address] | | | | | | [phone] | | | +--------+--------+ + + + Social History + +-------+ [...] [place] | | | | | | [address] | | | | | | | | +--------+---------+ + + + documented as of this encounter Visit Diagnoses Not on filedocumented in this encounter"
--- OUTSIDE RECORDS SUMMARY | ~2019-08-28 | XMS | Encounter Summary ---
Demographics + + + | Address | [address] | | | [place] [address] | + + + | Home Phone | | + + + | Preferred Language | Unknown | + + + | Marital Status | | + + + | Moravian Affiliation | 1028 | + + + | Race | Unknown | + + + | Ethnic Group | Unknown | + + + Author + + + | Author | [facility] | | | and [place] | + + + | Organization | [facility] | | | [...] Team Providers + +------+ + | Care Wealth Management Consultant Name | Role | Phone | + +------+ + | Bubba Peña MD | PCP | | + +------+ + Encounter Details +--------+ + + + + | Date | Type | Department | Care Team | Description | +--------+ + + + + | 03/29/ | Orders Only | [facility] | JlleilaAnali shannon | | | 2017 | | CARDIOLOGY STEFANIE | [address] | | | | | [address] | [address] | | | | | [place], [place] | [place] [address] | | | | | [address] | [phone] | | | | | [phone] | | | +--------+ + + + [...] | | | | | [place] [place], [place] | | | | | | [address] | | | | | | | [...]
--- OUTSIDE RECORDS SUMMARY | ~2019-08-28 | XMS | Encounter Summary ---
Demographics + + + | Address | [address] | | | [place] [address] | + + + | Home Phone | | + + + | Preferred Language | Unknown | + + + | Marital Status | | + + + | Rastafarian Affiliation | [id number] | + + + | Race | Unknown | + + + | Ethnic Group | Unknown | + + + Author + + + | Author | [facility] | | | and [place] | + + + | Organization | [facility] | | | and [...] Team Providers + +------+ + | Care New Media Strategist Name | Role | Phone | + +------+ + | Bubba Peña MD | PCP | | + +------+ + Encounter Details +--------+ + + + + | Date | Type | Department | Care Team | Description | +--------+ + + + + | 04/04/ | Hospital | [facility] | Conversion | CAD in [place] | | 2016 - | Encounter | [facility] | Transaction, | artery; Chest | | | | CARE FLOOR 4 [address] | Provider Unknown | tightness or | | 04/06/ | | [address] | [phone] | pressure; Shortness | | 2017 | | [place], [place] | | of breath; Sinus | | | | [address] | Alsamara, Ezequielhed, | bradycardia; Chronic | | | | [phone] | MD Ashlie ALFARO | kidney disease, | | | | | [place], [place] | stage III | | | | | [id number] | (moderate); Mixed | | | | | | hyperlipidemia; | | | | | | Chest pain, | | | | | | unspecified type | +--------+ + + + + [...] + + + | Blood Pressure | 141/76 | 04/06/2017 7:51 AM | | | | | PDT | | + + + + + | Pulse | 82 | 04/06/2017 7:51 AM | | | [...] + + + + | Weight | 68 kg (150 lb) | 04/06/2017 7:51 AM | | | | | PDT | | + + + + + | Height | 167.6 cm (5' 6") | 04/06/2017 7:51 AM | | | | | PDT | | + + + + + | Body Mass Index | 24.21 | 04/06/2017 7:51 AM | | | | | PDT | | + + + + + documented in this encounter Discharge Summaries Omar Barajas MD - 04/06/2017 7:46 AM PDTFormatting of this note might be different f rom the original. Discharge Summaries by Omar Barajas MD at 04/06/17745 Author: Omar Barajas MD Service: Cardiology Author Type: Physician Filed: 04/06/17 0815 Date of Service: 04/06/17745 Status: Signed International Account Manager: Omar Barajas MD (Physician) [facility] Service: Cardiology Discharge Summary Date of Admission: 04/04/2017 Date of Discharge: 04/06/2017 Discharge Physician: Omar Barajas MD DISCHARGE DIAGNOSIS: Coronary artery disease. S/P PCI to RCA and LCX. Ischemic cardiomyopathy. Hypertension. PROCEDURES: 1. PCI RCA 2 non-overlapping LANDON (Promus Premier 4 x 12 mm MID and Promus Premier 5 x 16 mm in the prox). 2. Angioplasty for the second OM with LANDON (Promus Premier 5 x 24 mm), inferior branch with balloon angioplasty only. HOSPITAL COURSE: Patient presented for elective coronary angiogram due to unstable anginal symptoms. Attempt ed to PCI to LAD without success. Then PCI to RCA and LCX that patient tolerated well. Has been chest pain free. Hemodynamically stable. DISCHARGE EXAM Vital Signs: BP 169/88 mmHg | Pulse 81 | Temp(Src) 97.9 F (36.6 C) (Oral) | Resp 16 | Ht 1.676 m (5' 6") | Wt 68.04 kg (150 lb) | BMI 24.22 kg/m2 | SpO2 94% HEENT: No xanthelasmas. Extraocular movements were intact. No jaundice. NECK: no JVD, lymphadenopathy. Trachea is at midline. Thyroid is not palpable. CARDIAC: There is normal S1 and S2. Systolic murmur in the left sternal border. CHEST: Normal bilateral symmetrical chest excursion. Good bilateral air entry with no crack les or wheezing. No evidence of dullness. ABDOMEN: Soft and lax. No tenderness. No palpable organs. Active bowel sounds. EXTREMITIES: No lower extremities edema. NEURO: Alert and oriented times three with no focal deficit. Cranial nerves are grossly no rmal. SKIN: No bruises or rash. DATA: Recent Labs Lab 04/06/17 0420 NA 140 K 3.9 CO2 22* BUN 14 CREATININE 0.9 No results for input(s): CKTOTAL, CKMB, CKMBINDEX, TROPONINI in the last 168 hours. Recent Labs Lab 04/06/17 0420 WBC 7.74 HGB 10.4* HCT 31.1* MCV 90.0 PLT 187 PLAN: Patient will be discharged home today. Continue with Clopidogrel and ASA for one year then ASA indefinitely. Follow up in 1-2 weeks. Will start patient on low dose ARB for blood pressure control and newly diagnosed mild isch emic cardiomyopathy. Low dose BB due to previous bradycardia. Continue with statin. Will follow CBC as an outpatient. DISCHARGE MEDICATIONS: Medication List Notice You have not been prescribed any medications. Disposition: Home Condition: Stable Code Status: Full Code Discharge took 20 minutes, to include final examination, discussion of admission, and prepa ration of prescriptions, instructions for on-going care, follow-up and documentation of disc harge summary. Omar Barajas MD 04/06/2017 documented in this encounter Medications at Time [...] Progress Notes Conversion Transaction, Provider Unknown - 04/06/2017 10:22 AM PDTFormatting of this note m ight be different from the original. Nurse Progress Note by Paola Alvarez RN at 04/06/17 1022 Author: Paola lAvarez RN Service: (none) Author Type: Registered Nurse Filed: 04/06/177 Date of Service: 04/06/17 102 Status: Signed International Account Manager: Paola Alvarez RN (Registered Nurse) Groin site is soft and dressing is intact. Pt ambulated in hallway x3 times, each ambulatio n was 370 ft. Discharge instructions reviewed, medications reviewed and side effects explain ed. No questions from pt or friend at this time. I v removed. Pt escorted to private vehicle by Patito FLORES via wheelchair. onver lucio Transaction, Provider Unknown - 04/05/2017 4:22 PM PDT Nurse Progress Note by Kareen Mabry RN at 04/05/171621 Author: Kareen Mabry RN Service: Cardiology Author Type: Registered Nurse Filed: 04/05/171621 Date of Service: 04/05/171621 Status: Signed International Account Manager: Kareen Mabry RN (Registered Nurse) Pt brought to CCL holding room in preparation for LANDON placement. Awaiting Dr. Bundy for consent. Pt A&Ox4, VSS. onver lucio Transaction, Provider Unknown - 04/05/2017 4:18 PM PDT Nurse Progress Note by Brenda Lujan RN at 04/05/17 1618 Author: Brenda Lujan RN Service: (none) Author Type: Registered Nurse Filed: 04/05/17 1827 Date of Service: 04/05/17 1618 Status: Signed International Account Manager: Brenda Lujan RN (Registered Nurse) Patient off the floor to the dock or pier laborer. onver lucio Transaction, Provider Unknown - 04/05/2017 2:20 PM PDT Case Management by Sindi Austin RN at 04/05/17 1420 Author: Sindi Austin RN Service: (none) Author Type: Registered Nurse Filed: 04/05/17 1424 Date of Service: 04/05/17 142 Status: Signed International Account Manager: Sindi Austin RN (Registered Nurse) Met with pt, explained CM's role and discussed discharge planning. Pt lives alone, she is f ully independent with adls and iadls. Denied use of DME and not presently participating in a wi outpatient medical services, no blood thinners, home oxygen, cpap or dialysis. 04/05/17 1417 Discharge Planning Evaluation Admitting Diagnosis Chest pain. Readmission No Living Arrangements Alone Support Systems Children;Friends/neighbors Type of Residence Private residence House type House-1 story Steps to enter 2 Independent with ADL's Yes Independent with Mobility Yes Home Care Services No Caregiver after Discharge No Mental Status Oriented Power of Soil Conservation Aide Yes Power of Soil Conservation Aide Name Reyes Menon Power of Soil Conservation Aide Anticipated Discharge Plan Post Acute Care Needs None at this time Plan communicated to patient/family Yes Resources Financial concerns No Transportation issues No Patient/Family concerns No Prescription Plan Yes Name of Pharmacy [facility], [place] Previous home health equipment No Vascular access device No Ostomy/Drains/Appliances No Anticipated Disposition Facility Type Home Met with Alo and discussed discharge planning, Pt is a 87 y.o., female Patient's PCP is: Bubba Peña Patient's insurance: Medicare/[employer]. Coverage concerns: None. Medication coverage/concerns: Yes/None. Rx Bedside Delivery: Community resources utilized / needed: None. Assistance in transportation: Friend Palma will transport home. Identification of any specific education / training: None. Barriers to Discharge / Alternative housing needed: None. Anticipated DCP: Discharge home. SINDI AUSTIN RN,CM. docume rodgered in this encounter Plan of Treatment +--------+---------+ + + + | Date | Type | Specialty | Care Team | Description | +--------+---------+ + + + | 02/09/ | Office | Cardiology | Omar Barajas, | | | 2019 | Visit | | MD Ashlie ALFARO | | | | | | [place], [place] | | | | | | [id number] | | | | | | | | +--------+---------+ + + + documented as of this encounter Procedures + +--------+ + + + | Procedure Name | Priori | Date/Time | Associated Diagnosis | Comments | | | ty | | | | + +--------+ + + + | EXTERNAL LAB: CBC | Routin | 04/06/2017 | | Results for this | | | e | 4:20 AM | | procedure are in the | | | | PDT | | results section. | + +--------+ + + + | BASIC METABOLIC | Routin | 04/06/2017 | | Results for this | | PANEL | e | 4:20 AM | | procedure are in the | | | | PDT | | results section. | + +--------+ + + + | CV VASCULAR | Routin | 04/05/2017 | | Results for this | | PROCEDURE | e | 6:54 PM | | procedure are in the | | | | PDT | | results section. | + +--------+ + + + | CV CARDIAC PROCEDURE | Routin | 04/05/2017 | | Results for this | | | e | 6:45 PM | | procedure are in the | | | | PDT | | results section. | + +--------+ + + + | ACTIVATED CLOTTING | Routin | 04/05/2017 | | Results for this | | TIME | e | 6:17 PM | | procedure are in the | | | | PDT | | results section. | + +--------+ + + + | ACTIVATED CLOTTING | Routin | 04/05/2017 | | Results for this | | TIME | e | 5:40 PM | | procedure are in the | | | | PDT | | results section. | + +--------+ + + + | ACTIVATED CLOTTING | Routin | 04/05/2017 | | Results for this | | TIME | e | 5:29 PM | | procedure are in the | | | | PDT | | results section. | + +--------+ + + + | ECHO COMPLETE W | Routin | 04/04/2017 | | Results for this | | CONTRAST | e | 8:41 PM | | procedure are in the | | | | PDT | | results section. | + +--------+ + + + | CV CARDIAC PROCEDURE | Routin | 04/04/2017 | | Results for this | | | e | 7:28 PM | | procedure are in the | | | | PDT | | results section. | + +--------+ + + + | ACTIVATED CLOTTING | Routin | 04/04/2017 | | Results for this | | TIME | e | 6:53 PM | | procedure are in the | | | | PDT | | results section. | + +--------+ + + + | CV CARDIAC PROCEDURE | Routin | 04/04/2017 | | Results for this | | | e | 5:45 PM | | procedure are in the | | | | PDT | | results section. | + +--------+ + + + | CBC NO DIFFERENTIAL | Routin | 04/04/2017 | | Results for this | | | e | 12:58 PM | | procedure are in the | | | | PDT | | results section. | + +--------+ + + + | BASIC METABOLIC | Routin | 04/04/2017 | | Results for this | | PANEL | e | 12:58 PM | | procedure are in the | | | | PDT | | results section. | + +--------+ + + + documented in this encounter Results External Lab: [facility] (04/06/2017 4:20 AM PDT) + + + + + + | Component | Value | Ref Range | Performed | Pathologist | | | | | At | Signature | + + + + + + | WBC | 7.74 | 3.80 - 11.00 | EXTERNAL | | | | | K/uL | LAB | | + + + + + + | RED CELL | 3.46 (L) | 3.70 - 5.10 | EXTERNAL | | | COUNT | | M/uL | LAB | | + + + + + + | Hgb | 10.4 (L) | 11.3 - 15.5 | EXTERNAL | | | | | g/dL | LAB | | + + + + + + | Hematocrit, | 31.1 (L) | 34.0 - 46.0 % | EXTERNAL | | | POC | | | LAB | | + + + + + + | MCV | 90.0 | 80.0 - 100.0 fl | EXTERNAL | | | | | | LAB | | + + + + + + | MCH | 30.2 | 27.0 - 34.0 pg | EXTERNAL | | | | | | LAB | | + + + + + + | MCHC | 33.6 | 32.0 - 35.5 | EXTERNAL | | | | | g/dL | LAB | | + + + + + + | RDW-CV | 43.3 | 37 - 53 fl | EXTERNAL | | | | | | LAB | | + + + + + + | Platelet | 187 | 150 - 400 K/uL | EXTERNAL | | | Count | | | LAB | | | Plasma | | | | | + + + + + + | MPV | 8.8 | fl | EXTERNAL | | | | | | LAB | | + + + + + + | Differentia | AUTOMATED | | EXTERNAL | | | l Type | | | LAB | | + + + + + + | % Segmented | 75.97 | % | EXTERNAL | | | | | | LAB | | | Neutrophils | | | | | + + + + + + | % | 14.85 | % | EXTERNAL | | | Lymphocytes | | | LAB | | + + + + + + | % Monocytes | 8.00 | % | EXTERNAL | | | | | | LAB | | + + + + + + | % | 0.48 | % | EXTERNAL | | | Eosinophils | | | LAB | | + + + + + + | % Basophils | 0.70 | % | EXTERNAL | | | | | | LAB | | + + + + + + | Absolute | 5.88 | 1.90 - 7.40 | EXTERNAL | | | Segmented | | K/uL | LAB | | | Neutrophils | | | | | + + + + + + | Absolute | 1.15 | 1.00 - 3.90 | EXTERNAL | | | Lymphocytes | | K/uL | LAB | | + + + + + + | Absolute | 0.62 | 0.00 - 0.80 | EXTERNAL | | | Monocytes | | K/uL | LAB | | + + + + + + | Absolute | 0.04 | 0.00 - 0.50 | EXTERNAL | | | Eosinophils | | K/uL | LAB | | + + + + + + | Absolute | 0.06Comment: Testing | 0.00 - 0.10 | EXTERNAL | | | Basophils | performed at [facility], [address] | K/uL | LAB | | | | [address], | | | | | | [place] [address] | | | | + + + [...] + +---------+ + + Basic Metabolic Panel (04/06/2017 4:20 AM PDT) + + + + + + | Component | Value | Ref Range | Performed | Pathologist | | | | | At | Signature | + + + + + + | Na | 140 | 135 - 145 | EXTERNAL | | | | | mmol/L | LAB | | + + + + + + | K | 3.9 | 3.5 - 4.9 | EXTERNAL | | | | | mmol/L | LAB | | + + + + + + | Cl | 108 | 99 - 109 mmol/L | EXTERNAL | | | | | | LAB | | + + + + + + | CO2 | 22 (L) | 23 - 32 mmol/L | EXTERNAL | | | | | | LAB | | + + + + + + | Anion Gap | 14 | 5 - 20 mmol/L | EXTERNAL | | | | | | LAB | | + + + + + + | Glucose, | 100 (H) | 65 - 99 mg/dL | EXTERNAL | | | Fasting | | | LAB | | + + + + + + | BUN | 14 | 8 - 25 mg/dL | EXTERNAL | | | | | | LAB | | + + + + + + | Creatinine | 0.9 | 0.50 - 1.00 | EXTERNAL | | | | | mg/dL | LAB | | + + + + + + | BUN/Creatin | 16 | | EXTERNAL | | | ine Ratio | | | LAB | | + + + + + + | Calcium | 8.3 (L) | 8.5 - 10.5 | EXTERNAL | | | | | mg/dL | LAB | | + + + + + + | Estimated | >60Comment: GFR <60: | mL/min/1.73m2 | EXTERNAL | [...] | | | | | | at [facility], [address] | | | | | [address], | | | | | | [place] [address] | | | | + + + + + + + + | Specimen | + + | Blood specimen | | (specimen) | + + + +---------+ + + | Performing | Address | City/State/Zipcode | Phone Number | | Organization | | | | + +---------+ + + | EXTERNAL LAB | | | | + +---------+ + + CV VASCULAR PROCEDURE (04/05/2017 6:54 PM PDT) + + | Specimen | + + | | + + + + + | Narrative | Performed At | + + + | This Point of Care (POC) ultrasound image has been reviewed and | | | interpreted by the physician identified as the performing physician in | | | the associated interpretation and report. | | + + + + + | Procedure Note | + + | Didier Sepulveda - 06/03/2019 3:27 PM PDT This Point of Care (POC) ultrasound | | image has been reviewed andinterpreted by the physician identified as the performing | | physician in theassociated interpretation and report. | | | + + CV CARDIAC PROCEDURE (04/05/2017 6:45 PM PDT) + + | Specimen | + + | | + + + + | Addenda | + + | Addendum by Terrell Bundy MD on 07/14/2018 4:33 PM Date of service April 04, 2017. | | Addended on | | 08/12/2017 4:35:17 PM by Terrell Bundy MD. 1. Angioplasty for the right coronary | | artery with 2 non-overlapping drug-eluting stents (Promus Premier 4 x 12 mm in the | | mid-right coronary artery and Promus Premier 4 x 16 mm in the proximal right coronary | | artery). 2. Angioplasty for the second obtuse marginal with drug-eluting stent (Promus | | Premier 2.75 x 24 mm) post dilated proximal to 3.25 with bifurcation into the inferior | | branch with balloon angioplasty only, without stent. 3. Right common femoral | | angiogram. 4. Closure of the right common femoral arteriotomy using a 6-Dominican | | Angio-Seal closure device. 5. Conscious sedation. Addended on 04/09/2017 4:37:11 PM by Norman Grayson MD. | + + | Addendum by Terrell Bundy MD on 07/14/2018 4:33 PM Date of service April 04, 2017. | | | + + | Addendum by Terrell Bundy MD on 07/14/2018 4:33 PM 1. Angioplasty for the right | | coronary artery with 2 non-overlapping drug-eluting stents (Promus Premier 4 x 12 mm in | | the mid-right coronary artery and Promus Premier 4 x 16 mm in the proximal right | | coronary artery). 2. Angioplasty for the second obtuse marginal with drug-eluting | | stent (Promus Premier 2.75 x 24 mm) post dilated proximal to 3.25 with bifurcation | | into the inferior branch with balloon angioplasty only, without stent. 3. Right common | | femoral angiogram. 4. Closure of the right common femoral arteriotomy using a 6-Dominican | | Angio-Seal closure device. 5. Conscious sedation. | + + | Addendum by Terrell Bundy MD on 07/14/2018 4:33 PM 1. Angioplasty for the right | | coronary artery with 2 non-overlapping drug-eluting stents (Promus Premier 4 x 12 mm in | | the mid-right coronary artery and Promus Premier 4 x 16 mm in the proximal right | | coronary artery). 2. Angioplasty for the second obtuse marginal with drug-eluting | | stent (Promus Premier 2.75 x 24 mm) post dilated proximal to 3.25 with bifurcation | | into the inferior branch with balloon angioplasty only, without stent. 3. Right common | | femoral angiogram. 4. Closure of the right common femoral arteriotomy using a 6-Dominican | | Angio-Seal closure device. 5. Conscious sedation. | + + + + + | Narrative | Performed At | + + + | | | | | | | DATE OF SERVICE April 05, 2017 PROCEDURES 1. Angioplasty for | | | the right coronary artery with 2 non-overlapping drug-eluting stents | | | (Promus Premier 4 x 12 mm in the mid-right coronary artery and Promus | | | Premier 5 x 16 mm in the proximal right coronary artery). 2. | | | Angioplasty for the second obtuse marginal with drug-eluting stent | | | (Promus Premier 5 x 24 mm) post dilated proximal to 3.25 with | | | bifurcation into the inferior branch with balloon angioplasty only, | | | without stent. 3. Right common femoral angiogram. 4. Closure of the | | | right common femoral arteriotomy using a 6-Dominican Angio-Seal closure | | | device. 5. Conscious sedation. INDICATIONS Ms. Dominguez is an | | | 87-year-old lady with known history of coronary artery disease, | | | ischemic cardiomyopathy who developed unstable angina, evaluated in | | | the clinic and referred for diagnostic angiogram. That was done by | | | Karl. An attempt for LAD LEAD AUDITOR angioplasty yesterday was not | | | successful. Evaluated by cardiothoracic surgery for bypass surgery | | | for targets to the RCA, left circumflex artery, and the LAD. The | | | patient declined bypass surgery and the surgery felt to be also too | | | high risk. She was referred back for angioplasty for the RCA and the | | | left circumflex artery. DESCRIPTION OF PROCEDURE The procedure, | | | details, alternatives, complications were explained for the patient. | | | Informed consent was obtained. The patient was brought to the room | | | and prepped in a sterile fashion. Timeout was performed. Conscious | | | sedation administered by independent observer. The right groin | | | anesthetized with 1% lidocaine. Under fluoroscopic guidance and | | | ultrasound guidance, right common femoral artery cannulized with a | | | micropuncture sheath. Right common femoral angiogram was performed. | | | Then over a guidewire a long 7-Dominican, 45 cm Destination sheath | | | advanced to the descending aorta. The choice of the long sheath was | | | for anticipated needed support with the tortuosity of the left | | | circumflex artery. The patient was given IV heparin and she was | | | preloaded with clopidogrel on the floor. Over a guidewire a 6-Dominican | | | JR4 guide advanced to the ascending aorta, selectively engaging the | | | RCA. Contrast was injected. Selective angiogram was performed in | | | different views. Under fluoroscopic guidance, a short Whisper MS wire | | | was advanced to the distal RCA. Over the wire, a pre-dilatation | | | balloon (Emerge 3.5 x 12 mm) was advanced, inflated at 10 | | | atmospheres. The balloon was removed from the mid-RCA and predilated | | | also the proximal RCA. The balloon was removed. Then over a wire, a | | | stent (Promus Premier 4 x 12 mm) was placed in the mid-RCA, inflated | | | at 14 atmospheres. The stent balloon was removed. Another stent 4 x | | | 16 mm was advanced over the wire to the proximal RCA without | | | overlapping the previous stent, inflated at 16 atmospheres. The | | | balloon and wire were removed. Final angiogram was done showing good | | | angiographic results, LINDSAY 3 flow, no complications. Over a | | | guidewire the guide was exchanged for a 7-Dominican XB3.5 guide that | | | selectively engaged the left main. I tried to advance with difficulty | | | the Whisper MS wire into the second obtuse marginal, but due to the | | | tortuosity and the angle of the takeoff of the second obtuse | | | marginal. Over the wire I was able to advance and Emerge 2.75 x 15 mm | | | balloon over the wire into the obtuse marginal. The superior branch | | | of the second obtuse marginal inflated at 10 atmospheres. The balloon | | | was removed. I noticed the development of ST elevation on the | | | monitor. Angiogram was down showing compromise of the flow in the | | | inferior branch of the second obtuse marginal. I brought another long | | | Whisper MS wire that was advanced carefully into the inferior branch | | | of the second obtuse marginal. The balloon, 2.75 x 15 mm, was | | | advanced over the second Whisper wire into the inferior branch, and | | | inflated at 6 atmospheres. The balloon was removed. LINDSAY 3 flow was | | | reestablished and the ST segment elevation started to resolve. I | | | kept the wire as a andreina wire and over the short Whisper wire that is | | | placed in the superior branch, I tried to advance a stent (Promus | | | Premier 2.75 x 24 mm) but I had a lot of resistance due to the | | | tortuosity of the artery. The stent was removed. I brought a | | | GuideLiner that was advanced to the left main. Then I advanced a | | | Promus Premier stent 2.75 x 24 mm over the short Whisper wire, and | | | with support of the andreina wire and the GuideLiner, with difficulty I | | | was able to advance the stent into the second obtuse marginal. | | | GuideLiner was retrieved into the guide. The long Whisper wire which | | | is in the inferior branch was removed. The stent was inflated at 12 | | | atmospheres. The stent balloon was removed. Then I tried to | | | advance an NC Quantum 3.25 x 12 mm over the wire to post dilate the | | | proximal part of the stent, but I was not able to advance the | | | balloon, so I removed that balloon. I was able to advance a shorter | | | balloon, NC Quantum 3.25 x 8 mm that was advanced successfully into | | | the obtuse marginal, post dilating the stent at 16 atmospheres. The | | | balloon and wire were removed. GuideLiner was removed. Final | | | angiogram was done showing good angiographic results, LINDSAY 3 flow in | | | both branches, without complications. Over a guidewire the guide was | | | removed. The sheath was removed. Arteriotomy closed using a 6-Dominican | | | Angio-Seal closure device with good hemostasis. The patient was | | | transferred back to the room in stable condition. FINDINGS | | | Please refer to Dr. Barajas's note from yesterday regarding the | | | detailed anatomy. Today we intervened on the RCA and the second | | | obtuse marginal, and she has a known case of 100% occlusion of the | | | LAD. CONTRAST USED 114 mL. COMPLICATIONS None. ESTIMATED | | | BLOOD LOSS Minimal. CONCLUSIONS 1. Successful angioplasty for | | | the right coronary artery with 2 non-overlapping drug-eluting stents | | | (Promus Premier 4 x 12 mm in the mid-right coronary artery, and | | | Promus Premier 4 x 16 mm in the proximal right coronary artery). 2. | | | Successful bifurcating angioplasty for the second obtuse marginal | | | using a Promus Premier 2.75 x 24 mm in the superior branch, and | | | balloon angioplasty only for the inferior branch. RECOMMENDATIONS | | | 1. Aspirin 81 mg indefinitely. 2. Clopidogrel 75 mg for 1 year. 3. | | | Aggressive risk factor modifications. 4. Referral to cardiac rehab | | | as an outpatient. Read by TERRELL BUNDY MD 04/05/2017 07:04 P | | | | | + + + + + | Procedure Note | + + | Didier Sepulveda - 06/03/2019 3:27 PM PDT | | | | | | DATE OF SERVICE | | April 05, 2017 | | | | PROCEDURES | | 1. Angioplasty for the right coronary artery with 2 non-overlapping | | drug-eluting stents (Promus Premier 4 x 12 mm in the mid-right coronary | | artery and Promus Premier 5 x 16 mm in the proximal right coronary | | artery). | | 2. Angioplasty for the second obtuse marginal with drug-eluting stent | | (Promus Premier 5 x 24 mm) post dilated proximal to 3.25 with | | bifurcation into the inferior branch with balloon angioplasty only, | | without stent. | | 3. Right common femoral angiogram. | | 4. Closure of the right common femoral arteriotomy using a 6-Dominican | | Angio-Seal closure device. | | 5. Conscious sedation. | | | | INDICATIONS | | Ms. Dominguez is an 87-year-old lady with known history of coronary artery | | disease, ischemic cardiomyopathy who developed unstable angina, evaluated | | in the clinic and referred for diagnostic angiogram. That was done by | | Karl. An attempt for LAD LEAD AUDITOR angioplasty yesterday was not successful. | | Evaluated by cardiothoracic surgery for bypass surgery for targets to the | | RCA, left circumflex artery, and the LAD. The patient declined bypass | | surgery and the surgery felt to be also too high risk. She was referred | | back for angioplasty for the RCA and the left circumflex artery. | | | | DESCRIPTION OF PROCEDURE | | The procedure, details, alternatives, complications were explained for the | | patient. Informed consent was obtained. The patient was brought to the room | | and prepped in a sterile fashion. Timeout was performed. Conscious sedation | | administered by independent observer. The right groin anesthetized with 1% | | lidocaine. Under fluoroscopic guidance and ultrasound guidance, right | | common femoral artery cannulized with a micropuncture sheath. Right common | | femoral angiogram was performed. Then over a guidewire a long 7-Dominican, 45 | | cm Destination sheath advanced to the descending aorta. The choice of the | | long sheath was for anticipated needed support with the tortuosity of the | | left circumflex artery. | | | | The patient was given IV heparin and she was preloaded with clopidogrel on | | the floor. Over a guidewire a 6-Dominican JR4 guide advanced to the ascending | | aorta, selectively engaging the RCA. Contrast was injected. Selective | | angiogram was performed in different views. Under fluoroscopic guidance, a | | short Whisper MS wire was advanced to the distal RCA. Over the wire, a | | pre-dilatation balloon (Emerge 3.5 x 12 mm) was advanced, inflated at 10 | | atmospheres. The balloon was removed from the mid-RCA and predilated also | | the proximal RCA. The balloon was removed. Then over a wire, a stent | | (Promus Premier 4 x 12 mm) was placed in the mid-RCA, inflated at 14 | | atmospheres. The stent balloon was removed. Another stent 4 x 16 mm was | | advanced over the wire to the proximal RCA without overlapping the previous | | stent, inflated at 16 atmospheres. The balloon and wire were removed. Final | | angiogram was done showing good angiographic results, LINDSAY 3 flow, no | | complications. | | | | Over a guidewire the guide was exchanged for a 7-Dominican XB3.5 guide that | | selectively engaged the left main. I tried to advance with difficulty the | | Whisper MS wire into the second obtuse marginal, but due to the tortuosity | | and the angle of the takeoff of the second obtuse marginal. Over the wire I | | was able to advance and Emerge 2.75 x 15 mm balloon over the wire into the | | obtuse marginal. The superior branch of the second obtuse marginal inflated | | at 10 atmospheres. The balloon was removed. I noticed the development of ST | | elevation on the monitor. Angiogram was down showing compromise of the flow | | in the inferior branch of the second obtuse marginal. I brought another | | long Whisper MS wire that was advanced carefully into the inferior branch | | of the second obtuse marginal. The balloon, 2.75 x 15 mm, was advanced over | | the second Whisper wire into the inferior branch, and inflated at 6 | | atmospheres. The balloon was removed. LINDSAY 3 flow was reestablished and the | | ST segment elevation started to resolve. | | | | I kept the wire as a andreina wire and over the short Whisper wire that is | | placed in the superior branch, I tried to advance a stent (Promus Premier | | 2.75 x 24 mm) but I had a lot of resistance due to the tortuosity of the | | artery. The stent was removed. I brought a GuideLiner that was advanced to | | the left main. Then I advanced a Promus Premier stent 2.75 x 24 mm over the | | short Whisper wire, and with support of the andreina wire and the GuideLiner, | | with difficulty I was able to advance the stent into the second obtuse | | marginal. GuideLiner was retrieved into the guide. The long Whisper wire | | which is in the inferior branch was removed. The stent was inflated at 12 | | atmospheres. The stent balloon was removed. | | | | Then I tried to advance an NC Quantum 3.25 x 12 mm over the wire to post | | dilate the proximal part of the stent, but I was not able to advance the | | balloon, so I removed that balloon. I was able to advance a shorter | | balloon, NC Quantum 3.25 x 8 mm that was advanced successfully into the | | obtuse marginal, post dilating the stent at 16 atmospheres. The balloon and | | wire were removed. GuideLiner was removed. Final angiogram was done showing | | good angiographic results, LINDSAY 3 flow in both branches, without | | complications. Over a guidewire the guide was removed. The sheath was | | removed. Arteriotomy closed using a 6-Dominican Angio-Seal closure device with | | good hemostasis. The patient was transferred back to the room in stable | | condition. | | | | FINDINGS | | Please refer to Dr. Barajas's note from yesterday regarding the detailed | | anatomy. Today we intervened on the RCA and the second obtuse marginal, and | | she has a known case of 100% occlusion of the LAD. | | | | CONTRAST USED | | 114 mL. | | | | COMPLICATIONS | | None. | | | | ESTIMATED BLOOD LOSS | | Minimal. | | | | CONCLUSIONS | | 1. Successful angioplasty for the right coronary artery with 2 | | non-overlapping drug-eluting stents (Promus Premier 4 x 12 mm in the | | mid-right coronary artery, and Promus Premier 4 x 16 mm in the proximal | | right coronary artery). | | 2. Successful bifurcating angioplasty for the second obtuse marginal using | | a Promus Premier 2.75 x 24 mm in the superior branch, and balloon | | angioplasty only for the inferior branch. | | | | RECOMMENDATIONS | | 1. Aspirin 81 mg indefinitely. | | 2. Clopidogrel 75 mg for 1 year. | | 3. Aggressive risk factor modifications. | | 4. Referral to cardiac rehab as an outpatient. | | | | Read by TERRELL BUNDY MD 04/05/2017 07:04 P | | | | | + + Activated clotting time (04/05/2017 6:17 PM PDT) + + + + + + | Component | Value | Ref Range | Performed | Pathologist | | | | | At | Signature | + + + + + + | Activated | 197 (H)Comment: Testing | 74 - 137 | EXTERNAL | | | Clotting | performed at [facility];888 | seconds | LAB | | | time, POC | [address];[place], [place] | | | | | | [id number] | | | | + + + + + + + + | Specimen | + + | | + + + +---------+ + + | Performing | Address | City/State/Zipcode | Phone Number | | Organization | | | | + +---------+ + + | EXTERNAL LAB | | | | + +---------+ + + Activated clotting time (04/05/2017 5:40 PM PDT) + + + + + + | Component | Value | Ref Range | Performed | Pathologist | | | | | At | Signature | + + + + + + | Activated | 230 (H)Comment: Testing | 74 - 137 | EXTERNAL | | | Clotting | performed at [facility];888 | seconds | LAB | | | time, POC | [address];[place] | | | | | | [id number] | | | | + + + + + + + + | Specimen | + + | | + + + +---------+ + + | Performing | Address | City/State/Zipcode | Phone Number | | Organization | | | | + +---------+ + + | EXTERNAL LAB | | | | + +---------+ + + Activated clotting time (04/05/2017 5:29 PM PDT) + + + + + + | Component | Value | Ref Range | Performed | Pathologist | | | | | At | Signature | + + + + + + | Activated | 213 (H)Comment: Testing | 74 - 137 | EXTERNAL | | | Clotting | performed at [facility];888 | seconds | LAB | | | time, POC | [address];[place] | | | | | | [id number] | | | | + + + + + + + + | Specimen | + + | | + + + +---------+ + + | Performing | Address | City/State/Zipcode | Phone Number | | Organization | | | | + +---------+ + + | EXTERNAL LAB | | | | + +---------+ + + ECHO Complete w Contrast (04/04/2017 8:41 PM PDT) + + | Specimen | + + | | + + + + + | Impressions | Performed At | + + + | 1. This was a technically difficult study with suboptimal views. 2. | | | The left ventricle is normal in size, mild impaired systolic function | | | EF 40-45%. Akinetic apical, anterior, anterolateral segments. | | | Hypokinesis in the inferior and inferolateral segments. 3. Moderate | | | posterior directed mitral regurgitation. 4. There is no pericardial | | | effusion. | | + + + + + + | Narrative | Performed At | + + + | Patient Name: ALO DOMINGUEZ Date of : 1930 | | | Performing Physician: Omar Barajas | | | | | | INDICATIONS acute mi CONCLUSIONS 1. | | | This was a technically difficult study with suboptimal views. 2. The | | | left ventricle is normal in size, mild impaired systolic function EF | | | 40-45%. Akinetic apical, anterior, anterolateral segments. | | | Hypokinesis in the inferior and inferolateral segments. 3. Moderate | | | posterior directed mitral regurgitation. 4. There is no pericardial | | | effusion. FINDINGS -------- ECG rhythm: Sinus rhythm. Study: A | | | 2-dimensional transthoracic echocardiogram with m-mode, spectral and | | | color flow Doppler was perfomed. Study: This was a technically | | | difficult study with suboptimal views. Left Ventricle: Overall left | | | ventricular systolic function is moderately impaired with, an EF | | | between 35 - 40 %. Left Ventricle: The left ventricle cavity size is | | | normal. Left Ventricle: Sigmoid shaped septum with focal hypertrophy | | | of the basal septum. Akinetic anterior, anterolateral segments. | | | Hypokinesis in the inferior and inferolateral segments. Right | | | Ventricle: The RV was not well visualized. Left Atrium: The left | | | atrium was not well visualized. Right Atrium: The right atrium was | | | not well visualized. Aortic Valve: The aortic valve is trileaflet. | | | Aortic Valve: The aortic valve is mildly calcified. Mitral Valve: | | | Normal appearing mitral valve. Mitral Valve: Moderate mitral | | | regurgitation is present Mitral Valve: , predominately a posteriorly | | | directed jet. Tricuspid Valve: The tricuspid valve was not well | | | visualized. Tricuspid Valve: Mild tricuspid regurgitation present. | | | Pulmonic Valve: The pulmonic valve was not well visualized. Pulmonic | | | Valve: Trace pulmonic regurgitation. Pericardium: There is no | | | pericardial effusion. Pericardium: No pleural effusion seen. | | | IVC/Hepatic Veins: The IVC was not well visualized. Aorta: The aortic | | | root, ascending aorta are within normal dimensions. Contrast: Poor | | | visualization. Definity was used to opacify the left ventricular | | | chamber and improve delineation of the endocardial border. | | | MEASUREMENTS Ao asc: 3.33 cm Ao sinus: 3.51 cm | | | Ao st junct: 3.13 cm LA Diam: 4.11 cm EDV(Teich): 115.89 | | | ml IVSd: 1.35 cm LVIDd: 4.95 cm LVPWd: 1.07 cm LVOT Diam: | | | 1.85 cm IVSs: 1.71 cm LVPWs: 1.50 cm LVEF MOD A2C: | | | 49.64 % SV MOD A2C: 56.02 ml LVEF MOD A4C: 29.76 % SV MOD | | | A4C: 35.16 ml EF Biplane: 39.68 % LVEDV MOD BP: 119.28 ml | | | LVESV MOD BP: 71.94 ml LVEDV MOD A2C: 112.85 ml LVLd A2C: | | | 8.20 cm LVEDV MOD A4C: 118.14 ml LVLd A4C: 7.95 cm LVESV MOD | | | A2C: 56.82 ml LVLs A2C: 7.21 cm LVESV MOD A4C: 82.98 ml | | | LVLs A4C: 6.40 cm LAAs A4C: 18.27 cm2 LAESV A-L A4C: 64.39 | | | ml LAESV MOD A4C: 61.89 ml LALs A4C: 4.40 cm Ao Diam: 3.49 | | | cm AV Cusp: 2.12 cm D-E Excursion: 1.60 cm E-F Brazos: | | | 0.11 m/s EPSS: 0.97 cm HR: 66.43 BPM AV maxP.68 mmHg | | | AV meanP.51 mmHg AV Vmax: 1.29 m/s AV Vmean: 0.87 m/s | | | AV VTI: 28.53 cm EDITH Vmax: 1.60 cm2 EDITH (VTI): 1.54 cm2 | | | AVAI Vmax: 0.00 cm2/m2 AVAI (VTI): 0.00 cm2/m2 LVCI Dopp: | | | 1.58 l/minm2 LVCO Dopp: 2.80 l/min HR: 63.75 BPM LVOT maxPG: | | | 2.38 mmHg LVOT meanP.14 mmHg LVSI Dopp: 24.85 ml/m2 | | | LVSV Dopp: 43.99 ml LVOT Vmax: 0.77 m/s LVOT Vmean: 0.49 | | | m/s LVOT VTI: 16.37 cm MV A Jett: 0.75 m/s MV DecT: 191.91 | | | ms MV E Jett: 0.98 m/s MV E/A Ratio: 1.30 MV PHT: 56.44 ms | | | MVA By PHT: 3.89 cm2 MV A Dur: 173.01 ms Septal e': 0.05 | | | m/s Septal E/e': 19.30 Lateral e': 0.06 m/s Lateral E/e': | | | 14.27 TR maxP.97 mmHg TR Vmax: 2.73 m/s TV A Jett: | | | 0.44 m/s TV Dec Brazos: 1.74 m/s2 TV Dec Time: 256.04 ms TV E | | | Jett: 0.44 m/s TV E/A Ratio: 1 Dining Service Inspector: CM | | | Authenticated by: Omar Karl Report Date/Time: 04-04-2017 | | | 22:24:51 | | + + + + ---------+ | Procedure Note | + ---------+ | Didier Sepulveda Conversion - 05/28/2019 4:48 AM PDT Patient Name: Monalisa DOMINGUEZ of | | : 1930 Performing Physician: Omar | | [facility] INDICATIONS------ | | -----acute mi CONCLUSIONS 1. This was a technically difficult study with | | suboptimal views.2. The left ventricle is normal in size, mild impaired systolic | | function EF 40-45%. Akinetic apical, anterior, anterolateral segments. Hypokinesis in | | the inferior and inferolateral segments.3. Moderate posterior directed mitral | | regurgitation.4. There is no pericardial effusion. FINDINGS--------ECG rhythm: Sinus | | rhythm.Study: A 2-dimensional transthoracic echocardiogram with m-mode, spectral and | | color flow Doppler was perfomed.Study: This was a technically difficult study with | | suboptimal views.Left Ventricle: Overall left ventricular systolic function is | | moderately impaired with, an EF between 35 - 40 %.Left Ventricle: The left ventricle | | cavity size is normal.Left Ventricle: Sigmoid shaped septum with focal hypertrophy of | | the basal septum. Akinetic anterior, anterolateral segments. Hypokinesis in the inferior | | and inferolateral segments.Right Ventricle: The RV was not well visualized.Left Atrium: | | The left atrium was not well visualized.Right Atrium: The right atrium was not well | | visualized.Aortic Valve: The aortic valve is trileaflet.Aortic Valve: The aortic valve | | is mildly calcified.Mitral Valve: Normal appearing mitral valve.Mitral Valve: Moderate | | mitral regurgitation is presentMitral Valve: , predominately a posteriorly directed | | jet.Tricuspid Valve: The tricuspid valve was not well visualized.Tricuspid Valve: Mild | | tricuspid regurgitation present.Pulmonic Valve: The pulmonic valve was not well | | visualized.Pulmonic Valve: Trace pulmonic regurgitation.Pericardium: There is no | | pericardial effusion.Pericardium: No pleural effusion seen.IVC/Hepatic Veins: The IVC | | was not well visualized.Aorta: The aortic root, ascending aorta are within normal | | dimensions.Contrast: Poor visualization. Definity was used to opacify the left | | ventricular chamber and improve delineation of the endocardial border. | | MEASUREMENTS Ao asc: 3.33 cmAo sinus: 3.[address] junct: 3.13 cmLA | | Diam: 4.11 cmEDV(Teich): 115.89 mlIVSd: 1.35 cmLVIDd: 4.95 cmLVPWd: 1.07 | | cmLVOT Diam: 1.85 cmIVSs: 1.71 cmLVPWs: 1.50 cmLVEF MOD A2C: 49.64 %SV MOD A2C: | | 56.02 mlLVEF MOD A4C: 29.76 %SV MOD A4C: 35.16 mlEF Biplane: 39.68 %LVEDV MOD | | BP: 119.28 mlLVESV MOD BP: 71.94 mlLVEDV MOD A2C: 112.85 mlLVLd A2C: 8.20 | | cmLVEDV MOD A4C: 118.14 mlLVLd A4C: 7.95 cmLVESV MOD A2C: 56.82 mlLVLs A2C: 7.21 | | cmLVESV MOD A4C: 82.98 mlLVLs A4C: 6.40 cmLAAs A4C: 18.27 [id number] A-L A4C: | | 64.39 mlLAESV MOD A4C: 61.89 mlLALs A4C: 4.40 cmAo Diam: 3.49 cmAV Cusp: 2.12 | | cmD-E Excursion: 1.60 cmE-F Brazos: 0.11 m/sEPSS: 0.97 cmHR: 66.43 BPMAV maxPG: | | 6.68 mmHgAV meanP.51 mmHgAV Vmax: 1.29 m/José Miguel Vmean: 0.87 m/José Miguel VTI: 28.53 | | cmAVA Vmax: 1.60 cm2AVA (VTI): 1.54 [id number] Vmax: 0.00 cm2/m2AVAI (VTI): 0.00 | | cm2/m2LVCI Dopp: 1.58 l/[id number] Dopp: 2.80 l/minHR: 63.75 BPMLVOT maxP.38 | | mmHgLVOT meanP.14 mmHgLVSI Dopp: 24.85 ml/m2LVSV Dopp: 43.99 mlLVOT Vmax: | | 0.77 m/sLVOT Vmean: 0.49 m/sLVOT VTI: 16.37 cmMV A Jett: 0.75 m/sMV DecT: 191.91 | | msMV E Jett: 0.98 m/sMV E/A Ratio: 1.30MV PHT: 56.44 msMVA By PHT: 3.89 cm2MV A | | Dur: 173.01 msSeptal e': 0.05 m/sSeptal E/e': 19.30Lateral e': 0.06 m/sLateral | | E/e': 14.27TR maxP.97 mmHgTR Vmax: 2.73 m/sTV A Jett: 0.44 m/sTV Dec Braz[place]: | | 1.74 m/s2TV Dec Time: 256.04 msTV E Jett: 0.44 m/sTV E/A Ratio: 1 Dining Service Inspector: | | CMAuthenticated by: Omar ArellanoProvidence St. [facility] Date/Time: 04-04-2017 22:24:51 IMPRESSION: 1. | | This was a technically difficult study with suboptimal views.2. The left ventricle is | | normal in size, mild impaired systolic function EF 40-45%. Akinetic apical, anterior, | | anterolateral segments. Hypokinesis in the inferior and inferolateral segments.3. | | Moderate posterior directed mitral regurgitation.4. There is no pericardial effusion. | |Ao st junct: 3.13 cm | |LA Diam: 4.11 cm | |EDV(Teich): 115.89 ml | |IVSd: 1.35 cm | |LVIDd: 4.95 cm | |LVPWd: 1.07 cm | |LVOT Diam: 1.85 cm | |IVSs: 1.71 cm | |LVPWs: 1.50 cm | |LVEF MOD A2C: 49.64 % | |SV MOD A2C: 56.02 ml | |LVEF MOD A4C: 29.76 % | |SV MOD A4C: 35.16 ml | |EF Biplane: 39.68 % | |LVEDV MOD BP: 119.28 ml | |LVESV MOD BP: 71.94 ml | |LVEDV MOD A2C: 112.85 ml | |LVLd A2C: 8.20 cm | |LVEDV MOD A4C: 118.14 ml | |LVLd A4C: 7.95 cm | |LVESV MOD A2C: 56.82 ml | |LVLs A2C: 7.21 cm | |LVESV MOD A4C: 82.98 ml | |LVLs A4C: 6.40 cm | |LAAs A4C: 18.27 cm2 | |LAESV A-L A4C: 64.39 ml | |LAESV MOD A4C: 61.89 ml | |LALs A4C: 4.40 cm | |Ao Diam: 3.49 cm | |AV Cusp: 2.12 cm | |D-E Excursion: 1.60 cm | |E-F [place]raz[place]: 0.11 m/s | |EPSS: 0.97 cm | |HR: 66.43 BPM | |AV maxP.68 mmHg | |AV meanP.51 mmHg | |AV Vmax: 1.29 m/s | |AV Vmean: 0.87 m/s | |AV VTI: 28.53 cm | |EDITH Vmax: 1.60 cm2 | |EDITH (VTI): 1.54 cm2 | |AVAI Vmax: 0.00 cm2/m2 | |AVAI (VTI): 0.00 cm2/m2 | |LVCI Dopp: 1.58 l/minm2 | |LVCO Dopp: 2.80 l/min | |HR: 63.75 BPM | |LVOT maxP.38 mmHg | |LVOT meanP.14 mmHg | |LVSI Dopp: 24.85 ml/m2 | |LVSV Dopp: 43.99 ml | |LVOT Vmax: 0.77 m/s | |LVOT Vmean: 0.49 m/s | |LVOT VTI: 16.37 cm | |MV A Jett: 0.75 m/s | |MV DecT: 191.91 ms | |MV E Jett: 0.98 m/s | |MV E/A Ratio: 1.30 | |MV PHT: 56.44 ms | |MVA By PHT: 3.89 cm2 | |MV A Dur: 173.01 ms | |Septal e': 0.05 m/s | |Septal E/e': 19.30 | |Lateral e': 0.06 m/s | |Lateral E/e': 14.27 | |TR maxP.97 mmHg | |TR Vmax: 2.73 m/s | |TV A Jett: 0.44 m/s | |TV Dec B[place]: 1.74 m/s2 | |TV Dec Time: 256.04 ms | |TV E Jett: 0.44 m/s | |TV E/A Ratio: 1 | | | |Dining Service Inspector: CM | |Authenticated by: Omar Barajas | |Report Date/Time: 04-04-2017 22:24:51 | | | |IMPRESSION: | |1. This was a technically difficult study with suboptimal views. | |2. The left ventricle is normal in size, mild impaired systolic function EF 40-45%. Akinet ic apical, anterior, anterolateral segments. Hypokinesis in the inferior and inferolateral s egments. | |3. Moderate posterior directed mitral regurgitation. | |4. There is no pericardial effusion. | + ---------+ CV CARDIAC PROCEDURE (04/04/2017 7:28 PM PDT) + + | Specimen | + + | | + + + + + | Narrative | Performed At | + + + | | | | | | | DATE OF SERVICE April 05, 2017 PROCEDURES 1. Unsuccessful | | | attempt for left anterior descending artery chronic total occlusion | | | angioplasty, complicated with small perforation. 2. Right common | | | femoral angiogram. 3. Closure of the right common femoral arteriotomy | | | using a 6-Dominican Angio-Seal closure device. SURGEON Terrell | | | MD Magdalene INDICATIONS Ms. Alo Dominguez is an 87-year-old lady | | | with known history of coronary artery disease and previous | | | angioplasty for the left circumflex artery, ischemic cardiomyopathy, | | | who started to develop new onset of chest pain for the last 2 weeks. | | | Evaluated in the clinic and diagnosed with unstable angina. Referred | | | for left heart catheterization and for further evaluation. She | | | underwent a diagnostic left heart catheterization by Dr. Barajas. She | | | was found to have 3-vessel disease including RCA, second obtuse | | | marginal, and an LAD that is a LEAD AUDITOR. I was asked to attempt for the | | | LAD LEAD AUDITOR for further evaluation down the road for bypass surgery | | | versus angioplasty. DESCRIPTION OF PROCEDURE The procedure, | | | details, alternatives, complications were explained for the patient. | | | Informed consent was obtained. The patient was in the room and | | | finished her diagnostic angiogram by Dr. Barajas, through her right | | | common femoral artery. I walked to the room. A new timeout was | | | performed. Over a guidewire the 6-Dominican sheath was exchanged for a | | | 7-Dominican sheath into the right common femoral artery. The patient was | | | given IV heparin. Over a guidewire a 7-Dominican XB 3.5 guide advanced | | | to the ascending aorta, selectively engaging the left main. With | | | support of a Finecross, I tried to advance a Manufacturing Operations Manager 150 wire through | | | the LAD with difficulty, to find the origin of the LAD. I could not | | | advance the menhaden vessel pilot further so I removed the Manufacturing Operations Manager. I brought a | | | Miraclebros 3 to the LAD with support of the Finecross. I was able to | | | advance the Miraclebros along the course of the LAD as seen by the | | | calcifications. I tried to advance the Finecross over the Miraclebros | | | without success. I removed the Finecross. I brought a Turnpike LP | | | that was advanced over the Miraclebros, and with difficulty I was | | | able to advance the Turnpike LP catheter over the Miraclebros. I | | | removed the wire. I tried to do distal injections through the | | | Turnpike to confirm intraluminal position, but there was no blood | | | retrieved. Injection through the guide showed some [id number] | | | collaterals through the left circumflex artery and it showed that the | | | Turnpike was not along the course of the LAD, with possibility of | | | perforation. I removed the Turnpike, and another injection confirmed | | | evidence of small perforation along the course of the LAD. The | | | patient was given protamine sulfate to reverse the heparin action. A | | | stat echo was ordered. The patient was having chest pain, more likely | | | due to the pericardial irritation, but angiogram confirmed patency | | | of the left circumflex artery. Over a guidewire the guide was | | | exchanged for a 6-Dominican JR4 diagnostic catheter that selectively | | | engaged the RCA. Contrast was injected. Angiogram showed patency of | | | the RCA, without significant changes from the diagnostic angiogram. | | | The catheter was removed. A stat echo ruled out any pericardial | | | effusion. Right common femoral angiogram was performed. The sheath | | | was removed. The arteriotomy was controlled using a 6-Dominican | | | Angio-Seal closure device with good hemostasis. The patient was | | | admitted to the inpatient unit allergic interstitial nephritis stable | | | condition, for further observation. FINDINGS For hemodynamics | | | and angiogram, please refer to Dr. Barajas's note. COMPLICATIONS | | | Perforation along the course of the LAD. ESTIMATED BLOOD LOSS | | | Minimal. CONCLUSION Unsuccessful attempt for angioplasty for a | | | left anterior descending artery chronic total occlusion. | | | RECOMMENDATIONS Discussed with the patient bypass surgery versus | | | angioplasty for the RCA and the left circumflex artery. Read by | | | TERRELL BUNDY MD 04/05/2017 06:54 P | | + + + + + | Procedure Note | + + | Didier Sepulveda Conversion - 06/03/2019 3:27 PM PDT | | | | | | DATE OF SERVICE | | April 05, 2017 | | | | PROCEDURES | | 1. Unsuccessful attempt for left anterior descending artery chronic total | | occlusion angioplasty, complicated with small perforation. | | 2. Right common femoral angiogram. | | 3. Closure of the right common femoral arteriotomy using a 6-Dominican | | Angio-Seal closure device. | | | | SURGEON | | Terrell Bundy MD | | | | INDICATIONS | | Ms. Alo Dominguez is an 87-year-old lady with known history of coronary | | artery disease and previous angioplasty for the left circumflex artery, | | ischemic cardiomyopathy, who started to develop new onset of chest pain for | | the last 2 weeks. Evaluated in the clinic and diagnosed with unstable | | angina. Referred for left heart catheterization and for further evaluation. | | | | She underwent a diagnostic left heart catheterization by Dr. Barajas. She | | was found to have 3-vessel disease including RCA, second obtuse marginal, | | and an LAD that is a LEAD AUDITOR. I was asked to attempt for the LAD LEAD AUDITOR for | | further evaluation down the road for bypass surgery versus angioplasty. | | | | DESCRIPTION OF PROCEDURE | | The procedure, details, alternatives, complications were explained for the | | patient. Informed consent was obtained. The patient was in the room and | | finished her diagnostic angiogram by Dr. Barajas, through her right common | | femoral artery. I walked to the room. A new timeout was performed. Over a | | guidewire the 6-Dominican sheath was exchanged for a 7-Dominican sheath into the | | right common femoral artery. The patient was given IV heparin. Over a | | guidewire a 7-Dominican XB 3.5 guide advanced to the ascending aorta, | | selectively engaging the left main. With support of a Finecross, I tried to | | advance a Manufacturing Operations Manager 150 wire through the LAD with difficulty, to find the | | origin of the LAD. I could not advance the menhaden vessel pilot further so I removed the | | Manufacturing Operations Manager. I brought a Miraclebros 3 to the LAD with support of the Finecross. | | I was able to advance the Miraclebros along the course of the LAD as seen | | by the calcifications. I tried to advance the Finecross over the | | Miraclebros without success. I removed the Finecross. | | | | I brought a Turnpike LP that was advanced over the Miraclebros, and with | | difficulty I was able to advance the Turnpike LP catheter over the | | Miraclebros. I removed the wire. I tried to do distal injections through | | the Turnpike to confirm intraluminal position, but there was no blood | | retrieved. Injection through the guide showed some kqlg-ce-dobz collaterals | | through the left circumflex artery and it showed that the Turnpike was not | | along the course of the LAD, with possibility of perforation. I removed the | | Turnpike, and another injection confirmed evidence of small perforation | | along the course of the LAD. The patient was given protamine sulfate to | | reverse the heparin action. A stat echo was ordered. The patient was having | | chest pain, more likely due to the pericardial irritation, but angiogram | | confirmed patency of the left circumflex artery. Over a guidewire the guide | | was exchanged for a 6-Dominican JR4 diagnostic catheter that selectively | | engaged the RCA. Contrast was injected. Angiogram showed patency of the | | RCA, without significant changes from the diagnostic angiogram. | | | | The catheter was removed. A stat echo ruled out any pericardial effusion. | | Right common femoral angiogram was performed. The sheath was removed. The | | arteriotomy was controlled using a 6-Dominican Angio-Seal closure device with | | good hemostasis. 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 | | | | FINDINGS | | For hemodynamics and angiogram, please refer to Dr. Barajas's note. | | | | COMPLICATIONS | | Perforation along the course of the LAD. | | | | ESTIMATED BLOOD LOSS | | Minimal. 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 | | | | RECOMMENDATIONS | | Discussed with the patient bypass surgery versus angioplasty for the RCA | | and the left circumflex artery. | | | | Read by TERRELL BUNDY MD 04/05/2017 06:54 P | | | | | + + Activated clotting time (04/04/2017 6:53 PM PDT) + + + + + + | Component | Value | Ref Range | Performed | Pathologist | | | | | At | Signature | + + + + + + | Activated | 235 (H)Comment: Testing | 74 - 137 | EXTERNAL | | | Clotting | performed at [facility];888 | seconds | LAB | | | time, POC | [place] | | | | | | [address] | | | | + + + + + + + + | Specimen | + + | | + + + +---------+ + + | Performing | Address | City/State/Zipcode | Phone Number | | Organization | | | | + +---------+ + + | EXTERNAL LAB | | | | + +---------+ + + CV CARDIAC PROCEDURE (04/04/2017 5:45 PM PDT) + + | Specimen | + + | | + + + + + | Narrative | Performed At | + + + | | | | | | | DATE OF SERVICE April 04, 2017 PROCEDURES 1. Attempted right | | | radial access. 2. Right femoral artery access. 3. Coronary | | | angiogram. INDICATIONS This is an 87-year-old female who is | | | active, independent, a good historian, presented with unstable | | | anginal symptoms for the last 2 weeks. She has history of coronary | | | artery disease with a previous PCI to left circumflex in 2015. Given | | | patient's typical symptoms, left heart catheterization was indicated. | | | PROCEDURE NOTE Patient was brought electively to the heart | | | catheterization lab. Consent was obtained after reviewing risks and | | | benefits. Was prepped in the usual sterile manner. Timeout was | | | performed at the bedside. Patient received IV fentanyl and Versed via | | | independent observer. Right wrist was anesthetized with 1% | | | lidocaine. Attempted right radial access over wire. The access wire | | | will not go past the mid elbow site, hence right radial approach was | | | aborted. Right groin was anesthetized with 1% lidocaine. Micropuncture | | | needle was used to access right femoral artery. A 6-Dominican sheath | | | was introduced without any difficulty. Sheath was flushed and | | | hemodynamic system was calibrated. Opening pressure was obtained. | | | Using a 0.035 J wire advanced into the ascending aorta, a 6-Dominican | | | JL4 catheter was used, advanced over the wire and placed selectively | | | in the left coronary cusp. Wire was removed and catheter was flushed. | | | Catheter engaged selectively in the left coronary system. Contrast | | | was injected and multiple views were obtained. Exchange over the wire | | | was done with a 6-Dominican JR4 catheter that engaged the right | | | coronary artery selectively. Contrast was injected and multiple views | | | were obtained. Catheter was removed over the wire. The patient | | | tolerated the procedure well, without any complications. CONTRAST | | | USED 40 mL. COMPLICATIONS None. ESTIMATED BLOOD LOSS Less | | | than 10 mL. HEMODYNAMICS Opening pressure was 140/68 with a mean | | | 98. ANGIOGRAPHIC FINDINGS 1. Left main is a large-caliber vessel | | | with a normal origin and bifurcation to LAD and left circumflex with | | | mild nonsignificant angiographic disease. 2. LAD has 100% ostial | | | occlusion. Known from prior angiogram. 3. Left circumflex is a | | | large-caliber vessel that has proximal patent stent, bifurcates to OM | | | branches. The first OM branch is bifurcating artery with moderate | | | size with a mid segment 90% stenosis before the bifurcation. The rest | | | of the circumflex has mild diffuse disease. 4. RCA is a | | | large-caliber, dominant vessel with ostial 70% stenosis and a mid | | | segment 90% stenosis. The rest of the RCA has mild diffuse disease. | | | RCA distally gives wbdpm-pj-fsrj collaterals to mid LAD. | | | CONCLUSION 1. Severe triple-vessel coronary artery disease; 100% | | | occluded ostial left anterior descending, severe disease in the first | | | obtuse marginal branch, severe disease in the right coronary artery. | | | 2. Patent stent in the proximal left circumflex system. | | | RECOMMENDATIONS 1. Given patient's findings, would proceed with PCI | | | with Dr. Bundy. 2. Patient will continue on medical therapy for | | | coronary artery disease. 3. Further recommendations after angiogram. | | | Read by OMAR BARAJAS MD 04/05/2017 07:18 A Electronically | | | signed by Omar Barajas MD on 04/22/2017 12:28 PM | | + + + + + | Procedure Note | + + | Didier Sepulveda - 06/03/2019 3:27 PM PDT | | | | | | DATE OF SERVICE | | April 04, 2017 | | | | PROCEDURES | | 1. Attempted right radial access. | | 2. Right femoral artery access. | | 3. Coronary angiogram. | | | | INDICATIONS | | This is an 87-year-old female who is active, independent, a good historian, | | presented with unstable anginal symptoms for the last 2 weeks. She has | | history of coronary artery disease with a previous PCI to left circumflex | | in 2014. Given patient's typical symptoms, left heart catheterization was | | indicated. | | | | PROCEDURE NOTE | | Patient was brought electively to the heart catheterization lab. Consent | | was obtained after reviewing risks and benefits. Was prepped in the usual | | sterile manner. Timeout was performed at the bedside. Patient received IV | | fentanyl and Versed via independent observer. Right wrist was anesthetized | | with 1% lidocaine. Attempted right radial access over wire. The access wire | | will not go past the mid elbow site, hence right radial approach was | | aborted. Right groin was anesthetized with 1% lidocaine. Micropuncture | | needle was used to access right femoral artery. A 6-Dominican sheath was | | introduced without any difficulty. Sheath was flushed and hemodynamic | | system was calibrated. Opening pressure was obtained. | | | | Using a 0.035 J wire advanced into the ascending aorta, a 6-Dominican JL4 | | catheter was used, advanced over the wire and placed selectively in the | | left coronary cusp. Wire was removed and catheter was flushed. Catheter | | engaged selectively in the left coronary system. Contrast was injected and | | multiple views were obtained. Exchange over the wire was done with a | | 6-Dominican JR4 catheter that engaged the right coronary artery selectively. | | Contrast was injected and multiple views were obtained. Catheter was | | removed over the wire. The patient tolerated the procedure well, without | | any complications. | | | | CONTRAST USED | | 40 mL. | | | | COMPLICATIONS | | None. | | | | ESTIMATED BLOOD LOSS | | Less than 10 mL. | | | | HEMODYNAMICS | | Opening pressure was 140/68 with a mean 98. | | | | ANGIOGRAPHIC FINDINGS | | 1. Left main is a large-caliber vessel with a normal origin and bifurcation | | to LAD and left circumflex with mild nonsignificant angiographic | | disease. | | 2. LAD has 100% ostial occlusion. Known from prior angiogram. | | 3. Left circumflex is a large-caliber vessel that has proximal patent | | stent, bifurcates to OM branches. The first OM branch is bifurcating | | artery with moderate size with a mid segment 90% stenosis before the | | bifurcation. The rest of the circumflex has mild diffuse disease. | | 4. RCA is a large-caliber, dominant vessel with ostial 70% stenosis and a | | mid segment 90% stenosis. The rest of the RCA has mild diffuse disease. | | RCA distally gives easfa-di-pctb collaterals to mid LAD. | | | | CONCLUSION | | 1. Severe triple-vessel coronary artery disease; 100% occluded ostial left | | anterior descending, severe disease in the first obtuse marginal branch, | | severe disease in the right coronary artery. | | 2. Patent stent in the proximal left circumflex system. | | | | RECOMMENDATIONS | | 1. Given patient's findings, would proceed with PCI with Dr. Bundy. | | 2. Patient will continue on medical therapy for coronary artery disease. | | 3. Further recommendations after angiogram. | | | | Read by OMAR BARAJAS MD 04/05/2017 07:18 A | | | | | + + CBC no Differential (04/04/2017 12:58 PM PDT) + + + + + + | Component | Value | Ref Range | Performed | Pathologist | | | | | At | Signature | + + + + + + | WBC | 8.23 | 3.80 - 11.00 | EXTERNAL | | | | | K/uL | LAB | | + + + + + + | RED CELL | 4.41 | 3.70 - 5.10 | EXTERNAL | | | COUNT | | M/uL | LAB | | + + + + + + | Hgb | 13.1 | 11.3 - 15.5 | EXTERNAL | | | | | g/dL | LAB | | + + + + + + | Hematocrit, | 38.8 | 34.0 - 46.0 % | EXTERNAL | | | POC | | | LAB | | + + + + + + | MCV | 88.1 | 80.0 - 100.0 fl | EXTERNAL | | | | | | LAB | | + + + + + + | MCH | 29.8 | 27.0 - 34.0 pg | EXTERNAL | | | | | | LAB | | + + + + + + | MCHC | 33.8 | 32.0 - 35.5 | EXTERNAL | | | | | g/dL | LAB | | + + + + + + | RDW-CV | 45.1 | 37 - 53 fl | EXTERNAL | | | | | | LAB | | + + + + + + | Platelet | 213 | 150 - 400 K/uL | EXTERNAL | | | Count | | | LAB | | | Plasma | | | | | + + + + + + | MPV | 8.3Comment: Testing | fl | EXTERNAL | | | | performed at [facility];[address] | | LAB | | | | [address] | | | | | | [address] | | | | + + + + + + + + | Specimen | + + | | + + + +---------+ + + | Performing | Address | City/State/Zipcode | Phone Number | | Organization | | | | + +---------+ + + | EXTERNAL LAB | | | | + +---------+ + + Basic Metabolic Panel (04/04/2017 12:58 PM PDT) + + + + + + | Component | Value | Ref Range | Performed | Pathologist | | | | | At | Signature | + + + + + + | Na | 140 | 135 - 145 | EXTERNAL | | | | | mmol/L | LAB | | + + + + + + | K | 4.3 | 3.5 - 4.9 | EXTERNAL | | | | | mmol/L | LAB | | + + + + + + | Cl | 105 | 99 - 109 mmol/L | EXTERNAL | | | | | | LAB | | + + + + + + | CO2 | 26 | 23 - 32 mmol/L | EXTERNAL | | | | | | LAB | | + + + + + + | Anion Gap | 14 | 5 - 20 mmol/L | EXTERNAL | | | | | | LAB | | + + + + + + | Glucose, | 91 | 65 - 99 mg/dL | EXTERNAL | | | Fasting | | | LAB | | + + + + + + | BUN | 22 | 8 - 25 mg/dL | EXTERNAL | | | | | | LAB | | + + + + + + | Creatinine | 1.2 (H) | 0.50 - 1.00 | EXTERNAL | | | | | mg/dL | LAB | | + + + + + + | BUN/Creatin | 19 | | EXTERNAL | | | ine Ratio | | | LAB | | + + + + + + | Calcium | 9.4 | 8.5 - 10.5 | EXTERNAL | | | | | [...] | | | | | | at [facility];[address] [place] [address] | | | | | | [facility];[place] [address] | | | | + + + [...] + | Diagnosis | + + | CAD in [place] artery Coronary atherosclerosis of [place] coronary artery | + + | Chest tightness or pressure Other chest pain | + + | Shortness of breath | + + | Sinus bradycardia Other specified cardiac dysrhythmias | + + | Chronic kidney disease, stage III (moderate) (HCC) Chronic kidney disease, Stage III | | (moderate) | + + | Mixed hyperlipidemia | + + | Chest pain, unspecified type | + + documented in this encounter
--- OUTSIDE RECORDS SUMMARY | ~2019-08-28 | XMS | Encounter Summary ---
Demographics + + + | Address | [address] | | | [place] [address] | + + + | Home Phone | | + + + | Preferred Language | Unknown | + + + | Marital Status | | + + + | Hoahaoism Affiliation | 1028 | + + + [...] Team Providers + +------+ + | Care Vertical Roll Operator Name | Role | Phone | + +------+ + | Bubba Peña MD | PCP | | + +------+ + Encounter Details +--------+ + + + + | Date | Type | Department | Care Team | Description | +--------+ + + + + | 04/29/ | Orders Only | [facility] | Conversion | | | 2019 | | NEPHROLOGY DANIEL | Transaction, | | | | | [address] | Provider Unknown | | | | | [address] | [phone] | | | | | [address] | (Fax) | | | | | [phone] | | | +--------+ + + + [...] | | | | | [address] [place], [place] | | | | | | [address] | | | | | | | | +--------+---------+ + + + documented as of this encounter Procedures + +--------+ + + + | Procedure Name | Priori | Date/Time | Associated Diagnosis | Comments | | | ty | | | | + +--------+ + + + | URIC ACID | Routin | 04/29/2019 | | Results for this | | | e | 11:46 AM | | procedure are in the | | | | PDT | | results section. | + +--------+ + + + documented in this encounter Results Uric Acid (04/29/2019 11:46 AM PDT) + +---------+ + + + | Component | Value | Ref Range | Performed | Pathologist | | | | | At | Signature | + +---------+ + + + | Uric Acid | 7.5 (A) | 2.3 - 6.6 | EXTERNAL [...]
--- OUTSIDE RECORDS SUMMARY | ~2019-08-28 | XMS | Encounter Summary ---
Demographics + + + | Address | [address] | | | [place] [address] | + + + | Home Phone | | + + + | Preferred Language | Unknown | + + + | Marital Status | | + + + | Faith Affiliation | 1028 | + + + | Race | Unknown | + + + | Ethnic Group | Unknown | + + + Author + + + | Author | [facility] | | | and [place] | + + + | Organization | [facility] | | | and [...] Providers + +------+ + | Care Director Emergency Services Name | Role | Phone | + +------+ + PCP | Unavailable | + +------+ + Encounter Details +--------+ + + + + | Date | Type | Department | Care Team | Description | +--------+ + + + + | 07/24/ | Hospital | [facility] | | | | 2009 - | Encounter | MED CTR CANCER | | | | | | [address] | | | | 08/13/ | | [place] | | | | 2009 | | [address] | | | | | | [phone] | | | +--------+ + + + [...] [place] | | | | | | [address] | | | | | | | | +--------+---------+ + + + documented as of this encounter Visit Diagnoses Not on filedocumented in this encounter"
--- OUTSIDE RECORDS SUMMARY | ~2019-08-28 | XMS | Encounter Summary ---
Demographics + + + | Address | [address] | | | [place] [address] | + + + | Home Phone | | + + + | Preferred Language | Unknown | + + + | Marital Status | | + + + | Mosque Affiliation | 1028 | + + + | Race | Unknown | + + + | Ethnic Group | Unknown | + + + Author + + + | Author | [facility] | | | and [place] | + + + | Organization | [facility] | | | [...] Team Providers + +------+ + | Care Um Rn Name | Role | Phone | + +------+ + PCP | Unavailable | + +------+ + Encounter Details +--------+ + + + + | Date | Type | Department | Care Team | Description | +--------+ + + + + | 01/10/ | Hospital | [facility] | | | | 2008 - | Encounter | MED CTR CANCER | | | | | | [address] | | | | 01/11/ | | [place] | | | | 2008 | | [address] | | | | | | [phone] | | | +--------+ + + + [...] [place] | | | | | | [address] | | | | | | | | +--------+---------+ + + + documented as of this encounter Visit Diagnoses Not on filedocumented in this encounter"
--- OUTSIDE RECORDS SUMMARY | ~2019-08-28 | XMS | Encounter Summary ---
Demographics + + + | Address | [address] | | | [place] [address] | + + + | Home Phone | | + + + | Preferred Language | Unknown | + + + | Marital Status | | + + + | Holiness Affiliation | 1028 | + + + [...] Team Providers + +------+ + | Care Second Hand Paper Machine Name | Role | Phone | + [...] | | [address] | [place] [address] | location, | | | | [place] | [phone] | unspecified back | | | | [address] | | pain laterality, | | | | [phone] | | unspecified | | | | [...] | 02/09/ Office | Cardiology | Garcia Barajas, | | | 2019 | Visit | | MD Ashlie ALFARO | | | | | | [place], [place] | | | | | | [address] | | | | | | | [...] [address] | [place] | [phone] | | [facility] | | [address] | | | - IMAGING | | | | + + + + + documented in this encounter Visit Diagnoses + + | Diagnosis | + + | Back pain, unspecified back location, unspecified back pain laterality, unspecified | | chronicity - Primary | + + documented in this encounter"
--- OUTSIDE RECORDS SUMMARY | ~2019-08-28 | XMS | Encounter Summary ---
Demographics + + + | Address | [address] | | | [place] [address] | + + + | Home Phone | | + + + | Preferred Language | Unknown | + + + | Marital Status | | + + + | Nondenominational Affiliation | 1028 | + + + | Race | Unknown | + + + | Ethnic Group | Unknown | + + + Author + + + | Author | [facility] | | | and [place] | + + + | Organization | [facility] | | | [...] Team Providers + +------+ + | Care Shearing Shed Worker Name | Role | Phone | + +------+ + PCP | Unavailable | + +------+ + Encounter Details +--------+ + + + + | Date | Type | Department | Care Team | Description | +--------+ + + + + | 01/11/ | Hospital | [facility] | | | | 2009 | Encounter | MED CTR XRAY [address] | | | | | | [place] | | | | | | [place] [address] | | | | | | [phone] | | | +--------+ + + + [...] | | | | | [place] | | | | | | [address] | | | | | | | | +--------+---------+ + + + documented as of this encounter Visit Diagnoses Not on filedocumented in this encounter"
--- OUTSIDE RECORDS SUMMARY | ~2019-08-28 | XMS | Encounter Summary ---
Demographics + + + | Address | [address] | | | [place] [address] | + + + | Home Phone | | + + + | Preferred Language | Unknown | + + + | Marital Status | | + + + | Shinto Affiliation | 1028 | + + + | Race | Unknown | + + + | Ethnic Group | Unknown | + + + Author + + + | Author | [facility] | | | and [place] | + + + | Organization | [facility] | | | [...] Team Providers + +------+ + | Care Desk Maker Name | Role | Phone | + +------+ + PCP | Unavailable | + +------+ + Encounter Details +--------+ + + + + | Date | Type | Department | Care Team | Description | +--------+ + + + + | 03/10/ | Hospital | [facility] | Conversion | Chest pain, | | 2015 | Encounter | CONVERSION DEP [address] | Transaction, | unspecified chest | | | | [address] [place] | Provider Unknown | pain type | | | | [place] | [phone] | | | | | [address] | | | | | | [phone] | | | +--------+ + + + [...] + + documented as of this encounter Medications at Time of Discharge [...] +---------+--------+ + documented as of this encounter Plan of Treatment +--------+---------+ + + + | Date | Type | Specialty | Care Team | Description | +--------+---------+ + + + | 02/09/ | Office | Cardiology | Garcia Barajas, | | | 2019 | Visit | | MD Ashlie ALFARO | | | | | | [place] | | | | | | [address] | | | | | | | | +--------+---------+ + + + documented as of this encounter Procedures + +--------+ + + + | Procedure Name | Priori | Date/Time | Associated Diagnosis | Comments | | | ty | | | | + +--------+ + + + | XR CHEST 1 VIEW | Routin | 03/10/2016 | | Results for this | | | e | 3:18 PM | | procedure are in the | | | | PDT | | results section. | + +--------+ + + + documented in this encounter Results XR Chest 1 Vw (03/10/2016 3:18 PM PDT) + + | Specimen | + + | | + + + + + | Narrative | Performed At | + + + | This is a non-reportable procedure without a radiologist report and | | | is used for image storage only | | + + + + + | Procedure Note | + + | Didier Sepulveda - 05/28/2019 6:50 PM PDT This is a non-reportable procedure | | without a radiologist report and isused for image storage only | + + documented in this encounter Visit Diagnoses + + | Diagnosis | + + | Chest pain, unspecified chest pain type | + + documented in this encounter"
--- OUTSIDE RECORDS SUMMARY | ~2019-08-28 | XMS | Encounter Summary ---
Demographics + + + | Address | [address] | | | [place] [address] | + + + | Home Phone | | + + + | Preferred Language | Unknown | + + + | Marital Status | | + + + | Methodist Affiliation | 1028 | + + + | Race | Unknown | + + + | Ethnic Group | Unknown | + + + Author + + + | Author | [facility] | | | and [place] | + + + | Organization | [facility] | | | [...] Team Providers + +------+ + | Care Force Variation Equipment Tender Name | Role | Phone | + +------+ + PCP | Unavailable | + +------+ + Encounter Details +--------+ + + + + | Date | Type | Department | Care Team | Description | +--------+ + + + + | 03/10/ | Hospital | [facility] | Conversion | Chest pain, | | 2015 | Encounter | CONVERSION DEP 888 | Transaction, | unspecified chest | | | | [place] | Provider Unknown | pain type | | | | [place] | [phone] | | | | | [address] | | | | | | [phone] | | | +--------+ + + + [...] [place] | | | | | | [address] | | | | | | | [...]
--- OUTSIDE RECORDS SUMMARY | ~2019-08-28 | XMS | Encounter Summary ---
Demographics + + + | Address | [address] | | | [place] [address] | + + + | Home Phone | | + + + | Preferred Language | Unknown | + + + | Marital Status | | + + + | Druze Affiliation | 1028 | + + + | Race | Unknown | + + + | Ethnic Group | Unknown | + + + Author + + + | Author | [facility] | | | and [place] | + + + | Organization | [facility] | [...] Team Providers + +------+ + | Care Softball Core Molder Name | Role | Phone | + +------+ + PCP | Unavailable | + +------+ + Encounter Details +--------+ + + + + | Date | Type | Department | Care Team | Description | +--------+ + + + + | 07/13/ | Hospital | [facility] | | | | 2008 | Encounter | MED CTR CANCER | | | | | | [address] | | | | | | [place] | | | | | | [address] | | | | | | [phone] | | | +--------+ + + + [...] [place] | | | | | | [address] | | | | | | | | +--------+---------+ + + + documented as of this encounter Visit Diagnoses Not on filedocumented in this encounter"
--- OUTSIDE RECORDS SUMMARY | ~2019-08-28 | XMS | Encounter Summary ---
Demographics + + + | Address | [address] | | | [place] [address] | + + + | Home Phone | | + + + | Preferred Language | Unknown | + + + | Marital Status | | + + + | Voodoo Affiliation | 1028 | + + + | Race | Unknown | + + + | Ethnic Group | Unknown | + + + Author + + + | Author | [facility] | | | and [place] | + + + | Organization | [facility] | | | [...] Team Providers + +------+ + | Care Conservation Agent Name | Role | Phone | + +------+ + PCP | Unavailable | + +------+ + Encounter Details +--------+ + + + + | Date | Type | Department | Care Team | Description | +--------+ + + + + | 01/28/ | Hospital | [facility] | | | | 2006 - | Encounter | MED CTR CANCER | | | | | | MINDY Rios | | | | 02/10/ | | [place] | | | | 2006 | | [address] | | | | | | [phone] | | | +--------+ + + + [...] | | | | | | [place] | | | | | | [address] | | | | | | | | +--------+---------+ + + + documented as of this encounter Visit Diagnoses Not on filedocumented in this encounter"
--- OUTSIDE RECORDS SUMMARY | ~2019-08-28 | XMS | Encounter Summary ---
Demographics + + + | Address | [address] | | | [place] [address] | + + + | Home Phone | | + + + | Preferred Language | Unknown | + + + | Marital Status | | + + + | Muslim Affiliation | 1028 | + + + | Race | Unknown | + + + | Ethnic Group | Unknown | + + + Author + + + | Author | [facility] | | | and [place] | + + + | Organization | [facility] | | | and [...] Team Providers + +------+ + | Care Lime Hide Inspector Name | Role | Phone | + +------+ + | Bubba Peña MD | PCP | | + +------+ + Encounter Details +--------+ + + + + | Date | Type | Department | Care Team | Description | +--------+ + + + + | 10/08/ | Orders Only | [facility] | Terrell Meza MD | | | 2018 | | NEPHROLOGY [place] | [address] [place] | | | | | [address] [place] | [address] [place], [place] | | | | | [address] [place], [place] | [address] | | | | | [address] | | | | | | [phone] | | | +--------+ + + + [...] | | | | | [place], [place] | | | | | | [address] | | | | | | | [...]
--- OUTSIDE RECORDS SUMMARY | ~2019-08-28 | XMS | Encounter Summary ---
Demographics + + + | Address | [address] | | | [place] [address] | + + + | Home Phone | | + + + | Preferred Language | Unknown | + + + | Marital Status | | + + + | Mosque Affiliation | 1028 | + + + | Race | Unknown | + + + | Ethnic Group | Unknown | + + + Author + + + | Author | [facility] | | | and [place] | + + + | Organization | [facility] | | [...] Team Providers + +------+ + | Care Cotton Bag Sewer Name | Role | Phone | + +------+ + | Bubba Peña MD | PCP | | + +------+ + Encounter Details +--------+ + + + + | Date | Type | Department | Care Team | Description | +--------+ + + + + | 01/30/ | Hospital | [facility] | Tyler Markham MD | Back pain, | | 2017 | Encounter | MED CTR XRAY [address] | [address] | unspecified back | | | | [place] | [place] [address] | location, | | | | [place] [address] | [phone] | unspecified back | | | | [phone] | | pain laterality, | | | | | | unspecified | | | | | | chronicity | +--------+ + + + + Social [...] | | | | | | [place] | | | | | | [address] | | | | | | | | +--------+---------+ + + + documented as of this encounter Procedures + +--------+ + + + | Procedure Name | Priori | Date/Time | Associated Diagnosis | Comments | | | ty | | | | + +--------+ + + + | XR LUMBAR SPINE 4 + | Routin | 01/30/2017 | Back pain, | Results for this | | VW | e | 11:02 AM | unspecified back | procedure are in the | | | | PDT | location, | results section. | | | | | unspecified back | | | | | | pain laterality, | | | | | | unspecified | | | | | | chronicity | | + +--------+ + + + documented in this encounter Results XR Lumbar Spine 4 + Vw (01/30/2017 11:02 AM PDT) + + | Specimen | + + | | + + + + + | Narrative | Performed At | + + + | FOUR VIEWS LUMBAR SPINE 01/30/2017 10:55 AM CLINICAL HISTORY: | [facility] | | Back pain COMPARISON: LUMBAR MRI DECEMBER 11, RADIOGRAPHS JULY | [facility] | | 2015 FINDINGS: Five non rib-bearing, [...] + + | Performing | Address | City[facility] | Phone Number | | Organization | | | | + + + + + | [address] | [address] | [place] | [phone] | | [facility] | | [address] | | | - IMAGING | | | | + + + + + documented in this encounter Visit Diagnoses + + | Diagnosis | + + | Back pain, unspecified back location, unspecified back pain laterality, unspecified | | chronicity | + + documented in this encounter"
--- OUTSIDE RECORDS SUMMARY | ~2019-08-28 | XMS | Encounter Summary ---
Demographics + + + | Address | [address] | | | [place] [address] | + + + | Home Phone [...] Team Providers + +------+ + | Care Cancer Program Coordinator Name | Role | Phone | + +------+ + PCP | Unavailable | + +------+ + Encounter Details +--------+ + + + + | Date | Type | Department | Care Team | Description | +--------+ + + + + | 12/10/ | Hospital | [facility] | | | | 2006 - | Encounter | MED CTR CANCER | | | | | | MINDY Rios | | | | 12/11/ | | [place] | | | | 2006 | | [address] | | | | | | [phone] | | | +--------+ + + + [...] [place] | | | | | | [address] | | | | | | | | +--------+---------+ + + + documented as of this encounter Visit Diagnoses Not on filedocumented in this encounter"
--- OUTSIDE RECORDS SUMMARY | ~2019-08-28 | XMS | Clinical Summary ---
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 LCx | | stented.Last Echo, 03/12/2016: LVEF 40%, trace AI, mild MR.Last | | Stress Test, 07/25/[address] ([facility]): Lexiscan, minimal | | ischemia distal pulxgt-yagapd-cswd, moderate dyskinesis, LVEF | | 56%.48hr HM, 06/25/2013: Sinus rhythm 54-116, averaging 76bpm, low | | frequency PACs, PVCs and short bursts of PAT 120-130bpm, no | | pauses noted, no A. fib.ECG, 04/04/2016: sinus rhythm, 69bpm, [place] | | at upper limits, old addie-septal NH, old inferior NH, non-spec | | ST-T changes aVL. | [...] involving | | | | | | [place] coronary | | | | | | artery of [place] | | | | | | heart without angina | | | | | | pectoris (Primary | | | | | | Dx); NSTEMI (non-ST | | | | | | elevated myocardial | | | | | | infarction) ([facility]); | | | | | [...] 02/09/ | Office | Cardiology | Ezequiel Barajasoplly, | | | 2019 | Visit | | [address] | | | | | | [place] [facility] [place] | | | | | | [address] | | | | | | | [...] N/A: | [facility] | | 11/29/ | [id number] | | 3.0x12mm - | Lab | Heart | SCIENTIFIC | | 2017 | [id number] | | [id number]: | Implan | | KAYCEE - BSCI | | | 00 /NA | | 03/12/2016 (Quantity not on | ts | | | | | | | file) | | | | | | /57969 | | | | | | | [...] +--------+ +---------+--------+ | MEDICARE | [facility]RO | [id number] | 02/11/19 | [phone] | | Medica | | | AD | | 96-Pre | 5 | | re | | | MEDICA | | sent | | | | | | RE | | | | | | + +--------+ +--------+ +---------+--------+ | MEDICARE | RAANUELRO | [id number] | 02/11/19 | [phone] | | Medica | | | AD | | 96-Pre | 5 | | re | | | MEDICA | | sent | | | | | | RE | | | | | | + +--------+ +--------+ +---------+--------+ | [employer] [place] | [place] | [id number] | 10/14/19 | [phone] | | Indemn | | | OF | | 10-Pre | 0 | | ity | | | [place] | | sent | | | | | | MDCR | | | | | | | | SUPPL | | | | | | + +--------+ +--------+ +---------+--------+ | [employer] [place] | M[employer]UAL | [id number] | 10/14/19 | [phone] | | Indemn | | | OF | | 10-Pre | 0 | | ity | | | [place] | | sent | | | | [...] | | al/Fam | | 1929 | [phone] | [place], [place] | | | rm | | | 1 (Home) | [address] | + +--------+ +--------+ + + | Liz Dominguez | Person | Self | [birth year] | [address] | | | al/Fam | | 1930 | [phone] | [place], [place] | | | rm | | | 1 (Home) | [address] | + +--------+ +--------+ + + Advance Directives + + + + + | Type | Date Recorded | Patient | Explanation | | | | Clasp Machine Operator | | + + + + + | Power of | | | | | Hydroelectric Production Manager | | | | + + + + + | Advance | 01/30/2017 10:43 | | @ home | | Directive | AM | | | + + + + +
--- OUTSIDE RECORDS SUMMARY | ~2019-08-28 | XMS | Encounter Summary ---
Demographics + + + | Address | [address] | | | [place] [address] | + + + | Home Phone | | + + + | Preferred Language | Unknown | + + + | Marital Status | | + + + | Confucianism Affiliation | 1028 | + + + | Race | Unknown | + + + | Ethnic Group | Unknown | + + + Author + + + | Author | [facility] | | | and [place] | + + + | Organization | [facility] | | [...] Team Providers + +------+ + | Care Jalousie Installer Name | Role | Phone | + +------+ + PCP | Unavailable | + +------+ + Encounter Details +--------+ + + + + | Date | Type | Department | Care Team | Description | +--------+ + + + + | 12/10/ | Hospital | [facility] | | | | 2006 - | Encounter | MED CTR CANCER | | | | | | MINDY Rios | | | | 12/11/ | | [place] | | | | 2006 | | [address] | | | | | | [phone] | | | +--------+ + + + [...] [place] | | | | | | [address] | | | | | | | | +--------+---------+ + + + documented as of this encounter Visit Diagnoses Not on filedocumented in this encounter"
--- OUTSIDE RECORDS SUMMARY | ~2019-08-28 | XMS | Encounter Summary ---
Demographics + + + | Address | [address] | | | [place] [address] | + + + | Home Phone | | + + + | Preferred Language | Unknown | + + + | Marital Status | | + + + | Bahai Affiliation | 1028 | + + + [...] Providers + +------+ + | Care Biological Engineer Name | Role | Phone | + +------+ + PCP | Unavailable | + +------+ + Encounter Details +--------+ + + + + | Date | Type | Department | Care Team | Description | +--------+ + + + + | 07/13/ | Hospital | [facility] | | | | 2008 | Encounter | MED CTR CANCER | | | | | | [address] | | | | | | [place] | | | | | | [address] | | | | | | [phone] | | | +--------+ + + + [...] [place] | | | | | | [address] | | | | | | | | +--------+---------+ + + + documented as of this encounter Visit Diagnoses Not on filedocumented in this encounter"
--- OUTSIDE RECORDS SUMMARY | ~2019-08-28 | XMS | Encounter Summary ---
Demographics + + + | Address | [address] | | | [place] [address] | + + + | Home Phone | | + + + | Preferred Language | Unknown | + + + | Marital Status | | + + + | Restoration Affiliation | 1028 | + + + [...] Team Providers + +------+ + | Care Branch Service Specialist Name | Role | Phone | + +------+ + PCP | Unavailable | + +------+ + Encounter Details +--------+ + + + + | Date | Type | Department | Care Team | Description | +--------+ + + + + | 07/23/ | Hospital | [facility] | iNta, | | | 2010 - | Encounter | MED CTR CANCER | Zana Villalta MD [address] | | | | | CENTER [address] | [facility] | | | 08/13/ | | [place] | [place] [address] | | | 2010 | | [address] | [phone] | | | | | [phone] | | | +--------+ + + + [...] is an 81 year old woman from [place], [place] w ith a history of stage [...] HISTORY: She lives alone and independently in [place], [place] after her signific ant other from [...] [place] | | | | | | [id number] | | | | | | | [...] [address] | [place] | [phone] | | [facility] | | [address] | | | - LABORATORY | | | | + + + + + | [facility] | [address] | [place] | | | [facility] | | [address] | | | - LABORATORY | | [...] + | [facility] | [address] | [place], [place] | [phone] | | [facility] | | [address] | | | - LABORATORY | | | | + + + + + | [facility] | [address] | [place], [place] | | | [facility] | | [address] | | | - LABORATORY | | [...] + | [facility] | [address] | [place] | [phone] | | [facility] | | [address] | | | - LABORATORY | | | | + + + + + | [facility] | [address] | [place], [place] | | | [facility] | | [address] | | | - LABORATORY | | | | + + + + + US Abdomen Limited (07/21/2011 3:55 AM PDT) + + | Specimen | + + | | + + + + + | Narrative | Performed At | + + + | [facility] Diagnostic Imaging Department | [facility] | | [address] [facility] | [facility] | | LIMITED ABDOMINAL ULTRASOUND | DIAG [...] Transcribed | | | Date/Time: 07/24/2011 09:58 Skelp Processor: | | | <Electronically Signed by Chan Olivarez MD> 07/24/11 1429 | | + + + + + | Procedure Note | + + | Derick, Rad Conversion - 11/20/2013 4:00 PM [facility] | | Diagnostic Imaging Department [address] [place] [address] | | LIMITED ABDOMINAL ULTRASOUND CLINICAL HISTORY: [...] 09:52 | |Transcribed Date/Time: 07/24/2011 09:58 | |Skelp Processor: | |<Electronically Signed by Chan Olivarez MD> [...]
--- OUTSIDE RECORDS SUMMARY | ~2019-08-28 | XMS | Encounter Summary ---
Demographics + + + | Address | [address] | | | [place] [address] | + + + | Home Phone | | + + + | Preferred Language | Unknown | + + + | Marital Status | | + + + | Mormonism Affiliation | 1028 | + + + | Race | Unknown | + + + | Ethnic Group | Unknown | + + + Author + + + | Author | [facility] | | | and [place] | + + + | Organization | [facility] | | [...] Team Providers + +------+ + | Care Application Packaging Consultant Name | Role | Phone | + +------+ + | Bubba Peña MD | PCP | | + +------+ + Encounter Details +--------+ + + + + | Date | Type | Department | Care Team | Description | +--------+ + + + + | 01/30/ | Hospital | [facility] | Tyler Markham MD | Back pain, | | 2017 | Encounter | MED CTR XRAY [address] | [address] | unspecified back | | | | [place] | [place] [address] | location, | | | | [place] [address] | [phone] | unspecified back | | | | [phone] | | pain laterality, | | | [...] [place] | | | | | | [address] | | | | | | | [...] LUMBAR MRI DECEMBER 11, RADIOGRAPHS JULY | [facility] | | 2015 FINDINGS: Five non rib-bearing, [...] + + | Performing | Address | City/State[facility] | Phone Number | | Organization | | | | + + + + + | [address] | [address] | [place] | [phone] | | [facility] | | [address] | | | - IMAGING | | | | + + + + + documented in this encounter Visit Diagnoses + + | Diagnosis | + + | Back pain, unspecified back location, unspecified back pain laterality, unspecified | | chronicity | + + documented in this encounter"
--- OUTSIDE RECORDS SUMMARY | ~2019-08-28 | XMS | Encounter Summary ---
Demographics + + + | Address | [address] | | | [place] [address] | + + + | Home Phone [...] Team Providers + +------+ + | Care Websphere Developer Name | Role | Phone | + +------+ + PCP | Unavailable | + +------+ + Encounter Details +--------+ + + + + | Date | Type | Department | Care Team | Description | +--------+ + + + + | 04/08/ | Hospital | [facility] | [place], | | | 2006 - | Encounter | MED CTR CANCER | Zana Vlilalta MD [address] | | | | | CENTER [address] | [facility] | | | 04/12/ | | [place] | [place] [address] | | | 2006 | | [address] | [phone] | | | | | [phone] | | | +--------+ + + + [...] | | | | | [place] | | | | | | [address] | | | | | | | | +--------+---------+ + + + documented as of this encounter Visit Diagnoses Not on filedocumented in this encounter"
--- OUTSIDE RECORDS SUMMARY | ~2019-08-28 | XMS | Clinical Summary ---
Demographics + + + | Address | [address] | | | [place] [address] | + + + | Home Phone | | + + + | Preferred Language | Unknown | + + + | Marital Status | | + + + | Pentecostal Affiliation | 1028 | + + + | Race | Unknown | + + + | Ethnic Group | Unknown | + + + Author + + + | Author | [facility] (Historical as of | | | 05-30-19) | + + + | Organization | [facility] (Historical as of | | | 05-30-19) | + + + | Address | Unknown | + + + | Phone | Unavailable | + + + Support + + +---------+ + | Name | Relationship | Address | Phone | + + +---------+ + | Reyes Menon | ECON | Unknown | | + + +---------+ + Care Team Providers + +------+ + | Care Human Resource Adviser Name | Role | Phone | + +------+ + | Nancy Lora | PP | Unavailable | + +------+ + Allergies No Known Allergies Current Medications + + +--------+---------+------+------+-------+ | Prescription | Sig. | Disp. | Refills | Star | End | Statu | | | | | | t | Date | s | | | | | | Date | | | + + +--------+---------+------+------+-------+ | aspirin 81 MG EC | Take 81 mg by mouth | | | | | Activ | | tablet | daily with | | | | | e | | | breakfast. | | | | | | + + +--------+---------+------+------+-------+ | | Take 1,500 mg by | | | | | Activ | | Glucosamine-Chondroi | mouth daily. | | | | | e | | t-Vit C-Mn | | | | | | | | (GLUCOSAMINE CHONDR | | | | | | | | 1500 COMPLX PO) | | | | | | | + + +--------+---------+------+------+-------+ | Multiple | Take by mouth | | | | | Activ | | Vitamins-Minerals | daily. | | | | | e | | (CENTRAL-JESUS PO) | | | | | | | + + +--------+---------+------+------+-------+ | Calcium | Take 600 mg by mouth | | | | | Activ | | Carb-Cholecalciferol | daily. | | | | | e | | (CALCIUM 600 + D | | | | | | | | PO) | | | | | | | + + +--------+---------+------+------+-------+ | | 1 drop 3 (three) | | | | | Activ | | carboxymethylcellulo | times daily. | | | | | e | | se (REFRESH) 1 % | | | | | | | | ophthalmic solution | | | | | | | + + +--------+---------+------+------+-------+ | nitroGLYCERIN | Place 1 tablet under | 15 | 3 | 06/1 | | Activ | | (NITROSTAT) 0.4 MG | the tongue every 5 | tablet | | 4/20 | | e | | SL | (five) minutes as | | | 17 | | | | tabletIndications: | needed for Chest | | | | | | | Acute Angina | pain. Indications: | | | | | | | Pectoris | Acute Angina | | | | | | | | Pectoris | | | | | | + + +--------+---------+------+------+-------+ | atorvastatin | take 1 tablet by | 90 | 2 | 11/3 | | Activ | | (LIPITOR) 20 MG | mouth NIGHTLY. DO | tablet | | 0/20 | | e | | tablet | NOT TAKE SATURDAY OR | | | 18 | | | | | SATURDAY | | | | | | + + +--------+---------+------+------+-------+ | latanoprost | 1 drop nightly. 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 | | 86yo WF, doing well, relatively active, exercising on a regular | | basis at the [facility], she denies any chest discomfort, palpitations, | | or shortness of breath. However, she does admit she is somewhat | | fatigued, not able to work in the yard as long as she used to. | | She complains of some minor bruising. There is no bleeding. | | Other than the bruising, she is tolerating her medications. No | | changes in therapy. Again I stressed to her that she'll be on | | dual antiplatelet therapy for one year, I've also requested her | | to take Pepcid for GI protection. The nuclear perfusion study | | shows minimal residual ischemia, preserved ejection fraction. | | Tolerating medications. We did increase her Pepcid to 20 mg | | twice daily. 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 LCx stented.Last Echo, | | 03/12/2016: LVEF 40%, trace AI, mild MR.Last Stress Test, | | 07/25/2016 ([facility]): Lexiscan, minimal ischemia distal | | opxkli-dxpnwc-vksz, moderate dyskinesis, LVEF 56%.48hr HM, | | 06/25/2013: Sinus rhythm 54-116, averaging 76bpm, low frequency | | PACs, PVCs and short bursts of PAT 120-130bpm, no pauses noted, | | no A. fib.ECG, 04/04/2016: sinus rhythm, 69bpm, AK at upper | | limits, old addie-septal VT, old inferior VT, non-spec ST-T | | changes aVL. | + + + + + | Chronic kidney disease, stage III (moderate) | 03/11/2016 | + + + Resolved Problems + + + + | Problem | Noted | Resolved | | | Date | Date | + + + + | Acute pulmonary edema (HCC) | 03/10/20 | | | | 16 | 7 | + + + + | Shortness of breath | 03/10/20 | | | | 16 | 7 | + + + + | NSTEMI (non-ST elevated myocardial infarction) | 03/10/20 | | | | 16 | 7 | + + + + | Leukocytosis, unspecified | 03/10/20 | | | | 16 | 7 | + + + + | Acute respiratory failure with hypoxia (HCC) | 03/10/20 | | | | 16 | 7 | + + + + | Bilateral pulmonary infiltrates on chest x-ray | 03/10/20 | | | | 16 | 7 | + + + + Family History + + +------+ + | Medical History | Relation | Name | Comments | + + +------+ + | Diabetes type II | Father | | | + + +------+ + | Melanoma | Father | | | + + +------+ + | Heart attack | Mother | | | + + +------+ + | Hypertension | Mother | | | + + +------+ + | Lung cancer | Sister | | | + + +------+ + + +------+ + + | Relation | Name | Status | Comments | + +------+ + + | Father [...] + +---------+ + | Alcohol Use | Drinks/We | oz/Week | Comments | | | ek | | | + + +---------+ + | No | 0 | 0.0 | | | | Standard | | | | | drinks or | | | | | | | | | | equivalen | | | | | t | | | + + +---------+ + + + + | Sex Assigned at | Date Recorded | | | | + + + | Not on file | | + + + Last Filed Vital Signs + + + + | Vital Sign | Reading | Time Taken | + + + + | Blood Pressure | 110/62 | 05/01/2019 12:00 PM PDT | + + + + | Pulse | 68 | 05/01/2019 12:00 PM PDT | + + + + | Temperature | 36.5 C (97.7 F) | 04/06/2017 7:48 AM PDT | + + + + | Respiratory Rate | 16 | 04/06/2017 7:48 AM PDT | + + + + | Oxygen Saturation | 98% | 05/01/2019 12:00 PM PDT | + + + + | Inhaled Oxygen | - | - | | Concentration | | | + + + + | Weight | 62.8 kg (138 lb 6.4 | 05/01/2019 12:00 PM PDT | | | oz) | | + + + + | Height | 170.2 cm (5' 7") | 05/01/2019 12:00 PM PDT | + + + + | Body Mass Index | 21.68 | 05/01/2019 12:00 PM PDT | + + + + Plan of Treatment + + + + + | Health [...] | + + + + + | DEXA SCAN SCREENING | | | | | | 6 | | | + + + + + | Vaccine: | | 02/11/2015 | | | Pneumococcal 65+ | 6 | | | | Low/Medium Risk (2 | | | | | of 2 - PCV13) | | | | + + + + + | Vaccine: Influenza | | | | | (#1) | 9 | | | + + + + + Implants + +-------+--------+ +--------+--------+--------+ | Implanted | Type | Area | Manufacture | Device | Expira | Model | | | | | r | | tion | / | | | | | | Identi | Date | Serial | | | | | | fier | | / Lot | + +-------+--------+ +--------+--------+--------+ | Promus Premier 4 X | Stent | Yarbrough | [place] | | 02/18/ | [id number] | | -04/05/2017Implanted: Qty: 1 | | ry | SCIENTIFIC | | 2018 | [id number] | | on 04/05/2017 by Magdalene, | | | [facility] [employer] | | | 00 / | | MD Terrell | | | | | | / | | | | | | | | 630 | + +-------+--------+ +--------+--------+--------+ | Promus Premier 4 X | Stent | Yarbrough | [place] | | 07/19/ | [id number] | | -04/05/2017Implanted: | | ry | SCIENTIFIC | | 2017 | [id number] | | 04/05/2017 by Terrell Del [employer]illo, | | | CORPORATION | | | 00 / | | (Quantity not on file) | | | | | | / | | | | | | | | 900 | + +-------+--------+ +--------+--------+--------+ | Promus Premier 2.75 X | Stent | Yarbrough | [place] | | 09/25/ | [id number] | | -04/05/2017Implanted: Qty: 1 | | ry | SCIENTIFIC | | 2016 | [id number] | | on 04/05/2017 by Magdalene, | | | ICU [employer] | | | 70 / | | MD Terrell | | | | | | / | | | | | | | | 418 | + +-------+--------+ +--------+--------+--------+ Results Not on filefrom Last 3 Months Insurance + +--------+ +------+-------+ + | Payer | Benefi | Subscriber | Type | Phone | Address | | | t Plan | ID | | | | | | / | | | | | | | Group | | | | | + +--------+ +------+-------+ + | MEDICARE | MEDICA | [id number] | | | [address] | | | RE | | | | [place] [address] | | | [place] | | | | | | | AD | | | | | + +--------+ +------+-------+ + | [employer] | MUTUAL | [id number] | | | | | | OF | | | | | | | [place] | | | | | + +--------+ +------+-------+ + + +--------+ +--------+ + + | Guarantor Name | Accoun | Relation to | Date | Phone | Billing Address | | | t Type | Patient | of | | | | | | | | | | + +--------+ +--------+ + + | LIZ DOMINGUEZ | Person | Self [birth year] Home: | [address] | | | al/Fam | | 1930 | [phone] | [place] | | | rm | | [phone] | [address] | + +--------+ +--------+ + +
--- OUTSIDE RECORDS SUMMARY | ~2019-08-28 | XMS | Encounter Summary ---
Demographics + + + | Address | [address] | | | [place] [address] | + + + | Home Phone | | + + + | Preferred Language | Unknown | + + + | Marital Status | | + + + | Cheondoism Affiliation | 1028 | + + + | Race | Unknown | + + + | Ethnic Group | Unknown | + + + Author + + + | Author | [facility] | | | and [place] | + + + | Organization | [facility] | | [...] Team Providers + +------+ + | Care Project Admin Name | Role | Phone | + [...] + + | 08/06/ | Refill | [facility] | Garcia Barajas, | Medication Refill | | 2019 | | CARDIOLOGY ESVIN | [address] | | | | | [address] | [place], [place] | | | | | [address] | [address] | | | | | [place] | | | | | | [address] | | | | | | [phone] | | | +--------+--------+ + + + [...] | | | | | | [place] [facility] | | | | | | [address] | | | | | | | | +--------+---------+ + + + documented as of this encounter Visit Diagnoses Not on filedocumented in this encounter"
--- OUTSIDE RECORDS SUMMARY | ~2019-08-28 | XMS | Encounter Summary ---
Demographics + + + | Address | [address] | | | [place] [address] | + + + | Home Phone [...] Team Providers + +------+ + | Care Material Crew Supervisor Name | Role | Phone | + +------+ + PCP | Unavailable | + +------+ + Encounter Details +--------+ + + + + | Date | Type | Department | Care Team | Description | +--------+ + + + + | 07/01/ | Hospital | [facility] | | | | 2006 - | Encounter | [facility] | | | | | | MINDY Rios | | | | 07/13/ | | [place] | | | | 2006 | | [address] | | | | | | [phone] | | | +--------+ + + + [...] [place] | | | | | | [address] | | | | | | | | +--------+---------+ + + + documented as of this encounter Visit Diagnoses Not on filedocumented in this encounter"
--- OUTSIDE RECORDS SUMMARY | ~2019-08-28 | XMS | Encounter Summary ---
Demographics + + + | Address | [address] | | | [place] [address] | + + + | Home Phone | | + + + | Preferred Language | Unknown | + + + | Marital Status | | + + + | Protestant Affiliation | 1028 | + + + | Race | Unknown | + + + | Ethnic Group | Unknown | + + + Author + + + | Author | [facility] | | | and [place] | + + + | Organization | [facility] | | | [...] Team Providers + +------+ + | Care Hydroelectric Production Manager Name | Role | Phone | [...] | Specialty | Physical | Diagnoses | | | | | Services | Therapy | Lumbar | Daphney, | | | | Required | | radiculopath | Zaira, | | | | | | y Lumbar | PA-C [address] | | | | | | spinal | [address] | | | | | | stenosis | [place] | | | | | | DDD | [address] | | | | | | (degenerativ | Phone: | | | | | | e disc | [phone] | | | | | | disease), | Fax: | | | | | | lumbar | [phone] | | | | | | [place] | | | | | | | stenosis of | | | | | | | lumbar | | | | | | | region | | | | | | | Spondylolist | | | | | | | hesis of | | | | | | | lumbar | | | | | | | region | | | | | | | Procedures | | | | | | | HIM 5/2 | | | +--------+ + + + + + Reason for Visit + + + | Reason | Comments | + + + | Back Pain | low back | + + + Evaluate & Treat [...] | | | | | region | [address] | [address] Phone: | | | | | [place] | [place], | [phone] | | | | | stenosis of | [place] [address] | Fax: | | | | | lumbar | Phone: | [phone] | | | | | region | [phone] | | | | | | Lumbar | Fax: | | | | | | radiculopath | [phone] | | | | | | y DDD | | | | | | | (degenerativ | | | | | | | e disc | | | | | | | disease), | | | | | | | lumbar | | | +--------+ + + + + + Encounter Details +--------+---------+ + + + | Date | Type | Department | Care Team | Description | +--------+---------+ + + + | 02/07/ | Office | [facility] | Daphney, | Lumbar radiculopathy | | 2017 | Visit | PHYSIATRY [address] | MARIELLA Meneses [address] | (Primary Dx); | | | | [place], | [address] [place], | Lumbar spinal | | | | [place] [address] | [place] [address] | stenosis; DDD | | | | [phone] | [phone] | (degenerative disc | | | | | | disease), lumbar; | | | | | | Foram[place] stenosis | | | | | | of lumbar region; | | | | | | Spondylolisthesis of | | | | | | lumbar region | +--------+---------+ + + + Social History [...] + + + | Blood Pressure | 142/79 | 02/07/2017 9:49 AM | | | | | PDT | | + + + + + | Pulse | 57 | 02/07/2017 9:49 AM | | | | | PDT [...] Weight | 68.9 kg (152 lb) | 02/07/2017 9:49 AM | | | | | PDT | | + + + + + | Height | 167.6 cm (5' 6") | 02/07/2017 9:49 AM | | | | | PDT | | + + + + + | Body Mass Index | 24.53 | 02/07/2017 9:49 AM | | | | | PDT | | + + + + + documented in this encounter Patient Instructions Patient Instructions Zaira Shelley PA-C - 02/07/2017 9:54 AM PDT1) Epidural injecti on with Dr. Clemons 2) Physical Therapy at the [facility] in [place] Spinal Stenosis: Stenosis refers to the narrowing [...] of blood sugars if you are diabetic. 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 For all procedur es it is recommended that someone else drive you home. documented in this encounter Progress Notes Zaira Shelley PA-C - 02/07/2017 9:22 AM PDTFormatting of this note might be differe nt from the original. CHIEF COMPLAINT: Chief Complaint Patient presents with Back Pain low back HISTORY OF PRESENT ILLNESS: The patient is a 86 y.o. female being seen today for complaint s of low back pain with radiation into the buttocks. This has been a chronic issue. Since the symptoms began, she has noticed that symptoms have been worsening. She describes the pain as a aching, pulsating and tight band feeling. She rates the pain as moderate to se leonid with activities. Her symptoms worsen with standing and walking. Her symptoms improve w ith sitting down as she is painfree. She describes radiation into the buttocks, but [...] histories were reviewed and updated as appropriate. PAST MEDICAL HISTORY: Past Medical History Diagnosis Date Actinic keratosis Angina pectoris (HCC) Cataract Coronary artery disease GERD (gastroesophageal reflux disease) Low back pain Macular degeneration, age related Malignant neoplasm of colon, unspecified (HCC) Menopausal disorder Osteoarthritis, generalized Osteoporosis Back pain Hyperlipidemia Lumbar spinal stenosis 02/07/2017 PAST SURGICAL HISTORY: Past Surgical History Procedure [...] famotidine (PEPCID) 20 mg tablet Daily. 1 Umfxqcwcpji-Sdgwkerlg-Hlb C-Mn (GLUCOSAMINE-CHONDROITIN) CAPS Take 1,500 mg by [...] 3 times daily. Med Name: Thera Tears No current facility-administered medications for this [...] HX REVIEW OF SYSTEMS: GENERALLY: No fever, chills, no night sweats, no weight gain, no weight loss, no anemia, + fatigue. EYES: + eye problems,+ impaired sight, no eye glasses/contacts, no eye injury, no double v ision, no transient blindness. EARS, NOSE, THROAT and MOUTH: No change in sense taste/smell, no hearing difficulty, no ri nging in ears, no drainage from ears, no ear injury, no dizziness, no voice change, no diffi culty swallowing, no snoring, no sleep apnea/CPAP, no sinus trouble, + dental work. NEUROMUSCULAR: No numbness/pain of arms, no numbness/pain of legs, no awake with numbness/ pain, no weakness, no muscle aching, + coordination difficulty, + change in walk, no head in jury, no neck injury, no back injury, no pain in neck, + pain in back, no stroke, no faintin g spells, no loss of consciousness, no tremor/shaking, no seizures, no headaches, no migrain es, no memory loss, no speech difficulty, no confusion, no numbness of face. PSYCHIATRIC: No depression+difficulty sleeping, no anxiety, no bipolar disorder. CARDIOVASCULAR/PULMONARY: +heart attack, no heart murmur, no fluttering heart, no shortnes s of breath, no cough, no Tuberculosis, no chest pain, no swelling ankles, no bloody coughin g, no asthma, no COPD/emphysema. GASTROINTESTINAL: No bowel disease, no nausea/vomiting, no rectal bleeding/hemorroids, no constipation, no fecal/stool incontinence, no liver/gallbladder disease, no abdominal pain. KIDNEY DISEASE: + frequent urination, no painful/difficult with urination, no urinary incon tinence, no bladder problems, no impotence, no irregular period, no vaginal discharge. ENDOCRINE: No diabetes, no thyroid disease, no osteoporosis/osteopenia, no drainage from br easts. INTEGUMENTARY/SKIN: No lump in breasts, no skin disease or skin changes, no rash/itch. HEMATOLOGIC: No enlarged lymph nodes, no ease or unusual bleeding+ cancer. RHEUMATOLOGIC: + joint pain/arthritis,+Rheumatoid Arthritis PHYSICAL EXAMINATION: Filed Vitals: 02/07/17 0949 BP: 142/79 Pulse: 57 PainSc: 8 PainLoc: Back Body mass index is 24.55 kg/(m^2). GENERAL: The patient is well developed and [...] has no apparent deficits with short or director long term care memory. She has appropriate fund of knowledge [...] at L4/L5. ASSESSMENT: 1. Lumbar radiculopathy 2. Lumbar spinal stenosis 3. DDD (degenerative disc disease), lumbar 4. Foram[place] stenosis of lumbar region 5. Spondylolisthesis of lumbar region PLAN: 1. We discussed conservative therapies for spinal stenosis. She has not participated in PT , but goes to the gym three times/week. We discussed learning the Sophie therapy and a re ferral was sent to [facility] [place]. 2. We discussed medications, she does not want to add any medications to her list. 3. We discussed steroid injections and I offered her a bilateral L5/S1 TFESI with Dr. Sepideh membreno. We reviewed the procedure and all questions were answered. 4. She will follow up in 8 weeks. ELECTRONICALLY SIGNED BY: Zaira Shelley PA-C, 02/07/2017 CC: Bubba Peña documented in t his encounter Plan of Treatment +--------+---------+ + + + | Date | Type | Specialty | Care Team | Description | +--------+---------+ + + + | 02/09/ | Office | Cardiology | Garcia Barajas, | | | 2019 | Visit | | MD Ashlie ALFARO | | | | | | [address] [address] | | | | | | [address] | | | | | | | | +--------+---------+ + + + + + +--------+ + + | Name | Type | Priori | Associated Diagnoses | Order Schedule | | | | ty | | | + + +--------+ + + | * [facility] | Outpatient | Routin | Lumbar | Ordered: 02/07/2017 | | Therapy - AMB | Referral | e | radiculopathy | | | Referral | | | Lumbar spinal | | | | | | stenosis DDD | | | | | | (degenerative disc | | | | | | disease), lumbar | | | | | | Foram[place] stenosis | | | | | | of lumbar region | | | | | | Spondylolisthesis of | | | | | | lumbar region | | + + +--------+ + + documented as of this encounter Results FL OFE Lumbar Transforaminal (02/20/2017 4:26 PM PDT) + + | Specimen | + + | | + + + + + | Narrative | Performed At | + + + | 02/20/2017 Bilateral Transforaminal Epidural Steroid Injections | [facility] | | Diagnosis: Lumbar radiculopathy ICD-10 Code M54.16 Liz | [facility] | | Jacinta Dominguez presents to the fluoroscopy suite for [facility] | | fluoroscopically-guided bilateral L5-S1 transforaminal [...] + | [address] | [address] | [place], [place] | [phone] | | [facility] | | [address] | | | - IMAGING | | | | + + + + + documented in this encounter Visit Diagnoses + + | Diagnosis | + + | Lumbar radiculopathy - Primary Thoracic or lumbosacral neuritis or radiculitis, | | unspecified | + + | Lumbar spinal [...]
--- OUTSIDE RECORDS SUMMARY | ~2019-08-28 | XMS | Encounter Summary ---
Demographics + + + | Address | [address] | | | [place] [address] | + + + | Home Phone | | + + + | Preferred Language | Unknown | + + + | Marital Status | | + + + | Zoroastrian Affiliation | 1028 | + + + | Race | Unknown | + + + | Ethnic Group | Unknown | + + + Author + + + | Author | [facility] | | | and [place] | + + + | Organization | [facility] | | | [...] Team Providers + +------+ + | Care Front End Software Engineer Name | Role | Phone | + +------+ + PCP | Unavailable | + +------+ + Encounter Details +--------+ + + + + | Date | Type | Department | Care Team | Description | +--------+ + + + + | 03/10/ | Hospital | [facility] | Stephanie Holloway MD | NSTEMI (non-ST | | 2016 - | Encounter | [facility]ICAL [facility]UTE | [address] | elevated myocardial | | | | CARE FLOOR [address] | [place] [address] | infarction) ([facility]) | | 03/11/ | | [address] | [phone] | | | 2015 | | [place], [place] | | | | | | [address] | | | | | | [phone] | | | +--------+ + + + [...] Date of Service: 03/11/16 1400 Status: Signed Roof Service Technician: Tyler Ferrer MD (Physician) [facility] Service: Hospitalist Discharge Summary Date of Admission: 03/10/2016 Date of Discharge: Transferred to [facility] on 03/11/2016 Discharge Provider: Tyler Ferrer MD [...] BiPa p patient was then transferred to [facility] and overnight was given IVl asix, Iv [...] so. Subsequently Dr. Rodrigez of cardiology at [facility] has accepted the patient in transfer and I have talked with Dr. Norwood the hospitalist. Patient is therefore being transfe rred to [facility] by ACLS. Patient will be continuing with [...] on 03/11/2016 7:47 AM PLAN Disposition: [facility] Hospital Condition: Stable Code Status: Partial Code Discharge Instructions Misc. Equipment (Specify) Order Comments: o2 by face mask titrate to keep saO2 at motre than 93% Diet Clear Liquid Other Restrictions (Specify): Order Comments: bedrest Call MD for: Severe Uncontrolled Pain Call MD for: Difficulty Breathing, Headache or Visual Disturbances Follow up: Bubba Daigle MD [address] [place] [address] [place] [address] Schedule an appointment as soon as possible for a visit on discharge from [facility] After Visit Summary was printed [...] Note by Priya Lima RN at 03/11/16 8045 Author: Priya Lima RN Service: (none) Author Type: Registered Nurse Filed: 03/11/16 2351 Date of Service: 03/11/16 5592 Status: Signed Roof Service Technician: Priya Lima RN (Registered Nurse) Report called to receiving RN at [facility]. Patient is resting comfortably moustapha iting transport. [...] Date of Service: 03/11/16 1240 Status: Signed Roof Service Technician: Krystyna Kim RPH (Pharmacist) Renal Dosing Monitoring: [...] Ariadna Gonzalez RN Service: (none) Author Type: Finisher Denture Filed: 03/11/16 1024 Date of Service: 03/11/16 1020 Status: Signed Roof Service Technician: Ariadna Gonzalez RN (Finisher Denture) 03/11/16 1019 Discharge Planning Evaluation Admitting Diagnosis Acute Respiratory distress Readmission No Living Arrangements Alone Support Systems Friends/neighbors;Family members Type of Residence Private residence House type House-1 story Steps to enter 2 Bathrooms on 1st Floor 1-Full Independent with ADL's Yes Independent with Mobility Yes Home Care Services No Caregiver after Discharge No Mental Status Oriented Prior functional status independent Power of Almond Blancher Hand No Anticipated Discharge Plan Post Acute Care [...] PCP is: BUBBA DAIGLE Patient's insurance: [facility] Coverage concerns: no Medication coverage/concerns: [...] 03/11/16954 Date of Service: 03/11/16932 Status: Addendum Roof Service Technician: Stephanei Holloway MD (Physician) Related Notes: Original Note by Stephanie Holloway MD (Physician) filed at 03/11/16936 Noted that the patients ck-troponin has spiked 37. Likely acute LA with pulmonary edema. Getting Echo. D/w Cardio Dr Mckeon for assistance and recs. Mentioned no cath available in [facility] until Saturday. Already on heparin, BB, lasix, nitro, asa. Statins. Likely needs cat h sooner rather than later. onversion Transactio n, Provider Unknown - 03/11/2016 7:39 AM PDT Progress Notes by Tia Neil RPH at 03/11/16 8304 Author: Tia Neil RPH Service: (none) Author Type: Pharmacist Filed: 03/11/1639 Date of Service: 03/11/16738 Status: Signed Roof Service Technician: Tia Neil RPH (Pharmacist) Called Dr. Ferrer to verify DC of Lovenox-new order To start heparin drip. Pharmacist; TIA NEIL 03/11/2016 7:38 AM onver lucio Transaction, Provider Unknown - 03/11/2016 2:13 AM PDT Nurse Progress Note by Krystyna Aguila RN at 03/11/16212 Author: Krystyna Aguila RN Service: (none) Author Type: Registered Nurse Filed: 03/11/1656 Date of Service: 03/11/16212 Status: Addendum Roof Service Technician: Krystyna Aguila RN (Registered Nurse) Related Notes: [...] | | | | | [place], [place] | | | | | | [address] | | | | | | | [...] EXTERNAL | | | | performed at [facility] | | LAB | | | | [address];[place] | | | | | | [address] | | | | + + + [...] | | | | | | ACUTE LA CALLED NURSING | | | | | | UNITKELSEY/6RP @ 1303 BY | | | | | | BURTREAD BACK RESULTS | | | | | | VERIFIEDTesting | | | | | | performed at [facility];[address] | | | | | | [facility];[place], [place] | | | | | | [address] | | | | + + + [...] EXTERNAL | | | | performed at [facility];[address] | | LAB | | | | [facility];[place] | | | | | | [address] | | | | + + + [...] Excursion: 1.97 | | | cm E-F [place]: 0.10 m/s HR: 74.74 BPM AV maxP.15 [...] TV A Jett: 0.43 m/s TV Dec [place]: 1.27 m/s2 | | | TV Dec Time: 241.83 ms TV E Jett: 0.30 m/s TV E/A Ratio: | | | 0.70 Paper And Pulp Mill Operator: Authenticated by: Angel Mckeon MD, FACC, | | | FACP, FASNC Report Date/Time: 03-11-2016 15:01:57 | | + + + + + | Procedure Note | + + | Didier Sepulveda Conversion - 05/28/2019 6:50 PM PDT Patient Name: Monalisa DOMINGUEZ of | | : 1930 Performing Physician: Angel Mckeon MD, [facility], | | JARKE, | | CATY INDICATIONS--------- | | --Shortness [...] | | (A-L): 21.43 ml/m2LAAs A2C: 15.29 we6HVPMB A-L A2C: 43.47 mlLALs A2C: 4.56 | | cmLAAs A4C: 13.41 [id number] A-L A4C: 30.82 mlLALs A4C: 4.95 cmAo Diam: 3.85 cmAV | | Cusp: 1.79 cmLA Diam: 3.06 cmLA/Ao: 0.79%FS: 38.46 %EDV(Teich): 125.63 | | mlEF(Teich): 68.41 %ESV(Teich): 39.67 mlIVSd: 1.09 cmIVSs: 1.54 cmLVIDd: 5.13 | | cmLVIDs: 3.15 cmLVPWd: 1.06 cmLVPWs: 1.42 cmSV(Teich): 85.95 mlD-E Excursion: | | 1.97 cmE-F [place]: 0.10 m/sHR: 74.74 BPMAV maxP.15 mmHgAV meanP.26 mmHgAV | | Vmax: 1.13 m/José Miguel Vmean: 0.87 m/José Miguel VTI: 22.75 cmAVA Vmax: 2.06 cm2AVA (VTI): | | 2.00 db9HFJN Dopp: 1.88 l/dggk0SCTA Dopp: 3.35 l/minHR: 73.47 BPMLVOT maxPG: | [...] A Jett: 0.43 m/sTV | | Dec [place]: 1.27 m/s2TV Dec Time: 241.83 msTV E Jett: 0.30 m/sTV E/A Ratio: 0.70 | | Paper And Pulp Mill Operator: ASAuthenticated by: Angel Mckeon MD, FACC, FACP, [...] | |D-E Excursion: 1.97 cm | |E-F [place]: 0.10 m/s | |HR: 74.74 BPM | [...] A Jett: 0.43 m/s | |TV Dec [place]: 1.27 m/s2 | |TV Dec Time: 241.83 ms | |TV E Jett: 0.30 m/s | |TV E/A Ratio: 0.70 | | | |Paper And Pulp Mill Operator: | |Authenticated by: Angel Mckeon MD, FACC, [...] | | | Patient | performed at [facility];[address] | | LAB | | | | [address];[place], [place] | | | | | | [address] | | | | + + + [...] | | | | | performed at [facility];[address] | | | | | | [facility];[place], [place] | | | | | | [address] | | | | + + + [...] EXTERNAL | | | | performed at [facility] | | LAB | | | | [facility];[place], [place] | | | | | | [address] | | | | + + + [...] | | | | | | ACUTE LA CALLED NURSING | | | | | | [id number] HECTOR [place] AT | | | | | | 06:52 BY EW READ BACK | | | | | | RESULTS VERIFIEDTesting | | | | | | performed at [facility] | | | | | | [address];[place], [place] | | | | | | [address] | | | | + + + [...] K/uL | LAB | | | | [facility];[address];[place] [address] | | | | + + + + + + | RED CELL | 3.77Comment: Testing | 3.70 - 5.10 | EXTERNAL | | | COUNT | performed at [facility];[address] | M/uL | LAB | | | | [address];[place] | | | | | | [address] | | | | + + + + + + | Hgb | 11.0 (L)Comment: Testing | 11.3 - 15.5 | EXTERNAL | | | | performed at [facility];[address] | g/dL | LAB | | | [address];[place] | | | | | | [address] | | | | + + + + + + | Hematocrit, | 32.6 (L)Comment: Testing | 34.0 - 46.0 % | EXTERNAL | | | POC | performed at [facility];[address] | | LAB | | | [address];[place] | | | | | | [address] | | | | + + + + + + | MCV | 86.5Comment: Testing | 80.0 - 100.0 fl | EXTERNAL | | | | performed at [facility];[address] | | LAB | | | [address];[place] | | | | | | [address] | | | | + + + + + + | MCH | 29.1Comment: Testing | 27.0 - 34.0 pg | EXTERNAL | | | | performed at [facility];[address] | | LAB | | | [address];[place] | | | | | | [address] | | | | + + + + + + | MCHC | 33.6Comment: Testing | 32.0 - 35.5 | EXTERNAL | | | | performed at [facility];[address] | g/dL | LAB | | | | [address];[place] | | | | | | [address] | | | | + + + + + + | RDW-CV | 44.6Comment: Testing | 37 - 53 fl | EXTERNAL | | | | performed at [facility];[address] | | LAB | | | | [address];[place] | | | | | | [address] | | | | + + + + + + | Platelet | 204Comment: Testing | 150 - 400 K/uL | EXTERNAL | | | Count | performed at [facility];[address] | | LAB | | | Plasma | [address];[place] | | | | | | [address] | | | | + + + + + + | MPV | 8.5Comment: Testing | fl | EXTERNAL | | | | performed at [facility];[address] | | LAB | | | | [address];[place] | | | | | | [address] | | | | + + + + + + | Differentia | AUTOMATEDComment: | | EXTERNAL | | | l Type | Testing performed at | | LAB | | | | [facility];[address];[place] [address] | | | | + + + + + + | % Segmented | 85.71Comment: Testing | % | EXTERNAL | | | | performed at [facility];[address] | | LAB | | | Neutrophils | [address];[place] | | | | | | [address] | | | | + + + + + + | % | 6.65Comment: Testing | % | EXTERNAL | | | Lymphocytes | performed at [facility];[address] | | LAB | | | | [address];[place] | | | | | | [address] | | | | + + + + + + | % Monocytes | 6.94Comment: Testing | % | EXTERNAL | | | | performed at [facility];[address] | | LAB | | | | [address];[place] | | | | | | [address] | | | | + + + + + + | % | 0.39Comment: Testing | % | EXTERNAL | | | Eosinophils | performed at [facility];[address] | | LAB | | | | [address];[place] | | | | | | [address] | | | | + + + + + + | % Basophils | 0.31Comment: Testing | % | EXTERNAL | | | | performed at [facility];[address] | | LAB | | | | [address];[place] | | | | | | [address] | | | | + + + + + + | Absolute | 12.66 (H)Comment: | 1.90 - 7.40 | EXTERNAL | | | Segmented | Testing performed at | K/uL | LAB | | | Neutrophils | [facility];[address];[place] [address] | | | | + + + + + + | Absolute | 0.98 (L)Comment: Testing | 1.00 - 3.90 | EXTERNAL | | | Lymphocytes | performed at [facility];[address] | K/uL | LAB | | | | [address];[place] | | | | | | [address] | | | | + + + + + + | Absolute | 1.03 (H)Comment: Testing | 0.00 - 0.80 | EXTERNAL | | | Monocytes | performed at [facility];[address] | K/uL | LAB | | | | [address];[place] | | | | | | [address] | | | | + + + + + + | Absolute | 0.06Comment: Testing | 0.00 - 0.50 | EXTERNAL | | | Eosinophils | performed at [facility];[address] | K/uL | LAB | | | | [address];[place] | | | | | | [address] | | | | + + + + + + | Absolute | 0.05Comment: Testing | 0.00 - 0.10 | EXTERNAL | | | Basophils | performed at [facility];[address] | K/uL | LAB | | | | [address];[place] | | | | | | [address] | | | | + + + + + + | RBC | RBC AND PLT MORPHOLOGY | | EXTERNAL | | | Morphology | APPEAR NORMALComment: | | LAB | | | | Testing performed at | | | | | | [facility];[address] | [address];[place] [address] | | | | + + + + + + | Platelet | ADEQUATEComment: Testing | | EXTERNAL | | | Estimate | performed at [facility];[address] | | LAB | | | | [address];[place] | | | | | | [address] | | | | + + + + + + | Differentia | SLIDE SCANNED, AGREES | | EXTERNAL | | | l Comments | WITH AUTOMATED | | LAB | | | | RESULTS.Comment: Testing | | | | | | performed at [facility];[address] | | | | | | [address];[place] | | | | | | [address] | | | | + + + [...] EXTERNAL | | | | performed at [facility];[address] | | LAB | | | | [address];[place], [place] | | | | | | [address] | | | | + + + [...] EXTERNAL | | | | performed at [facility] | | LAB | | | | [address];[place], [place] | | | | | | [address] | | | | + + + [...] EXTERNAL | | | | performed at [facility];[address] | | LAB | | | | [address];[place] | | | | | | [address] | | | | + + + [...] EXTERNAL | | | | performed at [facility];[address] | mmol/L | LAB | | | | [address];[place] | | | | | | [address] | | | | + + + + + + | K | 3.5Comment: Testing | 3.5 - 4.9 | EXTERNAL | | | | performed at [facility];[address] | mmol/L | LAB | | | | [address];[place] | | | | | | [address] | | | | + + + + + + | Cl | 98 (L)Comment: Testing | 99 - 109 mmol/L | EXTERNAL | | | | performed at [facility];[address] | | LAB | | | | [address];[place] | | | | | | [address] | | | | + + + + + + | CO2 | 28Comment: Testing | 23 - 32 mmol/L | EXTERNAL | | | | performed at [facility];[address] | | LAB | | | | [address];[place] | | | | | | [address] | | | | + + + + + + | Anion Gap | 13Comment: Testing | 5 - 20 mmol/L | EXTERNAL | | | | performed at [facility];[address] | | LAB | | | | [address];[place] | | | | | | [address] | | | | + + + + + + | Glucose, | 129 (H)Comment: Testing | 65 - 99 mg/dL | EXTERNAL | | | Fasting | performed at [facility];[address] | | LAB | | | | [address];[place] | | | | | | [address] | | | | + + + + + + | BUN | 29 (H)Comment: Testing | 8 - 25 mg/dL | EXTERNAL | | | | performed at [facility];[address] | | LAB | | | | [address];[place] | | | | | | [address] | | | | + + + + + + | Creatinine | 1.2 (H)Comment: Testing | 0.50 - 1.00 | EXTERNAL | | | | performed at [facility];[address] | mg/dL | LAB | | | | [address];[place] | | | | | | [address] | | | | + + + + + + | BUN/Creatin | 24Comment: Testing | | EXTERNAL | | | ine Ratio | performed at [facility];[address] | | LAB | | | | [address];[place] | | | | | | [address] | | | | + + + + + + | Calcium | 8.3 (L)Comment: Testing | 8.5 - 10.5 | EXTERNAL | | | | performed at [facility];[address] | mg/dL | LAB | | | | [address];[place], [place] | | | | | | [address] | | | | + + + [...] | | | | | | at [facility];[address];[place] [address] | | | | + + + [...] EXTERNAL | | | | performed at [facility];[address] | | LAB | | | | [address];[place] | | | | | | [address] | | | | + + + [...] | | | | | | ACUTE LA CKTRP PHONED TO | | | | | | 6RP [place] AT [address]100 | | | | | | BY QPD BACK RESULTS | | | | | | VERIFIEDTesting | | | | | | performed at [facility];[address] | | | | | | [address];[place], [place] | | | | | | [address] | | | | + + + [...] EXTERNAL | | | | performed at [facility];[address] | | LAB | | | | [address];[place], [place] | | | | | | [address] | | | | + + + [...]
--- OUTSIDE RECORDS SUMMARY | ~2019-08-28 | XMS | Encounter Summary ---
Demographics + + + | Address | [address] | | | [place] [address] | + + + | Home Phone | | + + + | Preferred Language | Unknown | + + + | Marital Status | | + + + | Taoist Affiliation | 1028 | + + + | Race | Unknown | + + + | Ethnic Group | Unknown | + + + Author + + + | Author | [facility] | | | and [place] | + + + | Organization | [facility] | | [...] Team Providers + +------+ + | Care Barrel Leveler Name | Role | Phone | + +------+ + | Bubba Peña MD | PCP | | + +------+ + Encounter Details +--------+ + + + + | Date | Type | Department | Care Team | Description | +--------+ + + + + | 12/27/ | Orders Only | [facility] | Conversion | | | 2018 | | NEPHROLOGY JAILYN | Transaction, | | | | | [address] | Provider Unknown | | | | | [place] | [phone] | | | | | [address] | (Fax) | | | | | [phone] | | | +--------+ + + + [...] | | | | | [place], [place] | | | | | | [address] | | | | | | | [...] 1.014 | | EXTERNAL | | | [place] | | | LAB | | + [...]
--- OUTSIDE RECORDS SUMMARY | ~2019-08-28 | XMS | Encounter Summary ---
Demographics + + + | Address | [address] | | | [place] [address] | + + + | Home Phone [...] Team Providers + +------+ + | Care Armored Service Technician Name | Role | Phone | + +------+ + | Bubba Peña MD | PCP | | + +------+ + Encounter Details +--------+ + + + + | Date | Type | Department | Care Team | Description | +--------+ + + + + | 04/29/ | Orders Only | [facility] | Conversion | | | 2019 | | NEPHROLOGY DANIEL | Transaction, | | | | | [address] | Provider Unknown | | | | | [address] | [phone] | | | | | [address] | (Fax) | | | | | [phone] | | | +--------+ + + + [...] | | | | | [place], [place] | | | | | | [address] | | | | | | | [...]
--- OUTSIDE RECORDS SUMMARY | ~2019-08-28 | XMS | Encounter Summary ---
Demographics + + + | Address | [address] | | | [place] [address] | + + + | Home Phone | | + + + | Preferred Language | Unknown | + + + | Marital Status | | + + + | Buddhism Affiliation | 1028 | + + + | Race | Unknown | + + + | Ethnic Group | Unknown | + + + Author + + + | Author | [facility] | | | and [place] | + + + | Organization | [facility] | | [...] Team Providers + +------+ + | Care Scroll Machine Operator Name | Role | Phone | [...] [address] | | | | | [place], [place] | [place], [place] | | | | | [address] | [address] | | | | | [phone] | | | +--------+ + + + [...] | | | | | [place] | | | | | | [address] | | | | | | | | +--------+---------+ + + + documented as of this encounter Visit Diagnoses Not on filedocumented in this encounter"
--- OUTSIDE RECORDS SUMMARY | ~2019-08-28 | XMS | Encounter Summary ---
Demographics + + + | Address | [address] | | | [place] [address] | + + + | Home Phone | | + + + | Preferred Language | Unknown | + + + | Marital Status | | + + + | Faith Affiliation | 1028 | + + + | Race | Unknown | + + + | Ethnic Group | Unknown | + + + Author + + + | Author | [facility] | | | and [place] | + + + | Organization | [facility] | | [...] Team Providers + +------+ + | Care Radio Machinist Name | Role | Phone | + +------+ + PCP | Unavailable | + +------+ + Encounter Details +--------+ + + + + | Date | Type | Department | Care Team | Description | +--------+ + + + + | 02/11/ | Hospital | [facility] | Nita, | | | 2006 - | Encounter | [facility] | Zana Villalta MD [address] | | | | CENTER [address] | [facility] | | | 03/13/ | | [place] | [place] [address] | | | 2006 | | [address] | [phone] | | | | | [phone] | | | +--------+ + + + [...] | | | | | [place] | | | | | | [address] | | | | | | | | +--------+---------+ + + + documented as of this encounter Visit Diagnoses Not on filedocumented in this encounter"
--- OUTSIDE RECORDS SUMMARY | ~2019-08-28 | XMS | Encounter Summary ---
Demographics + + + | Address | [address] | | | [place] [address] | + + + | Home Phone | | + + + | Preferred Language | Unknown | + + + | Marital Status | | + + + | Jew Affiliation | 1028 | + + + | Race | Unknown | + + + | Ethnic Group | Unknown | + + + Author + + + | Author | [facility] | | | and [place] | + + + | Organization | [facility] | | | [...] Providers + +------+ + | Care Seat Builder Name | Role | Phone | + [...] | | | | | DDD | [address] | | | | | | (degenerativ | Phone: | | | | | | e disc | [phone] | | | | | | disease), | Fax: | | | | | | lumbar | [phone] | | | | | | Foraminal [...] | | region | [address] | [address] Phone: | | | | | Foraminal | [place], | [phone] | | | | | stenosis of | [place] [address] | Fax: | | | | | lumbar | Phone: | [phone] | | | | | region | [phone] | | | | | | Lumbar | Fax: | | | | | | radiculopath | [phone] | | | | | | y [...] + + | 02/07/ | Office | [facility] | [place], | Lumbar radiculopathy | | 2017 | Visit | PHYSIATRY [address] | [address] | (Primary Dx); | | | | [address] [place], | [address] [place], | 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 Clemons 2) Physical Therapy at the [facility] in [place] SOPHIE PROTOCOL Spinal Stenosis: Stenosis [...] of blood sugars if you are diabetic. dedicated intermodal truck driver risk can lead to [...] of the procedure you must provide a parts delivery driver to take you home. For all [...] famotidine (PEPCID) 20 mg tablet Daily. 1 Wzpgyishhlg-Toehjpmrv-Gss C-Mn (GLUCOSAMINE-CHONDROITIN) CAPS Take 1,500 mg by [...] has no apparent deficits with short or terminal carman memory. She has appropriate fund of knowledge [...] ferral was sent to the [facility] in [place]. 2. We discussed medications, she does not [...] | | | | | [address] | | | | | | [address] | | | | | | | [...] Dominguez presents to the fluoroscopy suite for [facility] | | fluoroscopically-guided bilateral L5-S1 transforaminal [...] + | [address] | [address] | [place], [place] | [phone] | | [facility] | | [address] | | | - IMAGING | | [...]
--- OUTSIDE RECORDS SUMMARY | ~2019-08-28 | XMS | Encounter Summary ---
Demographics + + + | Address | [address] | | | [place] [address] | + + + | Home Phone | | + + + | Preferred Language | Unknown | + + + | Marital Status | | + + + | Taoist Affiliation | 1028 | + + + | Race | Unknown | + + + | Ethnic Group | Unknown | + + + Author + + + | Author | [facility] | | | and [place] | + + + | Organization | [facility] | | | [...] Team Providers + +------+ + | Care Cow Washer Name | Role | Phone | + +------+ + | Bubba Peña MD | PCP | | + +------+ + Encounter Details +--------+ + + + + | Date | Type | Department | Care Team | Description | +--------+ + + + + | 04/04/ | Hospital | [facility] | Conversion | CAD in chitina | | 2016 - | Encounter | [facility] | Transaction, | artery; Chest | | | | CARE FLOOR 4 888 | Provider Unknown | tightness or | | 04/06/ | | [address] | [phone] | pressure; Shortness | | 2017 | | [place], [place] | | of breath; Sinus | | | | [address] | Alsamara, Ezequielhed, | bradycardia; Chronic | | | | [phone] | MD Ashlie ALFARO | kidney disease, | | | | | [place], [place] | stage III | | | | | [address] | (moderate); Mixed | | | | [...] 0815 Date of Service: 04/06/17745 Status: Signed Handle And Vent Machine Operator: Omar Barajas MD (Physician) [facility] Service: Cardiology Discharge Summary Date of Admission: [...] Alvarez RN at 04/06/17 1022 Author: Paola Alvarez RN Service: (none) Author Type: Registered Nurse Filed: 04/06/177 Date of Service: 04/06/17 102 Status: Signed Handle And Vent Machine Operator: Paola Alvarez RN (Registered Nurse) Groin site [...] 04/05/171621 Date of Service: 04/05/171621 Status: Signed Handle And Vent Machine Operator: Kareen Mabry RN (Registered Nurse) Pt brought [...] Date of Service: 04/05/17 1618 Status: Signed Handle And Vent Machine Operator: Brenda Lujan RN (Registered Nurse) Patient off the floor to the label stitcher. onver lucio Transaction, Provider Unknown - 04/05/2017 2:20 PM PDT Case Management by Sindi Austin RN at 04/05/17 1420 Author: Sindi Austin RN Service: (none) Author Type: Registered Nurse Filed: 04/05/17 1424 Date of Service: 04/05/17 142 Status: Signed Handle And Vent Machine Operator: Sindi Austin RN (Registered Nurse) Met with pt, explained CM's role and discussed discharge planning. Pt lives alone, she is f ully independent with adls and iadls. Denied use of DME and not presently participating in a ri outpatient medical services, no blood thinners, home oxygen, cpap or dialysis. 04/05/17 1417 Discharge Planning Evaluation Admitting Diagnosis Chest pain. Readmission No Living Arrangements Alone Support Systems Children;Friends/neighbors Type of Residence Private residence House type House-1 story Steps to enter 2 Independent with ADL's Yes Independent with Mobility Yes Home Care Services No Caregiver after Discharge No Mental Status Oriented Power of Records Supervisor Yes Power of Records Supervisor Name Reyes Menon Power of Records Supervisor Anticipated Discharge Plan Post Acute Care Needs [...] Patient's PCP is: Bubba Peña Patient's insurance: Medicare/[place] [employer] [place]. Coverage concerns: None. Medication coverage/concerns: Yes/None. Rx [...] | | | | [place], [place] | | | | | | [...] | | | Basophils | performed at [facility], [address] | [address] | LAB | | | | [address], | | | | | | [place] [address] | | | | + + + [...] W | | | | | | [address], | | | | | | [place] [address] | | | | + + + [...] the right common femoral arteriotomy using a 6-Botswanan | | Angio-Seal closure device. 5. Conscious [...] the right common femoral arteriotomy using a 6-Botswanan | | Angio-Seal closure device. 5. Conscious [...] the right common femoral arteriotomy using a 6-Botswanan | | Angio-Seal closure device. 5. Conscious [...] | right common femoral arteriotomy using a 6-Botswanan Angio-Seal closure | | | device. 5. Conscious sedation. INDICATIONS Ms. Dominguez is an | | | 87-year-old lady with known history of coronary artery disease, | | | ischemic cardiomyopathy who developed unstable angina, evaluated in | | | the clinic and referred for diagnostic angiogram. That was done by | | | Karl. An attempt for LAD FINANCIAL ECONOMIST angioplasty yesterday was not | | | [...] | Then over a guidewire a long 7-Botswanan, 45 cm Destination sheath | | | advanced to the descending aorta. The choice of the long sheath was | | | for anticipated needed support with the tortuosity of the left | | | circumflex artery. The patient was given IV heparin and she was | | | preloaded with clopidogrel on the floor. Over a guidewire a 6-Botswanan | | | JR4 guide advanced to [...] guidewire the guide was exchanged for a 7-Botswanan XB3.5 guide that | | | selectively [...] sheath was removed. Arteriotomy closed using a 6-Botswanan | | | Angio-Seal closure device with [...] the right common femoral arteriotomy using a 6-Botswanan | | Angio-Seal closure device. | | 5. Conscious sedation. | | | | INDICATIONS | | Ms. Dominguez is an 87-year-old lady with known history of coronary artery | | disease, ischemic cardiomyopathy who developed unstable angina, evaluated | | in the clinic and referred for diagnostic angiogram. That was done by | | Karl. An attempt for LAD FINANCIAL ECONOMIST angioplasty yesterday was not successful. | | [...] performed. Then over a guidewire a long 7-Botswanan, 45 | | cm Destination sheath advanced to the descending aorta. The choice of the | | long sheath was for anticipated needed support with the tortuosity of the | | left circumflex artery. | | | | The patient was given IV heparin and she was preloaded with clopidogrel on | | the floor. Over a guidewire a 6-Botswanan JR4 guide advanced to the ascending | [...] guidewire the guide was exchanged for a 7-Botswanan XB3.5 guide that | | selectively engaged [...] | | removed. Arteriotomy closed using a 6-Botswanan Angio-Seal closure device with | | good [...] | | | Clotting | performed at [facility];[address] | seconds | LAB | | | time, POC | [address];[place], [place] | | | | | | [address] | | | | + + + [...] | | | Clotting | performed at [facility];888 | seconds | LAB | | | time, POC | [place];[place] | | | | | | [address] | | | | + + + [...] | | | Clotting | performed at [facility];888 | seconds | LAB | | | time, POC | [place] [address] | | | | | | [address] | | | | + + + [...] 2.12 cm D-E Excursion: 1.60 cm E-F Humb[place]t: | | | 0.11 m/s EPSS: 0.97 [...] | | | 0.44 m/s TV Dec [place]: 1.74 m/s2 TV Dec Time: 256.04 ms TV E | | | Jett: 0.44 m/s TV E/A Ratio: 1 Manager Of Compliance: CM | | | Authenticated by: Omar Karl Report Date/Time: 04-04-2017 | | | 22:24:51 | | + + + + ---------+ | Procedure Note | + ---------+ | Didier Sepulveda Conversion - 05/28/2019 4:48 AM PDT Patient Name: Monalisa DOMINGUEZ of | | : 1930 Performing Physician: Omar | | [facility] INDICATIONS------ | | -----acute mi CONCLUSIONS 1. [...] 82.98 mlLVLs A4C: 6.40 cmLAAs A4C: 18.27 mu7SHORB A-L A4C: | | 64.39 mlLAESV MOD A4C: 61.89 mlLALs A4C: 4.40 cmAo Diam: 3.49 cmAV Cusp: 2.12 | | cmD-E Excursion: 1.60 cmE-F Humboldt: 0.11 m/sEPSS: 0.97 cmHR: 66.43 BPMAV maxPG: | | 6.68 mmHgAV meanP.51 mmHgAV Vmax: 1.29 m/José Miguel Vmean: 0.87 m/José Miguel VTI: 28.53 | | cmAVA Vmax: 1.60 cm2AVA (VTI): 1.54 qi6LUXY Vmax: 0.00 cm2/m2AVAI (VTI): 0.00 | | cm2/m2LVCI Dopp: 1.58 l/ujsm9BOZO Dopp: 2.80 l/minHR: 63.75 BPMLVOT maxP.38 | [...] 2.73 m/sTV A Jett: 0.44 m/sTV Dec [place]: | | 1.74 m/s2TV Dec Time: 256.04 msTV E Jett: 0.44 m/sTV E/A Ratio: 1 Manager Of Compliance: | | CMAuthenticated by: Omar [facility] Date/Time: 04-04-2017 22:24:51 IMPRESSION: 1. | | [...] | |D-E Excursion: 1.60 cm | |E-F [place]t: 0.11 m/s | |EPSS: 0.97 cm | [...] A Jett: 0.44 m/s | |TV Dec [place]: 1.74 m/s2 | |TV Dec Time: 256.04 ms | |TV E Jett: 0.44 m/s | |TV E/A Ratio: 1 | | | |Manager Of Compliance: CM | |Authenticated by: Omar Barajas | [...] femoral arteriotomy | | | using a 6-Botswanan Angio-Seal closure device. SURGEON Terrell | | [...] marginal, and an LAD that is a FINANCIAL ECONOMIST. I was asked to attempt for the | | | LAD FINANCIAL ECONOMIST for further evaluation down the road for [...] | | performed. Over a guidewire the 6-Botswanan sheath was exchanged for a | | | 7-Botswanan sheath into the right common femoral artery. The patient was | | | given IV heparin. Over a guidewire a 7-Botswanan XB 3.5 guide advanced | | | to the ascending aorta, selectively engaging the left main. With | | | support of a Finecross, I tried to advance a Projection Engineer 150 wire through | | | the LAD with difficulty, to find the origin of the LAD. I could not | | | advance the co pilot further so I removed the Projection Engineer. I brought a | | | Miraclebros [...] retrieved. Injection through the guide showed some uhpe-tu-gscv | | | collaterals through the left [...] was | | | exchanged for a 6-Botswanan JR4 diagnostic catheter that selectively | | [...] removed. The arteriotomy was controlled using a 6-Botswanan | | | Angio-Seal closure device with [...] the right common femoral arteriotomy using a 6-Botswanan | | Angio-Seal closure device. | | [...] | and an LAD that is a FINANCIAL ECONOMIST. I was asked to attempt for the LAD FINANCIAL ECONOMIST for | | further evaluation down the [...] performed. Over a | | guidewire the 6-Botswanan sheath was exchanged for a 7-Botswanan sheath into the | | right common femoral artery. The patient was given IV heparin. Over a | | guidewire a 7-Botswanan XB 3.5 guide advanced to the ascending aorta, | | selectively engaging the left main. With support of a Finecross, I tried to | | advance a Projection Engineer 150 wire through the LAD with difficulty, to find the | | origin of the LAD. I could not advance the co pilot further so I removed the | | Projection Engineer. I brought a Miraclebros 3 to the [...] retrieved. Injection through the guide showed some cmmr-sh-hgjf collaterals | | through the left circumflex [...] guide | | was exchanged for a 6-Botswanan JR4 diagnostic catheter that selectively | | [...] | | arteriotomy was controlled using a 6-Botswanan Angio-Seal closure device with | | good [...] | | | Clotting | performed at [facility];888 | seconds | LAB | | | time, POC | [place] [address] | | | | | | [address] | | | | + + + [...] used to access right femoral artery. A 6-Botswanan sheath | | | was introduced without any difficulty. Sheath was flushed and | | | hemodynamic system was calibrated. Opening pressure was obtained. | | | Using a 0.035 J wire advanced into the ascending aorta, a 6-Botswanan | | | JL4 catheter was used, advanced over the wire and placed selectively | | | in the left coronary cusp. Wire was removed and catheter was flushed. | | | Catheter engaged selectively in the left coronary system. Contrast | | | was injected and multiple views were obtained. Exchange over the wire | | | was done with a 6-Botswanan JR4 catheter that engaged the right | [...] disease. | | | RCA distally gives akspk-vc-tzcn collaterals to mid LAD. | | | [...] used to access right femoral artery. A 6-Botswanan sheath was | | introduced without any difficulty. Sheath was flushed and hemodynamic | | system was calibrated. Opening pressure was obtained. | | | | Using a 0.035 J wire advanced into the ascending aorta, a 6-Botswanan JL4 | | catheter was used, advanced over the wire and placed selectively in the | | left coronary cusp. Wire was removed and catheter was flushed. Catheter | | engaged selectively in the left coronary system. Contrast was injected and | | multiple views were obtained. Exchange over the wire was done with a | | 6-Botswanan JR4 catheter that engaged the right coronary [...] diffuse disease. | | RCA distally gives dnhzm-vp-vxqm collaterals to mid LAD. | | | [...] EXTERNAL | | | | performed at [facility];[address] | | LAB | | | | [place] [address] | | | | | | [address] | | | | + + + [...] | | | | | | at [facility];[address] [place] [address] | | | | | | [facility];[place] [address] | | | | + + + [...] Diagnosis | + + | CAD in chitina artery Coronary atherosclerosis of chitina coronary artery | + + | Chest [...]
--- OUTSIDE RECORDS SUMMARY | ~2019-08-28 | XMS | Clinical Summary ---
Demographics + + + | Address | [address] | | | [place] [address] | + + + | Home Phone | | + + + | Preferred Language | Unknown | + + + | Marital Status | | + + + | Denominational Affiliation | 1028 | + + + | Race | Unknown | + + + | Ethnic Group | Unknown | + + + Author + + + | Author | [facility] (Historical as of | | | 05-30-19) | + + + | Organization | [facility] (Historical as of | | | 05-30-19) [...] Team Providers + +------+ + | Care Judicial Administrative Assistant Name | Role | Phone | [...] + + | Coronary artery disease involving unga coronary artery of | 04/04/2016 | | unga heart without angina pectoris | | + [...] noLast Cath, 03/12/2016: left main OK, LAD EQUIPMENT ENGINEERING TECHNICIAN, 90% prox-LCx, | | moderate tandom lesions prox/mid-RCA. LCx stented.Last Echo, | | 03/12/2016: LVEF 40%, trace AI, mild MR.Last Stress Test, | | 07/25/2016 ([facility]): Lexiscan, minimal ischemia distal | | cxarlx-xiwyrf-qcjb, moderate dyskinesis, LVEF 56%.48hr HM, | | 06/25/2013: Sinus rhythm 54-116, averaging 76bpm, low frequency | | PACs, PVCs and short bursts of PAT 120-130bpm, no pauses noted, | | no A. fib.ECG, 04/04/2016: sinus rhythm, 69bpm, [place] at upper | | limits, old addie-septal NM, old inferior NM, non-spec ST-T | | changes aVL. | [...] Yarbrough | [place] | | 02/18/ | [id number] | | -04/05/2017Implanted: Qty: 1 | | ry | SCIENTIFIC | | 2018 | [id number] | | on 04/05/2017 by Magdalene, | | | [employer] | | | 00 / | | MD Terrell | | | | | | / | | | | | | | | 630 | + +-------+--------+ +--------+--------+--------+ | Promus Premier 4 X | Stent | Yarbrough | [place] | | 07/19/ | [id number] | | -04/05/2017Implanted: | | ry | SCIENTIFIC | | 2017 | [id number] | | 04/05/2017 by Terrell Del Castillo, | | | CORPORATION | | | 00 / | | (Quantity not on file) | | | | | | / | | | | | | | | 900 | + +-------+--------+ +--------+--------+--------+ | Promus Premier 2.75 X | Stent | Yarbrough | [place] | | 09/25/ | [id number] | | -04/05/2017Implanted: Qty: 1 | | ry | SCIENTIFIC | | 2016 | [id number] | | on 04/05/2017 by Magdalene, | | | [employer] | | | 70 / | | [...] +------+-------+ + | MEDICARE | MEDICA | [id number] | | | [address] | | | RE | | | | [place] [address] | | | [place] | | | | | | | AD | | | | | + +--------+ +------+-------+ + | [employer] [place] | MUTUAL | [id number] | | | | | | OF | | | | | | | [place] | | | | | + +--------+ [...] Self | [birth year] Home: | [address] | | | al/Fam | | 1930 | [phone] | [place] | | | rm | | | [address] | [phone] | + +--------+ +--------+ + +
--- OUTSIDE RECORDS SUMMARY | ~2019-08-28 | XMS | Encounter Summary ---
Demographics + + + | Address | [address] | | | [place] [address] | + + + | Home Phone | | + + + | Preferred Language | Unknown | + + + | Marital Status | | + + + | Sabianism Affiliation | 1028 | + + + [...] Team Providers + +------+ + | Care Crane Service Technician Name | Role | Phone | + +------+ + | Bubba Peña MD | PCP | | + +------+ + Encounter Details +--------+ + + + + | Date | Type | Department | Care Team | Description | +--------+ + + + + | 05/06/ | Orders Only | [facility] | Provider, | | | 2019 | | SYSTEM GENERIC OP | MD [address] | | | | | [address] | [place] | | | | | [address] [place], [place] | [place] [address] | | | | | [address] | | | | | | [phone] | | | +--------+ + + + [...] | 2019 | Visit | | MD Ahslie ALFARO | | | | | | [facility] [place] | | | | | | [address] | | | | | | | | +--------+---------+ + + + documented as of this encounter Visit Diagnoses Not on filedocumented in this encounter"
[~2019-08-28 11:49] MED LIST: ADULT LOW DOSE81 MG PO; CALCIUM600 MG PO; CENTRAL VITE F1 EACH PO; LIPITOR20 MG PO; NORCO 5-325 TA1 EACH PO; PREMARIN42.5 GM VAGINAL; REFRESH TEARS15 ML OPTH
[2019-08-28] MEDS ORDERED: ZITHROMAX250 MG PO (12:15)
--- NOTE | 2019-08-29 19:56 | EKG ---
[facility] [address] [facility] [place] [address] Signed Sinus rhythm with 1st degree AV block Left axis deviation Inferior infarct , age undetermined Anteroseptal infarct , age undetermined Abnormal ECG No previous ECGs available Confirmed by MEGAN LEOS MD ([id number]) on 08/29/2019 7:56:23 PM Electronically Signed By: MEGAN LEOS MD 08/29/191955 PATIENT NAME: ELIANEALO Electrocardiogram DATE OF : [birth year] PHYSICIAN: MEGAN LEOS MD REPORT #: [id number] REPORT IS CONFIDENTIAL AND NOT TO BE RELEASED WITHOUT AUTHORIZATION
== END 2019-08-28 12:25 | disposition home or self-care (01) ==
LOC: ED 11:49
DX: J40 Bronchitis, not specified as acute or chronic (principal); Z79.899 Other long term (current) drug therapy; Z79.82 Long term (current) use of aspirin
CPT/HCPCS: 93005; 93010; 99283-25

== ENCOUNTER 2019-12-21 17:04 | Emergency (ER) | payer MEDICARE, OTHER ==
[~2019-12-21] VITALS: Ht 162.6 cm; Wt 70.3 kg
[~2019-12-21 17:04] MED LIST changes: +ZITHROMAX250 MG PO
[2019-12-21] MEDS ORDERED: OMEPRAZOLE20 MG PO (17:22)
[2019-12-21] MEDS ORDERED: NITROGLYCERIN0.4 MG SL (17:23)
[2019-12-21] MEDS ORDERED: K-TAB ER20 MEQ PO (20:00)
[2019-12-21] MEDS ORDERED: LASIX20 MG PO (20:00)
== END 2019-12-21 20:10 | disposition home or self-care (01) ==
LOC: ED 17:04
DX: I50.9 Heart failure, unspecified (principal); R06.00 Dyspnea, unspecified; Z79.899 Other long term (current) drug therapy; Z79.82 Long term (current) use of aspirin
CPT/HCPCS: 71045; 80053; 83735; 83880; 84484; 85025; 99284-25